=== PATIENT | male | born 1935 | race Caucasian/White ===

== ENCOUNTER → 2017-08-21 13:32 | Outpatient (CLI) | payer MEDICARE, OTHER, SELFPAY ==
[2017-08-21 14:04] LABS: INR 3.5 (0.9-1.3); Prothrombin Time 37.1 SECONDS (10.1-12.7)
== END ==
PROVIDERS: Family Provider Family Medicine; PCP Family Medicine; Visit Provider Family Medicine
DX: I48.91 Unspecified atrial fibrillation (principal)
CPT/HCPCS: 36415; 85610

== ENCOUNTER → 2017-09-23 12:29 | Outpatient (CLI) | payer MEDICARE, OTHER, SELFPAY ==
[2017-09-23 13:20] LABS: Prothrombin Time 32.7 SECONDS (10.1-12.7)
== END ==
PROVIDERS: Family Provider Family Medicine; PCP Family Medicine; Visit Provider Family Medicine
DX: I48.91 Unspecified atrial fibrillation (principal)
CPT/HCPCS: 36415; 85610

== ENCOUNTER → 2017-10-23 12:48 | Outpatient (CLI) | payer MEDICARE, OTHER, SELFPAY ==
[2017-10-23 13:16] LABS: INR 3.5 (0.9-1.3); Prothrombin Time 39.2 SECONDS (10.1-12.7)
== END ==
PROVIDERS: Family Provider Family Medicine; PCP Family Medicine; Visit Provider Family Medicine
DX: I48.91 Unspecified atrial fibrillation (principal)
CPT/HCPCS: 36415; 85610

== ENCOUNTER → 2017-11-26 09:08 | Outpatient (CLI) | payer MEDICARE, OTHER, SELFPAY ==
[2017-11-26 10:05] LABS: INR 3.2 (0.9-1.3); Prothrombin Time 35.3 SECONDS (10.1-12.7)
== END ==
PROVIDERS: PCP Family Medicine; Visit Provider Family Medicine
DX: I48.91 Unspecified atrial fibrillation (principal)
CPT/HCPCS: 36415; 85610

== ENCOUNTER → 2017-12-03 12:04 | Outpatient (CLI) | payer MEDICARE, OTHER, SELFPAY ==
[2017-12-03 12:35] LABS: INR 1.3 (0.9-1.3); Prothrombin Time 14.4 SECONDS (10.1-12.7)
== END ==
PROVIDERS: Family Provider Ophthalmology; PCP Family Medicine; Visit Provider Family Medicine
DX: I48.91 Unspecified atrial fibrillation (principal)
CPT/HCPCS: 36415; 85610

== ENCOUNTER → 2017-12-12 11:57 | Outpatient (CLI) | payer MEDICARE, OTHER, SELFPAY ==
[2017-12-12 12:48] LABS: INR 2.2 (0.9-1.3); Prothrombin Time 24.3 SECONDS (10.1-12.7)
== END ==
PROVIDERS: Family Provider Internal Medicine Cardiovascular Disease; PCP Family Medicine; Visit Provider Family Medicine
DX: I48.91 Unspecified atrial fibrillation (principal)
CPT/HCPCS: 36415; 85610

== ENCOUNTER → 2018-01-04 09:15 | Outpatient (CLI) | payer MEDICARE, OTHER, SELFPAY ==
[2018-01-04 09:57] LABS: Hematocrit 45.4 % (41-53); Hemoglobin 15.4 g/dL (13.5-17.5); Mean Corpuscular HGB Conc 33.8 % (30-36); Mean Corpuscular Volume 97.5 fL (80-100); Platelet Count 184 X10^3/uL (150-400); Red Blood Cell Count 4.66 X10^6/uL (4.5-5.9); Red Cell Distribution Width 13.4 % (11.6-14.8); White Blood Cell Count 5.7 X10^3/uL (4.5-11.0)
[2018-01-04 09:59] LABS: Alanine Aminotransferase 37 IU/L (21-72); Albumin 4.5 g/dL (3.5-5.0); Albumin Globulin Ratio 1.4 (1.0-2.8); Alkaline Phosphatase 68 U/L (38-126); Aspartate Aminotransferase 36 IU/L (17-59); BUN Creatinine Ratio 23.8 (6-22); Bilirubin Total 1.6 mg/dL (0.2-1.3); Blood Urea Nitrogen 19 mg/dL (9-20); Calcium 9.2 mg/dL (8.4-10.2); Carbon Dioxide 29 mmol/L (22-32); Chloride 104 mmol/L (98-107); Cholesterol 193 mg/dL (140-199); Estimated Glomerular Filt Rate > 60.0 mL/min (>60); Globulin 3.2 g/dL (1.7-4.1); Glucose 92 mg/dL (80-110); HDL Cholesterol 66 mg/dL (40-60); HEMOLYSIS < 15 (0-50); LDL Cholesterol Calculated 115 mg/dL (<100); Potassium 4.2 mmol/L (3.4-5.1); Sodium 144 mmol/L (137-145); Total Protein 7.7 g/dL (6.3-8.2); Triglycerides 61 mg/dL (35-150)
[2018-01-04 10:30] LABS: Thyroid Stimulating Hormone 1.58 uIU/mL (0.47-4.68)
== END ==
PROVIDERS: Family Provider Internal Medicine Cardiovascular Disease; PCP Family Medicine; Visit Provider Family Medicine
DX: I48.91 Unspecified atrial fibrillation (principal); E80.4 Gilbert syndrome
CPT/HCPCS: 36415; 80053; 80061; 84443; 85027

== ENCOUNTER → 2018-01-09 09:18 | Outpatient (CLI) | payer MEDICARE, OTHER, SELFPAY ==
[2018-01-09 10:48] LABS: INR 2.9 (0.9-1.3); Prothrombin Time 32.3 SECONDS (10.1-12.7)
== END ==
PROVIDERS: Family Provider Internal Medicine Cardiovascular Disease; PCP Family Medicine; Visit Provider Family Medicine
DX: I48.91 Unspecified atrial fibrillation (principal)
CPT/HCPCS: 36415; 85610

== ENCOUNTER 2018-01-21 09:04 | Day surgery (SDC) | payer MEDICARE, OTHER, SELFPAY ==
[2018-01-21 10:09] VITALS: BP 158/91; PULSE 60; RESP 16; TEMP 36; O2SAT 98; BMI 23.7
[2018-01-21] MEDS: PROPARACAINE 0.5% OPHTH SOL 2 DROPS EYE-OP (10:31)
[2018-01-21] MEDS: CATARACT EYE COMPOUND (10 DROPS/SYRINGE) 3 DROPS EYE-OP (10:32)
[2018-01-21 10:39] VITALS: BMI 23.7
--- NOTE | 2018-01-21 11:21 | PM.PREOP ---
Pre-operative Note Interval Note Changes: No
--- NOTE | 2018-01-21 11:22 | P.OP.PRE_ITS ---
Pre-operative Note Interval Note Changes: No
--- NOTE | 2018-01-21 11:22 | P.OP_ITS ---
Operative Date/Time/Diagnoses Pre-op diagnosis: Nuclear cataract right eye Procedure & Clinicians Procedure: Cataract Surgery Same procedure as scheduled: Yes Surgeon: Conrado Mayorga Anesthesia Type: MAC +/- and Sedation Operative Notes Procedure in detail: Patient brought to the operating suite. Tetracaine drops placed in the right eye. Patient was prepped and draped in sterile manner. Wire lid speculum was placed in the eye. Betadine drops were placed on the eye. This was irrigated. Lidocaine jelly was placed on the eye. A paracentesis port was created with a side-port blade. 0.1 mL 1% preservative free lidocaine was injected into the anterior chamber. The anterior chamber was deepened with viscoelastic. 2.6 mm keratome was used to create a temporal clear corneal incision. Cystotome and Utrata forceps were used to create continuous tear capsulorrhexis. Balanced salt solution was used to hydro dissect the nucleus. The phacoemulsification handpiece was inserted and the nucleus was removed using the stop and chop technique. The irrigation aspiration handpiece was inserted and the remaining cortex was removed. Anterior chamber was deepened with viscoelastic. An Hackett ZCB00 intraocular lens with a power of 22.5 was injected into the capsular bag. Irrigation aspiration handpiece was inserted and the remaining viscoelastic was removed. Incision was hydrated with balanced salt solution and found to be leak free with pressure with Weck- Monica sponges. 0.1 mL Vigamox injected anterior chamber. 0.3 mL Kenalog 10 mg was injected subconjunctivally. Lid speculum was removed. The patient left the operating room in excellent condition. Complications: none Condition: stable Disposition: same day surgery
--- NOTE | 2018-01-21 11:32 | SUR.OPER ---
Supine on eye stretcher, head on extension cradle secured with tape. Arms tucked at sides with blanket. Pillow under knees.
[2018-01-21] MEDS: LIDOCAINE JELLY 2% 5 ML 1 APPLIC TOP (11:34)
[2018-01-21] MEDS: CHONDROIDTIN/SOD HYALURONATE 1.05 ML SYRINGE INTRAOCULA (11:34)
[2018-01-21] MEDS: MOXIFLOXACIN OPHTH DROPS 3 ML BOTTLE 2 DROPS INJ (11:35)
[2018-01-21] MEDS: TETRACAINE 0.5% OPHTH DROPS 15 ML 2 DROPS EYE-RIGHT (11:35)
[2018-01-21] MEDS: PHENYLEPHRINE/LIDOCAINE VIAL (OR) 0.2 ML EYE-OP (11:35)
[2018-01-21] MEDS: TRIAMCINOLONE 50 MG/5 ML VIAL INJ (11:36)
[2018-01-21] MEDS: BALANCED SALT IRRIG SOLN NO.2 500 ML, EPINEPHrine 1 MG IRR (11:36)
[2018-01-21 11:50] VITALS: BP 139/76; PULSE 62; RESP 15; TEMP 36.2; O2SAT 62
[2018-01-21 12:19] VITALS: BP 151/83; PULSE 58; RESP 16; TEMP 36.6; O2SAT 99
== END 2018-01-21 12:19 ==
LOC: OR 09:05
PROVIDERS: Family Provider Internal Medicine Cardiovascular Disease; PCP Family Medicine; Visit Provider Ophthalmology
DX: H25.11 Age-related nuclear cataract, right eye (principal); I48.91 Unspecified atrial fibrillation
CPT/HCPCS: J0171; J2250; J3010; J3301

== ENCOUNTER → 2018-02-08 11:02 | Outpatient (CLI) | payer MEDICARE, OTHER, SELFPAY ==
[2018-02-08 12:06] LABS: INR 3.4 (0.9-1.3); Prothrombin Time 37.3 SECONDS (10.1-12.7)
== END ==
PROVIDERS: Family Provider Internal Medicine Cardiovascular Disease; PCP Family Medicine; Visit Provider Family Medicine
DX: I48.91 Unspecified atrial fibrillation (principal)
CPT/HCPCS: 36415; 85610

== ENCOUNTER → 2018-03-05 11:06 | Outpatient (CLI) | payer MEDICARE, OTHER, SELFPAY ==
[2018-03-05 11:38] LABS: INR 3.6 (0.9-1.3)
== END ==
PROVIDERS: Family Provider Internal Medicine Cardiovascular Disease; PCP Family Medicine; Visit Provider Family Medicine
DX: I48.91 Unspecified atrial fibrillation (principal)
CPT/HCPCS: 36415; 85610

== ENCOUNTER → 2018-03-20 14:13 | Outpatient (CLI) | payer MEDICARE, OTHER, SELFPAY ==
[2018-03-20 14:31] LABS: INR 2.6 (0.9-1.3)
== END ==
PROVIDERS: Family Provider Internal Medicine Cardiovascular Disease; PCP Family Medicine; Visit Provider Family Medicine
DX: I48.91 Unspecified atrial fibrillation (principal)
CPT/HCPCS: 36415; 85610

== ENCOUNTER → 2018-04-17 13:20 | Outpatient (CLI) | payer MEDICARE, OTHER, SELFPAY ==
[2018-04-17 14:54] LABS: INR 2.6 (0.9-1.3); Prothrombin Time 30.1 SECONDS (10.1-12.7)
== END ==
PROVIDERS: Family Provider Internal Medicine Cardiovascular Disease; PCP Family Medicine; Visit Provider Family Medicine
DX: I48.91 Unspecified atrial fibrillation (principal)
CPT/HCPCS: 36415; 85610

== ENCOUNTER → 2018-05-15 11:54 | Outpatient (CLI) | payer MEDICARE, OTHER, SELFPAY ==
[2018-05-15 13:26] LABS: INR 2.8 (0.9-1.3); Prothrombin Time 32.9 SECONDS (10.1-12.7)
== END ==
PROVIDERS: PCP Family Medicine; Visit Provider Family Medicine
DX: I48.91 Unspecified atrial fibrillation (principal)
CPT/HCPCS: 36415; 85610

== ENCOUNTER → 2018-06-12 12:39 | Outpatient (CLI) | payer MEDICARE, OTHER, SELFPAY ==
[2018-06-12 13:15] LABS: INR 2.6 (0.9-1.3); Prothrombin Time 30.6 SECONDS (10.1-12.7)
== END ==
PROVIDERS: PCP Family Medicine; Visit Provider Family Medicine
DX: I48.91 Unspecified atrial fibrillation (principal)
CPT/HCPCS: 36415; 85610

== ENCOUNTER → 2018-07-14 10:25 | Outpatient (CLI) | payer MEDICARE, OTHER, SELFPAY ==
[2018-07-14 11:02] LABS: INR 2.5 (0.9-1.3)
== END ==
PROVIDERS: PCP Family Medicine; Visit Provider Family Medicine
DX: I48.91 Unspecified atrial fibrillation (principal)
CPT/HCPCS: 36415; 85610

== ENCOUNTER → 2018-08-11 11:59 | Outpatient (CLI) | payer MEDICARE, OTHER, SELFPAY ==
[2018-08-11 13:03] LABS: INR 2.8 (0.9-1.3); Prothrombin Time 32.7 SECONDS (10.1-12.7)
== END ==
PROVIDERS: PCP Family Medicine; Visit Provider Family Medicine
DX: I48.91 Unspecified atrial fibrillation (principal)
CPT/HCPCS: 36415; 85610

== ENCOUNTER → 2018-09-09 11:17 | Outpatient (CLI) | payer MEDICARE, OTHER, SELFPAY ==
[2018-09-09 13:07] LABS: INR 2.5 (0.9-1.3)
== END ==
PROVIDERS: PCP Family Medicine; Visit Provider Family Medicine
DX: I48.91 Unspecified atrial fibrillation (principal)
CPT/HCPCS: 36415; 85610

== ENCOUNTER → 2018-10-09 12:08 | Outpatient (CLI) | payer MEDICARE, OTHER, SELFPAY ==
[2018-10-09 12:54] LABS: INR 2.4 (0.9-1.3); Prothrombin Time 27.9 SECONDS (10.1-12.7)
== END ==
PROVIDERS: PCP Family Medicine; Visit Provider Family Medicine
DX: I48.91 Unspecified atrial fibrillation (principal)
CPT/HCPCS: 36415; 85610

== ENCOUNTER → 2018-11-05 17:00 | Outpatient (CLI) | payer MEDICARE, OTHER, SELFPAY ==
--- NOTE | 2018-11-05 17:04 | DI.RAD.S_ITS ---
PROCEDURE: XR ANKLE RT MIN 3V INDICATIONS: RIGHT ANKLE PAIN WITH ULCER TECHNIQUE: 3 views of the ankle were acquired. COMPARISON: None. FINDINGS: Bones: No fractures or dislocations. Ankle mortise is normally aligned. Osteophytic changes are noted in tibiotalar joint, subtalar joint and talonavicular joint. No suspicious bony lesions. Soft tissues: No tibiotalar joint effusion. Achilles tendon appears normal. Soft tissue swelling around ankle joint is seen. IMPRESSION: Ankle joint osteoarthritis. No radiographic evidence of osteomyelitis. No fracture or dislocation. Ankle soft tissue swelling. Dictated by: Fabrice Gregory M.D. on 11/05/2018 at 17:16 Approved by: Fabrice Gregory M.D. on 11/05/2018 at 17:17
== END ==
PROVIDERS: PCP Family Medicine; Visit Provider Family Medicine
DX: M25.571 Pain in right ankle and joints of right foot (principal)
CPT/HCPCS: 73610

== ENCOUNTER 2018-11-09 10:27 | Emergency (ER) | payer MEDICARE, OTHER, SELFPAY ==
--- NOTE | 2018-11-09 10:35 | DI.RAD.S_ITS ---
PROCEDURE: XR CHEST 1V INDICATIONS: chest pain TECHNIQUE: One view of the chest was acquired. COMPARISON: [facility], CHEST 2 VIEW, 03/02/2008, 11:48. [facility], CHEST 1 VIEW, 07/19/2009, 14:49. FINDINGS: Surgical changes and devices: None. Lungs and pleura: Lungs are clear. No pleural effusions or pneumothorax. Mediastinum: The cardiac contours are at the upper limits of normal. The aorta demonstrates calcification and tortuosity. Bones and chest wall: No suspicious bony lesions. There is a remote, healed right distal clavicle fracture. Age-appropriate bony degenerative changes are seen. Overlying soft tissues appear unremarkable. IMPRESSION: No significant portable chest abnormality can be seen. As clinically appropriate, a short-term followup chest series (with PA and lateral views) performed in deep inspiration is suggested for further evaluation. Remote right distal clavicle fracture incidentally noted. Dictated by: Sal Kauffman M.D. on 11/09/2018 at 9:55 Approved by: Sal Kauffman M.D. on 11/09/2018 at 9:57
[2018-11-09 10:46] VITALS: BP 145/84; PULSE 82; RESP 18; TEMP 36.5; O2SAT 100; BMI 23.4
--- NOTE | 2018-11-09 10:54 | ED.GENADULT ---
HPI - General Adult General Chief complaint: Dizziness Stated complaint: Vertigo, Afib Time Seen by Provider: 11/09/18 10:44 Source: patient Mode of arrival: EMS Limitations: no limitations History of Present Illness HPI narrative: Patient is an 83-year-old male. Has a history of atrial fibrillation is currently on Coumadin. Here for evaluation of episode of vertigo that he had earlier today. He does have a prior history of vertigo. He states that this morning he was lying in bed and woke up and felt like the room was spinning. He denies any other associated symptoms. He stated that the symptoms did improve somewhat but then returned later on in the morning. He stated that that episode did improve and now he states he can reproduce the symptoms by looking up into the left. He denies any chest pain or palpitations or shortness of breath. No numbness or tingling in his arms or legs. No trauma. He did not fall and hit his head. The time my evaluation patient was not having any symptoms unless he turned his head to the left and looked up. Related Data Home Medications Medication Instructions Recorded Confirmed finasteride 5 mg PO QDAY #0 05/08/11 atenolol 75 mg PO DAILY 01/21/18 01/21/18 warfarin 6 mg PO DAILY 01/21/18 01/21/18 Previous Rx's Medication Instructions Recorded meclizine 25 mg PO BID-TID PRN #14 tab 11/09/18 Allergies Allergy/AdvReac Type Severity Reaction Status Date / Time No Known Drug Allergies Allergy Verified 01/21/18 09:13 Review of Systems Constitutional Constitutional: Denies chills, Denies fever(s) and Denies headache(s) Eyes Eyes: Denies blurry vision, Denies diplopia and Denies irritation ENT Ears, Nose, Mouth, and Throat: Reports vertigo, Reports dizziness, Denies facial pain, Denies headache(s), Denies hearing loss, Denies nasal congestion, Denies nasal discharge, Reports disequilibrium, Denies sinus pressure and Denies sore throat Cardiovascular Cardiovascular: Denies chest pain, Denies syncope, Denies palpitations and Denies dyspnea Respiratory Respiratory: Denies cough and Denies dyspnea Gastrointestinal Gastrointestinal: Denies abdominal pain, Denies nausea and Denies vomiting Genitourinary Genitourinary: Denies dysuria Musculoskeletal Musculoskeletal: Denies myalgias, Denies arthralgias, Denies numbness and Denies tingling Integumentary/Breasts Skin/Breast: Denies rash Neurologic Neurologic: Reports vertigo, Reports dizziness, Denies syncope, Denies headache(s), Denies focal weakness, Denies memory loss, Denies numbness, Denies convulsions, Denies sensory deficit, Denies tingling, Denies paresthesias, Denies tremor(s) and Reports disequilibrium Psychiatric Psychiatric: Denies memory loss Endocrine Endocrine: Denies palpitations Hematologic/Lymphatic Hematologic/Lymphatic: Denies easy bleeding and Denies easy bruising FOR[facility]LY [facility] Medical History Atrial fibrillation (Inactive) Social History household members: spouse Smoking Status: Former smoker Social History household members: spouse Smoking Status: Former smoker Exam Initial Vital Signs Initial Vital Signs: Vital Signs Temperature 97.7 F 11/09/18 10:46 Pulse Rate 82 11/09/18 10:46 Respiratory Rate 18 11/09/18 10:46 Blood Pressure 145/84 H 11/09/18 10:46 Pulse Oximetry 100 11/09/18 10:46 Const General: cooperative, healthy appearing, comfortable, well developed, well groomed and No acute distress Orientation: alert, awake and oriented x3 HENMT Head: normal to inspection and normocephalic Ears: TM's normal bilaterally Nose: external nose normal Face and sinus: normal facial exam Eyes Pupils: PERRL EOM: EOM intact bilaterally Resp Effort & Inspection: normal respiratory effort Auscultation: clear to auscultation bilaterally Cardio Rate: regular rate Rhythm: regular rhythm Pulses: radial pulses present GI Inspection: non-distended Palpation: soft, No firm and No tender Skin Lesions: no lesions Rashes: no rashes Neuro General: alert, awake and oriented x3 Cranial Nerves: CN's II-XI intact bilaterally Cognition: normal cognition Speech: speech normal Motor: muscle tone normal throughout Sensory Exam: no sensory deficits noted Other: Positive Shelby-Hallpike to the left Extrem General: normal to inspection and capillary refill normal Psych Appearance: grossly normal and well kempt Scores GCS Chiara coma scale eye opening: Spontaneous Chiara coma scale verbal response: Orientated [place] coma scale motor response: Obey commands Chiara coma scale total score: 15 Course Orders Ordered: ED Orders 11/09/18 10:35 XR chest 1V Stat EKG-12 Lead Stat 11/09/18 10:56 CT head/brain wo con Stat 11/09/18 11:09 Complete Blood Count AUTO DIFF Stat Comprehensive Metabolic Panel Stat Lipase Stat Partial Thromboplastin Time Stat Prothrombin Time INR Stat Troponin & CK Cardiac Panel Stat Vital Signs Vital signs: Vital Signs - 8 hr 11/09/18 12:20 11/09/18 12:31 11/09/18 13:20 Pulse Rate 69 90 78 Respiratory Rate 15 16 16 Blood Pressure 129/70 Blood Pressure [Right Arm] 129/62 132/70 Pulse Oximetry 99 95 98 Medical Decision Making Lab Data Lab results reviewed: Yes I reviewed the patient's lab results. Result diagrams: 11/09/18 11:09 11/09/18 11:09 Labs: Lab Results 11/09/18 11/09/18 11/09/18 Range/Units 11:09 11:09 11:09 WBC 5.6 (4.5-11.0) X10^3/uL RBC 4.40 L (4.5-5.9) X10^6/uL Hgb 14.6 (13.5-17.5) g/dL Hct 42.7 (41-53) % MCV 97.1 (80-100) fL MCH 33.1 (26-34) PG MCHC 34.1 (30-36) % RDW 13.1 (11.6-14.8) % Plt Count 179 (150-400) X10^3/uL Neut % (Auto) 66.0 (50-75) % Lymph % (Auto) 21.4 L (25-40) % Maury % (Auto) 10.6 (3-14) % Eos % (Auto) 1.2 L (2-4) % Baso % (Auto) 0.8 (0-2) % Neut # (Auto) 3700 (0450-6717) /uL Lymph # (Auto) 1200 (4921-1593) /uL Maury # (Auto) 600 (0-900) /uL Eos # (Auto) 100 (0-450) /uL Baso # (Auto) 0 (0-100) /uL PT 40.6 H (10.1-12.7) SECONDS INR 3.4 H (0.9-1.3) APTT 46 H (26.4-36.2) SECONDS Sodium 138 (137-145) mmol/L Potassium 4.5 (3.4-5.1) mmol/L Chloride 101 (98-107) mmol/L Carbon Dioxide 27 (22-32) mmol/L BUN 20 (9-20) mg/dL Creatinine 0.90 (0.66-1.25) mg/dL Estimated GFR > 60.0 (>60) mL/min BUN/Creatinine Ratio 22.2 H (6-22) Glucose 150 H (80-110) mg/dL Calcium 9.2 (8.4-10.2) mg/dL Total Bilirubin 1.1 (0.2-1.3) mg/dL AST 35 (17-59) IU/L ALT 30 (21-72) IU/L Alkaline Phosphatase 71 (38-126) U/L Total Creatine Kinase 70 (55-170) U/L CK-MB (CK-2) TNP CK-MB (CK-2) Rel Index TNP Troponin I < 0.012 (0.01-0.034) ng/mL Total Protein 7.2 (6.3-8.2) g/dL Albumin 4.2 (3.5-5.0) g/dL Globulin 3.0 (1.7-4.1) g/dL Albumin/Globulin Ratio 1.4 (1.0-2.8) Lipase 76 (23-300) U/L Imaging Data CT scan - head: Radiologist's impression: [place] [address] CT Scan Report Signed Patient: Eric Salgado EMR#: [id number] : 8Acct:[id number] Age/Sex: 83 / MDate of Service: 11/09/18 Loc: ED Accession Number: [id number] Procedure: CT head/brain wo con Ordering Provider: Thony Meza D.O. PROCEDURE: CT HEAD/BRAIN WO CON INDICATIONS: Vertigo on Coumadin eval for bleed TECHNIQUE: Noncontrast 4.5 mm thick angled axial sections acquired from the foramen magnum to the vertex, with coronal and sagittal reformats. For radiation dose reduction, the following was used: automated exposure control, adjustment of mA and/or kV according to patient size. COMPARISON: None. FINDINGS: Image quality: Excellent. CSF spaces: Basal cisterns are patent. No extra-axial fluid collections. The ventricles are symmetric in size and shape. Brain: No intracranial bleeds or masses. There is cerebral volume loss for age, with resultant ventricular and sulcal prominence. There are periventricular and deep white matter chronic small vessel ischemic changes. There is intracranial internal carotid artery atherosclerosis. Skull and face: Calvarium and visualized facial bones appear intact, without suspicious lesions. Sinuses: Visualized sinuses and mastoids are clear. IMPRESSION: 1. No acute intracranial process. 2. Moderate atrophy and chronic microvascular ischemic changes. Dictated by: Stephanie Espinal M.D. on 11/09/2018 at 12:03 Approved by: Stephanie Espinal M.D. on 11/09/2018 at 12:05 ECG Data Attestation: I personally reviewed and interpreted this ECG as follows: Prior ECG tracings: not available for review Interpretation: Atrial fibrillation Ventricular rate 82 Normal axis Normal QRS Normal QTC No ST T wave changes MDM Narrative Medical decision making narrative: Patient asymptomatic here in the emergency department unless he turns his head to the left looks up. His head CT was unremarkable. He has a normal neurologic exam otherwise. Suspect that his symptoms are of peripheral vertigo given the fact that they are reproducible with looking to the left and also the fact that they occurred while he was sleeping. Low suspicion for CVA, low suspicion for TIA. No signs intracranial hemorrhage. Will send home with meclizine. He will continue his Coumadin. He was given return precautions and follow-up instructions. He expressed understanding and agreement plan. Discharge Plan Departure Patient Disposition: Home Clinical Impression: Vertigo Discharge Date/Time: 11/09/18 13:21 Instructions: DI for Vertigo Activity Restrictions/Additional Instructions: Recommend you do a half a dose of your Coumadin this evening and also tomorrow evening. On Saturday contact your primary provider for further instructions like we discussed. Take the new prescription as directed. Return to the emergency department for any new or worsening symptoms Prescriptions: New meclizine 25 mg tablet 25 mg PO BID-TID PRN (Reason: motion sickness) Qty: 14 RF: 0 No Action finasteride 5 MG tablet 5 mg PO QDAY Qty: 0 RF: 0 warfarin 6 mg Tablet 6 mg PO DAILY RF: 0 atenolol 25 mg Tablet 75 mg PO DAILY RF: 0 Referrals: Jayden Barahona MD [Primary Care Provider] -
[2018-11-09 11:22] LABS: Add Manual Diff / Slide Review NO; Basophils Absolute Auto 0 /uL (0-100); Basophils Percent Auto 0.8 % (0-2); Eosinophils Absolute Auto 100 /uL (0-450); Eosinophils Percent Auto 1.2 % (2-4); Hematocrit 42.7 % (41-53); Hemoglobin 14.6 g/dL (13.5-17.5); Lymphocytes Absolute Auto 1200 /uL (1100-4500); Lymphocytes Percent Auto 21.4 % (25-40); Mean Corpuscular HGB Conc 34.1 % (30-36); Mean Corpuscular Hemoglobin 33.1 PG (26-34); Mean Corpuscular Volume 97.1 fL (80-100); Monocytes Absolute Auto 600 /uL (0-900); Monocytes Percent Auto 10.6 % (3-14); Neutrophils Absolute Auto 3700 /uL (1500-7000); Platelet Count 179 X10^3/uL (150-400); Red Cell Distribution Width 13.1 % (11.6-14.8); White Blood Cell Count 5.6 X10^3/uL (4.5-11.0)
[2018-11-09 11:27] LABS: INR 3.4 (0.9-1.3); Prothrombin Time 40.6 SECONDS (10.1-12.7)
[2018-11-09 11:30] LABS: PTT Partial Thromboplastin Tim 46 SECONDS (26.4-36.2)
[2018-11-09 11:31] LABS: Alanine Aminotransferase 30 IU/L (21-72); Albumin 4.2 g/dL (3.5-5.0); Albumin Globulin Ratio 1.4 (1.0-2.8); Alkaline Phosphatase 71 U/L (38-126); Aspartate Aminotransferase 35 IU/L (17-59); BUN Creatinine Ratio 22.2 (6-22); Bilirubin Total 1.1 mg/dL (0.2-1.3); Blood Urea Nitrogen 20 mg/dL (9-20); Calcium 9.2 mg/dL (8.4-10.2); Carbon Dioxide 27 mmol/L (22-32); Chloride 101 mmol/L (98-107); Creatine Kinase 70 U/L (55-170); Estimated Glomerular Filt Rate > 60.0 mL/min (>60); Glucose 150 mg/dL (80-110); HEMOLYSIS < 15 (0-50); Lipase 76 U/L (23-300); Potassium 4.5 mmol/L (3.4-5.1); Sodium 138 mmol/L (137-145); Total Protein 7.2 g/dL (6.3-8.2)
[2018-11-09 11:43] LABS: Troponin I < 0.012 ng/mL (0.01-0.034)
[2018-11-09 12:20] VITALS: BP 129/62; PULSE 69; RESP 15; O2SAT 99
[2018-11-09 12:31] VITALS: BP 132/70; PULSE 90; RESP 16; O2SAT 95
[2018-11-09 13:20] VITALS: BP 129/70; PULSE 78; RESP 16; O2SAT 98
== END 2018-11-09 13:21 | disposition home or self-care (01) ==
PROVIDERS: Emergency Provider Emergency Medicine; PCP Family Medicine
DX: R42 Dizziness and giddiness (principal)
CPT/HCPCS: 36415; 70450; 71045; 80053; 82550; 83690; 84484; 85025; 85610; 85730; 93005; 99283; 99285

== ENCOUNTER → 2018-11-11 12:14 | Outpatient (CLI) | payer MEDICARE, OTHER, SELFPAY ==
[2018-11-11 12:58] LABS: INR 2.4 (0.9-1.3); Prothrombin Time 28.5 SECONDS (10.1-12.7)
== END ==
PROVIDERS: PCP Family Medicine; Visit Provider Family Medicine
DX: I48.91 Unspecified atrial fibrillation (principal)
CPT/HCPCS: 36415; 85610

== ENCOUNTER → 2018-11-17 10:39 | Outpatient (CLI) | payer MEDICARE, OTHER, SELFPAY ==
[2018-11-17 11:04] LABS: INR 1.8 (0.9-1.3); Prothrombin Time 20.5 SECONDS (10.1-12.7)
== END ==
PROVIDERS: PCP Family Medicine; Visit Provider Family Medicine
DX: I48.91 Unspecified atrial fibrillation (principal)
CPT/HCPCS: 36415; 85610

== ENCOUNTER → 2018-11-20 12:52 | Outpatient (CLI) | payer MEDICARE, OTHER, SELFPAY ==
--- NOTE | 2018-11-20 | DI.US.S_ITS ---
PROCEDURE: US ARTERIAL DUPLEX LE RT INDICATIONS: CELLULITIS OF RIGHT LOWER LIMB TECHNIQUE: Color and pulse Doppler interrogation was performed of the right lower extremity arterial system, with image documentation. COMPARISON: [facility], , ARTERIAL LOW.EXTREM.BILATERAL, 02/05/2017, 11:00. FINDINGS: Common femoral artery: 83 cm/sec, with triphasic flow. Deep femoral artery: 71 cm/sec, with triphasic flow. Proximal superficial femoral artery: 92 cm/sec, with triphasic flow. Mid superficial femoral artery: 69 cm/sec, with triphasic flow. Distal superficial femoral artery: 131 cm/sec, with triphasic flow. Popliteal artery: 116 cm/sec, with triphasic flow. Posterior tibial artery: 115 cm/sec, with triphasic flow. 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 Dictated by: Tom Orellana M.D. on 11/20/2018 at 17:34 Approved by: Tom Orellana M.D. on 11/20/2018 at 17:38
== END ==
PROVIDERS: PCP Family Medicine; Visit Provider Family Medicine
DX: L03.115 Cellulitis of right lower limb (principal); I70.201 Unspecified atherosclerosis of native arteries of extremities, right leg
CPT/HCPCS: 93926

== ENCOUNTER → 2018-11-26 09:31 | Outpatient (CLI) | payer MEDICARE, OTHER, SELFPAY ==
[2018-11-26 11:05] LABS: INR 4.2 (0.9-1.3); Prothrombin Time 49.3 SECONDS (10.1-12.7)
== END ==
PROVIDERS: PCP Family Medicine; Visit Provider Family Medicine
DX: I48.91 Unspecified atrial fibrillation (principal)
CPT/HCPCS: 36415; 85610

== ENCOUNTER → 2018-11-28 09:50 | Outpatient (CLI) | payer MEDICARE, OTHER, SELFPAY ==
[2018-11-28 10:29] LABS: INR 2.1 (0.9-1.3); Prothrombin Time 23.9 SECONDS (10.1-12.7)
== END ==
PROVIDERS: PCP Family Medicine; Visit Provider Family Medicine
DX: I48.91 Unspecified atrial fibrillation (principal)
CPT/HCPCS: 36415; 85610

== ENCOUNTER → 2018-12-01 13:28 | Outpatient (CLI) | payer MEDICARE, OTHER, SELFPAY | PROVIDERS: PCP Family Medicine; Visit Provider Family Medicine | DX: I87.2 Venous insufficiency (chronic) (peripheral) (principal); L97.311 Non-pressure chronic ulcer of right ankle limited to breakdown of skin | CPT/HCPCS: 97597; 99203; 99213 ==

== ENCOUNTER → 2018-12-05 12:04 | Outpatient (CLI) | payer MEDICARE, OTHER, SELFPAY ==
[2018-12-05 12:42] LABS: INR 2.2 (0.9-1.3); Prothrombin Time 25.6 SECONDS (10.1-12.7)
== END ==
PROVIDERS: Family Provider Internal Medicine Cardiovascular Disease; PCP Family Medicine; Visit Provider Family Medicine
DX: I48.91 Unspecified atrial fibrillation (principal)
CPT/HCPCS: 36415; 85610

== ENCOUNTER → 2018-12-08 12:59 | Outpatient (CLI) | payer MEDICARE, OTHER, SELFPAY | PROVIDERS: Family Provider Internal Medicine Cardiovascular Disease; PCP Family Medicine; Visit Provider Podiatrist Primary Podiatric Medicine | DX: I87.2 Venous insufficiency (chronic) (peripheral) (principal); L97.319 Non-pressure chronic ulcer of right ankle with unspecified severity; R60.0 Localized edema | CPT/HCPCS: 97597 ==

== ENCOUNTER → 2018-12-12 11:11 | Outpatient (CLI) | payer MEDICARE, OTHER, SELFPAY ==
[2018-12-12 12:25] LABS: INR 1.8 (0.9-1.3); Prothrombin Time 21.1 SECONDS (10.1-12.7)
== END ==
PROVIDERS: PCP Family Medicine; Visit Provider Family Medicine
DX: I48.91 Unspecified atrial fibrillation (principal)
CPT/HCPCS: 36415; 85610

== ENCOUNTER → 2018-12-15 13:25 | Outpatient (CLI) | payer MEDICARE, OTHER, SELFPAY | PROVIDERS: PCP Family Medicine; Visit Provider Podiatrist Primary Podiatric Medicine | DX: I87.2 Venous insufficiency (chronic) (peripheral) (principal); L97.311 Non-pressure chronic ulcer of right ankle limited to breakdown of skin; R60.0 Localized edema | CPT/HCPCS: 97597 ==

== ENCOUNTER → 2018-12-17 10:55 | Outpatient (CLI) | payer MEDICARE, OTHER, SELFPAY | PROVIDERS: PCP Family Medicine; Visit Provider Family Medicine | DX: I87.2 Venous insufficiency (chronic) (peripheral) (principal); L97.819 Non-pressure chronic ulcer of other part of right lower leg with unspecified severity; R60.0 Localized edema | CPT/HCPCS: 29581 ==

== ENCOUNTER → 2018-12-22 08:46 | Outpatient (CLI) | payer MEDICARE, OTHER, SELFPAY | PROVIDERS: PCP Family Medicine; Visit Provider Podiatrist Primary Podiatric Medicine | DX: I87.2 Venous insufficiency (chronic) (peripheral) (principal); L97.811 Non-pressure chronic ulcer of other part of right lower leg limited to breakdown of skin | CPT/HCPCS: 97597 ==

== ENCOUNTER → 2018-12-26 11:18 | Outpatient (CLI) | payer MEDICARE, OTHER, SELFPAY ==
[2018-12-26 12:27] LABS: INR 2.7 (0.9-1.3)
== END ==
PROVIDERS: PCP Family Medicine; Visit Provider Family Medicine
DX: I48.91 Unspecified atrial fibrillation (principal)
CPT/HCPCS: 36415; 85610

== ENCOUNTER → 2018-12-29 14:44 | Outpatient (CLI) | payer MEDICARE, OTHER, SELFPAY | PROVIDERS: PCP Family Medicine; Visit Provider Podiatrist Primary Podiatric Medicine | DX: I87.2 Venous insufficiency (chronic) (peripheral) (principal); L97.318 Non-pressure chronic ulcer of right ankle with other specified severity | CPT/HCPCS: 15271; Q4196 ==

== ENCOUNTER → 2019-01-05 13:34 | Outpatient (CLI) | payer MEDICARE, OTHER, SELFPAY | PROVIDERS: PCP Family Medicine; Visit Provider Family Medicine | DX: L97.312 Non-pressure chronic ulcer of right ankle with fat layer exposed (principal); I87.2 Venous insufficiency (chronic) (peripheral) | CPT/HCPCS: 97597 ==

== ENCOUNTER → 2019-01-09 09:22 | Outpatient (CLI) | payer MEDICARE, OTHER, SELFPAY ==
[2019-01-09 10:42] LABS: INR 2.2 (0.9-1.3); Prothrombin Time 26.2 SECONDS (10.1-12.7)
== END ==
PROVIDERS: PCP Family Medicine; Visit Provider Family Medicine
DX: I48.91 Unspecified atrial fibrillation (principal)
CPT/HCPCS: 36415; 85610

== ENCOUNTER → 2019-01-12 13:59 | Outpatient (CLI) | payer MEDICARE, OTHER, SELFPAY | PROVIDERS: PCP Family Medicine; Visit Provider Podiatrist Primary Podiatric Medicine | DX: I87.2 Venous insufficiency (chronic) (peripheral) (principal); L97.819 Non-pressure chronic ulcer of other part of right lower leg with unspecified severity | CPT/HCPCS: 97597 ==

== ENCOUNTER → 2019-01-19 14:39 | Outpatient (CLI) | payer MEDICARE, OTHER, SELFPAY | PROVIDERS: PCP Family Medicine; Visit Provider Family Medicine | DX: I87.2 Venous insufficiency (chronic) (peripheral) (principal); L97.311 Non-pressure chronic ulcer of right ankle limited to breakdown of skin | CPT/HCPCS: 97597; 99213 ==

== ENCOUNTER → 2019-01-26 08:54 | Outpatient (CLI) | payer MEDICARE, OTHER, SELFPAY | PROVIDERS: PCP Family Medicine; Visit Provider Family Medicine | DX: I87.2 Venous insufficiency (chronic) (peripheral) (principal); L97.319 Non-pressure chronic ulcer of right ankle with unspecified severity; R60.0 Localized edema | CPT/HCPCS: 97597 ==

== ENCOUNTER → 2019-02-06 07:02 | Outpatient (CLI) | payer MEDICARE, OTHER, SELFPAY ==
--- NOTE | 2019-02-06 | DI.MRI.S_ITS ---
PROCEDURE: MR RUN OFF 3 STAGES ABD START INDICATIONS: HYPERTENTION TECHNIQUE: Precontrast axial and coronal TruFISP acquired through the abdomen and pelvis. Multi-station dynamic coronal MRA using Care Bolus timing from the kidneys to the ankles during the administration of contrast, with 3-dimensional maximum intensity projection (MIP) reformats constructed. COMPARISON: None. FINDINGS: Image quality: Excellent. ABDOMEN: Aorta: Aorta is normal in caliber and is patent. Renal arteries: Renal arteries are poorly visualized, secondary to bolus timing. The aorta is only well opacified just inferior to the origins of the renal arteries. Extravascular soft tissues: Visualized solid organs are normal in size on limited pre-contrast images. Bowel loops are normal in caliber. No free fluid. No retroperitoneal or mesenteric adenopathy by size criteria. No ventral hernias. Bones: Marrow demonstrates normal overall signal. PELVIS AND BILATERAL LOWER EXTREMITIES: Right sided vessels: Common iliac, external iliac, common femoral, profunda, SFA, and popliteal arteries are widely patent. Proximal anterior tibial artery stenosis. Peroneal artery and posterior tibial artery are widely patent. Posterior tibial artery is the dominant vessel supplying the foot. Left sided vessels: idely patent. Proximal anterior tibial artery stenosis. Peroneal artery and posterior tibial artery are widely patent. Posterior tibial artery is the dominant vessel supplying the foot. IMPRESSION: 1. Bilateral proximal anterior tibial artery stenoses. 2. Otherwise unremarkable MR angiography of the aorta and pelvis and bilateral lower extremity runoff vessels. 3 vessel runoff bilaterally. 3. Renal arteries suboptimally evaluated secondary to bolus timing. Comment: If there is concern for renal artery stenosis, consider MRA abdomen versus CTA abdomen. Dictated by: Ralph Byrd M.D. on 02/06/2019 at 9:30 Approved by: Ralph Byrd M.D. on 02/06/2019 at 9:35
--- NOTE | 2019-02-06 | DI.MRI.S_ITS ---
PROCEDURE: MR ANKLE RT WO/W CON INDICATIONS: Chronic venous hypertension (idiopathic) with ulce TECHNIQUE: Noncontrast sagittal T1 spin echo and T2 fast spin echo with fat saturation, axial proton density fast spin echo and T2 fast spin echo with fat saturation, axial T1 spin echo with fat saturation, coronal T1 spin echo and T2 fast spin echo with fat saturation through the ankle/hindfoot. Post-contrast axial, coronal, and sagittal T1 spin echo with fat saturation through the ankle/hindfoot. COMPARISON: [facility], US, US ARTERIAL DUPLEX LE RT, 11/20/2018, 13:35. [facility], MR, MR RUN OFF 3 STAGES ABD START, 02/06/2019, 8:33. [facility], CR, XR ANKLE RT MIN 3V, 11/05/2018, 17:02. FINDINGS: Image quality: Excellent. Bones and joints: No suspicious osseous enhancement, but there is metal artifact within the distal fibula and also the medial malleolus, presumably a sequela of prior orthopedic fracture fixation at each of those sites. On the axial imaging the soft tissue defect reported as representing a dehiscence of a prior postoperative scar, long-standing, can be seen. This is well visualized on series 3 image 12, series 4 image 8, and series 5 image 11. The contrast enhanced imaging shows a focal marrow space rounded rim-enhancing structure but superimposed upon by metal artifact. This measures up to 1 cm diameter. No acute appearing bone marrow contusions or fractures there is posttraumatic degenerative osteophytic change at the tibiotalar joint there is mild and a small osteochondral injury that appears likely chronic is seen at the medial border of the tibio talar joint, at the talus. This measures only 7 x 8 mm in diameter and does not appear associated with a loose body.. No hindfoot coalitions. No osteochondral injuries of the talar dome. No pathologic joint effusions. Medial structures: The posterior tibialis, flexor digitorum longus, and flexor hallucis longus tendons are intact. The posterior tibial neurovascular bundle appears normal within the tarsal tunnel, without extrinsic mass effect. The deep layer (anterior and posterior tibiotalar ligaments) and superficial layer (tibionavicular, tibiospring, and tibiocalcaneal ligaments) of the deltoid ligament appear normal. The spring ligament components (superomedial calcaneonavicular, medioplantar oblique calcaneonavicular, and inferoplantar longitudinal ligaments) are intact. Lateral structures: The anterior talofibular, calcaneofibular, and posterior talofibular ligaments appear intact. More superiorly, the anterior and posterior tibiofibular ligaments appear intact, as is the intermalleolar ligament. The tibiofibular syndesmosis is normal in width at 2 mm or less. The peroneus longus and brevis tendons demonstrate normal location and morphology. Adjacent bony peroneal tubercle and retrotrochlear prominence are normal in size. The sinus tarsi demonstrates normal fatty signal, without edema, fibrosis, or cyst formation. Visualized sinus tarsi components (cervical ligament, interosseous talocalcaneal ligament, roots of the inferior extensor retinaculum) appear normal. The calcaneonavicular and calcaneocuboid components of the bifurcate ligament appear intact. The dorsal calcaneocuboid ligament appears intact. Anterior structures: The tibialis anterior, extensor hallucis longus, and extensor digitorum longus tendons appear intact. The dorsal talonavicular ligament appears intact. Posterior and plantar structures: Achilles tendon is intact. Medial and lateral bands of the plantar fascia are of normal thickness. No abductor digiti quinti muscle atrophy to suggest Duff neuropathy. IMPRESSION: Post traumatic change as discussed, including metal artifact indicating prior removed fixation devices in this patient with prior severe ankle fracture. The postsurgical change at the medial malleolus appears chronic. At the lateral malleolus there is a dehiscence of the postoperative scar immediately over the area of current clinical concern. No definite osteomyelitis is found, but metal artifact does degrade quality of visualization exactly in the area of greatest concern. For this reason followup by 3 phase bone scan likely is warranted with targeted attention to that area of the lateral malleolus. Dictated by: Donald Jiang M.D. on 02/06/2019 at 17:16 Approved by: Donald Jiang M.D. on 02/06/2019 at 17:25
== END ==
PROVIDERS: PCP Family Medicine; Visit Provider Family Medicine
DX: I87.311 Chronic venous hypertension (idiopathic) with ulcer of right lower extremity (principal); L97.312 Non-pressure chronic ulcer of right ankle with fat layer exposed; I70.203 Unspecified atherosclerosis of native arteries of extremities, bilateral legs; I48.91 Unspecified atrial fibrillation; Z87.81 Personal history of (healed) traumatic fracture
CPT/HCPCS: 36415; 73723; 85610; C8902; C8912; C8918; A9579

== ENCOUNTER → 2019-02-06 07:04 | Outpatient (CLI) | payer MEDICARE, OTHER, SELFPAY ==
[2019-02-06 08:52] LABS: INR 2.6 (0.9-1.3); Prothrombin Time 30.9 SECONDS (10.1-12.7)
== END ==
PROVIDERS: PCP Family Medicine; Visit Provider Family Medicine
DX: I48.91 Unspecified atrial fibrillation (principal)
CPT/HCPCS: 36415; 85610

== ENCOUNTER → 2019-02-09 09:40 | Outpatient (CLI) | payer MEDICARE, OTHER, SELFPAY | PROVIDERS: PCP Family Medicine; Visit Provider Family Medicine | DX: I87.2 Venous insufficiency (chronic) (peripheral) (principal); I70.291 Other atherosclerosis of native arteries of extremities, right leg; L97.311 Non-pressure chronic ulcer of right ankle limited to breakdown of skin; R60.0 Localized edema | CPT/HCPCS: 99213; 99214 ==

== ENCOUNTER → 2019-02-19 11:51 | Outpatient (CLI) | payer MEDICARE, OTHER, SELFPAY ==
[2019-02-19 13:57] LABS: Prostate Specific Antigen Scrn 1.12 ng/mL (0.1-4.0)
== END ==
PROVIDERS: PCP Family Medicine; Visit Provider Family Medicine
DX: Z12.5 Encounter for screening for malignant neoplasm of prostate (principal)
CPT/HCPCS: 36415; G0103

== ENCOUNTER → 2019-03-05 12:03 | Outpatient (CLI) | payer MEDICARE, OTHER, SELFPAY ==
[2019-03-05 13:04] LABS: Prothrombin Time 35.2 SECONDS (10.1-12.7)
== END ==
PROVIDERS: Family Provider Internal Medicine Cardiovascular Disease; PCP Family Medicine; Visit Provider Family Medicine
DX: I48.91 Unspecified atrial fibrillation (principal)
CPT/HCPCS: 36415; 85610

== ENCOUNTER → 2019-03-27 13:33 | Outpatient (CLI) | payer MEDICARE, OTHER, SELFPAY | PROVIDERS: PCP Family Medicine; Visit Provider Family Medicine | DX: M85.851 Other specified disorders of bone density and structure, right thigh (principal); M40.209 Unspecified kyphosis, site unspecified | CPT/HCPCS: 77080 ==

== ENCOUNTER → 2019-04-02 12:19 | Outpatient (CLI) | payer MEDICARE, OTHER, SELFPAY ==
[2019-04-02 13:25] LABS: Prothrombin Time 23.6 SECONDS (10.1-12.7)
== END ==
PROVIDERS: PCP Family Medicine; Visit Provider Family Medicine
DX: I48.91 Unspecified atrial fibrillation (principal)
CPT/HCPCS: 36415; 85610

== ENCOUNTER → 2019-05-01 12:09 | Outpatient (CLI) | payer MEDICARE, OTHER, SELFPAY ==
[2019-05-01 13:03] LABS: INR 3.1 (0.9-1.3); Prothrombin Time 35.6 SECONDS (10.1-12.7)
== END ==
PROVIDERS: PCP Family Medicine; Referring Provider Family Medicine; Visit Provider Family Medicine
DX: I48.91 Unspecified atrial fibrillation (principal)
CPT/HCPCS: 36415; 85610

== ENCOUNTER → 2019-05-14 10:45 | Outpatient (CLI) | payer MEDICARE, OTHER, SELFPAY ==
[2019-05-14 11:58] LABS: INR 2.6 (0.9-1.3); Prothrombin Time 29.9 SECONDS (10.1-12.7)
== END ==
PROVIDERS: PCP Family Medicine; Referring Provider Family Medicine; Visit Provider Family Medicine
DX: I48.91 Unspecified atrial fibrillation (principal)
CPT/HCPCS: 36415; 85610

== ENCOUNTER → 2019-05-18 12:20 | Outpatient (CLI) | payer MEDICARE, OTHER, SELFPAY ==
--- NOTE | 2019-05-18 12:26 | DI.RAD.S_ITS ---
PROCEDURE: XR HIP W PEL IF DONE RT 2V INDICATIONS: RIGHT HIP PAIN TECHNIQUE: 2 views of the hip were acquired. COMPARISON: [facility], , HIP 2V LEFT, 11/04/2008, 14:01. FINDINGS: Bones: No fractures or dislocations. No suspicious bony lesions. The visualized pelvic ring appears intact. Mild to moderate right hip joint degeneration, with subchondral sclerosis and spurring. Soft tissues: No suspicious soft tissue calcifications or masses. Chondrocalcinosis noted. IMPRESSION: [id number] right hip joint degeneration Dictated by: Tom Orellana M.D. on 05/18/2019 at 17:16 Approved by: Tom Orellana M.D. on 05/18/2019 at 17:17
== END ==
PROVIDERS: PCP Family Medicine; Referring Provider Family Medicine; Visit Provider Family Medicine
DX: M25.551 Pain in right hip (principal); M16.11 Unilateral primary osteoarthritis, right hip
CPT/HCPCS: 73502

== ENCOUNTER → 2019-06-11 12:26 | Outpatient (CLI) | payer MEDICARE, OTHER, SELFPAY ==
[2019-06-11 15:06] LABS: INR 2.3 (0.9-1.3); Prothrombin Time 25.8 SECONDS (10.1-12.7)
== END ==
PROVIDERS: PCP Family Medicine; Referring Provider Family Medicine; Visit Provider Family Medicine
DX: I48.91 Unspecified atrial fibrillation (principal)
CPT/HCPCS: 36415; 85610

== ENCOUNTER → 2019-07-10 12:13 | Outpatient (CLI) | payer MEDICARE, OTHER, SELFPAY ==
[2019-07-10 13:26] LABS: INR 2.9 (0.9-1.3); Prothrombin Time 32.4 SECONDS (10.1-12.7)
== END ==
PROVIDERS: PCP Family Medicine; Referring Provider Family Medicine; Visit Provider Family Medicine
DX: I48.91 Unspecified atrial fibrillation (principal)
CPT/HCPCS: 36415; 85610

== ENCOUNTER → 2019-07-24 11:17 | Outpatient (CLI) | payer MEDICARE, OTHER, SELFPAY ==
[2019-07-24 12:00] LABS: INR 2.5 (0.9-1.3); Prothrombin Time 28.1 SECONDS (10.1-12.7)
== END ==
PROVIDERS: PCP Family Medicine; Referring Provider Family Medicine; Visit Provider Family Medicine
DX: I48.91 Unspecified atrial fibrillation (principal)
CPT/HCPCS: 36415; 85610

== ENCOUNTER → 2019-08-07 08:13 | Outpatient (CLI) | payer MEDICARE, OTHER, SELFPAY ==
[2019-08-07 08:50] LABS: INR 2.9 (0.9-1.3); Prothrombin Time 32.5 SECONDS (10.1-12.7)
== END ==
PROVIDERS: PCP Family Medicine; Referring Provider Family Medicine; Visit Provider Family Medicine
DX: I48.91 Unspecified atrial fibrillation (principal)
CPT/HCPCS: 36415; 85610

== ENCOUNTER → 2019-08-21 11:39 | Outpatient (CLI) | payer MEDICARE, OTHER, SELFPAY ==
[2019-08-21 12:37] LABS: INR 2.3 (0.9-1.3); Prothrombin Time 26.6 SECONDS (10.1-12.7)
== END ==
PROVIDERS: PCP Family Medicine; Referring Provider Family Medicine; Visit Provider Family Medicine
DX: I48.91 Unspecified atrial fibrillation (principal)
CPT/HCPCS: 36415; 85610

== ENCOUNTER 2019-08-25 12:00 | Outpatient (RCR) | payer MEDICARE, OTHER, SELFPAY ==
--- NOTE | 2019-08-12 11:15 | PT.OIE ---
Current Diagnoses Other peripheral vertigo, unspecified ear (08/12/19) Dizziness and giddiness (08/12/19) Past Medical History (Last Reviewed 11/09/18 @ 18:59 by Thony Meza DO) Atrial fibrillation (Inactive) Visit Care Team Role Provider Type Jayden Barahona MD Attending Provider Physician Primary Care Provider Referring Provider Specialty: [facility] Address: [address] [place] [address], [place], [place], [facility] Email: [email or web address] Initial Evaluation PT-OP-A Visit Information Start: 08/14/19 10:51 Freq: Status: Active Protocol: Document 08/12/19 10:30 DCW (Rec: 08/14/19 11:06 DCW [id number]) Out-Patient Physical Therapy Visit Information Visit Information Visit Type Initial Evaluation Visit Start Time 10:30 Visit Stop Time 11:15 Total Visit Minutes 45 Visit Number 1 Number of CLINICAL FELLOW Visits 0 Evaluation Information Evaluation Date 08/12/19 PT-OP-B Current Condition Start: 08/14/19 10:51 Freq: Status: Active Protocol: Document 08/12/19 10:30 DCW (Rec: 08/14/19 11:06 DCW [id number]) Current Condition History of Current Condition Onset Date June, Current Complaints Position-dependent vertigo History of Current Condition Pt is an 83 year old male complaining of a two month history of motion-induced vertigo. Pt reports episodes last 2-3 minutes. Symptoms are provoked by getting up quickly, rolling to his right in bed, bending over, and looking up at the ceiling. Pt denies recent hearing changes, diplopia, dysarthria, discoordination, or decreased mentation/consciousness. Pt reports symptoms are waxing/ waning in nature. Pt denies falls, and notes that he has had tinnitus for many years. Additionally, pt has history of A-fib. Treatment Goals Patient/Caregiver Goals Pt's goal is to eliminate the problem so it does not become worse. PT-OP-C Subjective Start: 08/14/19 10:51 Freq: Status: Active Protocol: Document 08/12/19 10:30 DCW (Rec: 08/14/19 11:06 DCW [id number]) OP-PT Subjective Patient Comments Patient Comments Pt has done a lot of online research regarding vertigo, and believes hit otoliths are loose. Patient Questionnaires Dizziness Handicap Inventory DHI Score 20% DHI Functional Impairment 20 to 39% Impaired (Score 20- 39) PT-OP-O Vestibular Start: 08/14/19 10:51 Freq: Status: Active Protocol: Document 08/12/19 10:30 DCW (Rec: 08/14/19 11:06 DCW [id number]) Vestibular Assessment Auditory Tests Leon Test Negative Rinne Test Negative Air Conduction Results Equal Visual Testing Smooth Pursuits Horizontal WNL Smooth Pursuits Vertical WNL Saccades Horizontal WNL Heave Test Positive Bilateral Thrust Head Positive Bilateral Positional Testing Javier-Hallpike Negative Left,Negative Right Rolling Test Negative Left,Negative Right PT-OP-Q Treatments Start: 08/14/19 10:51 Freq: Status: Active Protocol: Document 08/12/19 10:30 DCW (Rec: 08/14/19 11:06 DCW [id number]) Canalithic Repositioning BPPV Treatment Jose Affected Canal(s) Right Posterior? Reps x1 PT-OP-T Assessment and Plan Start: 08/14/19 10:51 Freq: Status: Active Protocol: Document 08/12/19 10:30 DCW (Rec: 08/14/19 11:06 DCW [id number]) Physical Therapy Assessment Rehab Potential Rehabilitation Potential Good Evaluation Complexity Number of Personal Factors/Comorbidities 1-2 Number of Body Systems Impaired 1-2 Clinical Presentation at Evaluation Stable Impairments Impairments Balance,Vestibular Goals One Impairment Pt experiences episodes of vertigo with bed mobility Correction Goal (LTG) Pt to perform bed mobility with no instance of vertigo 100% of the time for two weeks LTG Duration 09/13/19 Assessment Summary Assessment Pt's vestibular examination today was almost entirely negative. Pt's only positive test was his thrust and heave tests were both mildly positive bilaterally, which is fairly typical in older individuals. Pt's subjective history, however, was strongly suggestive of right-sided BPPV. As the presentation of BPPV is fatigable, and can wax/wane in severity, it is not uncommon for a patient to present with negative testing while still having active underlying BPPV. A right-sided modified Jose maneuver was performed, as this is statistically the most likely canal with his present symptoms. Pt was educated on BPPV and expectations for treatment. Pt to return in ~1 week for a follow-up appointment, and intermittently afterward as indicated for treatment of BPPV. Physical Therapy Plan Frequency and Duration Frequency of Treatment 1x/Week Duration of Treatment 6 weeks Plan of Care Start Date 08/12/19 Plan of Care End Date 09/23/19 Therapeutic Interventions Therapeutic Interventions Balance Training,Canalithic Repositioning,Manual Therapy, Neuromuscular Re-education, Therapeutic Exercises, Vestibular Rehabilitation Next Visit Focus/Plan Next Note Type Treatment Note Next Visit Plan Positional testing, CRM as indicated
--- NOTE | 2019-08-12 11:15 | PT.OPPOC ---
Physical, Occupational & Speech Therapy At [facility] Current Diagnoses Other peripheral vertigo, unspecified ear (08/12/19) Dizziness and giddiness (08/12/19) Visit Care Team Role Provider Type Jayden Barahona MD Attending Provider Physician Primary Care Provider Referring Provider Specialty: [facility] Address: [address] [place] [address], [facility] Email: [email or web address] Plan Of Care PT-OP-T Assessment and Plan Start: 08/14/19 10:51 Freq: Status: Active Protocol: Document 08/12/19 10:30 DCW (Rec: 08/14/19 11:06 DCW [id number]) Physical Therapy Assessment Rehab Potential Rehabilitation Potential Good Evaluation Complexity Number of Personal Factors/Comorbidities 1-2 Number of Body Systems Impaired 1-2 Clinical Presentation at Evaluation Stable Impairments Impairments Balance,Vestibular Goals One Impairment Pt experiences episodes of vertigo with bed mobility Assisted Goal (LTG) Pt to perform bed mobility with no instance of vertigo 100% of the time for two weeks LTG Duration 09/13/19 Assessment Summary Assessment Pt's vestibular examination today was almost entirely negative. Pt's only positive test was his thrust and heave tests were both mildly positive bilaterally, which is fairly typical in older individuals. Pt's subjective history, however, was strongly suggestive of right-sided BPPV. As the presentation of BPPV is fatigable, and can wax/wane in severity, it is not uncommon for a patient to present with negative testing while still having active underlying BPPV. A right-sided modified Jose maneuver was performed, as this is statistically the most likely canal with his present symptoms. Pt was educated on BPPV and expectations for treatment. Pt to return in ~1 week for a follow-up appointment, and intermittently afterward as indicated for treatment of BPPV. Physical Therapy Plan Frequency and Duration Frequency of Treatment 1x/Week Duration of Treatment 6 weeks Plan of Care Start Date 08/12/19 Plan of Care End Date 09/23/19 Therapeutic Interventions Therapeutic Interventions Balance Training,Canalithic Repositioning,Manual Therapy, Neuromuscular Re-education, Therapeutic Exercises, Vestibular Rehabilitation Next Visit Focus/Plan Next Note Type Treatment Note Next Visit Plan Positional testing, CRM as indicated Plan of Care Dates Plan of Care Start Date 08/12/19 Plan of Care End Date 09/23/19 Electronically Signed by: Pablo Kc, TATIANA 08/14/19 1051 Please Sign and Return: I have reviewed this Plan of Care and certify that the skilled therapy services above are required to meet the patient?s needs. Physician Signature Date Printed Name and Credentials Clinical Instructor Signature Printed Name and Credentials
--- NOTE | 2019-08-25 12:34 | PT.OTN ---
Current Diagnoses Other peripheral vertigo, unspecified ear (08/25/19) Dizziness and giddiness (08/25/19) Physical Therapy Treatment Note PT-OP-A Visit Information Start: 08/14/19 10:51 Freq: Status: Active Protocol: Document 08/25/19 12:00 DCW (Rec: 08/25/19 12:34 DCW [id number]) Out-Patient Physical Therapy Visit Information Visit Information Visit Type Treatment Note Visit Start Time 12:00 Visit Stop Time 12:14 Total Visit Minutes 14 Visit Number 2 Number of PATIENT CARE SECRETARY Visits 0 Evaluation Information Evaluation Date 08/12/19 PT-OP-B Current Condition Start: 08/14/19 10:51 Freq: Status: Active Protocol: Document 08/12/19 10:30 DCW (Rec: 08/14/19 11:06 DCW [id number]) Current Condition History of Current Condition Onset Date June, Current Complaints Position-dependent vertigo History of Current Condition Pt is an 83 year old male complaining of a two month history of motion-induced vertigo. Pt reports episodes last 2-3 minutes. Symptoms are provoked by getting up quickly, rolling to his right in bed, bending over, and looking up at the ceiling. Pt denies recent hearing changes, diplopia, dysarthria, discoordination, or decreased mentation/consciousness. Pt reports symptoms are waxing/ waning in nature. Pt denies falls, and notes that he has had tinnitus for many years. Additionally, pt has history of A-fib. Treatment Goals Patient/Caregiver Goals Pt's goal is to eliminate the problem so it does not become worse. PT-OP-C Subjective Start: 08/14/19 10:51 Freq: Status: Active Protocol: Document 08/25/19 12:00 DCW (Rec: 08/25/19 12:34 DCW [id number]) OP-PT Subjective Patient Comments Patient Comments Pt reports he hasn't had any episodes since his evaluation. PT-OP-O Vestibular Start: 08/14/19 10:51 Freq: Status: Active Protocol: Document 08/25/19 12:00 DCW (Rec: 08/25/19 12:34 DCW [id number]) Vestibular Assessment Positional Testing Javier-Hallpike Negative Left,Negative Right Rolling Test Negative Left,Negative Right PT-OP-Q Treatments Start: 08/14/19 10:51 Freq: Status: Active Protocol: Document 08/25/19 12:00 DCW (Rec: 08/25/19 12:34 DCW [id number]) Manual Therapy Treatment Other Other Manual Treatments Positional testing PT-OP-T Assessment and Plan Start: 08/14/19 10:51 Freq: Status: Active Protocol: Document 08/25/19 12:00 DCW (Rec: 08/25/19 12:34 DCW [id number]) Physical Therapy Assessment Impairments Impairments Balance,Vestibular Goals One Impairment Pt experiences episodes of vertigo with bed mobility Director Speech Language Goal (LTG) Pt to perform bed mobility with no instance of vertigo 100% of the time for two weeks LTG Duration 09/13/19 Assessment Summary Assessment Pt presenting asymptomatically , negative positional testing, and no complaints of further episodes. Since pt's testing was negative at his eval, it is difficult to say with any certainty that he was suffering from BPPV, and that treatment was successful, however with no symptoms or dysfunction at this time, there is nothing for vestibular therapy to treat. Pt was instructed to schedule a follow-up appointment within the next 90 days if he has any return or change in symptoms. If pt does not contact the clinic by that time, he will be discharged. Physical Therapy Plan Frequency and Duration Frequency of Treatment 1x/Week Duration of Treatment 6 weeks Plan of Care Start Date 08/12/19 Plan of Care End Date 09/23/19 Therapeutic Interventions Therapeutic Interventions Balance Training,Canalithic Repositioning,Manual Therapy, Neuromuscular Re-education, Therapeutic Exercises, Vestibular Rehabilitation Next Visit Focus/Plan Next Note Type Treatment Note Next Visit Plan Positional testing, CRM as indicated
--- NOTE | 2019-09-23 09:30 | PT.OPDS ---
Current Diagnoses Other peripheral vertigo, unspecified ear (08/25/19) Visit Care Team Role Provider Type Jayden Barahona MD Attending Provider Physician Primary Care Provider Referring Provider Specialty: [facility] Address: [address] [place] [address], [facility] [place] [place] [place], [facility] Email: [email or web address] Visit Number Visit Number 2 Discharge Summary PT-OP-B Current Condition Start: 08/14/19 10:51 Freq: Status: Active Protocol: Document 08/12/19 10:30 DCW (Rec: 08/14/19 11:06 DCW [id number]) Current Condition History of Current Condition Onset Date June, Current Complaints Position-dependent vertigo History of Current Condition Pt is an 83 year old male complaining of a two month history of motion-induced vertigo. Pt reports episodes last 2-3 minutes. Symptoms are provoked by getting up quickly, rolling to his right in bed, bending over, and looking up at the ceiling. Pt denies recent hearing changes, diplopia, dysarthria, discoordination, or decreased mentation/consciousness. Pt reports symptoms are waxing/ waning in nature. Pt denies falls, and notes that he has had tinnitus for many years. Additionally, pt has history of A-fib. Treatment Goals Patient/Caregiver Goals Pt's goal is to eliminate the problem so it does not become worse. PT-OP-C Subjective Start: 08/14/19 10:51 Freq: Status: Active Protocol: Document 08/25/19 12:00 DCW (Rec: 08/25/19 12:34 DCW [id number]) OP-PT Subjective Patient Comments Patient Comments Pt reports he hasn't had any episodes since his evaluation. PT-OP-O Vestibular Start: 08/14/19 10:51 Freq: Status: Active Protocol: Document 08/25/19 12:00 DCW (Rec: 08/25/19 12:34 DCW [id number]) Vestibular Assessment Positional Testing Javier-Hallpike Negative Left,Negative Right Rolling Test Negative Left,Negative Right PT-OP-T Assessment and Plan Start: 08/14/19 10:51 Freq: Status: Active Protocol: Document 09/23/19 09:29 DCW (Rec: 09/23/19 09:30 FRANCISCO JAVIER [id number]) Physical Therapy Assessment Assessment Summary Assessment Pt came into the clinic on , reports he has not had any symptoms of vertigo since his initial evaluation, and requested discharge. Physical Therapy Plan Discharge Physical Therapy Discharge Reasons Patient Request Next Visit Focus/Plan Next Note Type Discharge Summary
== END 2019-09-24 13:11 ==
LOC: PHYS 12:00
PROVIDERS: PCP Family Medicine; Referring Provider Family Medicine; Visit Provider Family Medicine
DX: H81.399 Other peripheral vertigo, unspecified ear (principal)
CPT/HCPCS: 95992; 97140; 97161

== ENCOUNTER → 2019-09-10 11:38 | Outpatient (CLI) | payer MEDICARE, OTHER, SELFPAY ==
[2019-09-10 12:03] LABS: INR 2.9 (0.9-1.3); Prothrombin Time 32.8 SECONDS (10.1-12.7)
== END ==
PROVIDERS: PCP Family Medicine; Referring Provider Family Medicine; Visit Provider Family Medicine
DX: I48.91 Unspecified atrial fibrillation (principal)
CPT/HCPCS: 36415; 85610

== ENCOUNTER → 2019-09-25 12:18 | Outpatient (CLI) | payer MEDICARE, OTHER, SELFPAY ==
[2019-09-25 13:39] LABS: INR 3.1 (0.9-1.3); Prothrombin Time 35.1 SECONDS (10.1-12.7)
== END ==
PROVIDERS: PCP Family Medicine; Referring Provider Family Medicine; Visit Provider Family Medicine
DX: I48.91 Unspecified atrial fibrillation (principal)
CPT/HCPCS: 36415; 85610

== ENCOUNTER → 2019-10-02 10:29 | Outpatient (CLI) | payer MEDICARE, OTHER, SELFPAY ==
[2019-10-02 11:37] LABS: INR 2.8 (0.9-1.3); Prothrombin Time 31.9 SECONDS (10.1-12.7)
== END ==
PROVIDERS: PCP Family Medicine; Referring Provider Family Medicine; Visit Provider Family Medicine
DX: I48.91 Unspecified atrial fibrillation (principal)
CPT/HCPCS: 36415; 85610

== ENCOUNTER 2019-10-04 03:52 | Emergency (ER) | payer MEDICARE, OTHER, SELFPAY ==
[2019-10-04 04:14] VITALS: BP 171/81; PULSE 60; RESP 16; TEMP 36.1; O2SAT 97; BMI 23.4
--- NOTE | 2019-10-04 04:14 | DI.RAD.S_ITS ---
PROCEDURE: XR SOFT TISSUE NECK INDICATIONS: L side of neck pain TECHNIQUE: 2 views of the neck were acquired. COMPARISON: None. FINDINGS: Airway: The airway appears patent. Soft tissues: Prevertebral soft tissues are normal in thickness. The epiglottis and aryepiglottic folds appear normal. No soft tissue gas. Bones: No suspicious bony lesions. Visualized cervical spine is normally aligned. 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 IMPRESSION: No acute process. Dictated by: Danielito Rodrigeuz M.D. on 10/04/2019 at 8:53 Approved by: Danielito Rodriguez M.D. on 10/04/2019 at 8:54
--- NOTE | 2019-10-04 04:19 | ED_ITS ---
HPI - General Adult General Chief complaint: Upper Respiratory Symptoms Stated complaint: pain in throat when breathing Time Seen by Provider: 10/04/19 03:54 Source: patient Mode of arrival: Ambulatory Limitations: no limitations History of Present Illness HPI narrative: Patient is an 84-year-old male here for evaluation of occasional sharp pains to the left side of his neck. He is not having any shortness of ej ath. No sore throat. No fevers. He states that his symptoms have been going on for at least the past 3-4 days. They are occasional pains. They are sharp. He states that it feels like it is radiating into his neck. He has not have any problems breathing. Initially stated that he did seem to occur when he swallows however he has been eating and drinking without any issues. He also stated that at 1 point it does radiate to his left ear. Took some Tylenol prior to arrival but given the frequency of the symptoms he decided to come the emergency department. He is also concerned about ?non-Hodgkin's lymphoma ?he states he had a friend who with this several years ago. He states that he was feeling left side of his neck and felt a little lump in given the pain that he was having he thought he should be evaluated for this. Related Data Home Medications Medication Instructions Recorded Confirmed finasteride 5 mg PO QDAY #0 05/08/11 atenolol 75 mg PO DAILY 01/21/18 01/21/18 warfarin 6 mg PO DAILY 01/21/18 01/21/18 Previous Rx's Medication Instructions Recorded meclizine 25 mg PO BID-TID PRN #14 tab 11/09/18 tramadol [Ultram] 50 mg PO TID PRN #10 tab 10/04/19 Allergies Allergy/AdvReac Type Severity Reaction Status Date / Time No Known Drug Allergies Allergy Verified 10/04/19 04:11 Review of Systems Constitutional Constitutional: Denies fever(s) and Denies headache(s) ENT Ears, Nose, Mouth, and Throat: Reports otalgia, Denies headache(s), Denies mouth lesions, Reports neck mass, Reports neck pain, Denies sinus pain, Denies sinus pressure, Denies sore throat and Denies throat swelling Cardiovascular Cardiovascular: Denies chest pain, Denies rapid heart rate and Denies dyspnea Respiratory Respiratory: Denies dyspnea Gastrointestinal Gastrointestinal: Denies abdominal pain, Denies diarrhea, Denies nausea and Denies vomiting Musculoskeletal Musculoskeletal: Reports neck pain Integumentary/Breasts Skin/Breast: Denies rash Neurologic Neurologic: Denies behavioral changes and Denies headache(s) Psychiatric Psychiatric: Denies behavioral changes Hematologic/Lymphatic Hematologic/Lymphatic: Denies easy bleeding and Denies easy bruising Allergic/Immunologic Allergic/Immunologic: Denies throat swelling Patient History Medical History Atrial fibrillation (Inactive) Social History household members: spouse Smoking Status: Former smoker Smoking Status: Former smoker alcohol intake frequency: 0-2 drinks per day Substance Use Type: does not use Exam Initial Vital Signs Initial Vital Signs: Vital Signs Temperature 97.0 F L 10/04/19 04:14 Pulse Rate 60 10/04/19 04:14 Respiratory Rate 16 10/04/19 04:14 Blood Pressure 171/81 H 10/04/19 04:14 Pulse Oximetry 97 10/04/19 04:14 Const General: cooperative, healthy appearing, comfortable, well developed and well groomed Limitations: mental status not altered HENMT Head: normal to inspection and normocephalic Ears: TM's normal bilaterally Nose: external nose normal Mouth: oral mucosae normal Teeth and gingiva: dentition normal Throat: posterior oropharynx normal Neck Other: Patient with a less than 1 cm freely movable soft nodule left side of his neck which appears to be a lymph node in the submandibular region. This is in the region where he seems to be having some discomfort. Resp Effort & Inspection: normal respiratory effort Auscultation: clear to auscultation bilaterally Cardio Rate: regular rate Rhythm: regular rhythm Skin Lesions: no lesions Rashes: no rashes Neuro General: patient alert and patient awake Cognition: normal cognition Speech: speech normal Extrem General: normal to inspection and capillary refill normal Psych Appearance: grossly normal and well kempt Scores GCS [place] coma scale eye opening: Spontaneous [place] coma scale verbal response: Orientated [place] coma scale motor response: Obey commands [place] coma scale total score: 15 Course Orders Ordered: ED Orders 10/04/19 04:05 Throat Culture Stat 10/04/19 04:14 XR soft tissue neck Stat Discontinued Medications Tramadol HCl (Ultram 50mg Prepack) 1 bottle MISC SEEINSTR ONE Stop: 10/04/19 05:35 Last Admin: 10/04/19 05:46 Dose: 1 bottle Documented by: CEDRICK Vital Signs Vital signs: Vital Signs - 8 hr 10/04/19 04:14 10/04/19 05:15 Temperature 97.0 F L Pulse Rate 60 74 Respiratory Rate 16 16 Blood Pressure 171/81 H 143/72 H Pulse Oximetry 97 98 Medical Decision Making Lab Data Labs: Point of Care Testing Rapid Strep A Negative Point of care testing: Point of Care Testing Rapid Strep A Negative Imaging Data X-ray soft tissue neck: Attestation: I personally reviewed and interpreted this imaging study as follows: My Impression: No abnormal swelling noted MDM Narrative Medical decision making narrative: Patient's rapid strep was negative. I am not surprised by this given the fact that his physical exam is less consistent with pharyngitis. He does have a small left-sided submandibular nodule around the area where he is having discomfort. This is most likely a lymph node however does not appear to be pathologic in its exam. There is no abnormal swelling noted on the soft tissue of the neck x-ray. There is no rash over the area that would be consistent with zoster in given the length of time that he has had symptoms I would suspect that this would have developed by now. He is not in any respiratory distress. No problems swallowing. I feel that we can hold on a CT scan for now. Did inform the patient nothing in his clinical presentation today would make me suspicious for lymphoma. This did not seem to resolve his anxiety regarding that situation. I do not feel the need for antibiotics. I did talk with him and his about the lack of a definitive etiology. He did seem to be very uncomfortable when these sharp stabbing pains occurred. Will send home with a short prescription for Ultram to see if this does not improve his symptoms. He was given strict return precautions. He his expressed understanding and agreement. Discharge Plan Departure Patient Disposition: Home Clinical Impression: Anterior neck pain Discharge Date/Time: 10/04/19 05:45 Activity Restrictions/Additional Instructions: Take the medication you were given a prescription for today as directed. Continue the rest of your medications as directed. Contact your primary provider for follow-up. Return to the emergency department for any new or worsening symptoms Prescriptions: New tramadol [Ultram] 50 mg tablet 50 mg PO TID PRN (Reason: pain) Qty: 10 RF: 0 No Action finasteride 5 MG tablet 5 mg PO QDAY Qty: 0 RF: 0 meclizine 25 mg tablet 25 mg PO BID-TID PRN (Reason: motion sickness) Qty: 14 RF: 0 warfarin 6 mg Tablet 6 mg PO DAILY RF: 0 atenolol 25 mg Tablet 75 mg PO DAILY RF: 0 Referrals: Jayden Barahona MD [Primary Care Provider] -
[2019-10-04 05:15] VITALS: BP 143/72; PULSE 74; RESP 16; O2SAT 98
[2019-10-04] MEDS: TRAMADOL 50 MG PREPACK 1 BOTTLE MISC (05:46)
== END 2019-10-04 05:45 | disposition home or self-care (01) ==
PROVIDERS: Emergency Provider Emergency Medicine; PCP Family Medicine
DX: M54.2 Cervicalgia (principal)
CPT/HCPCS: 70360; 87070; 87147; 87880; 99282; 99283

== ENCOUNTER 2019-10-08 03:44 | Emergency (ER) | payer MEDICARE, OTHER, SELFPAY ==
--- NOTE | 2019-10-08 03:48 | ED_ITS ---
HPI - General Adult General Chief complaint: Headache Stated complaint: head/neck pain Time Seen by Provider: 10/08/19 03:48 History of Present Illness HPI narrative: 84-year-old gentleman with a history of atrial fibrillation for which he is anticoagulated on warfarin presents for a 2nd time with lancinating pains through his head neck. He was seen on October 03 complaining mostly of p ain from the top of his head down into the left anterior neck. Soft tissue films of the neck did not reveal any acute findings. Further workup was not felt to be required. He was discharged home with tramadol which he has taken and it did seem to relieve some of his pain. Over the last 24 hours he is now noticing similar lancinating pain over the occiput bilaterally radiating down into the posterior neck. There are no rashes to suggest zoster, no erythema no obvious deformities or abscess, no skin changes whatsoever pain cannot be reproduced with palpation. While patient is describing his complaints he clearly is having episodes of lancinating pain that will last for seconds that make him jump and grab his head and then seemed to resolve completely. Describes no fever, cough, chills, abdominal pain, constipation or diarrhea. No chest pain or palpitations, near-syncope vision changes or throat pain. Related Data Home Medications Medication Instructions Recorded Confirmed finasteride 5 mg PO QDAY #0 05/08/11 atenolol 75 mg PO DAILY 01/21/18 01/21/18 warfarin 6 mg PO DAILY 01/21/18 01/21/18 Previous Rx's Medication Instructions Recorded meclizine 25 mg PO BID-TID PRN #14 tab 11/09/18 tramadol [Ultram] 50 mg PO TID PRN #10 tab 10/04/19 carbamazepine 200 mg PO BID #30 cap 10/08/19 Allergies Allergy/AdvReac Type Severity Reaction Status Date / Time No Known Drug Allergies Allergy Verified 10/04/19 04:11 Review of Systems Review of Systems Narrative: Pertinent positive and negative findings as per HPI Remainder of review of systems is otherwise unremarkable for Constitutional: Fevers, chills, weakness : Dysuria, hematuria, flank pain MS: Muscle weakness, numbness, joint swelling or warmth Skin: Rashes, nonhealing lesions Patient History Medical History Atrial fibrillation (Inactive) Social History household members: spouse Smoking Status: Former smoker Smoking Status: Former smoker alcohol intake frequency: 0-2 drinks per day Substance Use Type: does not use Exam Narrative Exam Narrative: General: Healthy appearing, in no acute distress. Able to give a rambling history. Well-nourished well-developed HEENT: Moist mucous membranes, normal sclera with reactive pupils, no rashes, cellulitis, trauma, abscess Neck: No JVD, supple, no anterior or posterior cervical adenopathy Respiratory: Lungs are clear to auscultation, no wheezing no rales no rhonchi. Full and symmetrical air movement Cardiac: Iregular rate and rhythm no murmurs no bruits Abdomen: Soft nontender good bowel tones, no flank pain Skin: Warm and dry, no rashes Neurologic: Grossly neurologically intact with no obvious asymmetries or abnormalities Extremities: No trauma, well perfused Psych: Cooperative, appropriate insight and affect Initial Vital Signs Initial Vital Signs: Vital Signs Temperature 97.8 F 10/08/19 03:58 Pulse Rate 84 10/08/19 03:58 Respiratory Rate 15 10/08/19 03:58 Blood Pressure 174/101 H 10/08/19 03:58 Pulse Oximetry 98 10/08/19 03:58 Course Orders Ordered: ED Orders 10/08/19 04:00 Complete Blood Count AUTO DIFF Stat Comprehensive Metabolic Panel Stat Discontinued Medications Carbamazepine (Tegretol) 200 mg PO NOW ONE Stop: 10/08/19 04:12 Last Admin: 10/08/19 04:27 Dose: 200 mg Documented by: [email or web address] Vital Signs Vital signs: Vital Signs - 8 hr 10/08/19 03:58 Temperature 97.8 F Pulse Rate 84 Respiratory Rate 15 Blood Pressure 174/101 H Pulse Oximetry 98 Medical Decision Making Lab Data Result diagrams: 10/08/19 04:00 10/08/19 04:00 Labs: Lab Results 10/08/19 10/08/19 Range/Units 04:00 04:00 WBC 6.3 (4.5-11.0) X10^3/uL RBC 4.39 L (4.5-5.9) X10^6/uL Hgb 14.4 (13.5-17.5) g/dL Hct 42.8 (41-53) % MCV 97.3 (80-100) fL MCH 32.8 (26-34) PG MCHC 33.8 (30-36) % RDW 13.1 (11.6-14.8) % Plt Count 178 (150-400) X10^3/uL Neut % (Auto) 52.5 (50-75) % Lymph % (Auto) 31.8 (25-40) % [place] % (Auto) 12.5 (3-14) % Eos % (Auto) 1.8 L (2-4) % Baso % (Auto) 1.4 (0-2) % Neut # (Auto) 3300 (6253-7484) /uL Lymph # (Auto) 2000 (4920-3064) /uL [place] # (Auto) 800 (0-900) /uL Eos # (Auto) 100 (0-450) /uL Baso # (Auto) 100 (0-100) /uL Sodium 137 (137-145) mmol/L Potassium 4.2 (3.4-5.1) mmol/L Chloride 104 (98-107) mmol/L Carbon Dioxide 28 (22-32) mmol/L BUN 20 (9-20) mg/dL Creatinine 0.84 (0.66-1.25) mg/dL Estimated GFR > 60.0 (>60) mL/min BUN/Creatinine Ratio 23.8 H (6-22) Glucose 105 (80-110) mg/dL Calcium 9.4 (8.4-10.2) mg/dL Total Bilirubin 0.9 (0.2-1.3) mg/dL AST 36 (17-59) IU/L ALT 24 (<50) IU/L Alkaline Phosphatase 78 (38-126) U/L Total Protein 7.4 (6.3-8.2) g/dL Albumin 4.3 (3.5-5.0) g/dL Globulin 3.1 (1.7-4.1) g/dL Albumin/Globulin Ratio 1.4 (1.0-2.8) MDM Narrative Medical decision making narrative: Patient perhaps did notice a slight improvement after taking single dose of Tegretol. It felt like the flashes of pain over the entire occiput have gotten better and now our back to this single source that had been the problem initially. The patient has significant hyper awareness of all of his body functions and skin changes. He is still quite concerned that he has lymphoma (he watched a friend be diagnosed with this and then quickly). He initially thought that the tramadol helped and then the following day he felt that it made it worse. He did not notice any changes with taking the Tylenol. I suspect that none of the medications were influencing his pain at all but simply allowing him an opportunity to not focus on it for a brief bit of time. I have encouraged him to follow-up with Dr. Barahona and also encouraged him to consider taking no medications as the ones he is taking seem to be minimally effective to actively causing problems. Discharge Plan Departure Patient Disposition: Home Clinical Impression: Head and face pain Activity Restrictions/Additional Instructions: Thank you for coming in today I still do not have a full explanation for the shooting pains that you are having in your head. Blood work done today was very reassuring. I am not seeing any evidence to suggest stroke or stroke-like symptoms, infection, shingles or zoster, abscess, lymphoma or any other cancers or any other life- threatening disease. You still have tramadol available for pain control. You can use this on an as- needed basis. Based on your description, it sounds that it has not been effective and may actually be causing symptoms for you. If you find that taking it when your pain is severe is beneficial, then please continue taking it. If you find that is having little effect or actually causing problems, please stop taking it In the emergency room I gave you a dose of carbamazepine. This is a seizure medicine that can be used to help with head and neck associated nerve type pain, similar to what your describing. The dose is going to be 1 pill a day. If this seems like it is working but not quite enough it can be increased to 1 pill 2 times a day. I would recommend seeing how you feel over the course of the next 12 hours. If you feel that you are doing better today and then worse again tomorrow, it may be that the carbamazepine was helpful for you and you may benefit from continuing. I have given you a prescription for this to feel if you do want to try continuing. I encourage you to follow-up again with Dr. Barahona if you do continue to have this pain into next week. If the pain continues, then consultation with a ne urologist may be helpful. Dr. Barahona will need to help direct due to the next appropriate consultants. I wish you the best Prescriptions: New carbamazepine 200 mg capsule, ER multiphase 12 hr 200 mg PO BID Qty: 30 RF: 0 No Action finasteride 5 MG tablet 5 mg PO QDAY Qty: 0 RF: 0 meclizine 25 mg tablet 25 mg PO BID-TID PRN (Reason: motion sickness) Qty: 14 RF: 0 warfarin 6 mg Tablet 6 mg PO DAILY RF: 0 atenolol 25 mg Tablet 75 mg PO DAILY RF: 0 tramadol [Ultram] 50 mg tablet 50 mg PO TID PRN (Reason: pain) Qty: 10 RF: 0 Referrals: Jayden Barahona MD [Primary Care Provider] -
[2019-10-08 03:58] VITALS: BP 174/101; PULSE 84; RESP 15; TEMP 36.6; O2SAT 98; BMI 24.1
[2019-10-08 04:10] LABS: Add Manual Diff / Slide Review NO; Basophils Absolute Auto 100 /uL (0-100); Basophils Percent Auto 1.4 % (0-2); Eosinophils Absolute Auto 100 /uL (0-450); Eosinophils Percent Auto 1.8 % (2-4); Hematocrit 42.8 % (41-53); Hemoglobin 14.4 g/dL (13.5-17.5); Lymphocytes Absolute Auto 2000 /uL (1100-4500); Lymphocytes Percent Auto 31.8 % (25-40); Mean Corpuscular HGB Conc 33.8 % (30-36); Mean Corpuscular Hemoglobin 32.8 PG (26-34); Mean Corpuscular Volume 97.3 fL (80-100); Monocytes Absolute Auto 800 /uL (0-900); Monocytes Percent Auto 12.5 % (3-14); Neutrophils Absolute Auto 3300 /uL (1500-7000); Neutrophils Percent Auto 52.5 % (50-75); Platelet Count 178 X10^3/uL (150-400); Red Blood Cell Count 4.39 X10^6/uL (4.5-5.9); Red Cell Distribution Width 13.1 % (11.6-14.8); White Blood Cell Count 6.3 X10^3/uL (4.5-11.0)
[2019-10-08 04:21] LABS: Alanine Aminotransferase 24 IU/L (<50); Albumin 4.3 g/dL (3.5-5.0); Albumin Globulin Ratio 1.4 (1.0-2.8); Alkaline Phosphatase 78 U/L (38-126); Aspartate Aminotransferase 36 IU/L (17-59); BUN Creatinine Ratio 23.8 (6-22); Bilirubin Total 0.9 mg/dL (0.2-1.3); Blood Urea Nitrogen 20 mg/dL (9-20); Calcium 9.4 mg/dL (8.4-10.2); Carbon Dioxide 28 mmol/L (22-32); Chloride 104 mmol/L (98-107); Estimated Glomerular Filt Rate > 60.0 mL/min (>60); Globulin 3.1 g/dL (1.7-4.1); Glucose 105 mg/dL (80-110); HEMOLYSIS < 15 (0-50); Potassium 4.2 mmol/L (3.4-5.1); Sodium 137 mmol/L (137-145); Total Protein 7.4 g/dL (6.3-8.2)
[2019-10-08] MEDS: carBAMazepine 200 MG TABLET PO (04:27)
[2019-10-08 06:00] VITALS: BP 167/84; PULSE 73; O2SAT 97
== END 2019-10-08 06:00 | disposition home or self-care (01) ==
PROVIDERS: Emergency Provider Emergency Medicine; PCP Family Medicine
DX: R51 Headache (principal); M54.2 Cervicalgia; I48.91 Unspecified atrial fibrillation; Z79.01 Long term (current) use of anticoagulants
CPT/HCPCS: 36415; 80053; 85025; 99283; 99284

== ENCOUNTER → 2019-10-14 11:52 | Outpatient (CLI) | payer MEDICARE, OTHER, SELFPAY ==
--- NOTE | 2019-10-14 | DI.MRI.S_ITS ---
PROCEDURE: MR HEAD/BRAIN WO/W CON INDICATIONS: HEADACHE TECHNIQUE: Noncontrast axial T1 spin echo, axial T2 fast spin echo, sagittal and axial FLAIR, coronal T2 fast spin echo, axial gradient echo, axial diffusion and ADC through the brain. After the administration of contrast, axial and coronal T1 spin echo with fat saturation through the brain. COMPARISON: [facility], CT, CT HEAD/BRAIN WO CON, 11/09/2018, 11:38. FINDINGS: Image quality: Excellent. CSF spaces: Basal cisterns are patent. No extra-axial fluid collections. Ventricles are normal in size and shape. Brain: No midline shift. No intracranial bleeds or masses. No abnormal intracranial enhancement. There is cerebral volume loss for age. There is periventricular white matter chronic small vessel ischemic change. The brainstem appears normal. Diffusion-weighted images demonstrate no acute ischemic insults. No chronic ischemic insults. Normal intravascular flow voids are present. Skull and face: Calvarial marrow is normal in signal. Orbits appear normal. Note is made of bilateral lens replacements. Sinuses: Sinuses and mastoids appear clear. IMPRESSION: Unremarkable intracranial study, without an imaging explanation found for the patient's presenting history of headache. Note is made of age-appropriate brain parenchymal volume loss and chronic small vessel ischemic changes. No findings of acute or subacute infarction can be seen. No masses or abnormal enhancement can be seen. Dictated by: Sal Kauffman M.D. on 10/14/2019 at 12:22 Approved by: Sal Kauffman M.D. on 10/14/2019 at 12:24
== END ==
PROVIDERS: PCP Family Medicine; Referring Provider Family Medicine; Visit Provider Family Medicine
DX: R51 Headache (principal)
CPT/HCPCS: 70553

== ENCOUNTER → 2019-10-16 13:07 | Outpatient (CLI) | payer MEDICARE, OTHER, SELFPAY ==
[2019-10-16 14:23] LABS: INR 2.3 (0.9-1.3)
== END ==
PROVIDERS: PCP Family Medicine; Referring Provider Family Medicine; Visit Provider Family Medicine
DX: I48.91 Unspecified atrial fibrillation (principal)
CPT/HCPCS: 36415; 85610

== ENCOUNTER 2019-10-19 23:50 | Emergency (ER) | payer MEDICARE, OTHER, SELFPAY ==
--- NOTE | 2019-10-19 23:51 | ED_ITS ---
HPI - Abdominal Pain General Chief Complaint: Abdominal Pain Stated Complaint: Abd Pain, constipation Time Seen by Provider: 10/19/19 23:51 Source: patient and EMS Limitations: no limitations History of Present Illness HPI narrative: 84M former smoker with history of HTN presents by EMS for evaluation of low abdominal pain and decreased BM. He has had decreased bowel movements over the past few days but denies any nausea or vomiting. He has been taking MiraLax and saw his primary care provider earlier today. He feels very full in his rectum and has increased pain when sits. He is passing gas without difficulty. He has had no fever chills. He denies any dysuria, frequency or urgency. Related Data Home Medications Medication Instructions Recorded Confirmed finasteride 5 mg PO QDAY #0 05/08/11 atenolol 75 mg PO DAILY 01/21/18 01/21/18 warfarin 6 mg PO DAILY 01/21/18 01/21/18 Previous Rx's Medication Instructions Recorded meclizine 25 mg PO BID-TID PRN #14 tab 11/09/18 tramadol [Ultram] 50 mg PO TID PRN #10 tab 10/04/19 carbamazepine 200 mg PO BID #30 cap 10/08/19 Allergies Allergy/AdvReac Type Severity Reaction Status Date / Time No Known Drug Allergies Allergy Verified 10/04/19 04:11 Review of Systems Constitutional Constitutional: Denies chills, Denies fatigue, Denies fever(s), Denies frequent falls, Denies lethargy and Denies weakness Eyes Eyes: Denies change in vision, Denies eye discharge, Denies irritation and Denies loss of vision ENT Ears, Nose, Mouth, and Throat: Denies change in voice, Denies dizziness, Denies neck pain, Denies sore throat and Denies throat swelling Cardiovascular Cardiovascular: Denies chest pain, Denies irregular heart rhythm, Denies lightheadedness, Denies palpitations, Denies dyspnea, Denies dyspnea on exertion and Denies orthopnea Respiratory Respiratory: Denies cough, Denies dyspnea, Denies dyspnea on exertion and Denies wheezing Gastrointestinal Gastrointestinal: Reports abdominal pain, Denies change in bowel habits, Reports constipation, Denies diarrhea, Denies nausea and Denies vomiting Musculoskeletal Musculoskeletal: Denies neck pain and Denies numbness Integumentary/Breasts Skin/Breast: Denies pruritus, Denies erythema, Denies rash and Denies wounds Neurologic Neurologic: Denies behavioral changes, Denies confusion, Denies dizziness, Denies frequent falls, Denies loss of vision, Denies numbness and Denies weakness Psychiatric Psychiatric: Denies anxiety, Denies behavioral changes, Denies confusion, Denies depression, Denies homicidal ideation and Denies suicidal ideation Endocrine Endocrine: Denies fatigue, Denies flushing and Denies palpitations Hematologic/Lymphatic Hematologic/Lymphatic: Denies easy bruising Allergic/Immunologic Allergic/Immunologic: Denies urticaria, Denies throat swelling and Denies wheezing Patient History Medical History Atrial fibrillation (Inactive) Social History household members: spouse Smoking Status: Former smoker Smoking Status: Former smoker alcohol intake frequency: 0-2 drinks per day Substance Use Type: does not use Exam Narrative Exam Narrative: GENERAL: [84] year old patient appears stated age. Well- nourished, well-developed patient, in mild distress. Obviously uncomfortable HEAD: Atraumatic. Normocephalic. EYES: Pupils equal round and reactive. Extraocular motions intact. No scleral icterus. No injection or drainage. ENT: Nose without bleeding, purulent drainage. Throat without erythema, tonsillar hypertrophy or exudate. Airway patent. NECK: Trachea midline. Non tender CARDIOVASCULAR: Regular rate and rhythm without murmurs, gallops, or rubs. RESPIRATORY: Clear to auscultation. Breath sounds equal bilaterally. No wheezes, rales, or rhonchi. GASTROINTESTINAL: Abdomen soft, mild distension to abdomen with generalized tenderness and decreased bowel sounds EXTREMITIES: No edema or joint tenderness. BACK: Nontender without deformity or crepitance. No flank tenderness. NEURO: AOx3. SKIN: No rash or erythema of visible areas Initial Vital Signs Initial Vital Signs: Vital Signs Temperature 98.1 F 10/20/19 00:09 Pulse Rate 90 10/20/19 00:09 Respiratory Rate 20 10/20/19 00:09 Blood Pressure 198/86 H 10/20/19 00:09 Pulse Oximetry 97 10/20/19 00:09 Course Course Course Narrative: just prior to getting Xray patient has a very large bowel movement which gives him total relief. Orders Ordered: ED Orders 10/19/19 23:54 XR acute abdomen series Stat Vital Signs Vital signs: Vital Signs - 8 hr 10/20/19 00:09 10/20/19 00:25 10/20/19 01:58 Temperature 98.1 F Pulse Rate 90 79 73 Respiratory Rate 20 18 16 Blood Pressure 198/86 H 196/86 H 132/72 Pulse Oximetry 97 98 94 MDM - Abdominal Pain Imaging Data Abdominal x-ray: Attestation: I personally reviewed and interpreted this imaging study as follows: My Impression: non-specific bowel gas pattern, no SBO MDM Narrative Medical decision making narrative: Patient presents with decreased bowel movement and generalized abdominal pain. He is otherwise well and free of complaint. He has a very large bowel movement which was also in complete resolution of symptoms. X-ray unremarkable. Return precautions given, questions answered to apparent satisfaction Discharge Plan Departure Patient Disposition: Home Clinical Impression: Constipation Qualifiers: Constipation type: unspecified constipation type Qualified Code(s): K59.00 - Constipation, unspecified Discharge Date/Time: 10/20/19 02:10 Instructions: DI for Constipation Activity Restrictions/Additional Instructions: *You have been diagnosed with [ abdominal pain due to constipation ] *What to do: *Take over the counter medications as directed: 1. Metamucil - is a bulk forming laxative and adds fiber 2. Colace - softens your stool 3. Dulcolax suppository - stimulates your bowels *Follow up with your primary care provider in 2-3 days, call for appointment *Return to ER if you should have any new, worsening or concerning symptoms *Drink plenty of water and eat foods high in fiber *Stay as active as you can as this helps move your bowels as well Prescriptions: No Action finasteride 5 MG tablet 5 mg PO QDAY Qty: 0 RF: 0 meclizine 25 mg tablet 25 mg PO BID-TID PRN (Reason: motion sickness) Qty: 14 RF: 0 warfarin 6 mg Tablet 6 mg PO DAILY RF: 0 atenolol 25 mg Tablet 75 mg PO DAILY RF: 0 tramadol [Ultram] 50 mg tablet 50 mg PO TID PRN (Reason: pain) Qty: 10 RF: 0 carbamazepine 200 mg capsule, ER multiphase 12 hr 200 mg PO BID Qty: 30 RF: 0 Referrals: Jayden Barahona MD [Primary Care Provider] -
--- NOTE | 2019-10-19 23:54 | DI.RAD.S_ITS ---
PROCEDURE: XR ACUTE ABDOMEN SERIES INDICATIONS: constipation TECHNIQUE: One view chest and two views of the abdomen were acquired. COMPARISON: [facility], CR, XR CHEST 1V, 11/09/2018, 10:45. FINDINGS: Surgical changes and devices: None. Chest: Lungs are clear. Heart mildly enlarged. No pleural effusions. No pneumoperitoneum. Abdomen: Bowel gas pattern is nonspecific. No suspicious calcifications. Visualized solid organ contours appear normal. Bones: Chronic right clavicle fracture which is healed deformity is stable. No suspicious bony lesions. IMPRESSION: 1. Nonspecific bowel gas pattern without definite evidence of obstruction. 2. No significant colonic fecal loading. Dictated by: Lynsey Roberson MD, PhD on 10/20/2019 at 17:15 Approved by: Lynsey Roberson MD, PhD on 10/20/2019 at 17:16
[2019-10-20 00:09] VITALS: BP 198/86; PULSE 90; RESP 20; TEMP 36.7; O2SAT 97; BMI 22.4
[2019-10-20 00:25] VITALS: BP 196/86; PULSE 79; RESP 18; O2SAT 98
--- NOTE | 2019-10-20 00:57 | PC.NURSE ---
Pt was unable to complete abd XR because he felt he needed to have a BM and was returned to the room to use the commode. Pt now on commode-- will attempt XR again.
--- NOTE | 2019-10-20 01:17 | PC.NURSE ---
Pt had large BM on commode. Xray called for imaging.
[2019-10-20 01:58] VITALS: BP 132/72; PULSE 73; RESP 16; O2SAT 94
== END 2019-10-20 02:10 | disposition home or self-care (01) ==
PROVIDERS: Emergency Provider Emergency Medicine; PCP Family Medicine
DX: K59.00 Constipation, unspecified (principal)
CPT/HCPCS: 74022; 99283

== ENCOUNTER → 2019-11-13 11:15 | Outpatient (CLI) | payer MEDICARE, OTHER, SELFPAY ==
[2019-11-13 12:19] LABS: INR 1.8 (0.9-1.3); Prothrombin Time 20.1 SECONDS (10.1-12.7)
== END ==
PROVIDERS: PCP Family Medicine; Referring Provider Family Medicine; Visit Provider Family Medicine
DX: I48.91 Unspecified atrial fibrillation (principal)
CPT/HCPCS: 36415; 85610

== ENCOUNTER → 2019-11-20 11:07 | Outpatient (CLI) | payer MEDICARE, OTHER, SELFPAY ==
[2019-11-20 12:49] LABS: INR 1.9 (0.9-1.3); Prothrombin Time 21.5 SECONDS (10.1-12.7)
== END ==
PROVIDERS: PCP Family Medicine; Referring Provider Family Medicine; Visit Provider Family Medicine
DX: I48.91 Unspecified atrial fibrillation (principal); Z79.01 Long term (current) use of anticoagulants
CPT/HCPCS: 36415; 85610

== ENCOUNTER → 2019-12-17 12:14 | Outpatient (CLI) | payer MEDICARE, OTHER, SELFPAY ==
[2019-12-17 12:41] LABS: INR 2.7 (0.9-1.3); Prothrombin Time 31.4 SECONDS (10.1-12.7)
== END ==
PROVIDERS: PCP Family Medicine; Referring Provider Family Medicine; Visit Provider Family Medicine
DX: I48.91 Unspecified atrial fibrillation (principal); Z79.01 Long term (current) use of anticoagulants
CPT/HCPCS: 36415; 85610

== ENCOUNTER 2020-01-13 22:05 | Emergency (ER) | payer MEDICARE, OTHER, SELFPAY ==
[2020-01-13 22:19] VITALS: BP 148/94; PULSE 81; RESP 18; TEMP 37.1; O2SAT 98; BMI 23.6
[2020-01-14 01:59] VITALS: BP 145/74; PULSE 77; RESP 18; O2SAT 97
--- NOTE | 2020-01-14 02:34 | ED.EAR ---
HPI - Ear Problem General Chief complaint: Ear Stated complaint: left ear, head pain Time Seen by Provider: 01/14/20 02:34 Source: patient Mode of arrival: Ambulatory Limitations: no limitations History of Present Illness HPI Narrative: The patient complains of left external ear pain, onset earlier today. He uses a urinated the left ear. He has no drainage from the ear. He has no retroauricular pain. He denies sinus pressure, cough or sore throat. Denies recent illness. He has no other complaints. Related Data Home Medications Medication Instructions Recorded Confirmed finasteride 5 mg PO QDAY #0 05/08/11 atenolol 75 mg PO DAILY 01/21/18 01/21/18 warfarin 6 mg PO DAILY 01/21/18 01/21/18 Previous Rx's Medication Instructions Recorded meclizine 25 mg PO BID-TID PRN #14 tab 11/09/18 tramadol [Ultram] 50 mg PO TID PRN #10 tab 10/04/19 carbamazepine 200 mg PO BID #30 cap 10/08/19 sulfamethoxazole-trimethoprim 1 tab PO BID #14 tab 01/14/20 Allergies Allergy/AdvReac Type Severity Reaction Status Date / Time No Known Drug Allergies Allergy Verified 10/04/19 04:11 Review of Systems Review of Systems ROS Unobtainable: All systems reviewed & are unremarkable except as noted in HPI and below Constitutional Constitutional: Denies chills, Denies fever(s), Denies headache(s) and Denies weakness ENT Ears, Nose, Mouth, and Throat: Denies vertigo, Denies dizziness, Denies headache(s), Denies nose pain and Denies sore throat Comments: Left ear pain, see HPI. No ear discharge. Neurologic Neurologic: Denies vertigo, Denies dizziness, Denies headache(s) and Denies weakness Patient History Medical History (Updated 01/14/20 @ 02:55 by Jayden Hoffman MD) Atrial fibrillation (Inactive) Surgical History (Updated 01/14/20 @ 02:51 by Jayden Hoffman MD) H/O stem cell transplant (Inactive) H/O stem cell transplant (Acute) Social History household members: spouse Smoking Status: Former smoker Smoking Status: Former smoker alcohol intake frequency: 0-2 drinks per day Alcohol type: hard liquor Substance Use Type: does not use Exam Initial Vital Signs Initial Vital Signs: Vital Signs Temperature 98.8 F 01/13/20 22:19 Pulse Rate 81 01/13/20 22:19 Respiratory Rate 18 01/13/20 22:19 Blood Pressure 148/94 H 01/13/20 22:19 Pulse Oximetry 98 01/13/20 22:19 Const General: cooperative and well developed Nutritional Appearance: well nourished HENMT Ears: TM's normal bilaterally and external ear abnormal (Abrasion to the left external ear, with slight erythema.) Neck Neck: No lymphadenopathy Course Course Course Narrative: The patient has a minor FX into the left external ear. Have started on Septra DS. He is advised to keep his hearing aid out of that ear until totally healed. Vital Signs Vital signs: Vital Signs - 8 hr 01/13/20 22:19 01/14/20 01:59 Temperature 98.8 F Pulse Rate 81 77 Respiratory Rate 18 18 Blood Pressure 148/94 H 145/74 H Pulse Oximetry 98 97 Discharge Plan Departure Patient Disposition: Home Clinical Impression: Cellulitis of left external ear Instructions: DI for Cellulitis -- Adult Activity Restrictions/Additional Instructions: Septra DS 2 times daily for 7 days. Tylenol 2 tabs every 4 hours as needed for pain. See your doctor return here if pain increases or if you develop fever. Keep the hearing aid out until the pain has resolved. Your prescription has been forwarded to [facility] Prescriptions: New sulfamethoxazole-trimethoprim 800-160 mg tablet 1 tab PO BID Qty: 14 RF: 0 No Action finasteride 5 MG tablet 5 mg PO QDAY Qty: 0 RF: 0 meclizine 25 mg tablet 25 mg PO BID-TID PRN (Reason: motion sickness) Qty: 14 RF: 0 warfarin 6 mg Tablet 6 mg PO DAILY RF: 0 atenolol 25 mg Tablet 75 mg PO DAILY RF: 0 tramadol [Ultram] 50 mg tablet 50 mg PO TID PRN (Reason: pain) Qty: 10 RF: 0 carbamazepine 200 mg capsule, ER multiphase 12 hr 200 mg PO BID Qty: 30 RF: 0 Referrals: Jayden Barahona MD [Primary Care Provider] -
[2020-01-14] MEDS: TRIMETH/SULFA 160/800 (DS) TABLET 1 TAB PO (03:27)
== END 2020-01-14 03:31 | disposition home or self-care (01) ==
PROVIDERS: Emergency Provider Emergency Medicine; PCP Family Medicine
DX: H60.12 Cellulitis of left external ear (principal)
CPT/HCPCS: 99283

== ENCOUNTER → 2020-01-14 12:54 | Outpatient (CLI) | payer MEDICARE, OTHER, SELFPAY ==
[2020-01-14 13:26] LABS: Prothrombin Time 34.9 SECONDS (10.1-12.7)
== END ==
PROVIDERS: PCP Family Medicine; Referring Provider Family Medicine; Visit Provider Family Medicine
DX: I48.91 Unspecified atrial fibrillation (principal); Z79.01 Long term (current) use of anticoagulants
CPT/HCPCS: 36415; 85610

== ENCOUNTER → 2020-01-18 11:21 | Outpatient (CLI) | payer MEDICARE, OTHER, SELFPAY ==
[2020-01-18 14:30] LABS: INR 3.7 (0.9-1.3); Prothrombin Time 42.4 SECONDS (10.1-12.7)
== END ==
PROVIDERS: PCP Family Medicine; Referring Provider Family Medicine; Visit Provider Family Medicine
DX: I48.91 Unspecified atrial fibrillation (principal); Z79.01 Long term (current) use of anticoagulants
CPT/HCPCS: 36415; 85610

== ENCOUNTER → 2020-01-27 09:28 | Outpatient (CLI) | payer MEDICARE, OTHER, SELFPAY ==
[2020-01-27 10:43] LABS: INR 2.6 (0.9-1.3); Prothrombin Time 29.3 SECONDS (10.1-12.7)
== END ==
PROVIDERS: PCP Family Medicine; Referring Provider Family Medicine; Visit Provider Family Medicine
DX: Z79.01 Long term (current) use of anticoagulants (principal); I48.91 Unspecified atrial fibrillation
CPT/HCPCS: 36415; 85610

== ENCOUNTER → 2020-02-10 09:51 | Outpatient (CLI) | payer MEDICARE, OTHER, SELFPAY ==
[2020-02-10 11:14] LABS: INR 3.9 (0.9-1.3); Prothrombin Time 44.4 SECONDS (10.1-12.7)
== END ==
PROVIDERS: PCP Family Medicine; Referring Provider Family Medicine; Visit Provider Family Medicine
DX: I48.91 Unspecified atrial fibrillation (principal); Z79.01 Long term (current) use of anticoagulants
CPT/HCPCS: 36415; 85610

== ENCOUNTER → 2020-02-19 10:08 | Outpatient (CLI) | payer MEDICARE, OTHER, SELFPAY ==
[2020-02-19 10:45] LABS: INR 2.2 (0.9-1.3)
== END ==
PROVIDERS: PCP Family Medicine; Referring Provider Family Medicine; Visit Provider Family Medicine
DX: I48.91 Unspecified atrial fibrillation (principal); Z79.01 Long term (current) use of anticoagulants
CPT/HCPCS: 36415; 85610

== ENCOUNTER → 2020-03-03 09:19 | Outpatient (CLI) | payer MEDICARE, OTHER, SELFPAY ==
[2020-03-03 09:50] LABS: INR 1.7 (0.9-1.3); Prothrombin Time 19.5 SECONDS (10.1-12.7)
== END ==
PROVIDERS: PCP Family Medicine; Referring Provider Family Medicine; Visit Provider Family Medicine
DX: I48.91 Unspecified atrial fibrillation (principal); Z79.01 Long term (current) use of anticoagulants
CPT/HCPCS: 36415; 85610

== ENCOUNTER → 2020-03-10 09:49 | Outpatient (CLI) | payer MEDICARE, OTHER, SELFPAY ==
[2020-03-10 11:09] LABS: INR 3.2 (0.9-1.3); Prothrombin Time 36.8 SECONDS (10.1-12.7)
[2020-03-10 14:13] LABS: Prostate Specific Antigen Scrn 1.24 ng/mL (0.1-4.0)
== END ==
PROVIDERS: PCP Family Medicine; Referring Provider Family Medicine; Visit Provider Family Medicine
DX: Z12.5 Encounter for screening for malignant neoplasm of prostate (principal); I48.91 Unspecified atrial fibrillation; Z79.01 Long term (current) use of anticoagulants
CPT/HCPCS: 36415; 85610; G0103

== ENCOUNTER → 2020-03-17 11:38 | Outpatient (CLI) | payer MEDICARE, SELFPAY ==
[2020-03-17 12:19] LABS: INR 2.9 (0.9-1.3); Prothrombin Time 33.5 SECONDS (10.1-12.7)
== END ==
PROVIDERS: PCP Family Medicine; Referring Provider Family Medicine; Visit Provider Family Medicine
DX: I48.91 Unspecified atrial fibrillation (principal); Z79.01 Long term (current) use of anticoagulants
CPT/HCPCS: 36415; 85610

== ENCOUNTER → 2020-04-01 11:04 | Outpatient (CLI) | payer MEDICARE, SELFPAY ==
[2020-04-01 11:44] LABS: INR 3.6 (0.9-1.3); Prothrombin Time 40.7 SECONDS (10.1-12.7)
== END ==
PROVIDERS: PCP Family Medicine; Referring Provider Family Medicine; Visit Provider Family Medicine
DX: I48.91 Unspecified atrial fibrillation (principal); Z79.01 Long term (current) use of anticoagulants
CPT/HCPCS: 36415; 85610

== ENCOUNTER → 2020-04-08 11:01 | Outpatient (CLI) | payer MEDICARE, SELFPAY ==
[2020-04-08 13:35] LABS: INR 2.4 (0.9-1.3); Prothrombin Time 27.7 SECONDS (10.1-12.7)
== END ==
PROVIDERS: PCP Family Medicine; Referring Provider Family Medicine; Visit Provider Family Medicine
DX: I48.91 Unspecified atrial fibrillation (principal); Z79.01 Long term (current) use of anticoagulants
CPT/HCPCS: 36415; 85610

== ENCOUNTER → 2020-05-06 09:43 | Outpatient (CLI) | payer MEDICARE, SELFPAY ==
[2020-05-06 10:20] LABS: INR 2.4 (0.9-1.3); Prothrombin Time 27.2 SECONDS (10.1-12.7)
== END ==
PROVIDERS: PCP Family Medicine; Referring Provider Family Medicine; Visit Provider Family Medicine
DX: I48.91 Unspecified atrial fibrillation (principal); Z79.01 Long term (current) use of anticoagulants
CPT/HCPCS: 36415; 85610

== ENCOUNTER → 2020-05-20 11:50 | Outpatient (CLI) | payer MEDICARE, SELFPAY ==
[2020-05-20 12:15] LABS: INR 2.7 (0.9-1.3)
== END ==
PROVIDERS: PCP Family Medicine; Referring Provider Family Medicine; Visit Provider Family Medicine
DX: I48.91 Unspecified atrial fibrillation (principal); Z79.01 Long term (current) use of anticoagulants
CPT/HCPCS: 36415; 85610

== ENCOUNTER → 2020-06-03 11:25 | Outpatient (CLI) | payer MEDICARE, SELFPAY ==
[2020-06-03 12:00] LABS: INR 2.3 (0.9-1.3); Prothrombin Time 25.5 SECONDS (10.1-12.7)
== END ==
PROVIDERS: PCP Family Medicine; Referring Provider Family Medicine; Visit Provider Family Medicine
DX: Z79.01 Long term (current) use of anticoagulants (principal)
CPT/HCPCS: 36415; 85610

== ENCOUNTER → 2020-06-16 10:01 | Outpatient (CLI) | payer MEDICARE, SELFPAY ==
[2020-06-16 10:27] LABS: INR 3.4 (0.9-1.3); Prothrombin Time 38.6 SECONDS (10.1-12.7)
== END ==
PROVIDERS: PCP Family Medicine; Referring Provider Family Medicine; Visit Provider Family Medicine
DX: I48.91 Unspecified atrial fibrillation (principal); Z79.01 Long term (current) use of anticoagulants
CPT/HCPCS: 36415; 85610

== ENCOUNTER → 2020-06-23 10:08 | Outpatient (CLI) | payer MEDICARE, SELFPAY ==
[2020-06-23 11:18] LABS: INR 3.3 (0.9-1.3); Prothrombin Time 37.5 SECONDS (10.1-12.7)
== END ==
PROVIDERS: PCP Family Medicine; Referring Provider Family Medicine; Visit Provider Family Medicine
DX: I48.91 Unspecified atrial fibrillation (principal); Z79.01 Long term (current) use of anticoagulants
CPT/HCPCS: 36415; 85610

== ENCOUNTER → 2020-07-07 10:40 | Outpatient (CLI) | payer MEDICARE, SELFPAY ==
[2020-07-07 13:22] LABS: INR 2.3 (0.9-1.3); Prothrombin Time 26.2 SECONDS (10.1-12.7)
== END ==
PROVIDERS: PCP Family Medicine; Referring Provider Family Medicine; Visit Provider Family Medicine
DX: I48.91 Unspecified atrial fibrillation (principal); Z79.01 Long term (current) use of anticoagulants
CPT/HCPCS: 36415; 85610

== ENCOUNTER → 2020-08-05 14:34 | Outpatient (CLI) | payer MEDICARE, SELFPAY ==
[2020-08-05 15:08] LABS: Prothrombin Time 35.2 SECONDS (10.1-12.7)
== END ==
PROVIDERS: PCP Family Medicine; Referring Provider Family Medicine; Visit Provider Family Medicine
DX: I48.91 Unspecified atrial fibrillation (principal); Z79.01 Long term (current) use of anticoagulants
CPT/HCPCS: 36415; 85610

== ENCOUNTER → 2020-09-02 11:22 | Outpatient (CLI) | payer MEDICARE, SELFPAY ==
[2020-09-02 12:14] LABS: INR 2.7 (0.9-1.3); Prothrombin Time 31.7 SECONDS (10.1-12.7)
== END ==
PROVIDERS: PCP Family Medicine; Referring Provider Family Medicine; Visit Provider Family Medicine
DX: I48.91 Unspecified atrial fibrillation (principal); Z79.01 Long term (current) use of anticoagulants
CPT/HCPCS: 36415; 85610

== ENCOUNTER → 2020-10-03 11:58 | Outpatient (CLI) | payer MEDICARE, SELFPAY ==
[2020-10-03 12:45] LABS: INR 3.8 (0.9-1.3); Prothrombin Time 44.3 SECONDS (10.1-12.7)
== END ==
PROVIDERS: Family Provider Family Medicine; PCP Family Medicine; Referring Provider Family Medicine; Visit Provider Family Medicine
DX: I48.91 Unspecified atrial fibrillation (principal); Z79.01 Long term (current) use of anticoagulants
CPT/HCPCS: 36415; 85610

== ENCOUNTER 2020-10-06 10:30 | Outpatient (RCR) | payer MEDICARE, SELFPAY ==
--- NOTE | 2020-09-05 15:06 | PT.OIE ---
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 Visit Care Team Role Provider Type Jayden Barahona MD Family Provider Physician Primary Care Provider Specialty: [facility] Address: [address] [place] [address], [id number] Email: [email or web address] Inspector Ferdinand Abdul MD Attending Provider Physician Referring Provider Specialty: [facility] Address: [address] [place] [address], [id number] Email: [email or web address] Physical Therapy Initial Evaluation PT-OP-A Visit Information Start: 09/05/20 10:35 Freq: Status: Active Protocol: Document 09/05/20 12:54 MB (Rec: 09/05/20 13:09 MB [id number]) Out-Patient Physical Therapy Visit Information Visit Information Visit Type Initial Evaluation Visit Note [employer] Medicare Visit Start Time 12:54 Visit Stop Time 13:39 Total Visit Minutes 45 Visit Number 1 Number of CATTLE FEEDER Visits 0 Evaluation Information Evaluation Date 09/05/20 PT-OP-B Current Condition Start: 09/05/20 10:35 Freq: Status: Active Protocol: Document 09/05/20 12:54 MB (Rec: 09/05/20 13:09 MB [id number]) Current Condition History of Current Condition Onset Date 08/30 Current Complaints Dizziness with getting in and out of bed and with some head movements History of Current Condition PMH includes BPPV and pt got PT for this and it helped. PMH includes a-fib. Meclizine and laying down make the dizziness better. Bending over or sitting up in bed make the dizziness worse. It lasts 5-10 minutes when he gets it. Looking up and looking down increases the dizziness. Looking down and to the left is problematic. Pt has been taking Meclizine twice a day. He has had 1 fall in the last year and 1 in the last month when he almost fell off the toilet when the dizziness started. Pt denies numbness and tingling, vision changes, ear pressure, history of concussion, anemia, weakness, new hearing change, trouble swallowing, recent overhead lifting, B12 deficiency, eye pressure changes, whiplash, chiropractor treatment, TMD, headaches. 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 Treatment Goals Patient/Caregiver Goals To eradicate vertigo. PT-OP-C Subjective Start: 09/05/20 10:35 Freq: Status: Active Protocol: Document 09/05/20 12:54 MB (Rec: 09/05/20 13:09 MB [id number]) OP-PT Subjective Patient Comments Patient Comments See history of current condition. Patient Questionnaires Dizziness Handicap Inventory DHI Score 40 DHI Functional Impairment 40 to 59% Impaired (Score 40- 59) PT-OP-D Balance Start: 09/05/20 10:35 Freq: Status: Active Protocol: Document 09/05/20 12:54 MB (Rec: 09/05/20 14:58 MB [id number]) OP-PT Balance Assessment Sitting Balance Static Sitting Balance Ability Normal Dynamic Sitting Balance Ability Good Sitting Balance Comments UE support for coordination testing of LEs Standing Balance Static Standing Balance Ability Good Dynamic Standing Balance Ability Good Balance Tests Romberg Romberg 30 sec EO & EC, increased sway EC, reports unsteady Valenzuela Fall Scale Copyright Permission PT-OP-H Neuro Start: 09/05/20 10:35 Freq: Status: Active Protocol: Document 09/05/20 12:54 MB (Rec: 09/05/20 14:58 MB [id number]) Coordination Evaluation Comments Coordination Comments B: pt touching PT's finger and then his nose with index finger is very slow and has tremor, he has greater trouble with the left. At first, PT and pt feel this is a visual field issue but then he reports pretty good visual filed responses with quick screen. B rapid pronation and supination is very slow, even for an 84 y/o male. B toe tapping across opposite foot and back is difficult and slow and pt has trouble with this B. Vital Signs Comments Vital Signs Comments BP in LUE is very high. Orthostatic assessment: supine 167/104, 87; standing 158/94, 89; standing 1' 158/96, 92. Pt denies dizziness with getting up. PT-OP-J Posture/Palpation/Skin Start: 09/05/20 10:35 Freq: Status: Active Protocol: Document 09/05/20 12:54 MB (Rec: 09/05/20 14:58 MB [id number]) Posture Evaluation Comments Posture Comments Standing posture with shoes donned: forward head, rounded shoulders, left tragus 2.5 in front of AC joint, increased kyphosis, decreased lordosis, iliac crests level, left shoulder higher than the right PT-OP-K Range of Motion Start: 09/05/20 10:35 Freq: Status: Active Protocol: Document 09/05/20 12:54 MB (Rec: 09/05/20 14:58 MB [id number]) Cervical Spine Range of Motion Cervical Spine Active Testing Position Standing Rotation Left 20 Rotation Right 25 PT-OP-M Strength Start: 09/05/20 10:35 Freq: Status: Active Protocol: Document 09/05/20 12:54 MB (Rec: 09/05/20 14:58 MB [id number]) Shoulder Strength Shoulder Manual Muscle Testing Bilateral Abduction (C5) 5 Normal Elbow/Forearm Strength Elbow and Forearm Manual Muscle Testing Right Flexion (C6) 5 Normal PT-OP-O Vestibular Start: 09/05/20 10:35 Freq: Status: Active Protocol: Document 09/05/20 12:54 MB (Rec: 09/05/20 14:58 MB [id number]) Vestibular Assessment Visual Testing Smooth Pursuits Horizontal Pt has trouble following tracking commands Smooth Pursuits Vertical As above Saccades Horizontal As above Saccades Vertical As above Gaze Evoked Nystagmus With Fixation Normal Convergence Test Impaired Spontaneous Nystagmus Negative Positional Testing Javier-Hallpike Negative Left,Negative Right Rolling Test Negative Left,Negative Right Comments Vestibular Comments Left eye converges and right does not converge well at all. B pupils constrict equally to pen light. With smile, left side of mouth does not move as well as the right, and neither move very much. PT-OP-T Assessment and Plan Start: 09/05/20 10:35 Freq: Status: Active Protocol: Document 09/05/20 12:54 MB (Rec: 09/05/20 14:58 MB [id number]) Physical Therapy Assessment Rehab Potential Rehabilitation Potential Fair Evaluation Complexity Number of Personal Factors/Comorbidities 1-2 Number of Body Systems Impaired 3 Clinical Presentation at Evaluation Evolving Impairments Impairments Activity Tolerance,Balance, Coordination,Functional Activities,Functional Mobility ,Gait,Posture,ROM,Vestibular, Visual Motor Other Impairments Personal factors include pt is a poor historian: reports no falls and then states he had a fall last Saturday, poor describer of symptoms. Body systems affected include cardiovascular, vestibular, visual motor, musculoskeletal and neuromuscular. His clinical presentation is evolving: history of similar dizziness the end 2019 and progressive spinal/postural changes with advancing age. Other Concerns Fall Risk Yes Goals 4 Impairment DHI 40% on eval Neuro Intensivist Physician Goal (LTG) DHI score will decrease to 20% to reflect improved pt symptomology by 11/05/20. LTG Duration 8 weeks 3 Neuro Intensivist Physician Goal (LTG) Pt will perform progressive HEP with I including postural, VOR, and balance exercises to decrease fall risk and improve symptomology by . LTG Duration 8 weeks 2 Neuro Intensivist Physician Goal (LTG) Pt will perform WNLs on a standardized balance test to decrease fall risk by 11/05/20. LTG Duration 8 weeks 1 Correction Goal (LTG) Pt will deny falls to decrease risk of injury by 11/05/20. LTG Duration 8 weeks Assessment Summary Assessment Pt is an 84 y/o male presenting with second episode of dizziness since the end 2019. He is a poor historian and his reports and descriptions change occ throughout evaluation and this makes assessment somewhat challenging. He appears to have dizziness when sitting up to the right side of bed in the morning and he demonstrates this movement that strains his anterior neck greatly as he sits straight up and does not roll to his side first. He reports dizziness when looking down to the left occ but cannot reproduce this today. He decribes dizziness as almost like the images move, unsteady and onset of vertigo. BPPV testing is negative today. His BP is very high and does drop both systolic and diastolic with moving from supine to stand. He has severe postural changes , forward head, rounded shoulders and flexed thoracic spine. He presents with balance difficulty as well. Oculomotor and coordination testing are poor as he moves slowly and also has some trouble with the tasks vs trouble following commands. He will benefit from PT to progress balance, further assess VOR and initiate manual work and postural interventions. Physical Therapy Plan Frequency and Duration Frequency of Treatment 1-2x/Week Duration of Treatment 8 weeks Plan of Care Start Date 09/05/20 Plan of Care End Date 11/07/20 Therapeutic Interventions Therapeutic Interventions Balance Training,Canalithic Repositioning,Coordination Training,Gait Training,Home Exercise Program,Joint Mobilizations,Manual Therapy, Neuromuscular Re-education, Patient/Caregiver Education, Self-Care/Home Management,Soft Tissue Mobilization,Taping, Therapeutic Activities, Therapeutic Exercises, Vestibular Rehabilitation Modalities Cold Pack/Ice Massage,Hot Packs Next Visit Focus/Plan Next Note Type Treatment Note Next Visit Plan FGA and DVA testing
--- NOTE | 2020-09-05 15:06 | PT.OPPOC ---
Physical, Occupational & Speech Therapy At [facility] Current Diagnoses Dizziness and giddiness (09/05/20) Visit Care Team Role Provider Type Jayden Barahona MD Family Provider Physician Primary Care Provider Specialty: [facility] Address: [address] [place] [address], [address] Email: [email or web address] Ferdinand Abdul MD Attending Provider Physician Referring Provider Specialty: [facility] Address: [address] [place] [address], [id number] Email: [email or web address] Plan Of Care PT-OP-T Assessment and Plan Start: 09/05/20 10:35 Freq: Status: Active Protocol: Document 09/05/20 12:54 MB (Rec: 09/05/20 14:58 MB [id number]) Physical Therapy Assessment Rehab Potential Rehabilitation Potential Fair Evaluation Complexity Number of Personal Factors/Comorbidities 1-2 Number of Body Systems Impaired 3 Clinical Presentation at Evaluation Evolving Impairments Impairments Activity Tolerance,Balance, Coordination,Functional Activities,Functional Mobility ,Gait,Posture,ROM,Vestibular, Visual Motor Other Impairments Personal factors include pt is a poor historian: reports no falls and then states he had a fall last Saturday, poor describer of symptoms. Body systems affected include cardiovascular, vestibular, visual motor, musculoskeletal and neuromuscular. His clinical presentation is evolving: history of similar dizziness the end 2019 and progressive spinal/postural changes with advancing age. Other Concerns Fall Risk Yes Goals 4 Impairment DHI 40% on eval Server Systems Administrator Goal (LTG) DHI score will decrease to 20% to reflect improved pt symptomology by 11/05/20. LTG Duration 8 weeks 3 Server Systems Administrator Goal (LTG) Pt will perform progressive HEP with I including postural, VOR, and balance exercises to decrease fall risk and improve symptomology by . LTG Duration 8 weeks 2 Nursing Home Goal (LTG) Pt will perform WNLs on a standardized balance test to decrease fall risk by 11/05/20. LTG Duration 8 weeks 1 Nursing Home Goal (LTG) Pt will deny falls to decrease risk of injury by 11/05/20. LTG Duration 8 weeks Assessment Summary Assessment Pt is an 84 y/o male presenting with second episode of dizziness since the end 2019. He is a poor historian and his reports and descriptions change occ throughout evaluation and this makes assessment somewhat challenging. He appears to have dizziness when sitting up to the right side of bed in the morning and he demonstrates this movement that strains his anterior neck greatly as he sits straight up and does not roll to his side first. He reports dizziness when looking down to the left occ but cannot reproduce this today. He decribes dizziness as almost like the images move, unsteady and onset of vertigo. BPPV testing is negative today. His BP is very high and does drop both systolic and diastolic with moving from supine to stand. He has severe postural changes , forward head, rounded shoulders and flexed thoracic spine. He presents with balance difficulty as well. Oculomotor and coordination testing are poor as he moves slowly and also has some trouble with the tasks vs trouble following commands. He will benefit from PT to progress balance, further assess VOR and initiate manual work and postural interventions. Physical Therapy Plan Frequency and Duration Frequency of Treatment 1-2x/Week Duration of Treatment 8 weeks Plan of Care Start Date 09/05/20 Plan of Care End Date 11/07/20 Therapeutic Interventions Therapeutic Interventions Balance Training,Canalithic Repositioning,Coordination Training,Gait Training,Home Exercise Program,Joint Mobilizations,Manual Therapy, Neuromuscular Re-education, Patient/Caregiver Education, Self-Care/Home Management,Soft Tissue Mobilization,Taping, Therapeutic Activities, Therapeutic Exercises, Vestibular Rehabilitation Modalities Cold Pack/Ice Massage,Hot Packs Next Visit Focus/Plan Next Note Type Treatment Note Next Visit Plan FGA and DVA testing Plan of Care Dates Plan of Care Start Date 09/05/20 Plan of Care End Date 11/07/20 Electronically Signed by: Coretta Courtney, PT 09/05/20 [id number] Please Sign and Return: I have reviewed this Plan of Care and certify that the skilled therapy services above are required to meet the patient?s needs. Physician Signature Date Printed Name and Credentials Clinical Instructor Signature Printed Name and Credentials
--- NOTE | 2020-09-08 14:33 | PT.OTN ---
Current Diagnoses Dizziness and giddiness (09/08/20) Physical Therapy Treatment Note PT-OP-A Visit Information Start: 09/05/20 10:35 Freq: Status: Active Protocol: Document 09/08/20 13:39 MB (Rec: 09/08/20 14:32 MB [id number]) Out-Patient Physical Therapy Visit Information Visit Information Visit Type Treatment Note Visit Note [employer] Medicare Visit Start Time 13:39 Visit Stop Time 14:24 Total Visit Minutes 45 Visit Number 2 PT-OP-B Current Condition Start: 09/05/20 10:35 Freq: Status: Active Protocol: Document 09/05/20 12:54 MB (Rec: 09/05/20 13:09 MB [id number]) Current Condition History of Current Condition Onset Date 08/30 Current Complaints Dizziness with getting in and out of bed and with some head movements History of Current Condition PMH includes BPPV and pt got PT for this and it helped. PMH includes a-fib. Meclizine and laying down make the dizziness better. Bending over or sitting up in bed make the dizziness worse. It lasts 5-10 minutes when he gets it. Looking up and looking down increases the dizziness. Looking down and to the left is problematic. Pt has been taking Meclizine twice a day. He has had 1 fall in the last year and 1 in the last month when he almost fell off the toilet when the dizziness started. Pt denies numbness and tingling, vision changes, ear pressure, history of concussion, anemia, weakness, new hearing change, trouble swallowing, recent overhead lifting, B12 deficiency, eye pressure changes, whiplash, chiropractor treatment, TMD, headaches. 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 Treatment Goals Patient/Caregiver Goals To eradicate vertigo. PT-OP-C Subjective Start: 09/05/20 10:35 Freq: Status: Active Protocol: Document 09/08/20 13:39 MB (Rec: 09/08/20 14:33 MB [id number]) OP-PT Subjective Patient Comments Patient Comments Pt states that he notices he walks down the steps without cushioning his steps. PT-OP-D Balance Start: 09/05/20 10:35 Freq: Status: Active Protocol: Document 09/05/20 12:54 MB (Rec: 09/05/20 14:58 MB [id number]) OP-PT Balance Assessment Sitting Balance Static Sitting Balance Ability Normal Dynamic Sitting Balance Ability Good Sitting Balance Comments UE support for coordination testing of LEs Standing Balance Static Standing Balance Ability Good Dynamic Standing Balance Ability Good Balance Tests Romberg Romberg 30 sec EO & EC, increased sway EC, reports unsteady Valenzuela Fall Scale Copyright Permission PT-OP-H Neuro Start: 09/05/20 10:35 Freq: Status: Active Protocol: Document 09/05/20 12:54 MB (Rec: 09/05/20 14:58 MB [id number]) Coordination Evaluation Comments Coordination Comments B: pt touching PT's finger and then his nose with index finger is very slow and has tremor, he has greater trouble with the left. At first, PT and pt feel this is a visual field issue but then he reports pretty good visual filed responses with quick screen. B rapid pronation and supination is very slow, even for an 84 y/o male. B toe tapping across opposite foot and back is difficult and slow and pt has trouble with this B. Vital Signs Comments Vital Signs Comments BP in LUE is very high. Orthostatic assessment: supine 167/104, 87; standing 158/94, 89; standing 1' 158/96, 92. Pt denies dizziness with getting up. PT-OP-J Posture/Palpation/Skin Start: 09/05/20 10:35 Freq: Status: Active Protocol: Document 09/05/20 12:54 MB (Rec: 09/05/20 14:58 MB [id number]) Posture Evaluation Comments Posture Comments Standing posture with shoes donned: forward head, rounded shoulders, left tragus 2.5 in front of AC joint, increased kyphosis, decreased lordosis, iliac crests level, left shoulder higher than the right PT-OP-K Range of Motion Start: 09/05/20 10:35 Freq: Status: Active Protocol: Document 09/05/20 12:54 MB (Rec: 09/05/20 14:58 MB [id number]) Cervical Spine Range of Motion Cervical Spine Active Testing Position Standing Rotation Left 20 Rotation Right 25 PT-OP-M Strength Start: 09/05/20 10:35 Freq: Status: Active Protocol: Document 09/05/20 12:54 MB (Rec: 09/05/20 14:58 MB [id number]) Shoulder Strength Shoulder Manual Muscle Testing Bilateral Abduction (C5) 5 Normal Elbow/Forearm Strength Elbow and Forearm Manual Muscle Testing Right Flexion (C6) 5 Normal PT-OP-O Vestibular Start: 09/05/20 10:35 Freq: Status: Active Protocol: Document 09/05/20 12:54 MB (Rec: 09/05/20 14:58 MB [id number]) Vestibular Assessment Visual Testing Smooth Pursuits Horizontal Pt has trouble following tracking commands Smooth Pursuits Vertical As above Saccades Horizontal As above Saccades Vertical As above Gaze Evoked Nystagmus With Fixation Normal Convergence Test Impaired Spontaneous Nystagmus Negative Positional Testing Javier-Hallpike Negative Left,Negative Right Rolling Test Negative Left,Negative Right Comments Vestibular Comments Left eye converges and right does not converge well at all. B pupils constrict equally to pen light. With smile, left side of mouth does not move as well as the right, and neither move very much. PT-OP-Q Treatments Start: 09/05/20 10:35 Freq: Status: Active Protocol: Document 09/08/20 13:39 MB (Rec: 09/08/20 14:32 MB [id number]) Therapeutic Exercises Sitting Exercises Sit to stands without UE support Comments 10 reps with one plop pulling on knee caps; 10 reps with hands in armpits Neuro Re-Education Treatment Balance Activities FGA Comments FGA score is 17/30. Pt has most trouble with gait speed ( he gait trains slowly), tandem gait, gait with eyes closed, gait training backwards and performing steps. He descends standard steps with very rigid legs and does not bend his knees much or control descent. This is a big complaint of his Vestibular Rehabilitation DVA testing Comments Pt can only read first four lines of eye chart without glasses and inhibits PT from moving his head passively for VOR testing with horizontal and vertical movement Other Activities Stair exercise for balance Comments Large staircase outside of clinic: pt hold rail in right or left hand, no trouble with ascending reciprocally, cues to bend knees and slow descent for walking down the stairs, 3 trials PT-OP-T Assessment and Plan Start: 09/05/20 10:35 Freq: Status: Active Protocol: Document 09/08/20 13:39 MB (Rec: 09/08/20 14:32 MB [id number]) Physical Therapy Assessment Rehab Potential Rehabilitation Potential Fair Evaluation Complexity Number of Personal Factors/Comorbidities 1-2 Number of Body Systems Impaired 3 Clinical Presentation at Evaluation Evolving Impairments Impairments Activity Tolerance,Balance, Coordination,Functional Activities,Functional Mobility ,Gait,Posture,ROM,Vestibular, Visual Motor Other Impairments Personal factors include pt is a poor historian: reports no falls and then states he had a fall last Saturday, poor describer of symptoms. Body systems affected include cardiovascular, vestibular, visual motor, musculoskeletal and neuromuscular. His clinical presentation is evolving: history of similar dizziness the end 2019 and progressive spinal/postural changes with advancing age. Other Concerns Fall Risk Yes Goals 4 Impairment DHI 40% on eval Insurance Instructor Goal (LTG) DHI score will decrease to 20% to reflect improved pt symptomology by 11/05/20. LTG Duration 8 weeks 3 Longterm Goal (LTG) Pt will perform progressive HEP with I including postural, VOR, and balance exercises to decrease fall risk and improve symptomology by . LTG Duration 8 weeks 2 Insurance Instructor Goal (LTG) Pt will perform WNLs on a standardized balance test to decrease fall risk by 11/05/20. LTG Duration 8 weeks 1 Longterm Goal (LTG) Pt will deny falls to decrease risk of injury by 11/05/20. LTG Duration 8 weeks Assessment Summary Assessment DVA testing does not go well d /t vision. Pt presents with balance impairment with FGA testing. Pt performs sit to stands and added for HEP today for LE strengthening and to help with balance. Also performed stair training to help with balance and strengthening. Cues to bend leg on higher step and slow descent. Physical Therapy Plan Frequency and Duration Frequency of Treatment 1-2x/Week Duration of Treatment 8 weeks Plan of Care Start Date 09/05/20 Plan of Care End Date 11/07/20 Therapeutic Interventions Therapeutic Interventions Balance Training,Canalithic Repositioning,Coordination Training,Gait Training,Home Exercise Program,Joint Mobilizations,Manual Therapy, Neuromuscular Re-education, Patient/Caregiver Education, Self-Care/Home Management,Soft Tissue Mobilization,Taping, Therapeutic Activities, Therapeutic Exercises, Vestibular Rehabilitation Modalities Cold Pack/Ice Massage,Hot Packs Next Visit Focus/Plan Next Note Type Treatment Note Next Visit Plan Wall slides, step ups and downs, LE strengthening
--- NOTE | 2020-09-13 13:38 | PT.OTN ---
Current Diagnoses Dizziness and giddiness (09/13/20) Physical Therapy Treatment Note PT-OP-A Visit Information Start: 09/05/20 10:35 Freq: Status: Active Protocol: Document 09/13/20 13:00 MB (Rec: 09/13/20 13:35 MB [id number]) Out-Patient Physical Therapy Visit Information Visit Information Visit Type Treatment Note Visit Note [employer] Medicare Visit Start Time 13:00 Visit Stop Time 13:38 Total Visit Minutes 38 Visit Number 3 PT-OP-B Current Condition Start: 09/05/20 10:35 Freq: Status: Active Protocol: Document 09/05/20 12:54 MB (Rec: 09/05/20 13:09 MB [id number]) Current Condition History of Current Condition Onset Date 08/30 Current Complaints Dizziness with getting in and out of bed and with some head movements History of Current Condition PMH includes BPPV and pt got PT for this and it helped. PMH includes a-fib. Meclizine and laying down make the dizziness better. Bending over or sitting up in bed make the dizziness worse. It lasts 5-10 minutes when he gets it. Looking up and looking down increases the dizziness. Looking down and to the left is problematic. Pt has been taking Meclizine twice a day. He has had 1 fall in the last year and 1 in the last month when he almost fell off the toilet when the dizziness started. Pt denies numbness and tingling, vision changes, ear pressure, history of concussion, anemia, weakness, new hearing change, trouble swallowing, recent overhead lifting, B12 deficiency, eye pressure changes, whiplash, chiropractor treatment, TMD, headaches. 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 Treatment Goals Patient/Caregiver Goals To eradicate vertigo. PT-OP-C Subjective Start: 09/05/20 10:35 Freq: Status: Active Protocol: Document 09/13/20 13:00 MB (Rec: 09/13/20 13:35 MB [id number]) OP-PT Subjective Patient Comments Patient Comments states that sit to stands are difficult. PT-OP-D Balance Start: 09/05/20 10:35 Freq: Status: Active Protocol: Document 09/05/20 12:54 MB (Rec: 09/05/20 14:58 MB [id number]) OP-PT Balance Assessment Sitting Balance Static Sitting Balance Ability Normal Dynamic Sitting Balance Ability Good Sitting Balance Comments UE support for coordination testing of LEs Standing Balance Static Standing Balance Ability Good Dynamic Standing Balance Ability Good Balance Tests Romberg Romberg 30 sec EO & EC, increased sway EC, reports unsteady Valenzuela Fall Scale Copyright Permission PT-OP-H Neuro Start: 09/05/20 10:35 Freq: Status: Active Protocol: Document 09/05/20 12:54 MB (Rec: 09/05/20 14:58 MB [id number]) Coordination Evaluation Comments Coordination Comments B: pt touching PT's finger and then his nose with index finger is very slow and has tremor, he has greater trouble with the left. At first, PT and pt feel this is a visual field issue but then he reports pretty good visual filed responses with quick screen. B rapid pronation and supination is very slow, even for an 84 y/o male. B toe tapping across opposite foot and back is difficult and slow and pt has trouble with this B. Vital Signs Comments Vital Signs Comments BP in LUE is very high. Orthostatic assessment: supine 167/104, 87; standing 158/94, 89; standing 1' 158/96, 92. Pt denies dizziness with getting up. PT-OP-J Posture/Palpation/Skin Start: 09/05/20 10:35 Freq: Status: Active Protocol: Document 09/05/20 12:54 MB (Rec: 09/05/20 14:58 MB [id number]) Posture Evaluation Comments Posture Comments Standing posture with shoes donned: forward head, rounded shoulders, left tragus 2.5 in front of AC joint, increased kyphosis, decreased lordosis, iliac crests level, left shoulder higher than the right PT-OP-K Range of Motion Start: 09/05/20 10:35 Freq: Status: Active Protocol: Document 09/05/20 12:54 MB (Rec: 09/05/20 14:58 MB [id number]) Cervical Spine Range of Motion Cervical Spine Active Testing Position Standing Rotation Left 20 Rotation Right 25 PT-OP-M Strength Start: 09/05/20 10:35 Freq: Status: Active Protocol: Document 09/05/20 12:54 MB (Rec: 09/05/20 14:58 MB [id number]) Shoulder Strength Shoulder Manual Muscle Testing Bilateral Abduction (C5) 5 Normal Elbow/Forearm Strength Elbow and Forearm Manual Muscle Testing Right Flexion (C6) 5 Normal PT-OP-O Vestibular Start: 09/05/20 10:35 Freq: Status: Active Protocol: Document 09/05/20 12:54 MB (Rec: 09/05/20 14:58 MB [id number]) Vestibular Assessment Visual Testing Smooth Pursuits Horizontal Pt has trouble following tracking commands Smooth Pursuits Vertical As above Saccades Horizontal As above Saccades Vertical As above Gaze Evoked Nystagmus With Fixation Normal Convergence Test Impaired Spontaneous Nystagmus Negative Positional Testing [place]-Hallpike Negative Left,Negative Right Rolling Test Negative Left,Negative Right Comments Vestibular Comments Left eye converges and right does not converge well at all. B pupils constrict equally to pen light. With smile, left side of mouth does not move as well as the right, and neither move very much. PT-OP-Q Treatments Start: 09/05/20 10:35 Freq: Status: Active Protocol: Document 09/13/20 13:00 MB (Rec: 09/13/20 13:35 MB [id number]) Therapeutic Exercises Sitting Exercises Clam sitting Side bilateral Equipment Used Level 1 band Comments Feet together, squeeze glutes, 10 reps slowly LAQ with AP Side bilateral Equipment Used Level 1 band Comments LAQ and 5 APs, alternating legs Ankle eversion and DF Side bilateral Equipment Used Level 1 band Comments DF, then eversion, B feet, cues to keep knees straight Sit to stands without UE support Comments 6 reps in 30 sec today Neuro Re-Education Treatment Balance Activities Corner exercises Comments Pt standing in corner with chair in front: Romberg EO and EC without LOB Semi tandem and tandem--EO PT-OP-T Assessment and Plan Start: 09/05/20 10:35 Freq: Status: Active Protocol: Document 09/13/20 13:00 MB (Rec: 09/13/20 13:35 MB [id number]) Physical Therapy Assessment Rehab Potential Rehabilitation Potential Fair Evaluation Complexity Number of Personal Factors/Comorbidities 1-2 Number of Body Systems Impaired 3 Clinical Presentation at Evaluation Evolving Impairments Impairments Activity Tolerance,Balance, Coordination,Functional Activities,Functional Mobility ,Gait,Posture,ROM,Vestibular, Visual Motor Other Impairments Personal factors include pt is a poor historian: reports no falls and then states he had a fall last Saturday, poor describer of symptoms. Body systems affected include cardiovascular, vestibular, visual motor, musculoskeletal and neuromuscular. His clinical presentation is evolving: history of similar dizziness the end 2019 and progressive spinal/postural changes with advancing age. Other Concerns Fall Risk Yes Goals 4 Impairment DHI 40% on eval Assistant Construction Superintendent Goal (LTG) DHI score will decrease to 20% to reflect improved pt symptomology by 11/05/20. LTG Duration 8 weeks 3 Assistant Construction Superintendent Goal (LTG) Pt will perform progressive HEP with I including postural, VOR, and balance exercises to decrease fall risk and improve symptomology by . LTG Duration 8 weeks 2 Assistant Construction Superintendent Goal (LTG) Pt will perform WNLs on a standardized balance test to decrease fall risk by 11/05/20. LTG Duration 8 weeks 1 Alf Goal (LTG) Pt will deny falls to decrease risk of injury by 11/05/20. LTG Duration 8 weeks Assessment Summary Assessment Progressed sitting LE strengthening today, postural education, balance training. Pt performs well and progressed HEP. Physical Therapy Plan Frequency and Duration Frequency of Treatment 1-2x/Week Duration of Treatment 8 weeks Plan of Care Start Date 09/05/20 Plan of Care End Date 11/07/20 Therapeutic Interventions Therapeutic Interventions Balance Training,Canalithic Repositioning,Coordination Training,Gait Training,Home Exercise Program,Joint Mobilizations,Manual Therapy, Neuromuscular Re-education, Patient/Caregiver Education, Self-Care/Home Management,Soft Tissue Mobilization,Taping, Therapeutic Activities, Therapeutic Exercises, Vestibular Rehabilitation Modalities Cold Pack/Ice Massage,Hot Packs Next Visit Focus/Plan Next Note Type Treatment Note Next Visit Plan Balance exercises, wall slides , step ups and downs, LE strengthening standing
--- NOTE | 2020-09-15 13:51 | PT.OTN ---
Current Diagnoses Dizziness and giddiness (09/15/20) Physical Therapy Treatment Note PT-OP-A Visit Information Start: 09/05/20 10:35 Freq: Status: Active Protocol: Document 09/15/20 12:55 MB (Rec: 09/15/20 13:23 MB [id number]) Out-Patient Physical Therapy Visit Information Visit Information Visit Type Treatment Note Visit Note [employer] Medicare Visit Start Time 12:55 Visit Stop Time 13:40 Total Visit Minutes 45 Visit Number 4 PT-OP-B Current Condition Start: 09/05/20 10:35 Freq: Status: Active Protocol: Document 09/05/20 12:54 MB (Rec: 09/05/20 13:09 MB [id number]) Current Condition History of Current Condition Onset Date 08/30 Current Complaints Dizziness with getting in and out of bed and with some head movements History of Current Condition PMH includes BPPV and pt got PT for this and it helped. PMH includes a-fib. Meclizine and laying down make the dizziness better. Bending over or sitting up in bed make the dizziness worse. It lasts 5-10 minutes when he gets it. Looking up and looking down increases the dizziness. Looking down and to the left is problematic. Pt has been taking Meclizine twice a day. He has had 1 fall in the last year and 1 in the last month when he almost fell off the toilet when the dizziness started. Pt denies numbness and tingling, vision changes, ear pressure, history of concussion, anemia, weakness, new hearing change, trouble swallowing, recent overhead lifting, B12 deficiency, eye pressure changes, whiplash, chiropractor treatment, TMD, headaches. 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 Treatment Goals Patient/Caregiver Goals To eradicate vertigo. PT-OP-C Subjective Start: 09/05/20 10:35 Freq: Status: Active Protocol: Document 09/15/20 12:55 MB (Rec: 09/15/20 13:23 MB [id number]) OP-PT Subjective Patient Comments Patient Comments Pt and ask about band exercise where the band is around his ankles d/t old wound. Ed pt and to move the band up higher. PT-OP-D Balance Start: 09/05/20 10:35 Freq: Status: Active Protocol: Document 09/05/20 12:54 MB (Rec: 09/05/20 14:58 MB [id number]) OP-PT Balance Assessment Sitting Balance Static Sitting Balance Ability Normal Dynamic Sitting Balance Ability Good Sitting Balance Comments UE support for coordination testing of LEs Standing Balance Static Standing Balance Ability Good Dynamic Standing Balance Ability Good Balance Tests Romberg Romberg 30 sec EO & EC, increased sway EC, reports unsteady Valenzuela Fall Scale Copyright Permission PT-OP-H Neuro Start: 09/05/20 10:35 Freq: Status: Active Protocol: Document 09/05/20 12:54 MB (Rec: 09/05/20 14:58 MB [id number]) Coordination Evaluation Comments Coordination Comments B: pt touching PT's finger and then his nose with index finger is very slow and has tremor, he has greater trouble with the left. At first, PT and pt feel this is a visual field issue but then he reports pretty good visual filed responses with quick screen. B rapid pronation and supination is very slow, even for an 84 y/o male. B toe tapping across opposite foot and back is difficult and slow and pt has trouble with this B. Vital Signs Comments Vital Signs Comments BP in LUE is very high. Orthostatic assessment: supine 167/104, 87; standing 158/94, 89; standing 1' 158/96, 92. Pt denies dizziness with getting up. PT-OP-J Posture/Palpation/Skin Start: 09/05/20 10:35 Freq: Status: Active Protocol: Document 09/05/20 12:54 MB (Rec: 09/05/20 14:58 MB [id number]) Posture Evaluation Comments Posture Comments Standing posture with shoes donned: forward head, rounded shoulders, left tragus 2.5 in front of AC joint, increased kyphosis, decreased lordosis, iliac crests level, left shoulder higher than the right PT-OP-K Range of Motion Start: 09/05/20 10:35 Freq: Status: Active Protocol: Document 09/05/20 12:54 MB (Rec: 09/05/20 14:58 MB [id number]) Cervical Spine Range of Motion Cervical Spine Active Testing Position Standing Rotation Left 20 Rotation Right 25 PT-OP-M Strength Start: 09/05/20 10:35 Freq: Status: Active Protocol: Document 09/05/20 12:54 MB (Rec: 09/05/20 14:58 MB [id number]) Shoulder Strength Shoulder Manual Muscle Testing Bilateral Abduction (C5) 5 Normal Elbow/Forearm Strength Elbow and Forearm Manual Muscle Testing Right Flexion (C6) 5 Normal PT-OP-O Vestibular Start: 09/05/20 10:35 Freq: Status: Active Protocol: Document 09/05/20 12:54 MB (Rec: 09/05/20 14:58 MB [id number]) Vestibular Assessment Visual Testing Smooth Pursuits Horizontal Pt has trouble following tracking commands Smooth Pursuits Vertical As above Saccades Horizontal As above Saccades Vertical As above Gaze Evoked Nystagmus With Fixation Normal Convergence Test Impaired Spontaneous Nystagmus Negative Positional Testing [place]-Hallpike Negative Left,Negative Right Rolling Test Negative Left,Negative Right Comments Vestibular Comments Left eye converges and right does not converge well at all. B pupils constrict equally to pen light. With smile, left side of mouth does not move as well as the right, and neither move very much. PT-OP-Q Treatments Start: 09/05/20 10:35 Freq: Status: Active Protocol: Document 09/15/20 12:55 MB (Rec: 09/15/20 13:23 MB [id number]) Therapeutic Exercises Supine Exercises Horizontal abduction Side bilateral Equipment Used Purple pool noodle, level 1 band Comments 10 reps slowly ER with band Side bilateral Equipment Used Purple pool noodle, level 1 band Comments 10 reps slowly Pool noodle exercises Side bilateral Equipment Used Purple pool noodle, cane Comments 10 reps flexion, abdominal drawing in, pect stretch Standing Exercises Scapular retraction standing against wall Side bilateral Comments 10 reps slowly, back against wall Gait Training Gait Activity Gait training outside Comments FGA tasks of forward gait with maria c change, head turns, then backwards walking and side stepping on pavement, side walk and grass--head turns and forward walking on grass and other tasks on side walk. Pt tends to walk with increased Maggi angle B and so backwards walking occ causes him to bump his heels. Close superv to CGA with gait tasks, CGA for backwards walking which is slow and has shortened steps, forward posture. Cues to stand better upright and scan ahead for side stepping, forward walking and backwards walking PT-OP-T Assessment and Plan Start: 09/05/20 10:35 Freq: Status: Active Protocol: Document 09/15/20 12:55 MB (Rec: 09/15/20 13:23 MB [id number]) Physical Therapy Assessment Rehab Potential Rehabilitation Potential Fair Evaluation Complexity Number of Personal Factors/Comorbidities 1-2 Number of Body Systems Impaired 3 Clinical Presentation at Evaluation Evolving Impairments Impairments Activity Tolerance,Balance, Coordination,Functional Activities,Functional Mobility ,Gait,Posture,ROM,Vestibular, Visual Motor Other Impairments Personal factors include pt is a poor historian: reports no falls and then states he had a fall last Saturday, poor describer of symptoms. Body systems affected include cardiovascular, vestibular, visual motor, musculoskeletal and neuromuscular. His clinical presentation is evolving: history of similar dizziness the end 2019 and progressive spinal/postural changes with advancing age. Other Concerns Fall Risk Yes Goals 4 Impairment DHI 40% on eval Half-Way Goal (LTG) DHI score will decrease to 20% to reflect improved pt symptomology by 11/05/20. LTG Duration 8 weeks 3 Biology Professor Goal (LTG) Pt will perform progressive HEP with I including postural, VOR, and balance exercises to decrease fall risk and improve symptomology by . LTG Duration 8 weeks 2 Half-Way Goal (LTG) Pt will perform WNLs on a standardized balance test to decrease fall risk by 11/05/20. LTG Duration 8 weeks 1 Biology Professor Goal (LTG) Pt will deny falls to decrease risk of injury by 11/05/20. LTG Duration 8 weeks Assessment Summary Assessment Progressed postural exercises and balance today with outside gait challenges. Con't progression with these. Physical Therapy Plan Frequency and Duration Frequency of Treatment 1-2x/Week Duration of Treatment 8 weeks Plan of Care Start Date 09/05/20 Plan of Care End Date 11/07/20 Therapeutic Interventions Therapeutic Interventions Balance Training,Canalithic Repositioning,Coordination Training,Gait Training,Home Exercise Program,Joint Mobilizations,Manual Therapy, Neuromuscular Re-education, Patient/Caregiver Education, Self-Care/Home Management,Soft Tissue Mobilization,Taping, Therapeutic Activities, Therapeutic Exercises, Vestibular Rehabilitation Modalities Cold Pack/Ice Massage,Hot Packs Next Visit Focus/Plan Next Note Type Treatment Note Next Visit Plan Progress strengthening over pool noodle for posture, balance exercises, wall slides , step ups and downs, LE strengthening standing
--- NOTE | 2020-09-20 13:46 | PT.OTN ---
Current Diagnoses Dizziness and giddiness (09/20/20) Physical Therapy Treatment Note PT-OP-A Visit Information Start: 09/05/20 10:35 Freq: Status: Active Protocol: Document 09/20/20 13:03 MB (Rec: 09/20/20 13:46 MB [id number]) Out-Patient Physical Therapy Visit Information Visit Information Visit Type Treatment Note Visit Note [employer] Medicare Visit Start Time 13:03 Visit Stop Time 13:45 Total Visit Minutes 42 Visit Number 5 PT-OP-B Current Condition Start: 09/05/20 10:35 Freq: Status: Active Protocol: Document 09/05/20 12:54 MB (Rec: 09/05/20 13:09 MB [id number]) Current Condition History of Current Condition Onset Date 08/30 Current Complaints Dizziness with getting in and out of bed and with some head movements History of Current Condition PMH includes BPPV and pt got PT for this and it helped. PMH includes a-fib. Meclizine and laying down make the dizziness better. Bending over or sitting up in bed make the dizziness worse. It lasts 5-10 minutes when he gets it. Looking up and looking down increases the dizziness. Looking down and to the left is problematic. Pt has been taking Meclizine twice a day. He has had 1 fall in the last year and 1 in the last month when he almost fell off the toilet when the dizziness started. Pt denies numbness and tingling, vision changes, ear pressure, history of concussion, anemia, weakness, new hearing change, trouble swallowing, recent overhead lifting, B12 deficiency, eye pressure changes, whiplash, chiropractor treatment, TMD, headaches. 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 Treatment Goals Patient/Caregiver Goals To eradicate vertigo. PT-OP-C Subjective Start: 09/05/20 10:35 Freq: Status: Active Protocol: Document 09/20/20 13:03 MB (Rec: 09/20/20 13:46 MB [id number]) OP-PT Subjective Patient Comments Patient Comments Pt states that he is doing okay. He got a pool noodle. PT-OP-D Balance Start: 09/05/20 10:35 Freq: Status: Active Protocol: Document 09/05/20 12:54 MB (Rec: 09/05/20 14:58 MB [id number]) OP-PT Balance Assessment Sitting Balance Static Sitting Balance Ability Normal Dynamic Sitting Balance Ability Good Sitting Balance Comments UE support for coordination testing of LEs Standing Balance Static Standing Balance Ability Good Dynamic Standing Balance Ability Good Balance Tests Romberg Romberg 30 sec EO & EC, increased sway EC, reports unsteady Valenzuela Fall Scale Copyright Permission PT-OP-H Neuro Start: 09/05/20 10:35 Freq: Status: Active Protocol: Document 09/05/20 12:54 MB (Rec: 09/05/20 14:58 MB [id number]) Coordination Evaluation Comments Coordination Comments B: pt touching PT's finger and then his nose with index finger is very slow and has tremor, he has greater trouble with the left. At first, PT and pt feel this is a visual field issue but then he reports pretty good visual filed responses with quick screen. B rapid pronation and supination is very slow, even for an 84 y/o male. B toe tapping across opposite foot and back is difficult and slow and pt has trouble with this B. Vital Signs Comments Vital Signs Comments BP in LUE is very high. Orthostatic assessment: supine 167/104, 87; standing 158/94, 89; standing 1' 158/96, 92. Pt denies dizziness with getting up. PT-OP-J Posture/Palpation/Skin Start: 09/05/20 10:35 Freq: Status: Active Protocol: Document 09/05/20 12:54 MB (Rec: 09/05/20 14:58 MB [id number]) Posture Evaluation Comments Posture Comments Standing posture with shoes donned: forward head, rounded shoulders, left tragus 2.5 in front of AC joint, increased kyphosis, decreased lordosis, iliac crests level, left shoulder higher than the right PT-OP-K Range of Motion Start: 09/05/20 10:35 Freq: Status: Active Protocol: Document 09/05/20 12:54 MB (Rec: 09/05/20 14:58 MB [id number]) Cervical Spine Range of Motion Cervical Spine Active Testing Position Standing Rotation Left 20 Rotation Right 25 PT-OP-M Strength Start: 09/05/20 10:35 Freq: Status: Active Protocol: Document 09/05/20 12:54 MB (Rec: 09/05/20 14:58 MB [id number]) Shoulder Strength Shoulder Manual Muscle Testing Bilateral Abduction (C5) 5 Normal Elbow/Forearm Strength Elbow and Forearm Manual Muscle Testing Right Flexion (C6) 5 Normal PT-OP-O Vestibular Start: 09/05/20 10:35 Freq: Status: Active Protocol: Document 09/05/20 12:54 MB (Rec: 09/05/20 14:58 MB [id number]) Vestibular Assessment Visual Testing Smooth Pursuits Horizontal Pt has trouble following tracking commands Smooth Pursuits Vertical As above Saccades Horizontal As above Saccades Vertical As above Gaze Evoked Nystagmus With Fixation Normal Convergence Test Impaired Spontaneous Nystagmus Negative Positional Testing [place]-Hallpike Negative Left,Negative Right Rolling Test Negative Left,Negative Right Comments Vestibular Comments Left eye converges and right does not converge well at all. B pupils constrict equally to pen light. With smile, left side of mouth does not move as well as the right, and neither move very much. PT-OP-Q Treatments Start: 09/05/20 10:35 Freq: Status: Active Protocol: Document 09/20/20 13:03 MB (Rec: 09/20/20 13:46 MB [id number]) Therapeutic Exercises Standing Exercises Backwards and side stepping Standing Exercise Name Level 1 band around ankles Comments Pt does not perform well, did not give for HEP Other Exercises Reviewed HEP handouts and his gym program Comments Performed this today Neuro Re-Education Treatment Balance Activities FGA activities Comments Backwards walking x6 with cues for big steps and counting steps to not run into objects behind him--he requires cues for big stepping and to pay attention to stepping, increased risk for falling at home if he does this one. Tried 6 more times in hallway, 16 steps and cues for keeping feet apart and counting steps . Pt does not have LOB Tandem walking--pt has trouble following cues to slow down and touch feet: walking next to ballet bar in gym, CGA Forward and side stepping over mini hurdles in // bars: on carpet and then added blue cushion and 1 small step between them: pt must hold on to step on altered surfaces for stepping all directions and most difficult with side stepping to the right. CGA and pt often reaches for // bars- -6 reps forward and both directions sideways PT-OP-T Assessment and Plan Start: 09/05/20 10:35 Freq: Status: Active Protocol: Document 09/20/20 13:03 MB (Rec: 09/20/20 13:46 MB [id number]) Physical Therapy Assessment Rehab Potential Rehabilitation Potential Fair Evaluation Complexity Number of Personal Factors/Comorbidities 1-2 Number of Body Systems Impaired 3 Clinical Presentation at Evaluation Evolving Impairments Impairments Activity Tolerance,Balance, Coordination,Functional Activities,Functional Mobility ,Gait,Posture,ROM,Vestibular, Visual Motor Other Impairments Personal factors include pt is a poor historian: reports no falls and then states he had a fall last Saturday, poor describer of symptoms. Body systems affected include cardiovascular, vestibular, visual motor, musculoskeletal and neuromuscular. His clinical presentation is evolving: history of similar dizziness the end 2019 and progressive spinal/postural changes with advancing age. Other Concerns Fall Risk Yes Goals 4 Impairment DHI 40% on eval [employer] Goal (LTG) DHI score will decrease to 20% to reflect improved pt symptomology by 11/05/20. LTG Duration 8 weeks 3 [facility] Goal (LTG) Pt will perform progressive HEP with I including postural, VOR, and balance exercises to decrease fall risk and improve symptomology by . LTG Duration 8 weeks 2 [facility] Goal (LTG) Pt will perform WNLs on a standardized balance test to decrease fall risk by 11/05/20. LTG Duration 8 weeks 1 [facility] Goal (LTG) Pt will deny falls to decrease risk of injury by 11/05/20. LTG Duration 8 weeks Assessment Summary Assessment Progressed balance exercises today and they were very difficult for pt. Con't progression. Physical Therapy Plan Frequency and Duration Frequency of Treatment 1-2x/Week Duration of Treatment 8 weeks Plan of Care Start Date 09/05/20 Plan of Care End Date 11/07/20 Therapeutic Interventions Therapeutic Interventions Balance Training,Canalithic Repositioning,Coordination Training,Gait Training,Home Exercise Program,Joint Mobilizations,Manual Therapy, Neuromuscular Re-education, Patient/Caregiver Education, Self-Care/Home Management,Soft Tissue Mobilization,Taping, Therapeutic Activities, Therapeutic Exercises, Vestibular Rehabilitation Modalities Cold Pack/Ice Massage,Hot Packs Next Visit Focus/Plan Next Note Type Treatment Note Next Visit Plan Ongoing balance exercises, Progress strengthening over pool noodle for posture, balance exercises, wall slides , step ups and downs
--- NOTE | 2020-09-26 13:39 | PT.OTN ---
Current Diagnoses Dizziness and giddiness (09/26/20) Physical Therapy Treatment Note PT-OP-A Visit Information Start: 09/05/20 10:35 Freq: Status: Active Protocol: Document 09/26/20 13:01 MB (Rec: 09/26/20 13:37 MB [id number]) Out-Patient Physical Therapy Visit Information Visit Information Visit Type Treatment Note Visit Note [employer] Medicare Visit Start Time 13:01 Visit Stop Time 13:39 Total Visit Minutes 38 Visit Number 6 PT-OP-B Current Condition Start: 09/05/20 10:35 Freq: Status: Active Protocol: Document 09/05/20 12:54 MB (Rec: 09/05/20 13:09 MB [id number]) Current Condition History of Current Condition Onset Date 08/30 Current Complaints Dizziness with getting in and out of bed and with some head movements History of Current Condition PMH includes BPPV and pt got PT for this and it helped. PMH includes a-fib. Meclizine and laying down make the dizziness better. Bending over or sitting up in bed make the dizziness worse. It lasts 5-10 minutes when he gets it. Looking up and looking down increases the dizziness. Looking down and to the left is problematic. Pt has been taking Meclizine twice a day. He has had 1 fall in the last year and 1 in the last month when he almost fell off the toilet when the dizziness started. Pt denies numbness and tingling, vision changes, ear pressure, history of concussion, anemia, weakness, new hearing change, trouble swallowing, recent overhead lifting, B12 deficiency, eye pressure changes, whiplash, chiropractor treatment, TMD, headaches. 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 Treatment Goals Patient/Caregiver Goals To eradicate vertigo. PT-OP-C Subjective Start: 09/05/20 10:35 Freq: Status: Active Protocol: Document 09/26/20 13:01 MB (Rec: 09/26/20 13:37 MB [id number]) OP-PT Subjective Patient Comments Patient Comments Pt states that he feels a little unstable. He thinks the exercises are helpful. PT-OP-D Balance Start: 09/05/20 10:35 Freq: Status: Active Protocol: Document 09/05/20 12:54 MB (Rec: 09/05/20 14:58 MB [id number]) OP-PT Balance Assessment Sitting Balance Static Sitting Balance Ability Normal Dynamic Sitting Balance Ability Good Sitting Balance Comments UE support for coordination testing of LEs Standing Balance Static Standing Balance Ability Good Dynamic Standing Balance Ability Good Balance Tests Romberg Romberg 30 sec EO & EC, increased sway EC, reports unsteady Valenzuela Fall Scale Copyright Permission PT-OP-H Neuro Start: 09/05/20 10:35 Freq: Status: Active Protocol: Document 09/05/20 12:54 MB (Rec: 09/05/20 14:58 MB [id number]) Coordination Evaluation Comments Coordination Comments B: pt touching PT's finger and then his nose with index finger is very slow and has tremor, he has greater trouble with the left. At first, PT and pt feel this is a visual field issue but then he reports pretty good visual filed responses with quick screen. B rapid pronation and supination is very slow, even for an 84 y/o male. B toe tapping across opposite foot and back is difficult and slow and pt has trouble with this B. Vital Signs Comments Vital Signs Comments BP in LUE is very high. Orthostatic assessment: supine 167/104, 87; standing 158/94, 89; standing 1' 158/96, 92. Pt denies dizziness with getting up. PT-OP-J Posture/Palpation/Skin Start: 09/05/20 10:35 Freq: Status: Active Protocol: Document 09/05/20 12:54 MB (Rec: 09/05/20 14:58 MB [id number]) Posture Evaluation Comments Posture Comments Standing posture with shoes donned: forward head, rounded shoulders, left tragus 2.5 in front of AC joint, increased kyphosis, decreased lordosis, iliac crests level, left shoulder higher than the right PT-OP-K Range of Motion Start: 09/05/20 10:35 Freq: Status: Active Protocol: Document 09/05/20 12:54 MB (Rec: 09/05/20 14:58 MB [id number]) Cervical Spine Range of Motion Cervical Spine Active Testing Position Standing Rotation Left 20 Rotation Right 25 PT-OP-M Strength Start: 09/05/20 10:35 Freq: Status: Active Protocol: Document 09/05/20 12:54 MB (Rec: 09/05/20 14:58 MB [id number]) Shoulder Strength Shoulder Manual Muscle Testing Bilateral Abduction (C5) 5 Normal Elbow/Forearm Strength Elbow and Forearm Manual Muscle Testing Right Flexion (C6) 5 Normal PT-OP-O Vestibular Start: 09/05/20 10:35 Freq: Status: Active Protocol: Document 09/05/20 12:54 MB (Rec: 09/05/20 14:58 MB [id number]) Vestibular Assessment Visual Testing Smooth Pursuits Horizontal Pt has trouble following tracking commands Smooth Pursuits Vertical As above Saccades Horizontal As above Saccades Vertical As above Gaze Evoked Nystagmus With Fixation Normal Convergence Test Impaired Spontaneous Nystagmus Negative Positional Testing [place]-Hallpike Negative Left,Negative Right Rolling Test Negative Left,Negative Right Comments Vestibular Comments Left eye converges and right does not converge well at all. B pupils constrict equally to pen light. With smile, left side of mouth does not move as well as the right, and neither move very much. 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 Many reps on shorter steps and standard steps with use of 1-2 rails Neuro Re-Education Treatment Balance Activities FGA activities Comments In hallway next to wall: backwards walking, walking with eyes closed, head turns and pt tends to stop, be inconfident, take small steps with backwards walking and eye closed walking rather than keeping stride, many cues to con't exercises and superv assist Corner exercises Comments Performed tandem, Romberg, Romberg EC--cues to con't the exercise and not to stop and to work with the right foot behind. Pt tends to get hyperfocused that he cannot do without swaying rather than doing the exercise PT-OP-T Assessment and Plan Start: 09/05/20 10:35 Freq: Status: Active Protocol: Document 09/26/20 13:01 MB (Rec: 09/26/20 13:37 MB [id number]) Physical Therapy Assessment Rehab Potential Rehabilitation Potential Fair Evaluation Complexity Number of Personal Factors/Comorbidities 1-2 Number of Body Systems Impaired 3 Clinical Presentation at Evaluation Evolving Impairments Impairments Activity Tolerance,Balance, Coordination,Functional Activities,Functional Mobility ,Gait,Posture,ROM,Vestibular, Visual Motor Other Impairments Personal factors include pt is a poor historian: reports no falls and then states he had a fall last Saturday, poor describer of symptoms. Body systems affected include cardiovascular, vestibular, visual motor, musculoskeletal and neuromuscular. His clinical presentation is evolving: history of similar dizziness the end 2019 and progressive spinal/postural changes with advancing age. Other Concerns Fall Risk Yes Goals 4 Impairment DHI 40% on eval Correction Goal (LTG) DHI score will decrease to 20% to reflect improved pt symptomology by 11/05/20. LTG Duration 8 weeks 3 Correction Goal (LTG) Pt will perform progressive HEP with I including postural, VOR, and balance exercises to decrease fall risk and improve symptomology by . 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 LTG Duration 8 weeks 1 Correction Goal (LTG) Pt will deny falls to decrease risk of injury by 11/05/20. LTG Duration 8 weeks Assessment Summary Assessment PT and pt talk about plan as he only has one visit left. Pt states he doesn't know what to do about the balance and PT re-ed him that he needs to do his balance exercises. Pt tends to talk about not being able to do what he used to do rather than doing exercises and he is unable to state if his gym exercises are challenging and so decreased insight to focusing on what PT is teaching him is a barrier to progression. Physical Therapy Plan Frequency and Duration Frequency of Treatment 1-2x/Week Duration of Treatment 8 weeks Plan of Care Start Date 09/05/20 Plan of Care End Date 11/07/20 Therapeutic Interventions Therapeutic Interventions Balance Training,Canalithic Repositioning,Coordination Training,Gait Training,Home Exercise Program,Joint Mobilizations,Manual Therapy, Neuromuscular Re-education, Patient/Caregiver Education, Self-Care/Home Management,Soft Tissue Mobilization,Taping, Therapeutic Activities, Therapeutic Exercises, Vestibular Rehabilitation Modalities Cold Pack/Ice Massage,Hot Packs Next Visit Focus/Plan Next Note Type Discharge Summary
--- NOTE | 2020-10-06 14:06 | PT.OTN ---
Current Diagnoses Dizziness and giddiness (10/06/20) Physical Therapy Treatment Note PT-OP-A Visit Information Start: 09/05/20 10:35 Freq: Status: Active Protocol: Document 10/06/20 10:33 MB (Rec: 10/06/20 11:13 MB [id number]) Out-Patient Physical Therapy Visit Information Visit Information Visit Type Treatment Note Visit Note [employer] before KX Visit Start Time 10:33 Visit Stop Time 11:11 Total Visit Minutes 38 Visit Number 7 PT-OP-B Current Condition Start: 09/05/20 10:35 Freq: Status: Active Protocol: Document 09/05/20 12:54 MB (Rec: 09/05/20 13:09 MB [id number]) Current Condition History of Current Condition Onset Date 08/30 Current Complaints Dizziness with getting in and out of bed and with some head movements History of Current Condition PMH includes BPPV and pt got PT for this and it helped. PMH includes a-fib. Meclizine and laying down make the dizziness better. Bending over or sitting up in bed make the dizziness worse. It lasts 5-10 minutes when he gets it. Looking up and looking down increases the dizziness. Looking down and to the left is problematic. Pt has been taking Meclizine twice a day. He has had 1 fall in the last year and 1 in the last month when he almost fell off the toilet when the dizziness started. Pt denies numbness and tingling, vision changes, ear pressure, history of concussion, anemia, weakness, new hearing change, trouble swallowing, recent overhead lifting, B12 deficiency, eye pressure changes, whiplash, chiropractor treatment, TMD, headaches. 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 Treatment Goals Patient/Caregiver Goals To eradicate vertigo. PT-OP-C Subjective Start: 09/05/20 10:35 Freq: Status: Active Protocol: Document 10/06/20 10:33 MB (Rec: 10/06/20 11:13 MB [id number]) OP-PT Subjective Patient Comments Patient Comments Pt asks about size of pool noodle he needs. Pt states that he walked to the park and did not take a walking stick. He held onto the signs if he needed them. Pt asks about getting a weight bench to do pool noodle. PT-OP-D Balance Start: 09/05/20 10:35 Freq: Status: Active Protocol: Document 09/05/20 12:54 MB (Rec: 09/05/20 14:58 MB [id number]) OP-PT Balance Assessment Sitting Balance Static Sitting Balance Ability Normal Dynamic Sitting Balance Ability Good Sitting Balance Comments UE support for coordination testing of LEs Standing Balance Static Standing Balance Ability Good Dynamic Standing Balance Ability Good Balance Tests Romberg Romberg 30 sec EO & EC, increased sway EC, reports unsteady Valenzuela Fall Scale Copyright Permission PT-OP-H Neuro Start: 09/05/20 10:35 Freq: Status: Active Protocol: Document 09/05/20 12:54 MB (Rec: 09/05/20 14:58 MB [id number]) Coordination Evaluation Comments Coordination Comments B: pt touching PT's finger and then his nose with index finger is very slow and has tremor, he has greater trouble with the left. At first, PT and pt feel this is a visual field issue but then he reports pretty good visual filed responses with quick screen. B rapid pronation and supination is very slow, even for an 84 y/o male. B toe tapping across opposite foot and back is difficult and slow and pt has trouble with this B. Vital Signs Comments Vital Signs Comments BP in LUE is very high. Orthostatic assessment: supine 167/104, 87; standing 158/94, 89; standing 1' 158/96, 92. Pt denies dizziness with getting up. PT-OP-J Posture/Palpation/Skin Start: 09/05/20 10:35 Freq: Status: Active Protocol: Document 09/05/20 12:54 MB (Rec: 09/05/20 14:58 MB [id number]) Posture Evaluation Comments Posture Comments Standing posture with shoes donned: forward head, rounded shoulders, left tragus 2.5 in front of AC joint, increased kyphosis, decreased lordosis, iliac crests level, left shoulder higher than the right PT-OP-K Range of Motion Start: 09/05/20 10:35 Freq: Status: Active Protocol: Document 09/05/20 12:54 MB (Rec: 09/05/20 14:58 MB [id number]) Cervical Spine Range of Motion Cervical Spine Active Testing Position Standing Rotation Left 20 Rotation Right 25 PT-OP-M Strength Start: 09/05/20 10:35 Freq: Status: Active Protocol: Document 09/05/20 12:54 MB (Rec: 09/05/20 14:58 MB [id number]) Shoulder Strength Shoulder Manual Muscle Testing Bilateral Abduction (C5) 5 Normal Elbow/Forearm Strength Elbow and Forearm Manual Muscle Testing Right Flexion (C6) 5 Normal PT-OP-O Vestibular Start: 09/05/20 10:35 Freq: Status: Active Protocol: Document 09/05/20 12:54 MB (Rec: 09/05/20 14:58 MB [id number]) Vestibular Assessment Visual Testing Smooth Pursuits Horizontal Pt has trouble following tracking commands Smooth Pursuits Vertical As above Saccades Horizontal As above Saccades Vertical As above Gaze Evoked Nystagmus With Fixation Normal Convergence Test Impaired Spontaneous Nystagmus Negative Positional Testing Javier-Hallpike Negative Left,Negative Right Rolling Test Negative Left,Negative Right Comments Vestibular Comments Left eye converges and right does not converge well at all. B pupils constrict equally to pen light. With smile, left side of mouth does not move as well as the right, and neither move very much. PT-OP-Q Treatments Start: 09/05/20 10:35 Freq: Status: Active Protocol: Document 10/06/20 10:33 MB (Rec: 10/06/20 11:13 MB [id number]) Therapeutic Exercises Supine Exercises Pool noodle exercises Supine Exercise Name Reviewed today with pt getting on and off the floor, near mat Comments PT ed pt to perform next to couch at home Neuro Re-Education Treatment Balance Activities FGA Comments Score 16/30 today and pt con't to be at increased risk for falling with most trouble with walking with eyes closed, tandem gait, backwards walking and steps Self-Care/Home Management Treatment Education Other Education PT re-caps benefits of walking sticks 2 vs 1, balance exercises, pool noodle exercises on the floor and not on a bench, pt practices gait with two hiking sticks and does like gait with 1 more PT-OP-T Assessment and Plan Start: 09/05/20 10:35 Freq: Status: Active Protocol: Document 10/06/20 10:33 MB (Rec: 10/06/20 11:13 MB [id number]) Physical Therapy Assessment Goals 4 Impairment DHI 40% on eval Detention Goal (LTG) DHI score will decrease to 20% to reflect improved pt symptomology by 11/05/20. 10/06/20: DHI score reflects 16 % impairment LTG Duration Met 3 Detention Goal (LTG) Pt will perform progressive HEP with I including postural, VOR, and balance exercises to decrease fall risk and improve symptomology by . 10/06/20: Pt is performing progressive exercises and PT answers questions about pool noodle today LTG Duration Met 2 Pipe Changer Goal (LTG) Pt will perform WNLs on a standardized balance test to decrease fall risk by 11/05/20. 10/06/20: FGA score is 16/30, reflecting increased risk for falling LTG Duration Not met 1 Pipe Changer Goal (LTG) Pt will deny falls to decrease risk of injury by 11/05/20. 10/06/20: Pt denies falls since starting PT LTG Duration Met Assessment Summary Assessment Pt con't to make poor safety choices--going to [employer] without walking stick and then having to grab onto signs. He also asks about getting a small bench on which to put the pool noodle and PT explains that this is not safe either d/t not having room to put feet up on bench and then the height of the bench from the floor if falling off the pool noodle. Pt has a hard time receiving PT education about safety and safety choices. This has been an ongoing challenge with PT and has limited progression with balance and HEP. Pt con't to be at high risk for falling per balance testing today. At end of treatment today, he does seem receptive to walking with walking sticks at [employer]. Unsure what he will do about the pool noodle and bench though he does demonstrate ability to use pool noodle on the floor today . Pt has maximized PT potential. Will d/c PT.
== END 2020-10-06 14:39 | disposition home or self-care (01) ==
LOC: PHYS 10:30
PROVIDERS: Family Provider Family Medicine; PCP Family Medicine; Referring Provider Family Medicine; Visit Provider Family Medicine
DX: R42 Dizziness and giddiness (principal)
CPT/HCPCS: 97110; 97112; 97116; 97162; 97535

== ENCOUNTER → 2020-10-17 12:25 | Outpatient (CLI) | payer MEDICARE, SELFPAY ==
[2020-10-17 14:09] LABS: INR 3.1 (0.9-1.3); Prothrombin Time 35.8 SECONDS (10.1-12.7)
== END ==
PROVIDERS: Family Provider Family Medicine; PCP Family Medicine; Referring Provider Family Medicine; Visit Provider Family Medicine
DX: I48.91 Unspecified atrial fibrillation (principal); Z79.01 Long term (current) use of anticoagulants
CPT/HCPCS: 36415; 85610

== ENCOUNTER → 2020-11-15 11:34 | Outpatient (CLI) | payer MEDICARE, SELFPAY ==
[2020-11-15 12:03] LABS: INR 2.8 (0.9-1.3); Prothrombin Time 32.6 SECONDS (10.1-12.7)
== END ==
PROVIDERS: Family Provider Family Medicine; PCP Family Medicine; Referring Provider Family Medicine; Visit Provider Family Medicine
DX: I48.91 Unspecified atrial fibrillation (principal); Z79.01 Long term (current) use of anticoagulants
CPT/HCPCS: 36415; 85610

== ENCOUNTER → 2020-12-16 15:16 | Outpatient (CLI) | payer MEDICARE, SELFPAY ==
[2020-12-16 16:00] LABS: INR 3.2 (0.9-1.3); Prothrombin Time 36.7 SECONDS (10.1-12.7)
== END ==
PROVIDERS: Family Provider Family Medicine; PCP Family Medicine; Referring Provider Family Medicine; Visit Provider Family Medicine
DX: Z79.01 Long term (current) use of anticoagulants (principal)
CPT/HCPCS: 36415; 85610

== ENCOUNTER → 2021-01-13 10:52 | Outpatient (CLI) | payer MEDICARE, SELFPAY ==
[2021-01-13 12:34] LABS: INR 1.9 (0.9-1.3); Prothrombin Time 21.6 SECONDS (10.1-12.7)
== END ==
PROVIDERS: Family Provider Family Medicine; PCP Family Medicine; Referring Provider Family Medicine; Visit Provider Family Medicine
DX: I48.91 Unspecified atrial fibrillation (principal)
CPT/HCPCS: 36415; 85610

== ENCOUNTER → 2021-02-09 09:53 | Outpatient (CLI) | payer MEDICARE, SELFPAY ==
[2021-02-09 12:42] LABS: INR 3.1 (0.9-1.3); Prothrombin Time 35.7 SECONDS (10.1-12.7)
== END ==
PROVIDERS: Family Provider Family Medicine; PCP Family Medicine; Referring Provider Family Medicine; Visit Provider Family Medicine
DX: I48.91 Unspecified atrial fibrillation (principal)
CPT/HCPCS: 36415; 85610

== ENCOUNTER → 2021-02-23 11:18 | Outpatient (CLI) | payer MEDICARE, SELFPAY ==
[2021-02-23 11:48] LABS: Prothrombin Time 35.6 SECONDS (10.1-12.7)
== END ==
PROVIDERS: Family Provider Family Medicine; PCP Family Medicine; Referring Provider Family Medicine; Visit Provider Family Medicine
DX: I48.91 Unspecified atrial fibrillation (principal)
CPT/HCPCS: 36415; 85610

== ENCOUNTER → 2021-03-06 15:02 | Outpatient (CLI) | payer MEDICARE, SELFPAY ==
[2021-03-06 15:34] LABS: INR 2.7 (0.9-1.3); Prothrombin Time 31.2 SECONDS (10.1-12.7)
== END ==
PROVIDERS: Family Provider Family Medicine; PCP Family Medicine; Referring Provider Family Medicine; Visit Provider Family Medicine
DX: I48.91 Unspecified atrial fibrillation (principal)
CPT/HCPCS: 36415; 85610

== ENCOUNTER → 2021-04-06 12:02 | Outpatient (CLI) | payer MEDICARE, SELFPAY ==
[2021-04-06 13:16] LABS: Prothrombin Time 34.3 SECONDS (10.1-12.7)
== END ==
PROVIDERS: Family Provider Family Medicine; PCP Family Medicine; Referring Provider Family Medicine; Visit Provider Family Medicine
DX: I48.91 Unspecified atrial fibrillation (principal)
CPT/HCPCS: 36415; 85610

== ENCOUNTER → 2021-04-20 12:09 | Outpatient (CLI) | payer MEDICARE, SELFPAY | PROVIDERS: Family Provider Family Medicine; PCP Family Medicine; Referring Provider Family Medicine; Visit Provider Family Medicine | DX: I87.2 Venous insufficiency (chronic) (peripheral) (principal); L97.312 Non-pressure chronic ulcer of right ankle with fat layer exposed; S82.91XS Unspecified fracture of right lower leg, sequela; R60.0 Localized edema; I70.291 Other atherosclerosis of native arteries of extremities, right leg; Z79.01 Long term (current) use of anticoagulants | CPT/HCPCS: 11042; 93922; 99213; 99214 ==

== ENCOUNTER → 2021-04-25 12:04 | Outpatient (CLI) | payer MEDICARE, SELFPAY | PROVIDERS: Family Provider Family Medicine; PCP Family Medicine; Referring Provider Family Medicine; Visit Provider Family Medicine | DX: I87.2 Venous insufficiency (chronic) (peripheral) (principal); L97.812 Non-pressure chronic ulcer of other part of right lower leg with fat layer exposed; R60.0 Localized edema | CPT/HCPCS: 29580; 99212 ==

== ENCOUNTER → 2021-04-27 13:49 | Outpatient (CLI) | payer MEDICARE, SELFPAY | PROVIDERS: Family Provider Family Medicine; PCP Family Medicine; Referring Provider Family Medicine; Visit Provider Family Medicine | DX: I87.2 Venous insufficiency (chronic) (peripheral) (principal); L97.312 Non-pressure chronic ulcer of right ankle with fat layer exposed; S82.91XS Unspecified fracture of right lower leg, sequela; R60.0 Localized edema; I70.291 Other atherosclerosis of native arteries of extremities, right leg; Z79.01 Long term (current) use of anticoagulants | CPT/HCPCS: 11042 ==

== ENCOUNTER → 2021-05-04 12:31 | Outpatient (CLI) | payer MEDICARE, SELFPAY ==
[2021-05-04 13:53] LABS: INR 3.7 (0.9-1.3); Prothrombin Time 42.8 SECONDS (10.1-12.7)
== END ==
PROVIDERS: Family Provider Family Medicine; PCP Family Medicine; Referring Provider Family Medicine; Visit Provider Family Medicine
DX: I48.91 Unspecified atrial fibrillation (principal)
CPT/HCPCS: 36415; 85610

== ENCOUNTER → 2021-05-04 15:05 | Outpatient (CLI) | payer MEDICARE, SELFPAY | PROVIDERS: Family Provider Family Medicine; PCP Family Medicine; Referring Provider Family Medicine; Visit Provider Family Medicine | DX: I87.2 Venous insufficiency (chronic) (peripheral) (principal); L97.812 Non-pressure chronic ulcer of other part of right lower leg with fat layer exposed | CPT/HCPCS: 29580 ==

== ENCOUNTER → 2021-05-09 13:25 | Outpatient (CLI) | payer MEDICARE, SELFPAY | PROVIDERS: Family Provider Family Medicine; PCP Family Medicine; Referring Provider Family Medicine; Visit Provider Family Medicine | DX: I87.2 Venous insufficiency (chronic) (peripheral) (principal); L97.312 Non-pressure chronic ulcer of right ankle with fat layer exposed; S82.91XS Unspecified fracture of right lower leg, sequela; R60.0 Localized edema; I70.291 Other atherosclerosis of native arteries of extremities, right leg; Z79.01 Long term (current) use of anticoagulants | CPT/HCPCS: 11042; 99212 ==

== ENCOUNTER → 2021-05-18 13:01 | Outpatient (CLI) | payer MEDICARE, SELFPAY | PROVIDERS: Family Provider Family Medicine; PCP Family Medicine; Referring Provider Family Medicine; Visit Provider Family Medicine | DX: I87.2 Venous insufficiency (chronic) (peripheral) (principal); L97.312 Non-pressure chronic ulcer of right ankle with fat layer exposed; S82.91XS Unspecified fracture of right lower leg, sequela; R60.0 Localized edema; Z79.01 Long term (current) use of anticoagulants | CPT/HCPCS: 11042 ==

== ENCOUNTER → 2021-05-25 12:46 | Outpatient (CLI) | payer MEDICARE, SELFPAY | PROVIDERS: Family Provider Family Medicine; PCP Family Medicine; Referring Provider Family Medicine; Visit Provider Family Medicine | DX: I87.2 Venous insufficiency (chronic) (peripheral) (principal); L97.312 Non-pressure chronic ulcer of right ankle with fat layer exposed; S82.91XS Unspecified fracture of right lower leg, sequela; R60.0 Localized edema; Z79.01 Long term (current) use of anticoagulants | CPT/HCPCS: 15271; 93923; Q4137 ==

== ENCOUNTER → 2021-05-31 15:33 | Outpatient (CLI) | payer MEDICARE, SELFPAY ==
[2021-05-31 16:40] LABS: INR 3.2 (0.9-1.3); Prothrombin Time 36.3 SECONDS (10.1-12.7)
== END ==
PROVIDERS: Family Provider Family Medicine; PCP Family Medicine; Referring Provider Family Medicine; Visit Provider Family Medicine
DX: I48.91 Unspecified atrial fibrillation (principal)
CPT/HCPCS: 36415; 85610

== ENCOUNTER → 2021-06-01 12:56 | Outpatient (CLI) | payer MEDICARE, SELFPAY | PROVIDERS: Family Provider Family Medicine; PCP Family Medicine; Referring Provider Family Medicine; Visit Provider Family Medicine | DX: I87.2 Venous insufficiency (chronic) (peripheral) (principal); L97.312 Non-pressure chronic ulcer of right ankle with fat layer exposed; S82.91XS Unspecified fracture of right lower leg, sequela; R60.0 Localized edema; Z79.01 Long term (current) use of anticoagulants | CPT/HCPCS: 15271; Q4137 ==

== ENCOUNTER → 2021-06-08 11:27 | Outpatient (CLI) | payer MEDICARE, SELFPAY | PROVIDERS: Family Provider Family Medicine; PCP Family Medicine; Referring Provider Family Medicine; Visit Provider Family Medicine | DX: I87.2 Venous insufficiency (chronic) (peripheral) (principal); L97.312 Non-pressure chronic ulcer of right ankle with fat layer exposed; S82.91XS Unspecified fracture of right lower leg, sequela; R60.0 Localized edema; Z79.01 Long term (current) use of anticoagulants | CPT/HCPCS: 15271; 99212; Q4137 ==

== ENCOUNTER → 2021-06-13 11:56 | Outpatient (CLI) | payer MEDICARE, SELFPAY ==
[2021-06-13 13:26] LABS: INR 2.6 (0.9-1.3); Prothrombin Time 30.6 SECONDS (10.1-12.7)
== END ==
PROVIDERS: Family Provider Family Medicine; PCP Family Medicine; Referring Provider Family Medicine; Visit Provider Family Medicine
DX: I48.91 Unspecified atrial fibrillation (principal)
CPT/HCPCS: 36415; 85610

== ENCOUNTER → 2021-06-15 14:17 | Outpatient (CLI) | payer MEDICARE, SELFPAY | PROVIDERS: Family Provider Family Medicine; PCP Family Medicine; Referring Provider Family Medicine; Visit Provider Family Medicine | DX: I87.2 Venous insufficiency (chronic) (peripheral) (principal); L97.312 Non-pressure chronic ulcer of right ankle with fat layer exposed; S82.91XS Unspecified fracture of right lower leg, sequela; R60.0 Localized edema; Z79.01 Long term (current) use of anticoagulants | CPT/HCPCS: 15271; Q4137 ==

== ENCOUNTER → 2021-06-22 12:01 | Outpatient (CLI) | payer MEDICARE, SELFPAY ==
--- NOTE | 2021-06-22 | DI.RAD.S_ITS ---
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 COMPARISON: [facility], CR, XR ANKLE RT MIN 3V, 11/05/2018, 17:02. FINDINGS: Bones: No fractures or dislocations. Ankle mortise is normally aligned. No suspicious bony lesions. Joint space narrowing and subchondral sclerosis noted in the tibiotalar, subtalar and talonavicular joints. Plantar and posterior calcaneal spurs noted Soft tissues: No tibiotalar joint effusion. Achilles tendon appears normal. IMPRESSION: Stable ankle and hindfoot osteoarthritis Calcaneal spurring Approved by: Rahul Smith M.D. on 06/22/2021 at 15:20
== END ==
PROVIDERS: Family Provider Family Medicine; PCP Family Medicine; Referring Provider Family Medicine; Visit Provider Family Medicine
DX: L97.312 Non-pressure chronic ulcer of right ankle with fat layer exposed (principal); M19.071 Primary osteoarthritis, right ankle and foot; M77.31 Calcaneal spur, right foot
CPT/HCPCS: 73610

== ENCOUNTER → 2021-06-22 13:01 | Outpatient (CLI) | payer MEDICARE, SELFPAY | PROVIDERS: Family Provider Family Medicine; PCP Family Medicine; Referring Provider Family Medicine; Visit Provider Family Medicine | DX: L97.312 Non-pressure chronic ulcer of right ankle with fat layer exposed (principal); M19.071 Primary osteoarthritis, right ankle and foot; M77.31 Calcaneal spur, right foot; I87.2 Venous insufficiency (chronic) (peripheral); L97.812 Non-pressure chronic ulcer of other part of right lower leg with fat layer exposed; R60.0 Localized edema | CPT/HCPCS: 29581; 73610 ==

== ENCOUNTER → 2021-06-29 13:29 | Outpatient (CLI) | payer MEDICARE, SELFPAY | PROVIDERS: Family Provider Family Medicine; PCP Family Medicine; Referring Provider Family Medicine; Visit Provider Family Medicine | DX: I87.2 Venous insufficiency (chronic) (peripheral) (principal); L97.312 Non-pressure chronic ulcer of right ankle with fat layer exposed; S82.91XS Unspecified fracture of right lower leg, sequela; R60.0 Localized edema; Z79.01 Long term (current) use of anticoagulants | CPT/HCPCS: 15271; Q4137 ==

== ENCOUNTER → 2021-07-06 13:45 | Outpatient (CLI) | payer MEDICARE, SELFPAY | PROVIDERS: Family Provider Family Medicine; PCP Family Medicine; Referring Provider Family Medicine; Visit Provider Family Medicine | DX: I87.2 Venous insufficiency (chronic) (peripheral) (principal); L97.312 Non-pressure chronic ulcer of right ankle with fat layer exposed; S82.91XS Unspecified fracture of right lower leg, sequela; R60.0 Localized edema; Z79.01 Long term (current) use of anticoagulants | CPT/HCPCS: 15271; 99213; Q4137 ==

== ENCOUNTER → 2021-07-12 14:47 | Outpatient (CLI) | payer MEDICARE, SELFPAY | PROVIDERS: Family Provider Family Medicine; PCP Family Medicine; Referring Provider Family Medicine; Visit Provider Family Medicine | DX: I87.2 Venous insufficiency (chronic) (peripheral) (principal); L97.312 Non-pressure chronic ulcer of right ankle with fat layer exposed; S82.91XS Unspecified fracture of right lower leg, sequela; R60.0 Localized edema; Z79.01 Long term (current) use of anticoagulants | CPT/HCPCS: 15271; Q4137 ==

== ENCOUNTER → 2021-07-13 11:42 | Outpatient (CLI) | payer MEDICARE, SELFPAY | PROVIDERS: Family Provider Family Medicine; PCP Family Medicine; Referring Provider Family Medicine; Visit Provider Family Medicine | DX: Z13.820 Encounter for screening for osteoporosis (principal); M85.89 Other specified disorders of bone density and structure, multiple sites; I48.91 Unspecified atrial fibrillation; Z87.311 Personal history of (healed) other pathological fracture | CPT/HCPCS: 36415; 77080; 85610 ==

== ENCOUNTER → 2021-07-13 11:43 | Outpatient (CLI) | payer MEDICARE, SELFPAY ==
[2021-07-13 13:06] LABS: INR 3.1 (0.9-1.3); Prothrombin Time 36.5 SECONDS (10.1-12.7)
== END ==
PROVIDERS: Family Provider Family Medicine; PCP Family Medicine; Referring Provider Family Medicine; Visit Provider Family Medicine
DX: I48.91 Unspecified atrial fibrillation (principal)
CPT/HCPCS: 36415; 85610

== ENCOUNTER → 2021-07-20 14:48 | Outpatient (CLI) | payer MEDICARE, SELFPAY | PROVIDERS: Family Provider Family Medicine; PCP Family Medicine; Referring Provider Family Medicine; Visit Provider Family Medicine | DX: I87.2 Venous insufficiency (chronic) (peripheral) (principal); L97.312 Non-pressure chronic ulcer of right ankle with fat layer exposed; R60.0 Localized edema; S82.91XS Unspecified fracture of right lower leg, sequela; Z79.01 Long term (current) use of anticoagulants | CPT/HCPCS: 15271; Q4137 ==

== ENCOUNTER → 2021-07-27 14:31 | Outpatient (CLI) | payer MEDICARE, SELFPAY | PROVIDERS: Family Provider Family Medicine; PCP Family Medicine; Referring Provider Family Medicine; Visit Provider Family Medicine | DX: I87.2 Venous insufficiency (chronic) (peripheral) (principal); L97.312 Non-pressure chronic ulcer of right ankle with fat layer exposed; R60.0 Localized edema; S82.91XS Unspecified fracture of right lower leg, sequela; Z79.01 Long term (current) use of anticoagulants | CPT/HCPCS: 15271; Q4137 ==

== ENCOUNTER → 2021-08-03 11:59 | Outpatient (CLI) | payer MEDICARE, SELFPAY | PROVIDERS: Family Provider Family Medicine; PCP Family Medicine; Referring Provider Family Medicine; Visit Provider Family Medicine | DX: I87.2 Venous insufficiency (chronic) (peripheral) (principal); L97.812 Non-pressure chronic ulcer of other part of right lower leg with fat layer exposed | CPT/HCPCS: 29581 ==

== ENCOUNTER → 2021-08-10 10:36 | Outpatient (CLI) | payer MEDICARE, SELFPAY ==
--- NOTE | 2021-08-10 | DI.RAD.S_ITS ---
PROCEDURE: XR KNEE LT 3V INDICATIONS: LEFT KNEE PAIN TECHNIQUE: 3 views of the knee were acquired. COMPARISON: None. FINDINGS: Mild tricompartmental joint space narrowing, worst in the patellofemoral compartment where there are also small marginal osteophytes. Somewhat amorphous linear calcification in the medial lateral patellofemoral compartments likely represents meniscal mineralization. IMPRESSION: Somewhat amorphous linear calcification in the medial lateral patellofemoral joint spaces are likely meniscal. Mild tricompartmental joint space narrowing with osteophyte formation in the patellofemoral compartment as well as mild lateral patellar subluxation and tilt. Approved by: Robles Minor M.D. on 08/10/2021 at 16:23
[2021-08-10 12:29] LABS: INR 3.7 (0.9-1.3); Prothrombin Time 43.8 SECONDS (10.1-12.7)
== END ==
PROVIDERS: Family Provider Family Medicine; PCP Family Medicine; Referring Provider Family Medicine; Visit Provider Family Medicine
DX: I48.91 Unspecified atrial fibrillation (principal); M25.562 Pain in left knee
CPT/HCPCS: 36415; 73562; 85610

== ENCOUNTER → 2021-08-10 12:14 | Outpatient (CLI) | payer MEDICARE, SELFPAY | PROVIDERS: Family Provider Family Medicine; PCP Family Medicine; Referring Provider Family Medicine; Visit Provider Family Medicine | DX: I87.2 Venous insufficiency (chronic) (peripheral) (principal); L97.822 Non-pressure chronic ulcer of other part of left lower leg with fat layer exposed; R60.0 Localized edema; Z79.01 Long term (current) use of anticoagulants | CPT/HCPCS: 11042; 29581; 99213; 99214 ==

== ENCOUNTER → 2021-08-15 11:26 | Outpatient (CLI) | payer MEDICARE, SELFPAY | PROVIDERS: Family Provider Family Medicine; PCP Family Medicine; Referring Provider Family Medicine; Visit Provider Family Medicine | DX: I87.2 Venous insufficiency (chronic) (peripheral) (principal); L97.822 Non-pressure chronic ulcer of other part of left lower leg with fat layer exposed; R60.0 Localized edema; Z79.01 Long term (current) use of anticoagulants | CPT/HCPCS: 11042; 29581 ==

== ENCOUNTER → 2021-08-22 14:39 | Outpatient (CLI) | payer MEDICARE, SELFPAY | PROVIDERS: Family Provider Family Medicine; PCP Family Medicine; Referring Provider Family Medicine; Visit Provider Family Medicine | DX: I87.2 Venous insufficiency (chronic) (peripheral) (principal); L97.822 Non-pressure chronic ulcer of other part of left lower leg with fat layer exposed; R60.0 Localized edema; Z79.01 Long term (current) use of anticoagulants | CPT/HCPCS: 29581; 99212 ==

== ENCOUNTER → 2021-08-24 10:45 | Outpatient (CLI) | payer MEDICARE, SELFPAY ==
[2021-08-24 11:24] LABS: INR 3.5 (0.9-1.3); Prothrombin Time 40.2 SECONDS (10.1-12.7)
== END ==
PROVIDERS: Family Provider Family Medicine; PCP Family Medicine; Referring Provider Family Medicine; Visit Provider Family Medicine
DX: I48.91 Unspecified atrial fibrillation (principal)
CPT/HCPCS: 36415; 85610

== ENCOUNTER → 2021-08-29 12:05 | Outpatient (CLI) | payer MEDICARE, SELFPAY | PROVIDERS: Family Provider Family Medicine; PCP Family Medicine; Referring Provider Family Medicine; Visit Provider Family Medicine | DX: I87.2 Venous insufficiency (chronic) (peripheral) (principal); L97.822 Non-pressure chronic ulcer of other part of left lower leg with fat layer exposed; R60.0 Localized edema | CPT/HCPCS: 29581 ==

== ENCOUNTER → 2021-09-05 13:19 | Outpatient (CLI) | payer MEDICARE, SELFPAY | PROVIDERS: Family Provider Family Medicine; PCP Family Medicine; Referring Provider Family Medicine; Visit Provider Family Medicine | DX: Z09 Encounter for follow-up examination after completed treatment for conditions other than malignant neoplasm (principal); I87.2 Venous insufficiency (chronic) (peripheral); R60.0 Localized edema; Z87.2 Personal history of diseases of the skin and subcutaneous tissue | CPT/HCPCS: 99212 ==

== ENCOUNTER → 2021-09-12 15:10 | Outpatient (CLI) | payer MEDICARE, SELFPAY | PROVIDERS: Family Provider Family Medicine; PCP Family Medicine; Referring Provider Family Medicine; Visit Provider Family Medicine | DX: I87.2 Venous insufficiency (chronic) (peripheral) (principal); L97.312 Non-pressure chronic ulcer of right ankle with fat layer exposed; S82.91XS Unspecified fracture of right lower leg, sequela; R60.0 Localized edema; Z79.01 Long term (current) use of anticoagulants | CPT/HCPCS: 29581; 99214 ==

== ENCOUNTER → 2021-09-14 14:14 | Outpatient (CLI) | payer MEDICARE, SELFPAY | PROVIDERS: Family Provider Family Medicine; PCP Family Medicine; Referring Provider Family Medicine; Visit Provider Family Medicine | DX: I87.2 Venous insufficiency (chronic) (peripheral) (principal); L97.812 Non-pressure chronic ulcer of other part of right lower leg with fat layer exposed; R23.4 Changes in skin texture; R60.0 Localized edema | CPT/HCPCS: 29581 ==

== ENCOUNTER → 2021-09-21 13:10 | Outpatient (CLI) | payer MEDICARE, SELFPAY | PROVIDERS: Family Provider Family Medicine; PCP Family Medicine; Referring Provider Family Medicine; Visit Provider Family Medicine | DX: I87.2 Venous insufficiency (chronic) (peripheral) (principal); L97.312 Non-pressure chronic ulcer of right ankle with fat layer exposed; S82.91XS Unspecified fracture of right lower leg, sequela; L08.9 Local infection of the skin and subcutaneous tissue, unspecified; R60.0 Localized edema; Z79.01 Long term (current) use of anticoagulants | CPT/HCPCS: 11042; 87070; 87075; 87077; 87147; 87185; 87186; 87205; 99213; 99214 ==

== ENCOUNTER → 2021-09-21 14:02 | Outpatient (CLI) | payer MEDICARE, SELFPAY ==
[2021-09-21 14:52] LABS: INR 3.3 (0.9-1.3); Prothrombin Time 38.6 SECONDS (10.1-12.7)
== END ==
PROVIDERS: Family Provider Family Medicine; PCP Family Medicine; Referring Provider Family Medicine; Visit Provider Family Medicine
DX: I48.91 Unspecified atrial fibrillation (principal)
CPT/HCPCS: 36415; 85610

== ENCOUNTER → 2021-09-28 11:26 | Outpatient (CLI) | payer MEDICARE, SELFPAY | PROVIDERS: Family Provider Family Medicine; PCP Family Medicine; Referring Provider Family Medicine; Visit Provider Family Medicine | DX: I87.2 Venous insufficiency (chronic) (peripheral) (principal); L97.312 Non-pressure chronic ulcer of right ankle with fat layer exposed; L08.9 Local infection of the skin and subcutaneous tissue, unspecified; B95.61 Methicillin susceptible Staphylococcus aureus infection as the cause of diseases classified elsewhere; R60.0 Localized edema | CPT/HCPCS: 11042; 99214 ==

== ENCOUNTER 2021-09-30 11:23 | Emergency (ER) | payer MEDICARE, SELFPAY ==
[2021-09-30] VITALS (10 sets, daily range): BP systolic 119–173; BP diastolic 59–92; PULSE 66–92; RESP 15–34; TEMP 36.8; O2SAT 97–99; BMI 22.1
--- NOTE | 2021-09-30 14:41 | PC.NURSE ---
irrigated and debrided wound with water and sponge. edges of blister cut off per provider. sterile guaze pads placed around skinner and wrapped in kerlix. sercured with tape.
--- NOTE | 2021-09-30 14:52 | ED_ITS ---
HPI - Wound/Laceration General Chief Complaint: Wound/Laceration Stated Complaint: pt of wound care has blisters that are watering Time Seen by Provider: 09/30/21 12:06 Source: patient Mode of arrival: Ambulatory History of Present Illness HPI narrative: This is an 85-year-old gentleman comes to the ER today because of wounds on his legs. He has been going to wound care once a week and was there as recently as 2 days ago. He says that he has some new blisters forming that might be draining they are liquid into the open wound on the lateral aspect of his right lower leg. He is concerned that this might be a problem. He is not sick otherwise. No fever chills, nausea vomiting, diarrhea, chest pain or abdominal pain. His past history includes a stem cell transplant and chronic lower extremity edema. Related Data Home Medications Medication Instructions Recorded Confirmed finasteride 5 mg tablet 5 mg PO QDAY ##0 05/08/11 atenolol 25 mg tablet 75 mg PO DAILY 01/21/18 01/21/18 warfarin 6 mg tablet 6 mg PO DAILY 01/21/18 01/21/18 Previous Rx's Medication Instructions Recorded meclizine 25 mg tablet 25 mg PO BID-TID PRN motion 11/09/18 sickness #14 tabs tramadol 50 mg tablet (Ultram) 50 mg PO TID PRN pain #10 tabs 10/04/19 carbamazepine 200 mg 200 mg PO BID #30 caps 10/08/19 capsule,extended release [id number] sulfamethoxazole 800 1 tab PO BID #14 tabs 01/14/20 mg-trimethoprim 160 mg tablet Allergies Allergy/AdvReac Type Severity Reaction Status Date / Time No Known Drug Allergies Allergy Verified 10/04/19 04:11 Review of Systems Review of Systems Narrative: Complete review of systems is negative other than as noted above Patient History Medical History (Updated 09/30/21 @ 14:57 by Willis Clifton MD) Atrial fibrillation Surgical History (Updated 01/14/20 @ 02:51 by Jayden Hoffman MD) 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 Social History household members: spouse Smoking Status: Former smoker Smoking Status: Former smoker alcohol intake frequency: 0-2 drinks per day Alcohol type: hard liquor Substance Use Type: does not use Exam Narrative Exam Narrative: GENERAL: Alert, cooperative and in no distress. HEAD: Atraumatic. Normocephalic. EYES: Sclera are clear without icterus. Extraocular movements are full. ENT: No rhinorrhea. Oropharynx is moist. Mouth exam is benign. NECK: Supple. Full range of motion. CARDIOVASCULAR: Normal rate and rhythm without murmur gallop or rub. RESPIRATORY: Clear to auscultation. Breath sounds equal bilaterally. No wheezes, rales, or rhonchi. GASTROINTESTINAL: Abdomen soft, non-tender, nondistended. EXTREMITIES: Profound edema bilaterally below the knees. Chronic venous stasis changes. Some large bulla on the right lower extremity. There is an open wound just superior to the right lateral malleolus that is clean and dry with good proud flesh at the base. It does not look infected. BACK: Normal inspection, no CVA tenderness. NEURO: Nonfocal examination, normal speech, normal gait. SKIN: No rash or erythema of visible areas PSYCH: Normally oriented. Normal range of affect. Appropriate behavior Initial Vital Signs Initial Vital Signs: Vital Signs Temperature 98.2 F 09/30/21 11:25 Pulse Rate 83 09/30/21 11:25 Respiratory Rate 18 09/30/21 11:25 Blood Pressure 169/92 H 09/30/21 11:25 Pulse Oximetry 99 09/30/21 11:25 Oxygen Delivery Method 09/30/21 11:25 Course Course Course Narrative: Bulla or lanced and the skin is removed, sterile dressings applied. Compressive dressings were reapplied. Vital Signs Vital signs: Vital Signs - 8 hr 09/30/21 11:25 09/30/21 11:30 09/30/21 11:30 Temperature 98.2 F Pulse Rate 83 85 Respiratory Rate 18 Blood Pressure 169/92 H 169/92 H Pulse Oximetry 99 99 Oxygen Delivery Method Room Air 09/30/21 12:00 09/30/21 12:00 09/30/21 12:30 Temperature Pulse Rate 66 81 Respiratory Rate 34 H 18 Blood Pressure 119/59 L Pulse Oximetry 97 98 Oxygen Delivery Method 09/30/21 12:31 09/30/21 12:31 09/30/21 13:00 Temperature Pulse Rate 82 92 H Respiratory Rate 20 22 Blood Pressure 142/75 H Pulse Oximetry 98 Oxygen Delivery Method 09/30/21 13:30 09/30/21 14:00 09/30/21 14:30 Temperature Pulse Rate 68 73 70 Respiratory Rate 20 18 19 Blood Pressure Pulse Oximetry 98 98 99 Oxygen Delivery Method 09/30/21 14:36 09/30/21 14:36 Temperature Pulse Rate 67 Respiratory Rate 15 Blood Pressure 173/79 H Pulse Oximetry 98 Oxygen Delivery Method MDM - Wound/Laceration MDM Narrative Medical decision making narrative: Wound care accomplished. I do not suspect infection or DVT. Outpatient follow- up seems appropriate. Discharge Plan Departure Patient Disposition: Home Clinical Impression: Visit for wound care Activity Restrictions/Additional Instructions: Continue the wound care as instructed by the wound care center. Wash daily, apply ointments as recommended, applied nonstick dressings as recommended, apply compressive dressings as recommended. Follow up next week as previously arranged. Follow-up right away for signs or symptoms of infection such as increasing redness, pain or fever. Prescriptions: No Action finasteride 5 MG tablet 5 mg PO QDAY Qty: 0 meclizine 25 mg tablet 25 mg PO BID-TID PRN (Reason: motion sickness) Qty: 14 0RF warfarin 6 mg Tablet 6 mg PO DAILY atenolol 25 mg Tablet 75 mg PO DAILY Label Comments: he takes 37.5 mg in the am and 37.5 mg in the pm tramadol [Ultram] 50 mg tablet 50 mg PO TID PRN (Reason: pain) Qty: 10 0RF carbamazepine 200 mg capsule, ER multiphase 12 hr 200 mg PO BID Qty: 30 0RF sulfamethoxazole-trimethoprim 800-160 mg tablet 1 tab PO BID Qty: 14 0RF Referrals: Jayden Barahona MD [Primary Care Provider] -
== END 2021-09-30 15:23 | disposition home or self-care (01) ==
PROVIDERS: Emergency Provider Family Medicine Addiction Medicine; Family Provider Family Medicine; PCP Family Medicine
DX: Z48.00 Encounter for change or removal of nonsurgical wound dressing (principal)
CPT/HCPCS: 99281

== ENCOUNTER → 2021-10-05 11:36 | Outpatient (CLI) | payer MEDICARE, SELFPAY | PROVIDERS: Family Provider Family Medicine; PCP Family Medicine; Referring Provider Family Medicine; Visit Provider Family Medicine | DX: I87.2 Venous insufficiency (chronic) (peripheral) (principal); L97.812 Non-pressure chronic ulcer of other part of right lower leg with fat layer exposed | CPT/HCPCS: 99212 ==

== ENCOUNTER → 2021-10-12 12:27 | Outpatient (CLI) | payer MEDICARE, SELFPAY | PROVIDERS: Family Provider Family Medicine; PCP Family Medicine; Referring Provider Family Medicine; Visit Provider Family Medicine | DX: I87.2 Venous insufficiency (chronic) (peripheral) (principal); L97.312 Non-pressure chronic ulcer of right ankle with fat layer exposed; L97.812 Non-pressure chronic ulcer of other part of right lower leg with fat layer exposed; L08.89 Other specified local infections of the skin and subcutaneous tissue | CPT/HCPCS: 11042; 87070; 87075; 87077; 87186; 87205; 97597; 99214 ==

== ENCOUNTER → 2021-10-16 11:44 | Outpatient (CLI) | payer MEDICARE, SELFPAY ==
[2021-10-16 13:42] LABS: Prothrombin Time 65.4 SECONDS (10.1-12.7)
[2021-10-16 13:45] LABS: INR 5.6 (0.9-1.3)
== END ==
PROVIDERS: Family Provider Family Medicine; PCP Family Medicine; Referring Provider Family Medicine; Visit Provider Family Medicine
DX: I48.91 Unspecified atrial fibrillation (principal)
CPT/HCPCS: 36415; 85610

== ENCOUNTER → 2021-10-16 11:51 | Outpatient (CLI) | payer MEDICARE, SELFPAY | PROVIDERS: Family Provider Family Medicine; PCP Family Medicine; Referring Provider Family Medicine; Visit Provider Family Medicine | DX: I87.2 Venous insufficiency (chronic) (peripheral) (principal); L97.812 Non-pressure chronic ulcer of other part of right lower leg with fat layer exposed | CPT/HCPCS: 99212 ==

== ENCOUNTER → 2021-10-17 14:18 | Outpatient (CLI) | payer MEDICARE, SELFPAY | PROVIDERS: Family Provider Family Medicine; PCP Family Medicine; Referring Provider Family Medicine; Visit Provider Family Medicine | DX: I87.2 Venous insufficiency (chronic) (peripheral) (principal); L97.312 Non-pressure chronic ulcer of right ankle with fat layer exposed; L97.812 Non-pressure chronic ulcer of other part of right lower leg with fat layer exposed; I73.9 Peripheral vascular disease, unspecified; L08.89 Other specified local infections of the skin and subcutaneous tissue; B95.7 Other staphylococcus as the cause of diseases classified elsewhere; Z79.01 Long term (current) use of anticoagulants | CPT/HCPCS: 97597; 99212; 99214 ==

== ENCOUNTER → 2021-10-26 12:59 | Outpatient (CLI) | payer MEDICARE, SELFPAY | PROVIDERS: Family Provider Family Medicine; PCP Family Medicine; Referring Provider Family Medicine; Visit Provider Family Medicine | DX: I87.2 Venous insufficiency (chronic) (peripheral) (principal); L97.312 Non-pressure chronic ulcer of right ankle with fat layer exposed; L97.812 Non-pressure chronic ulcer of other part of right lower leg with fat layer exposed; L08.89 Other specified local infections of the skin and subcutaneous tissue; R60.0 Localized edema; Z79.01 Long term (current) use of anticoagulants | CPT/HCPCS: 11042; 87070; 87075; 87077; 87147; 87186; 87205; 99214 ==

== ENCOUNTER → 2021-10-27 13:02 | Outpatient (CLI) | payer MEDICARE, SELFPAY ==
[2021-10-27 14:54] LABS: Prothrombin Time 53.6 SECONDS (10.1-12.7)
[2021-10-27 15:00] LABS: INR 4.6 (0.9-1.3)
== END ==
PROVIDERS: Family Provider Family Medicine; PCP Family Medicine; Referring Provider Family Medicine; Visit Provider Family Medicine
DX: I48.91 Unspecified atrial fibrillation (principal)
CPT/HCPCS: 36415; 85610

== ENCOUNTER → 2021-10-31 12:51 | Outpatient (CLI) | payer MEDICARE, SELFPAY ==
[2021-10-31 13:27] LABS: INR 1.4 (0.9-1.3); Prothrombin Time 15.9 SECONDS (10.1-12.7)
== END ==
PROVIDERS: Family Provider Family Medicine; PCP Family Medicine; Referring Provider Family Medicine; Visit Provider Family Medicine
DX: I48.91 Unspecified atrial fibrillation (principal)
CPT/HCPCS: 36415; 85610

== ENCOUNTER → 2021-11-02 13:13 | Outpatient (CLI) | payer MEDICARE, SELFPAY | PROVIDERS: Family Provider Family Medicine; PCP Family Medicine; Referring Provider Family Medicine; Visit Provider Family Medicine | DX: I87.2 Venous insufficiency (chronic) (peripheral) (principal); L97.312 Non-pressure chronic ulcer of right ankle with fat layer exposed; L97.812 Non-pressure chronic ulcer of other part of right lower leg with fat layer exposed; L08.89 Other specified local infections of the skin and subcutaneous tissue; Z79.01 Long term (current) use of anticoagulants; B95.7 Other staphylococcus as the cause of diseases classified elsewhere | CPT/HCPCS: 11042; 97597; 99214 ==

== ENCOUNTER → 2021-11-09 14:35 | Outpatient (CLI) | payer MEDICARE, SELFPAY | PROVIDERS: Family Provider Family Medicine; PCP Family Medicine; Referring Provider Family Medicine; Visit Provider Family Medicine | DX: I87.2 Venous insufficiency (chronic) (peripheral) (principal); L97.312 Non-pressure chronic ulcer of right ankle with fat layer exposed; L97.812 Non-pressure chronic ulcer of other part of right lower leg with fat layer exposed | CPT/HCPCS: 99213 ==

== ENCOUNTER → 2021-11-14 10:25 | Outpatient (CLI) | payer MEDICARE, SELFPAY ==
[2021-11-14 11:08] LABS: INR 3.6 (0.9-1.3); Prothrombin Time 41.5 SECONDS (10.1-12.7)
== END ==
PROVIDERS: Family Provider Family Medicine; PCP Family Medicine; Referring Provider Family Medicine; Visit Provider Family Medicine
DX: I48.91 Unspecified atrial fibrillation (principal)
CPT/HCPCS: 36415; 85610

== ENCOUNTER → 2021-11-16 13:35 | Outpatient (CLI) | payer MEDICARE, SELFPAY | PROVIDERS: Family Provider Family Medicine; PCP Family Medicine; Referring Provider Family Medicine; Visit Provider Family Medicine | DX: I87.2 Venous insufficiency (chronic) (peripheral) (principal); L97.312 Non-pressure chronic ulcer of right ankle with fat layer exposed; L97.812 Non-pressure chronic ulcer of other part of right lower leg with fat layer exposed; I73.9 Peripheral vascular disease, unspecified; Z79.01 Long term (current) use of anticoagulants | CPT/HCPCS: 11042; 99212 ==

== ENCOUNTER → 2021-11-17 10:48 | Outpatient (CLI) | payer MEDICARE, SELFPAY ==
[2021-11-17 11:51] LABS: INR 3.1 (0.9-1.3); Prothrombin Time 35.8 SECONDS (10.1-12.7)
== END ==
PROVIDERS: Family Provider Family Medicine; PCP Family Medicine; Referring Provider Family Medicine; Visit Provider Family Medicine
DX: I48.91 Unspecified atrial fibrillation (principal)
CPT/HCPCS: 36415; 85610

== ENCOUNTER → 2021-11-23 10:42 | Outpatient (CLI) | payer MEDICARE, SELFPAY | PROVIDERS: Family Provider Family Medicine; PCP Family Medicine; Referring Provider Family Medicine; Visit Provider Family Medicine | DX: I87.2 Venous insufficiency (chronic) (peripheral) (principal); L97.312 Non-pressure chronic ulcer of right ankle with fat layer exposed; L97.812 Non-pressure chronic ulcer of other part of right lower leg with fat layer exposed; R60.0 Localized edema | CPT/HCPCS: 11042 ==

== ENCOUNTER → 2021-11-30 10:58 | Outpatient (CLI) | payer MEDICARE, SELFPAY | PROVIDERS: Family Provider Family Medicine; PCP Family Medicine; Referring Provider Family Medicine; Visit Provider Family Medicine | DX: I87.2 Venous insufficiency (chronic) (peripheral) (principal); L97.312 Non-pressure chronic ulcer of right ankle with fat layer exposed; L97.812 Non-pressure chronic ulcer of other part of right lower leg with fat layer exposed; L08.9 Local infection of the skin and subcutaneous tissue, unspecified; Z79.01 Long term (current) use of anticoagulants; R60.0 Localized edema | CPT/HCPCS: 11042; 15271; 87070; 87075; 87205; 99213; Q4137 ==

== ENCOUNTER → 2021-11-30 12:20 | Outpatient (CLI) | payer MEDICARE, SELFPAY ==
[2021-11-30 13:31] LABS: INR 2.2 (0.9-1.3); Prothrombin Time 25.3 SECONDS (10.1-12.7)
== END ==
PROVIDERS: Family Provider Family Medicine; PCP Family Medicine; Referring Provider Family Medicine; Visit Provider Family Medicine
DX: I48.91 Unspecified atrial fibrillation (principal)
CPT/HCPCS: 36415; 85610

== ENCOUNTER → 2021-12-07 13:29 | Outpatient (CLI) | payer MEDICARE, SELFPAY | PROVIDERS: Family Provider Family Medicine; PCP Family Medicine; Referring Provider Family Medicine; Visit Provider Family Medicine | DX: I87.2 Venous insufficiency (chronic) (peripheral) (principal); L97.312 Non-pressure chronic ulcer of right ankle with fat layer exposed; L97.812 Non-pressure chronic ulcer of other part of right lower leg with fat layer exposed; R60.9 Edema, unspecified | CPT/HCPCS: 11042; 15271; Q4137 ==

== ENCOUNTER 2021-12-07 14:36 | Emergency (ER) | payer MEDICARE, SELFPAY ==
[2021-12-07] VITALS (14 sets, daily range): BP systolic 127–172; BP diastolic 60–87; PULSE 55–89; RESP 13–28; TEMP 36.7; O2SAT 96–99; BMI 22.1
[2021-12-07 15:11] LABS: Add Manual Diff / Slide Review NO; Basophils Absolute Auto 0 /uL (0-100); Basophils Percent Auto 0.6 % (0-2); Eosinophils Absolute Auto 0 /uL (0-450); Eosinophils Percent Auto 0.3 % (2-4); Hematocrit 40.6 % (41-53); Lymphocytes Absolute Auto 1300 /uL (1100-4500); Lymphocytes Percent Auto 16.4 % (25-40); Mean Corpuscular HGB Conc 34.4 % (30-36); Mean Corpuscular Hemoglobin 33.2 PG (26-34); Mean Corpuscular Volume 96.4 fL (80-100); Monocytes Absolute Auto 700 /uL (0-900); Monocytes Percent Auto 8.8 % (3-14); Neutrophils Absolute Auto 5800 /uL (1500-7000); Neutrophils Percent Auto 73.9 % (50-75); Platelet Count 197 X10^3/uL (150-400); Red Blood Cell Count 4.22 X10^6/uL (4.5-5.9); Red Cell Distribution Width 14.3 % (11.6-14.8); White Blood Cell Count 7.8 X10^3/uL (4.5-11.0)
[2021-12-07 15:17] LABS: INR 2.1 (0.9-1.3); Prothrombin Time 23.9 SECONDS (10.1-12.7)
[2021-12-07 15:20] LABS: PTT Partial Thromboplastin Tim 37 SECONDS (26-36)
[2021-12-07 15:21] LABS: Alanine Aminotransferase 21 IU/L (<50); Albumin 4.4 g/dL (3.5-5.0); Albumin Globulin Ratio 1.2 (1.0-2.8); Alkaline Phosphatase 82 U/L (38-126); Aspartate Aminotransferase 31 IU/L (17-59); BUN Creatinine Ratio 33.8 (6-22); Bilirubin Total 1.9 mg/dL (0.2-1.3); Blood Urea Nitrogen 22 mg/dL (9-20); Calcium 9.2 mg/dL (8.4-10.2); Carbon Dioxide 29 mmol/L (22-32); Chloride 102 mmol/L (98-107); Estimated Glomerular Filt Rate > 60 mL/min (>60); Globulin 3.6 g/dL (1.7-4.1); Glucose 94 mg/dL (80-110); HEMOLYSIS 31 (0-50); Lipase 69 U/L (23-300); Potassium 4.6 mmol/L (3.4-5.1); Sodium 137 mmol/L (137-145)
--- NOTE | 2021-12-07 19:28 | ED.ABDPAIN ---
HPI - Abdominal Pain <Aung Ford PA-C - Last Filed: 12/07/21 19:47> General Chief Complaint: Abdominal Pain Stated Complaint: Abd pain Time Seen by Provider: 12/07/21 15:35 Source: patient Mode of arrival: Wheelchair History of Present Illness HPI narrative: Patient is 86-year-old man who presents to the emergency room today with complaint of resolved abdominal pain. States he woke this morning and felt pain behind his belly button and that he went to have a bowel movement and felt uncomfortable. States that after that, he called Dr. Barahona his primary care doctor and could not reach him. States that his bowel movement still had the pain. States that he has never had this type of pain before and decided to report to the emergency room. States when he reported to the emergency room the pain resolved. States that during the period of abdominal pain he did not have any chest pain shortness of breath fever chills or nausea vomiting. Patient admits to having history of atrial fibrillation and that also is now on warfarin. Related Data Home Medications Medication Instructions Recorded Confirmed finasteride 5 mg tablet 5 mg PO QDAY ##0 05/08/11 atenolol 25 mg tablet 75 mg PO DAILY 01/21/18 01/21/18 warfarin 6 mg tablet 6 mg PO DAILY 01/21/18 01/21/18 Previous Rx's Medication Instructions Recorded meclizine 25 mg tablet 25 mg PO BID-TID PRN motion 11/09/18 sickness #14 tabs tramadol 50 mg tablet (Ultram) 50 mg PO TID PRN pain #10 tabs 10/04/19 carbamazepine 200 mg 200 mg PO BID #30 caps 10/08/19 capsule,extended release [id number] sulfamethoxazole 800 1 tab PO BID #14 tabs 01/14/20 mg-trimethoprim 160 mg tablet Allergies Allergy/AdvReac Type Severity Reaction Status Date / Time No Known Drug Allergies Allergy Verified 12/07/21 14:50 Review of Systems <Aung Ford PA-C - Last Filed: 12/07/21 19:47> Review of Systems Narrative: R.O.S.: General: No fever, chills or fatigue. Cardiovascular: No chest pain or palpitations Respiratory: No S.O.B. HEENT: No congestion, ear pain, rhinorrhea, sore throat or tinnitus Gastrointestinal: Resolved abdominal pain : No urinary concerns Skin: No rash or associated abnormalities Musculoskeletal: No pain in muscles or joints, no limitation of range of motion, no paresthesia or numbness. ?? Neurological: Awake, alert and in not apparent distress. No Headaches, changes in vision or other related neurological concerns. 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 General: normal appearance, well developed, well nourished, alert, and awake. Not in acute distress. ? Head: Normocephalic, no lesions. Chest: Lungs CTAB, no rales, rhonchi or wheezes. ?? Heart: RRR, no murmurs, rubs or gallops. Eyes: PERRLA, EOM's full, conjunctivae clear. ? Neuro: Physiological, no localizing findings, CN3-12 intact. ?? Extremities: Warm, well perfused, FROM, no deformities, no edema. ?? Skin: Normal, no rashes, no lesions noted. ?? PSYCHIATRIC: The mood is good, no blunted affect. Speech is clear. Thought process is linear, thought content is appropriate. The voice is without significant inflection. Gastrointestinal: Soft; mild tenderness to palpation in the lower mid abdominal area; ND; Pos BS with Neg. rebound tenderness. No scars or major deformities noted on Visual Inspection. Initial Vital Signs Initial Vital Signs: Vital Signs Temperature 98.1 F 12/07/21 14:45 Pulse Rate 89 12/07/21 14:45 Respiratory Rate 18 12/07/21 14:45 Blood Pressure 169/82 H 12/07/21 14:45 Pulse Oximetry 96 12/07/21 14:45 Oxygen Delivery Method 12/07/21 14:45 <Leandro Hines DO - Last Filed: 12/07/21 23:43> Initial Vital Signs Initial Vital Signs: Vital Signs Temperature 98.1 F 12/07/21 14:45 Pulse Rate 89 12/07/21 14:45 Respiratory Rate 18 12/07/21 14:45 Blood Pressure 169/82 H 12/07/21 14:45 Pulse Oximetry 96 12/07/21 14:45 Oxygen Delivery Method 12/07/21 14:45 <Thony Meza, DO - Last Filed: 12/08/21 22:34> Initial Vital Signs Initial Vital Signs: Vital Signs Temperature 98.1 F 12/07/21 14:45 Pulse Rate 89 12/07/21 14:45 Respiratory Rate 18 12/07/21 14:45 Blood Pressure 169/82 H 12/07/21 14:45 Pulse Oximetry 96 12/07/21 14:45 Oxygen Delivery Method 12/07/21 14:45 Course <Aung Ford PA-C - Last Filed: 12/07/21 19:47> Orders Ordered: ED Orders 12/07/21 14:50 EKG-12 Lead Stat 12/07/21 14:55 Complete Blood Count AUTO DIFF Stat Comprehensive Metabolic Panel Stat Lipase Stat Partial Thromboplastin Time Stat Prothrombin Time INR Stat Vital Signs Vital signs: Vital Signs - 8 hr 12/07/21 16:00 12/07/21 16:00 12/07/21 16:30 Pulse Rate 61 Respiratory Rate Blood Pressure 130/62 152/63 H Pulse Oximetry 98 Oxygen Delivery Method Room Air 12/07/21 16:30 12/07/21 17:00 12/07/21 17:01 Pulse Rate 60 55 L Respiratory Rate Blood Pressure 142/67 H Pulse Oximetry 99 99 Oxygen Delivery Method Room Air 12/07/21 17:01 12/07/21 17:30 12/07/21 17:30 Pulse Rate 59 L 63 Respiratory Rate 13 Blood Pressure 144/65 H Pulse Oximetry 99 99 Oxygen Delivery Method Room Air 12/07/21 18:00 12/07/21 18:00 12/07/21 18:30 Pulse Rate 62 63 Respiratory Rate 22 28 H Blood Pressure 164/72 H Pulse Oximetry 99 99 Oxygen Delivery Method Room Air 12/07/21 18:31 12/07/21 18:31 12/07/21 19:00 Pulse Rate 63 Respiratory Rate 27 H Blood Pressure 137/65 172/87 H Pulse Oximetry 99 Oxygen Delivery Method 12/07/21 19:00 12/07/21 19:30 12/07/21 19:30 Pulse Rate 73 69 Respiratory Rate 20 Blood Pressure 158/79 H Pulse Oximetry 98 98 Oxygen Delivery Method Room Air Room Air <Leandro Hines DO - Last Filed: 12/07/21 23:43> Orders Ordered: ED Orders 12/07/21 14:50 EKG-12 Lead Stat 12/07/21 14:55 Complete Blood Count AUTO DIFF Stat Comprehensive Metabolic Panel Stat Lipase Stat Partial Thromboplastin Time Stat Prothrombin Time INR Stat Vital Signs Vital signs: Vital Signs - 8 hr 12/07/21 16:00 12/07/21 16:00 12/07/21 16:30 Pulse Rate 61 Respiratory Rate Blood Pressure 130/62 152/63 H Pulse Oximetry 98 Oxygen Delivery Method Room Air 12/07/21 16:30 12/07/21 17:00 12/07/21 17:01 Pulse Rate 60 55 L Respiratory Rate Blood Pressure 142/67 H Pulse Oximetry 99 99 Oxygen Delivery Method Room Air 12/07/21 17:01 12/07/21 17:30 12/07/21 17:30 Pulse Rate 59 L 63 Respiratory Rate 13 Blood Pressure 144/65 H Pulse Oximetry 99 99 Oxygen Delivery Method Room Air 12/07/21 18:00 12/07/21 18:00 12/07/21 18:30 Pulse Rate 62 63 Respiratory Rate 22 28 H Blood Pressure 164/72 H Pulse Oximetry 99 99 Oxygen Delivery Method Room Air 12/07/21 18:31 12/07/21 18:31 12/07/21 19:00 Pulse Rate 63 Respiratory Rate 27 H Blood Pressure 137/65 172/87 H Pulse Oximetry 99 Oxygen Delivery Method 12/07/21 19:00 12/07/21 19:30 12/07/21 19:30 Pulse Rate 73 69 Respiratory Rate 20 Blood Pressure 158/79 H Pulse Oximetry 98 98 Oxygen Delivery Method Room Air Room Air <DO Tonya Plummer Last Filed: 12/08/21 22:34> Orders Ordered: ED Orders 12/07/21 14:50 EKG-12 Lead Stat 12/07/21 14:55 Complete Blood Count AUTO DIFF Stat Comprehensive Metabolic Panel Stat Lipase Stat Partial Thromboplastin Time Stat Prothrombin Time INR Stat Vital Signs Vital signs: Vital Signs - 8 hr 12/07/21 16:00 12/07/21 16:00 12/07/21 16:30 Pulse Rate 61 Respiratory Rate Blood Pressure 130/62 152/63 H Pulse Oximetry 98 Oxygen Delivery Method Room Air 12/07/21 16:30 12/07/21 17:00 12/07/21 17:01 Pulse Rate 60 55 L Respiratory Rate Blood Pressure 142/67 H Pulse Oximetry 99 99 Oxygen Delivery Method Room Air 12/07/21 17:01 12/07/21 17:30 12/07/21 17:30 Pulse Rate 59 L 63 Respiratory Rate 13 Blood Pressure 144/65 H Pulse Oximetry 99 99 Oxygen Delivery Method Room Air 12/07/21 18:00 12/07/21 18:00 12/07/21 18:30 Pulse Rate 62 63 Respiratory Rate 22 28 H Blood Pressure 164/72 H Pulse Oximetry 99 99 Oxygen Delivery Method Room Air 12/07/21 18:31 12/07/21 18:31 12/07/21 19:00 Pulse Rate 63 Respiratory Rate 27 H Blood Pressure 137/65 172/87 H Pulse Oximetry 99 Oxygen Delivery Method 12/07/21 19:00 12/07/21 19:30 12/07/21 19:30 Pulse Rate 73 69 Respiratory Rate 20 Blood Pressure 158/79 H Pulse Oximetry 98 98 Oxygen Delivery Method Room Air Room Air MDM - Abdominal Pain <Aung oFrd PA-C - Last Filed: 12/07/21 19:47> Lab Data Result diagrams: 12/07/21 14:55 12/07/21 14:55 Labs: Lab Results 12/07/21 12/07/21 12/07/21 Range/Units 14:55 14:55 14:55 WBC 7.8 (4.5-11.0) X10^3/uL RBC 4.22 L (4.5-5.9) X10^6/uL Hgb 14.0 (13.5-17.5) g/dL Hct 40.6 L (41-53) % MCV 96.4 (80-100) fL MCH 33.2 (26-34) PG MCHC 34.4 (30-36) % RDW 14.3 (11.6-14.8) % Plt Count 197 (150-400) X10^3/uL Neut % (Auto) 73.9 (50-75) % Lymph % (Auto) 16.4 L (25-40) % [place] % (Auto) 8.8 (3-14) % Eos % (Auto) 0.3 L (2-4) % Baso % (Auto) 0.6 (0-2) % Neut # (Auto) 5800 (3764-6822) /uL Lymph # (Auto) 1300 (0081-1562) /uL [place] # (Auto) 700 (0-900) /uL Eos # (Auto) 0 (0-450) /uL Baso # (Auto) 0 (0-100) /uL PT 23.9 H (10.1-12.7) SECONDS INR 2.1 H (0.9-1.3) APTT 37 H (26-36) SECONDS Sodium 137 (137-145) mmol/L Potassium 4.6 (3.4-5.1) mmol/L Chloride 102 (98-107) mmol/L Carbon Dioxide 29 (22-32) mmol/L BUN 22 H (9-20) mg/dL Creatinine 0.65 L (0.66-1.25) mg/dL Estimated GFR > 60 (>60) mL/min BUN/Creatinine Ratio 33.8 H (6-22) Glucose 94 (80-110) mg/dL Calcium 9.2 (8.4-10.2) mg/dL Total Bilirubin 1.9 H (0.2-1.3) mg/dL AST 31 (17-59) IU/L ALT 21 (<50) IU/L Alkaline Phosphatase 82 (38-126) U/L Total Protein 8.0 (6.3-8.2) g/dL Albumin 4.4 (3.5-5.0) g/dL Globulin 3.6 (1.7-4.1) g/dL Albumin/Globulin Ratio 1.2 (1.0-2.8) Lipase 69 (23-300) U/L Point of care testing: Urine Dip Bedside Urine Glucose Negative Bedside Urine Bilirubin - Negative Bedside Urine Ketone +/- 5 Urine Specific [place] 1.015 Bedside Urine Occult Blood - Negative Bedside Urine Protein - Negative Bedside Urine Urobilinogen - Negative Bedside Urine Nitrite - Negative Bedside Urine Leukocytes - Negative Esterase ECG Data Interpretation: Identifies atrial fibrillation with slow ventricular response. This is in line with patient's current history of atrial fibrillation patient takes warfarin. MDM Narrative Medical decision making narrative: Patient is an 86-year-old male presents to the emergency room today with complaint resolved abdominal pain. States that he had the abdominal pain earlier this morning with pain resolved he arrived to the ER. Patient also admits to a history of atrial fibrillation and is treated with warfarin. Labs also were not positive for any urgent or emergent concerning conditions. Discussed her abdominal pain related concerns the patient and patient agrees to be referred to GI. Patient also advised to return to the emergency room should any emergent concerns arise. Patient agrees with plan <Leandro Hines, - Last Filed: 12/07/21 23:43> Lab Data Labs: Lab Results 12/07/21 12/07/21 12/07/21 Range/Units 14:55 14:55 14:55 WBC 7.8 (4.5-11.0) X10^3/uL RBC 4.22 L (4.5-5.9) X10^6/uL Hgb 14.0 (13.5-17.5) g/dL Hct 40.6 L (41-53) % MCV 96.4 (80-100) fL MCH 33.2 (26-34) PG MCHC 34.4 (30-36) % RDW 14.3 (11.6-14.8) % Plt Count 197 (150-400) X10^3/uL Neut % (Auto) 73.9 (50-75) % Lymph % (Auto) 16.4 L (25-40) % [place] % (Auto) 8.8 (3-14) % Eos % (Auto) 0.3 L (2-4) % Baso % (Auto) 0.6 (0-2) % Neut # (Auto) 5800 (5020-2897) /uL Lymph # (Auto) 1300 (5764-6231) /uL [place] # (Auto) 700 (0-900) /uL Eos # (Auto) 0 (0-450) /uL Baso # (Auto) 0 (0-100) /uL PT 23.9 H (10.1-12.7) SECONDS INR 2.1 H (0.9-1.3) APTT 37 H (26-36) SECONDS Sodium 137 (137-145) mmol/L Potassium 4.6 (3.4-5.1) mmol/L Chloride 102 (98-107) mmol/L Carbon Dioxide 29 (22-32) mmol/L BUN 22 H (9-20) mg/dL Creatinine 0.65 L (0.66-1.25) mg/dL Estimated GFR > 60 (>60) mL/min BUN/Creatinine Ratio 33.8 H (6-22) Glucose 94 (80-110) mg/dL Calcium 9.2 (8.4-10.2) mg/dL Total Bilirubin 1.9 H (0.2-1.3) mg/dL AST 31 (17-59) IU/L ALT 21 (<50) IU/L Alkaline Phosphatase 82 (38-126) U/L Total Protein 8.0 (6.3-8.2) g/dL Albumin 4.4 (3.5-5.0) g/dL Globulin 3.6 (1.7-4.1) g/dL Albumin/Globulin Ratio 1.2 (1.0-2.8) Lipase 69 (23-300) U/L Point of care testing: Urine Dip Bedside Urine Glucose Negative Bedside Urine Bilirubin - Negative Bedside Urine Ketone +/- 5 Urine Specific [place] 1.015 Bedside Urine Occult Blood - Negative Bedside Urine Protein - Negative Bedside Urine Urobilinogen - Negative Bedside Urine Nitrite - Negative Bedside Urine Leukocytes - Negative Esterase <Thony Meza, DO - Last Filed: 12/08/21 22:34> Lab Data Labs: Lab Results 12/07/21 12/07/21 12/07/21 Range/Units 14:55 14:55 14:55 WBC 7.8 (4.5-11.0) X10^3/uL RBC 4.22 L (4.5-5.9) X10^6/uL Hgb 14.0 (13.5-17.5) g/dL Hct 40.6 L (41-53) % MCV 96.4 (80-100) fL MCH 33.2 (26-34) PG MCHC 34.4 (30-36) % RDW 14.3 (11.6-14.8) % Plt Count 197 (150-400) X10^3/uL Neut % (Auto) 73.9 (50-75) % Lymph % (Auto) 16.4 L (25-40) % [place] % (Auto) 8.8 (3-14) % Eos % (Auto) 0.3 L (2-4) % Baso % (Auto) 0.6 (0-2) % Neut # (Auto) 5800 (9316-2879) /uL Lymph # (Auto) 1300 (2757-0233) /uL [place] # (Auto) 700 (0-900) /uL Eos # (Auto) 0 (0-450) /uL Baso # (Auto) 0 (0-100) /uL PT 23.9 H (10.1-12.7) SECONDS INR 2.1 H (0.9-1.3) APTT 37 H (26-36) SECONDS Sodium 137 (137-145) mmol/L Potassium 4.6 (3.4-5.1) mmol/L Chloride 102 (98-107) mmol/L Carbon Dioxide 29 (22-32) mmol/L BUN 22 H (9-20) mg/dL Creatinine 0.65 L (0.66-1.25) mg/dL Estimated GFR > 60 (>60) mL/min BUN/Creatinine Ratio 33.8 H (6-22) Glucose 94 (80-110) mg/dL Calcium 9.2 (8.4-10.2) mg/dL Total Bilirubin 1.9 H (0.2-1.3) mg/dL AST 31 (17-59) IU/L ALT 21 (<50) IU/L Alkaline Phosphatase 82 (38-126) U/L Total Protein 8.0 (6.3-8.2) g/dL Albumin 4.4 (3.5-5.0) g/dL Globulin 3.6 (1.7-4.1) g/dL Albumin/Globulin Ratio 1.2 (1.0-2.8) Lipase 69 (23-300) U/L Point of care testing: Urine Dip Bedside Urine Glucose Negative Bedside Urine Bilirubin - Negative Bedside Urine Ketone +/- 5 Urine Specific [place] 1.015 Bedside Urine Occult Blood - Negative Bedside Urine Protein - Negative Bedside Urine Urobilinogen - Negative Bedside Urine Nitrite - Negative Bedside Urine Leukocytes - Negative Esterase Discharge Plan Departure Patient Disposition: Home Clinical Impression: Abdominal pain Instructions: Acute Abdominal Pain Activity Restrictions/Additional Instructions: *You have been diagnosed with abdominal pain has resolved. As we discussed to not do any further workup at this time because the abdominal pain has resolved. I have higher for referred you to [facility] so you could see a gastrointestinal specialist. Did provide a on-call is Dr. Abdul and their phone number is [phone] [ ] *What to do: *Please continue to take your regular medications as directed. [ ] New medication prescriptions sent to your pharmacy: [ ] [ ] New medication written as a paper prescription [x] No new medications given *Please follow up with your primary care provider in 2-3 days, call for an appointment. Let them know you were seen in the Emergency Department and that we ask that you be seen in follow up. We will electronically transmit a record of today's note if your PCP is in our system *If you do not have a primary care provider please contact the [facility] Resource line at [phone]. They will ask some questions about your medical history and help get you set up with a doctor in the community. *Return to Emergency Department if you should have any new, worsening or concerning symptoms, such as [fever greater than 101 F, shaking chills, worsening pain, persistent vomiting or other bothersome symptoms] Prescriptions: No Action finasteride 5 MG tablet 5 mg PO QDAY Qty: 0 meclizine 25 mg tablet 25 mg PO BID-TID PRN (Reason: motion sickness) Qty: 14 0RF warfarin 6 mg Tablet 6 mg PO DAILY atenolol 25 mg Tablet 75 mg PO DAILY Label Comments: he takes 37.5 mg in the am and 37.5 mg in the pm tramadol [Ultram] 50 mg tablet 50 mg PO TID PRN (Reason: pain) Qty: 10 0RF carbamazepine 200 mg capsule, ER multiphase 12 hr 200 mg PO BID Qty: 30 0RF sulfamethoxazole-trimethoprim 800-160 mg tablet 1 tab PO BID Qty: 14 0RF Referrals: Jayden Barahona MD [Primary Care Provider] - Ferdinand Abdul MD [Physician] - Visit Report Forms: Patient Portal/API <Leandro Hines DO - Last Filed: 12/07/21 23:43> [facility] ED Attending Little Attestation: I was immediately available in the department for consultation. This documentation has been reviewed and I agree with assessment and plan. Supervised by Leandro Hines DO <Thony Meza DO - Last Filed: 12/08/21 22:34> [facility] ED Attending Little Attestation: I was immediately available in the department for consultation. This documentation has been reviewed and I agree with assessment and plan. Supervised by DO Dr Susana Cortés Co-Sign Statement: I was available for consultation during this patient's emergency department visit. This chart is signed by myself for administrative purposes only. I did not have direct contact with this patient during this visit. They were seen independently by the APC.
== END 2021-12-07 19:52 | disposition home or self-care (01) ==
PROVIDERS: Emergency Medicine; Emergency Provider Physician Assistant; Family Provider Family Medicine; PCP Family Medicine
DX: R10.9 Unspecified abdominal pain (principal); I87.2 Venous insufficiency (chronic) (peripheral); L97.312 Non-pressure chronic ulcer of right ankle with fat layer exposed; L97.812 Non-pressure chronic ulcer of other part of right lower leg with fat layer exposed; R60.9 Edema, unspecified
CPT/HCPCS: 11042; 15271; 36415; 80053; 81003; 83690; 85025; 85610; 85730; 93005; 99283; 99284; Q4137

== ENCOUNTER → 2021-12-14 11:02 | Outpatient (CLI) | payer MEDICARE, SELFPAY | PROVIDERS: Family Provider Family Medicine; PCP Family Medicine; Referring Provider Family Medicine; Visit Provider Family Medicine | DX: I87.2 Venous insufficiency (chronic) (peripheral) (principal); L97.812 Non-pressure chronic ulcer of other part of right lower leg with fat layer exposed; I73.9 Peripheral vascular disease, unspecified; Z79.01 Long term (current) use of anticoagulants | CPT/HCPCS: 11042; 15271; 29581; 99212; Q4137 ==

== ENCOUNTER → 2021-12-19 12:15 | Outpatient (CLI) | payer MEDICARE, SELFPAY ==
--- NOTE | 2021-12-19 | DI.RAD.S_ITS ---
PROCEDURE: XR THORACIC SPINE 3V INDICATIONS: PAIN TECHNIQUE: 3 views of the thoracic spine were acquired. COMPARISON: None. FINDINGS: Bones: No fractures or dislocations. No suspicious bony lesions. 12 pairs of ribs are noted, and appear intact where visualized. Moderate degenerative disc disease at C5-C6, C6-C7, T6-T7, T7-T8, T8-T9, T9-T10, and T10-T11. Soft tissues: No paravertebral stripe thickening. Severe atherosclerotic calcifications IMPRESSION: Moderate degenerative disc disease. Dictated by: Mirian Dejesus M.D. on 12/19/2021 at 13:42 Approved by: Mirian Dejesus M.D. on 12/19/2021 at 13:43
--- NOTE | 2021-12-19 12:20 | DI.RAD.S_ITS ---
PROCEDURE: XR LUMBAR SPINE 2-3V INDICATIONS: back pain TECHNIQUE: 3 views of the lumbar spine were acquired. COMPARISON: CR, L-SPINE 2-3 VIEWS, 04/25/2016, 11:04. FINDINGS: Bones: 5 [id number] vertebrae are present. There is trace retrolisthesis of L3 on L4. No vertebral body compression fractures. No suspicious bony lesions. Moderate degenerative disease throughout the lumbar spine. There is moderate facet arthropathy at L5-S1. There are large lateral osteophytes at L2-L3 and L3-L4. Soft tissues: Overlying bowel gas pattern is normal. Mass calcifications consistent with atherosclerosis. IMPRESSION: Moderate degenerative disc and facet disease in lumbar spine. Dictated by: Mirian Dejesus M.D. on 12/19/2021 at 13:32 Approved by: Mirian Dejesus M.D. on 12/19/2021 at 13:42
== END ==
PROVIDERS: Family Provider Family Medicine; PCP Family Medicine; Referring Provider Family Medicine; Visit Provider Family Medicine
DX: M51.36 Other intervertebral disc degeneration, lumbar region (principal); M47.817 Spondylosis without myelopathy or radiculopathy, lumbosacral region; M50.322 Other cervical disc degeneration at C5-C6 level; M51.34 Other intervertebral disc degeneration, thoracic region; M54.50 Low back pain, unspecified
CPT/HCPCS: 72072; 72100

== ENCOUNTER → 2021-12-21 11:48 | Outpatient (CLI) | payer MEDICARE, SELFPAY | PROVIDERS: Family Provider Family Medicine; PCP Family Medicine; Referring Provider Family Medicine; Visit Provider Family Medicine | DX: I87.2 Venous insufficiency (chronic) (peripheral) (principal); L97.312 Non-pressure chronic ulcer of right ankle with fat layer exposed; L97.812 Non-pressure chronic ulcer of other part of right lower leg with fat layer exposed; Z79.01 Long term (current) use of anticoagulants | CPT/HCPCS: 11042; 15271; Q4137 ==

== ENCOUNTER → 2021-12-28 10:19 | Outpatient (CLI) | payer MEDICARE, SELFPAY | PROVIDERS: Family Provider Family Medicine; PCP Family Medicine; Referring Provider Family Medicine; Visit Provider Family Medicine | DX: I87.2 Venous insufficiency (chronic) (peripheral) (principal); L97.312 Non-pressure chronic ulcer of right ankle with fat layer exposed; L97.812 Non-pressure chronic ulcer of other part of right lower leg with fat layer exposed; Z79.01 Long term (current) use of anticoagulants | CPT/HCPCS: 11042; 15271; Q4137 ==

== ENCOUNTER → 2021-12-29 09:14 | Outpatient (CLI) | payer MEDICARE, SELFPAY ==
--- NOTE | 2021-12-29 09:19 | DI.CT.S_ITS ---
PROCEDURE: CT CHEST ABD PEL W CON INDICATIONS: Abnormal weight loss TECHNIQUE: After the administration of oral and intravenous contrast, axial sections acquired from the supraclavicular neck to the pubic symphysis. Coronal and sagittal reformats were performed. For radiation dose reduction, the following was used: automated exposure control, adjustment of mA and/or kV according to patient size. COMPARISON: None. FINDINGS: Image quality: Excellent. CHEST: Lower Neck: No enlarged lymph nodes. Thyroid: Within normal limits. Axillae: No enlarged lymph nodes. Chest Wall: Unremarkable. Lungs and Airways: No consolidation or suspicious nodules. Pleura: No pneumothorax or pleural effusions. Heart: Heart size is normal. No pericardial effusion. Thoracic Vessels: The aorta and pulmonary arteries demonstrate normal size. Mediastinum and Amanda: No enlarged lymph nodes. Esophagus: No wall thickening. No hiatal hernia. ABDOMEN: Liver: Unremarkable. Gallbladder: Unremarkable. Biliary ducts: Unremarkable. Pancreas: Unremarkable. Spleen: Unremarkable. Adrenal Glands: Unremarkable. Kidneys and Ureters: Unremarkable. Stomach and Bowel: Stomach, small bowel loops, and colon are unremarkable. Peritoneum: No abnormal intraperitoneal fluid. No free air. Ventral Wall: No hernia. Abdominal Nodes: No retroperitoneal or mesenteric adenopathy by size criteria. Vessels: Aorta and inferior vena cava are normal in size. PELVIS: Pelvic Organs: Unremarkable. Bladder: Unremarkable. Pelvic Nodes: No enlarged lymph nodes. Miscellaneous: No inguinal hernias are seen. Bones: Unremarkable. IMPRESSION: 1. There is a prominence of the central renal collecting system on the left, without ureteropelvic junction mass or calculus. The appearance is considered most likely a manifestation of multiple peripelvic cysts rather than a true obstructive process. 2. Through the chest abdomen and pelvis no focus of suspected underlying neoplasm or chronic infection is found. Etiology of reported unexplained weight loss is not identified. Dictated by: Donald Jiang M.D. on 12/29/2021 at 13:28 Approved by: Donald Jiang M.D. on 12/29/2021 at 13:35
[2021-12-29 11:29] LABS: INR 1.6 (0.9-1.3); Prothrombin Time 18.3 SECONDS (10.1-12.7)
[2021-12-29 11:49] LABS: Blood Urea Nitrogen 17 mg/dL (9-20); Calcium 9.6 mg/dL (8.4-10.2); Carbon Dioxide 32 mmol/L (22-32); Chloride 100 mmol/L (98-107); Estimated Glomerular Filt Rate > 60 mL/min (>60); Glucose 89 mg/dL (80-110); HEMOLYSIS < 15 (0-50); Potassium 4.6 mmol/L (3.4-5.1); Sodium 141 mmol/L (137-145)
== END ==
PROVIDERS: Family Provider Family Medicine; PCP Family Medicine; Referring Provider Family Medicine; Visit Provider Family Medicine
DX: I48.91 Unspecified atrial fibrillation (principal); R63.4 Abnormal weight loss
CPT/HCPCS: 36415; 71260; 74177; 80048; 85610

== ENCOUNTER → 2022-01-04 10:47 | Outpatient (CLI) | payer MEDICARE, SELFPAY | PROVIDERS: Family Provider Family Medicine; PCP Family Medicine; Referring Provider Family Medicine; Visit Provider Family Medicine | DX: I87.2 Venous insufficiency (chronic) (peripheral) (principal); L97.312 Non-pressure chronic ulcer of right ankle with fat layer exposed; L97.812 Non-pressure chronic ulcer of other part of right lower leg with fat layer exposed | CPT/HCPCS: 15271; Q4137 ==

== ENCOUNTER → 2022-01-11 12:34 | Outpatient (CLI) | payer MEDICARE, SELFPAY ==
[2022-01-11 13:09] LABS: INR 2.2 (0.9-1.3); Prothrombin Time 25.9 SECONDS (10.1-12.7)
== END ==
PROVIDERS: Family Provider Family Medicine; PCP Family Medicine; Referring Provider Family Medicine; Visit Provider Family Medicine
DX: I48.91 Unspecified atrial fibrillation (principal)
CPT/HCPCS: 36415; 85610

== ENCOUNTER → 2022-01-11 14:10 | Outpatient (CLI) | payer MEDICARE, SELFPAY | PROVIDERS: Family Provider Family Medicine; PCP Family Medicine; Referring Provider Family Medicine; Visit Provider Family Medicine | DX: I87.2 Venous insufficiency (chronic) (peripheral) (principal); L97.312 Non-pressure chronic ulcer of right ankle with fat layer exposed; L97.812 Non-pressure chronic ulcer of other part of right lower leg with fat layer exposed; R60.0 Localized edema; Z79.01 Long term (current) use of anticoagulants; I73.9 Peripheral vascular disease, unspecified; I48.91 Unspecified atrial fibrillation | CPT/HCPCS: 15271; 36415; 85610; Q4137 ==

== ENCOUNTER → 2022-01-18 11:25 | Outpatient (CLI) | payer MEDICARE, SELFPAY | PROVIDERS: Family Provider Family Medicine; PCP Family Medicine; Referring Provider Family Medicine; Visit Provider Family Medicine | DX: I87.2 Venous insufficiency (chronic) (peripheral) (principal); L97.312 Non-pressure chronic ulcer of right ankle with fat layer exposed; L97.812 Non-pressure chronic ulcer of other part of right lower leg with fat layer exposed; Z79.01 Long term (current) use of anticoagulants | CPT/HCPCS: 15271; Q4137 ==

== ENCOUNTER → 2022-01-25 11:07 | Outpatient (CLI) | payer MEDICARE, SELFPAY | PROVIDERS: Family Provider Family Medicine; PCP Family Medicine; Referring Provider Family Medicine; Visit Provider Surgery | DX: I87.2 Venous insufficiency (chronic) (peripheral) (principal); L97.312 Non-pressure chronic ulcer of right ankle with fat layer exposed; L97.812 Non-pressure chronic ulcer of other part of right lower leg with fat layer exposed; Z79.01 Long term (current) use of anticoagulants | CPT/HCPCS: 29581; 99213 ==

== ENCOUNTER 2022-01-28 18:04 | Emergency (ER) | payer MEDICARE, SELFPAY ==
--- NOTE | 2022-01-28 18:06 | DI.CT.S_ITS ---
PROCEDURE: CT CERVICAL SPINE WO CON INDICATIONS: fall TECHNIQUE: Noncontrast 3 mm thick sections acquired from the skull base to the T4 level. Sagittal and coronal reformats were then constructed. For radiation dose reduction, the following was used: automated exposure control, adjustment of mA and/or kV according to patient size. COMPARISON: None. FINDINGS: Image quality: Excellent. Bones: The craniocervical junction is intact. Mild degenerative space loss and spurring at the atlantodental interval. No cervical vertebral body fractures or pathologic subluxation. The visible thoracic vertebral bodies and upper ribs are intact. Moderate disc height loss from C2 through C7 with mild uncovertebral joint hypertrophy and endplate osteophytes. Mild multilevel facet arthropathy results in multilevel bony neural foraminal narrowing. Soft tissues: Prevertebral soft tissues are normal in thickness. No paravertebral hematomas. No apical pneumothoraces. Moderate bilateral carotid bulb calcification. IMPRESSION: 1. No CT evidence of acute cervical spine trauma. 2. Moderate multilevel degeneration as described. Dictated by: Brinda Cline M.D. on 01/28/2022 at 18:40 Approved by: Brinda Cline M.D. on 01/28/2022 at 18:45
--- NOTE | 2022-01-28 18:06 | DI.RAD.S_ITS ---
PROCEDURE: XR CHEST 1V INDICATIONS: fall TECHNIQUE: One view of the chest was acquired. COMPARISON: [facility], CR, XR CHEST 1V, 11/09/2018, 10:45. FINDINGS: Surgical changes and devices: None. Lungs and pleura: Lungs are clear. No pleural effusions or pneumothorax. Mediastinum: Cardiomegaly. No central venous congestion. Normal aortic contour. Bones and chest wall: No visible displaced fractures. There is a chronic, healed deformity of the distal right clavicle fracture. IMPRESSION: 1. No radiographic evidence of acute chest trauma. 2. Cardiomegaly without radiographic findings of CHF. Dictated by: Brinda Cline M.D. on 01/28/2022 at 18:38 Approved by: Brinda Cline M.D. on 01/28/2022 at 18:39
--- NOTE | 2022-01-28 18:06 | DI.CT.S_ITS ---
PROCEDURE: CT HEAD/BRAIN WO CON INDICATIONS: fall on coumaidn TECHNIQUE: Noncontrast 4.5 mm thick angled axial sections acquired from the foramen magnum to the vertex, with coronal and sagittal reformats. For radiation dose reduction, the following was used: automated exposure control, adjustment of mA and/or kV according to patient size. COMPARISON: [facility], CT, CT HEAD/BRAIN WO CON, 11/09/2018, 11:38. FINDINGS: Image quality: Excellent. CSF spaces: Basal cisterns are patent. No extra-axial fluid collections. The ventricles are symmetric in size and shape. Brain: No intracranial bleeds or masses. There is cerebral volume loss for age, with resultant ventricular and sulcal prominence. There are mild periventricular and deep white matter chronic small vessel ischemic changes. There is intracranial internal carotid artery atherosclerosis. Skull and face: Calvarium and visualized facial bones appear intact, without suspicious lesions. Sinuses: Visualized sinuses and mastoids are clear. IMPRESSION: 1. Age-appropriate cerebral cortical volume loss and chronic microvascular ischemic changes. 2. No CT evidence of acute intracranial trauma. 3. No significant soft tissue injury or underlying fracture. Dictated by: Brinda Cline M.D. on 01/28/2022 at 18:45 Approved by: Brinda Cline M.D. on 01/28/2022 at 18:47
[2022-01-28 18:09] VITALS: BMI 24.4
[2022-01-28 18:24] VITALS: BP 162/97; PULSE 97; RESP 18; O2SAT 97
[2022-01-28 18:27] VITALS: TEMP 36.6
--- NOTE | 2022-01-28 18:44 | ED_ITS ---
HPI - Fall General Chief Complaint: Fall Stated Complaint: GLF Time Seen by Provider: 01/28/22 18:06 Source: patient and EMS Mode of arrival: EMS History of Present Illness HPI Narrative: The patient is an 86-year-old male history of hypertension, atrial fibrillation on warfarin presenting after a ground level fall. He said he was outside on the ground hanging a bird feeder when the ground was uneven he stumbled backwards falling and hitting his head. No loss of consciousness no nausea or vomiting. No numbness tingling or weakness. However he had a difficult time getting up. And EMS was called. He denies any chest pain or palpitations. He was in his normal state of health earlier today. He states that he is having left visual changes there is a small black dot in the middle of his vision. He says after he had cataract surgery done he has noticed some left changes. He thinks this might be a little bit different than is his normal. He denies any other pain. He has chronic lower extremity wounds for which he is followed at [facility] for. He also had precancerous skin lesion removed from the top of his head is by Dermatology recently. Related Data Home Medications Medication Instructions Recorded Confirmed finasteride 5 mg tablet 5 mg PO QDAY ##0 05/08/11 atenolol 25 mg tablet 75 mg PO DAILY 01/21/18 01/21/18 warfarin 6 mg tablet 6 mg PO DAILY 01/21/18 01/21/18 Previous Rx's Medication Instructions Recorded meclizine 25 mg tablet 25 mg PO BID-TID PRN motion 11/09/18 sickness #14 tabs tramadol 50 mg tablet (Ultram) 50 mg PO TID PRN pain #10 tabs 10/04/19 carbamazepine 200 mg 200 mg PO BID #30 caps 10/08/19 capsule,extended release [id number] sulfamethoxazole 800 1 tab PO BID #14 tabs 01/14/20 mg-trimethoprim 160 mg tablet Allergies Allergy/AdvReac Type Severity Reaction Status Date / Time No Known Drug Allergies Allergy Verified 12/07/21 14:50 Review of Systems Review of Systems Narrative: GENERAL: Denies chills, fatigue, malaise, fever, sweats, travel HEENT: Denies sinus pain, ear pain, sore throat, difficulty swallowing, neck pain RESPIRATORY: Denies dyspnea, cough, wheezing, hemoptysis, sputum. CARDIOVASCULAR: Denies chest pain, palpitations, orthopnea, edema GASTROINTESTINAL: Denies nausea, vomiting, abdominal pain, diarrhea, consti pation, melena. : Denies dysuria, frequency, incontinence, hematuria, urinary retention, flank pain. MUSCULOSKELETAL: Denies weakness, joint pain, or bony pain SKIN: No rash, no erythema, no pruritus NEUROLOGIC: See HPI PSYCHIATRIC: No concerning psychosocial issues. 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 Social History household members: spouse Smoking Status: Former smoker Smoking Status: Former smoker alcohol intake frequency: 0-2 drinks per day Alcohol type: hard liquor Substance Use Type: does not use Exam Initial Vital Signs Initial Vital Signs: Vital Signs Pulse Rate 97 H 01/28/22 18:24 Respiratory Rate 18 01/28/22 18:24 Blood Pressure 162/97 H 01/28/22 18:24 Pulse Oximetry 97 01/28/22 18:24 Oxygen Delivery Method 01/28/22 18:24 GENERAL: Alert pleasant 86-year-old male HEENT: Head 3 cm laceration noted posterior head, EOMI, pupils reactive, face symmetric, moist mucous membranes NECK: C-collar in place CARDIOVASCULAR: Regular rate and rhythm without murmurs, rubs or gallops. RESPIRATORY: Breath sounds equal bilaterally, no wheezes rales or rhonchi. ABDOMEN: Soft, nontender. Normoactive bowel sounds all 4 quadrants. No guarding or rebound. EXTREMITIES: Normal range of motion, no clubbing or edema. Neurovascularly intact. Pelvis stable no bony deformities peripheral pulses intact NEUROLOGICAL: Alert and oriented x4.Normal gait and speech. 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 Procedures Laceration Repair Laceration 1: Size (cm): 3 Description: linear Depth: simple, single layer Local Anesthetic: lidocaine 2% Amount of anesthesia used (mL): 4 Pre-repair: wound explored, irrigated extensively and deep structures intact Skin layer closed with: sejal Course Orders Ordered: Discontinued Medications Acetaminophen (Acetaminophen 325 Mg Tablet) 975 mg PO NOW ONE Stop: 01/28/22 21:07 Last Admin: 01/28/22 21:11 Dose: 975 mg Documented By: IVONNE Lidocaine/Epinephrine (Lidocaine 1% W/Epi) 1 ml SUBCUT NOW ONE Stop: 01/28/22 19:47 Last Admin: 01/28/22 21:09 Dose: Not Given Documented By: IVONNE Vital Signs Vital signs: Vital Signs - 8 hr 01/28/22 21:26 Pulse Rate 68 Respiratory Rate 16 Blood Pressure 142/80 H Pulse Oximetry 98 Oxygen Delivery Method Room Air MDM - Fall Lab Data Result diagrams: 01/28/22 18:31 01/28/22 18:31 Labs: Lab Results 01/28/22 01/28/22 01/28/22 Range/Units 18:31 18:31 18:31 WBC 6.7 (4.5-11.0) X10^3/uL RBC 4.18 L (4.5-5.9) X10^6/uL Hgb 13.8 (13.5-17.5) g/dL Hct 40.2 L (41-53) % MCV 96.1 (80-100) fL MCH 32.9 (26-34) PG MCHC 34.3 (30-36) % RDW 13.9 (11.6-14.8) % Plt Count 182 (150-400) X10^3/uL Neut % (Auto) 62.4 (50-75) % Lymph % (Auto) 24.6 L (25-40) % Parke % (Auto) 10.9 (3-14) % Eos % (Auto) 1.1 L (2-4) % Baso % (Auto) 1.0 (0-2) % Neut # (Auto) 4200 (2465-4300) /uL Lymph # (Auto) 1700 (7203-3722) /uL Parke # (Auto) 700 (0-900) /uL Eos # (Auto) 100 (0-450) /uL Baso # (Auto) 100 (0-100) /uL PT 32.5 H (10.1-12.7) SECONDS INR 2.8 H (0.9-1.3) APTT 34 (26-36) SECONDS Sodium 137 (137-145) mmol/L Potassium 4.0 (3.4-5.1) mmol/L Chloride 102 (98-107) mmol/L Carbon Dioxide 28 (22-32) mmol/L BUN 27 H (9-20) mg/dL Creatinine 0.67 (0.66-1.25) mg/dL Estimated GFR > 60 (>60) mL/min BUN/Creatinine Ratio 40.3 H (6-22) Glucose 107 (80-110) mg/dL Calcium 9.1 (8.4-10.2) mg/dL Total Bilirubin 1.2 (0.2-1.3) mg/dL AST 35 (17-59) IU/L ALT 27 (<50) IU/L Alkaline Phosphatase 80 (38-126) U/L Total Creatine Kinase 88 (55-170) U/L CK-MB (CK-2) TNP CK-MB (CK-2) Rel Index TNP Troponin I < 0.012 (0.01-0.034) ng/mL Total Protein 7.5 (6.3-8.2) g/dL Albumin 4.1 (3.5-5.0) g/dL Globulin 3.4 (1.7-4.1) g/dL Albumin/Globulin Ratio 1.2 (1.0-2.8) Lipase 372 H (23-300) U/L Imaging Data CT scan - head: Radiologist's Impression: [address] [place] [id number] Scan Report Signed Patient: Eric Salgado MR#: [id number] : 1935 Acct:[id number] Age/Sex: 86 / M Date of Service: 01/28/22 Loc: ED Accession Number: [id number] ?? Procedure: CT head/brain wo con Ordering Provider: Sofiya Amin D.O. PROCEDURE:? CT HEAD/BRAIN WO CON ? INDICATIONS:? fall on coumaidn ? TECHNIQUE:? Noncontrast 4.5 mm thick angled axial sections acquired from the foramen magnum to the vertex, with coronal and sagittal reformats.? For radiation dose reduction, the following was used:? automated exposure control, adjustment of mA and/or kV according to patient size.? ? COMPARISON:? [facility], CT, CT HEAD/BRAIN WO CON, 11/09/2018, 11:38. ? FINDINGS:? Image quality:? Excellent.? ? CSF spaces:? Basal cisterns are patent.? No extra-axial fluid collections.? The ventricles are symmetric in size and shape.? ? Brain:? No intracranial bleeds or masses.? There is cerebral volume loss for age, with resultant ventricular and sulcal prominence.? There are mild periventricular and deep white matter chronic small vessel ischemic changes.? There is intracranial internal carotid artery atherosclerosis.? ? Skull and face:? Calvarium and visualized facial bones appear intact, without suspicious lesions.? ? Sinuses:? Visualized sinuses and mastoids are clear.? ? IMPRESSION:? ? 1. Age-appropriate cerebral cortical volume loss and chronic microvascular ischemic changes.? ? 2. No CT evidence of acute intracranial trauma. ? 3. No significant soft tissue injury or underlying fracture. ? ? ? Dictated by: Brinda Cline M.D. on 01/28/2022 at 18:45 ? ? CT - cervical spine: Radiologist's Impression: [facility] [id number] CT Scan Report Signed Patient: Eric Salgado MR#: [id number] : 1935 Acct:[id number] Age/Sex: 86 / M Date of Service: 01/28/22 Loc: Accession Number: [id number] ?? Procedure: CT cervical spine wo con Ordering Provider: Sofiya Amin D.O. PROCEDURE:? CT CERVICAL SPINE WO CON ? INDICATIONS:? fall ? TECHNIQUE:? Noncontrast 3 mm thick sections acquired from the skull base to the T4 level.? Sagittal and coronal reformats were then constructed.? For radiation dose reduction, the following was used:? automated exposure control, adjustment of mA and/or kV according to patient size.? ? COMPARISON:? None. ? FINDINGS:? Image quality:? Excellent.? ? Bones:? The craniocervical junction is intact.? Mild degenerative space loss and spurring at the atlantodental interval.? No cervical vertebral body fractures or p athologic subluxation.? The visible thoracic vertebral bodies and upper ribs are intact.? ? Moderate disc height loss from C2 through C7 with mild uncovertebral joint hypertrophy and endplate osteophytes.? Mild multilevel facet arthropathy results in multilevel bony neural foraminal narrowing. ? Soft tissues:? Prevertebral soft tissues are normal in thickness.? No paravertebral hematomas.? No apical pneumothoraces.? Moderate bilateral carotid bulb calcification. ? ? IMPRESSION:? ? 1. No CT evidence of acute cervical spine trauma. ? 2. Moderate multilevel degeneration as described.? Dictated by: Brinda Cline M.D. on 01/28/2022 at 18:40 ? ? Approved by: Brinda lCine M.D. on 01/28/2022 at 18:45 ? Chest x-ray: Radiologist's Impression: Patient: Eric Salgado MR#: [id number] : 1935 Acct:[id number] Age/Sex: 86 / M Date of Service: 01/28/22 Loc: ED Accession Number: [id number] ?? Procedure: XR chest 1V Ordering Provider: Sofiya Amin D.O. PROCEDURE:? XR CHEST 1V ? INDICATIONS:? fall ? TECHNIQUE:? One view of the chest was acquired.? ? COMPARISON:? [facility], , XR CHEST 1V, 11/09/2018, 10:45. ? FINDINGS:? ? Surgical changes and devices:? None.? ? Lungs and pleura:? Lungs are clear.? No pleural effusions or pneumothorax.? ? Mediastinum:? Cardiomegaly.? No central venous congestion.? Normal aortic contour. ? Bones and chest wall:? No visible displaced fractures.? There is a chronic, healed deformity of the distal right clavicle fracture. ? IMPRESSION:? ? 1. No radiographic evidence of acute chest trauma. ? 2. Cardiomegaly without radiographic findings of CHF.? ? ? Dictated by: Brinda Cline M.D. on 01/28/2022 at 18:38 ? ? ECG Data Interpretation: Atrial fibrillation rate [address] changes MDM Narrative Medical decision making narrative: Patient had a mechanical fall head CT blood work overall reassuring. He does have a laceration posterior head which is easily stapled. He previously had a dermatologic procedure on the top of his head which is oozing a bit but it does stop with proper dressing and pressure. His no evidence of any further injury no need for any further workup. Discharge Plan Departure Patient Disposition: Home Clinical Impression: Laceration, Closed head injury Instructions: DI for Laceration Repair -- Sejal, How to Prevent Falls Activity Restrictions/Additional Instructions: *You have been diagnosed with fall, closed head injury, laceration *What to do: May shower and bathe. Have sejal removed in about 5 days your primary care provider *Continue to take medications as directed Tylenol 650 mg every 4-6 hours if needed for pain *Follow up with your primary care provider in 2-3 days or call [phone] *Return to ER if you should have increasing pain vomiting weakness confusion or any new, worsening or concerning symptoms Prescriptions: No Action finasteride 5 MG tablet 5 mg PO QDAY Qty: 0 meclizine 25 mg tablet 25 mg PO BID-TID PRN (Reason: motion sickness) Qty: 14 0RF warfarin 6 mg Tablet 6 mg PO DAILY atenolol 25 mg Tablet 75 mg PO DAILY Label Comments: he takes 37.5 mg in the am and 37.5 mg in the pm tramadol [Ultram] 50 mg tablet 50 mg PO TID PRN (Reason: pain) Qty: 10 0RF carbamazepine 200 mg capsule, ER multiphase 12 hr 200 mg PO BID Qty: 30 0RF sulfamethoxazole-trimethoprim 800-160 mg tablet 1 tab PO BID Qty: 14 0RF Referrals: Jayden Barahona MD [Primary Care Provider] - Visit Report Forms: Patient Portal/API
[2022-01-28 18:49] LABS: Add Manual Diff / Slide Review NO; Basophils Absolute Auto 100 /uL (0-100); Eosinophils Absolute Auto 100 /uL (0-450); Eosinophils Percent Auto 1.1 % (2-4); Hematocrit 40.2 % (41-53); Hemoglobin 13.8 g/dL (13.5-17.5); Lymphocytes Absolute Auto 1700 /uL (1100-4500); Lymphocytes Percent Auto 24.6 % (25-40); Mean Corpuscular HGB Conc 34.3 % (30-36); Mean Corpuscular Hemoglobin 32.9 PG (26-34); Mean Corpuscular Volume 96.1 fL (80-100); Monocytes Absolute Auto 700 /uL (0-900); Monocytes Percent Auto 10.9 % (3-14); Neutrophils Absolute Auto 4200 /uL (1500-7000); Neutrophils Percent Auto 62.4 % (50-75); Platelet Count 182 X10^3/uL (150-400); Red Blood Cell Count 4.18 X10^6/uL (4.5-5.9); Red Cell Distribution Width 13.9 % (11.6-14.8); White Blood Cell Count 6.7 X10^3/uL (4.5-11.0)
[2022-01-28 18:58] LABS: INR 2.8 (0.9-1.3); Prothrombin Time 32.5 SECONDS (10.1-12.7)
[2022-01-28 19:00] LABS: Alanine Aminotransferase 27 IU/L (<50); Albumin 4.1 g/dL (3.5-5.0); Albumin Globulin Ratio 1.2 (1.0-2.8); Alkaline Phosphatase 80 U/L (38-126); Aspartate Aminotransferase 35 IU/L (17-59); BUN Creatinine Ratio 40.3 (6-22); Bilirubin Total 1.2 mg/dL (0.2-1.3); Blood Urea Nitrogen 27 mg/dL (9-20); Calcium 9.1 mg/dL (8.4-10.2); Carbon Dioxide 28 mmol/L (22-32); Chloride 102 mmol/L (98-107); Creatine Kinase 88 U/L (55-170); Estimated Glomerular Filt Rate > 60 mL/min (>60); Globulin 3.4 g/dL (1.7-4.1); Glucose 107 mg/dL (80-110); HEMOLYSIS < 15 (0-50); Lipase 372 U/L (23-300); Sodium 137 mmol/L (137-145); Total Protein 7.5 g/dL (6.3-8.2)
[2022-01-28 19:01] LABS: PTT Partial Thromboplastin Tim 34 SECONDS (26-36)
[2022-01-28 19:11] LABS: Troponin I < 0.012 ng/mL (0.01-0.034)
[2022-01-28] MEDS: LIDOCAINE 2% INJ SDV 5 ML (20:00)
--- NOTE | 2022-01-28 20:37 | PC.NURSE ---
pt independently sat on side of bed to use the urinal
[2022-01-28] MEDS: ACETAMINOPHEN 325 MG TABLET 975 MG PO (21:11)
[2022-01-28 21:26] VITALS: BP 142/80; PULSE 68; RESP 16; O2SAT 98
== END 2022-01-28 21:30 | disposition home or self-care (01) ==
PROVIDERS: Emergency Provider Emergency Medicine; Family Provider Family Medicine; PCP Family Medicine
DX: S01.01XA Laceration without foreign body of scalp, initial encounter (principal); S09.90XA Unspecified injury of head, initial encounter; Z79.01 Long term (current) use of anticoagulants; W18.30XA Fall on same level, unspecified, initial encounter
CPT/HCPCS: 12002; 36415; 70450; 71045; 72125; 80053; 82550; 83690; 84484; 85025; 85610; 85730; 93005; 99284

== ENCOUNTER → 2022-01-31 14:50 | Outpatient (CLI) | payer MEDICARE, SELFPAY | PROVIDERS: Family Provider Family Medicine; PCP Family Medicine; Referring Provider Family Medicine; Visit Provider Surgery | DX: I87.2 Venous insufficiency (chronic) (peripheral) (principal); L97.312 Non-pressure chronic ulcer of right ankle with fat layer exposed; L97.812 Non-pressure chronic ulcer of other part of right lower leg with fat layer exposed; Z79.01 Long term (current) use of anticoagulants | CPT/HCPCS: 99212; 99213 ==

== ENCOUNTER → 2022-02-07 14:23 | Outpatient (CLI) | payer MEDICARE, SELFPAY | PROVIDERS: Family Provider Family Medicine; PCP Family Medicine; Referring Provider Family Medicine; Visit Provider Surgery | DX: I87.2 Venous insufficiency (chronic) (peripheral) (principal); L97.312 Non-pressure chronic ulcer of right ankle with fat layer exposed; L97.812 Non-pressure chronic ulcer of other part of right lower leg with fat layer exposed; Z79.01 Long term (current) use of anticoagulants | CPT/HCPCS: 29581; 99213 ==

== ENCOUNTER → 2022-02-09 11:29 | Outpatient (CLI) | payer MEDICARE, SELFPAY ==
[2022-02-09 12:10] LABS: INR 2.9 (0.9-1.3); Prothrombin Time 33.2 SECONDS (10.1-12.7)
== END ==
PROVIDERS: Family Provider Family Medicine; PCP Family Medicine; Referring Provider Family Medicine; Visit Provider Family Medicine
DX: I48.91 Unspecified atrial fibrillation (principal)
CPT/HCPCS: 36415; 85610

== ENCOUNTER → 2022-02-13 13:59 | Outpatient (CLI) | payer MEDICARE, SELFPAY | PROVIDERS: Family Provider Family Medicine; PCP Family Medicine; Referring Provider Family Medicine; Visit Provider Surgery | DX: I87.2 Venous insufficiency (chronic) (peripheral) (principal); L97.312 Non-pressure chronic ulcer of right ankle with fat layer exposed; Z79.01 Long term (current) use of anticoagulants | CPT/HCPCS: 99212; 99213 ==

== ENCOUNTER → 2022-02-19 13:14 | Outpatient (CLI) | payer MEDICARE, SELFPAY ==
--- NOTE | 2022-02-19 | DI.RAD.S_ITS ---
PROCEDURE: XR ELBOW RT MIN 3V INDICATIONS: RIGHT ELBOW PAIN TECHNIQUE: 3 views of the elbow were acquired. COMPARISON: None. FINDINGS: Bones: Posterior ulnar in these a fight at the triceps insertion with adjacent soft tissue prominence. Joint spaces maintained. No fracture or dislocation. No suspicious bony lesions. Soft tissues: No elbow joint effusion. No suspicious soft tissue calcifications. IMPRESSION: Triceps insertion enthesophyte with adjacent soft tissue prominence. Correlate for bursitis. Dictated by: Robles Minor M.D. on 02/19/2022 at 15:46 Approved by: Robles Minor M.D. on 02/19/2022 at 15:47
== END ==
PROVIDERS: Family Provider Family Medicine; PCP Family Medicine; Referring Provider Family Medicine; Visit Provider Family Medicine
DX: M25.521 Pain in right elbow (principal)
CPT/HCPCS: 73080

== ENCOUNTER → 2022-02-21 14:29 | Outpatient (CLI) | payer MEDICARE, SELFPAY | PROVIDERS: Family Provider Family Medicine; PCP Family Medicine; Referring Provider Family Medicine; Visit Provider Surgery | DX: I87.2 Venous insufficiency (chronic) (peripheral) (principal); L97.312 Non-pressure chronic ulcer of right ankle with fat layer exposed; L97.812 Non-pressure chronic ulcer of other part of right lower leg with fat layer exposed; I73.9 Peripheral vascular disease, unspecified; Z79.01 Long term (current) use of anticoagulants | CPT/HCPCS: 11042; 97597 ==

== ENCOUNTER → 2022-03-01 13:56 | Outpatient (CLI) | payer MEDICARE, SELFPAY | PROVIDERS: Family Provider Family Medicine; PCP Family Medicine; Referring Provider Family Medicine; Visit Provider Surgery | DX: I87.2 Venous insufficiency (chronic) (peripheral) (principal); L97.312 Non-pressure chronic ulcer of right ankle with fat layer exposed; L97.812 Non-pressure chronic ulcer of other part of right lower leg with fat layer exposed; R60.0 Localized edema; L53.9 Erythematous condition, unspecified; Z79.01 Long term (current) use of anticoagulants | CPT/HCPCS: 87070; 87077; 87147; 87185; 87186; 87205; 97597; 99213 ==

== ENCOUNTER → 2022-03-07 15:23 | Outpatient (CLI) | payer MEDICARE, SELFPAY | PROVIDERS: Family Provider Family Medicine; PCP Family Medicine; Referring Provider Family Medicine; Visit Provider Surgery | DX: I87.2 Venous insufficiency (chronic) (peripheral) (principal); L97.312 Non-pressure chronic ulcer of right ankle with fat layer exposed; L97.812 Non-pressure chronic ulcer of other part of right lower leg with fat layer exposed; R60.0 Localized edema; Z79.01 Long term (current) use of anticoagulants | CPT/HCPCS: 97597; 99213 ==

== ENCOUNTER → 2022-03-08 11:45 | Outpatient (CLI) | payer MEDICARE, SELFPAY ==
[2022-03-08 13:54] LABS: Prothrombin Time 57.4 SECONDS (10.1-12.7)
[2022-03-08 14:09] LABS: INR 4.9 (0.9-1.3)
== END ==
PROVIDERS: Family Provider Family Medicine; PCP Family Medicine; Referring Provider Family Medicine; Visit Provider Family Medicine
DX: I48.91 Unspecified atrial fibrillation (principal)
CPT/HCPCS: 36415; 85610

== ENCOUNTER → 2022-03-09 13:23 | Outpatient (CLI) | payer MEDICARE, SELFPAY | PROVIDERS: Family Provider Family Medicine; PCP Family Medicine; Referring Provider Family Medicine; Visit Provider Surgery | DX: I87.2 Venous insufficiency (chronic) (peripheral) (principal); L97.311 Non-pressure chronic ulcer of right ankle limited to breakdown of skin | CPT/HCPCS: 29581 ==

== ENCOUNTER → 2022-03-13 11:30 | Outpatient (CLI) | payer MEDICARE, SELFPAY | PROVIDERS: Family Provider Family Medicine; PCP Family Medicine; Referring Provider Family Medicine; Visit Provider Surgery | DX: I87.2 Venous insufficiency (chronic) (peripheral) (principal); L97.312 Non-pressure chronic ulcer of right ankle with fat layer exposed; L97.812 Non-pressure chronic ulcer of other part of right lower leg with fat layer exposed; Z79.01 Long term (current) use of anticoagulants | CPT/HCPCS: 97597 ==

== ENCOUNTER → 2022-03-15 12:34 | Outpatient (CLI) | payer MEDICARE, SELFPAY ==
[2022-03-15 13:11] LABS: INR 2.2 (0.9-1.3); Prothrombin Time 24.9 SECONDS (10.1-12.7)
== END ==
PROVIDERS: Family Provider Family Medicine; PCP Family Medicine; Referring Provider Family Medicine; Visit Provider Family Medicine
DX: I48.91 Unspecified atrial fibrillation (principal)
CPT/HCPCS: 36415; 85610

== ENCOUNTER → 2022-03-16 11:29 | Outpatient (CLI) | payer MEDICARE, SELFPAY | PROVIDERS: Family Provider Family Medicine; PCP Family Medicine; Referring Provider Family Medicine; Visit Provider Nurse Practitioner Family | DX: I87.2 Venous insufficiency (chronic) (peripheral) (principal); L97.312 Non-pressure chronic ulcer of right ankle with fat layer exposed; L97.812 Non-pressure chronic ulcer of other part of right lower leg with fat layer exposed; R60.0 Localized edema | CPT/HCPCS: 29581 ==

== ENCOUNTER → 2022-03-21 11:20 | Outpatient (CLI) | payer MEDICARE, SELFPAY | PROVIDERS: Family Provider Family Medicine; PCP Family Medicine; Referring Provider Family Medicine; Visit Provider Surgery | DX: I87.2 Venous insufficiency (chronic) (peripheral) (principal); L97.312 Non-pressure chronic ulcer of right ankle with fat layer exposed; L97.812 Non-pressure chronic ulcer of other part of right lower leg with fat layer exposed; I73.9 Peripheral vascular disease, unspecified; R60.0 Localized edema | CPT/HCPCS: 15275; 97597; Q4137 ==

== ENCOUNTER → 2022-03-28 10:55 | Outpatient (CLI) | payer MEDICARE, SELFPAY | PROVIDERS: Family Provider Family Medicine; PCP Family Medicine; Referring Provider Family Medicine; Visit Provider Surgery | DX: I87.2 Venous insufficiency (chronic) (peripheral) (principal); L97.312 Non-pressure chronic ulcer of right ankle with fat layer exposed; L97.812 Non-pressure chronic ulcer of other part of right lower leg with fat layer exposed; Z79.01 Long term (current) use of anticoagulants | CPT/HCPCS: 15271; 97597; Q4137 ==

== ENCOUNTER → 2022-04-03 11:01 | Outpatient (CLI) | payer MEDICARE, SELFPAY | PROVIDERS: Family Provider Family Medicine; PCP Family Medicine; Referring Provider Family Medicine; Visit Provider Surgery | DX: I87.2 Venous insufficiency (chronic) (peripheral) (principal); L97.312 Non-pressure chronic ulcer of right ankle with fat layer exposed; L97.812 Non-pressure chronic ulcer of other part of right lower leg with fat layer exposed; Z79.01 Long term (current) use of anticoagulants | CPT/HCPCS: 15271; 97597; Q4137 ==

== ENCOUNTER → 2022-04-10 14:58 | Outpatient (CLI) | payer MEDICARE, SELFPAY | PROVIDERS: Family Provider Family Medicine; PCP Family Medicine; Referring Provider Family Medicine; Visit Provider Surgery | DX: S91.001A Unspecified open wound, right ankle, initial encounter (principal); I83.019 Varicose veins of right lower extremity with ulcer of unspecified site; M19.071 Primary osteoarthritis, right ankle and foot; M77.31 Calcaneal spur, right foot; I87.2 Venous insufficiency (chronic) (peripheral); L97.312 Non-pressure chronic ulcer of right ankle with fat layer exposed; L97.812 Non-pressure chronic ulcer of other part of right lower leg with fat layer exposed; Z79.01 Long term (current) use of anticoagulants | CPT/HCPCS: 73610; 87070; 87075; 87077; 87147; 87186; 87205; 97597; 99213 ==

== ENCOUNTER → 2022-04-10 15:22 | Outpatient (CLI) | payer MEDICARE, SELFPAY ==
--- NOTE | 2022-04-10 15:24 | DI.RAD.S_ITS ---
PROCEDURE: XR ANKLE RT MIN 3V INDICATIONS: non-healing wound TECHNIQUE: 3 views of the ankle were acquired. COMPARISON: [facility], CR, XR ANKLE RT MIN 3V, 11/05/2018, 17:02. [facility], CR, XR ANKLE RT MIN 3V, 06/22/2021, 12:16. FINDINGS: Bones: No fractures or dislocations. Ankle mortise is normally aligned. No suspicious bony lesions. No erosive changes. Mild tibiotalar joint space narrowing with periarticular osteophyte formation. Retrocalcaneal plantar bone spurs. Soft tissues: No tibiotalar joint effusion. Achilles tendon appears normal. Vascular calcifications indicate atherosclerosis. IMPRESSION: 1. Although no bony erosions are identified, plain film radiography is relatively insensitive in the acute phases of osteomyelitis and may not demonstrate radiographic changes for 15 days. If acute osteomyelitis is of clinical concern, nuclear medicine regional bone scan or MRI is recommended. 2. Mild tibiotalar joint degeneration. 3. Calcaneal enthesopathy. Dictated by: Sherwin KIRK Interpreted: Jose Mojica MD on 04/10/2022 at 15:40 Transcribed by: MARIA VICTORIA on 04/10/2022 at 15:42 Approved by: Jose Mojica M.D. on 04/10/2022 at 20:09
== END ==
PROVIDERS: Family Provider Family Medicine; PCP Family Medicine; Referring Provider Surgery; Visit Provider Surgery
DX: I83.019 Varicose veins of right lower extremity with ulcer of unspecified site (principal); S91.001A Unspecified open wound, right ankle, initial encounter; M19.071 Primary osteoarthritis, right ankle and foot; M77.31 Calcaneal spur, right foot
CPT/HCPCS: 73610

== ENCOUNTER → 2022-04-12 08:53 | Outpatient (CLI) | payer MEDICARE, SELFPAY ==
[2022-04-12 10:27] LABS: INR 3.4 (0.9-1.3); Prothrombin Time 39.9 SECONDS (10.1-12.7)
== END ==
PROVIDERS: Family Provider Family Medicine; PCP Family Medicine; Referring Provider Family Medicine; Visit Provider Family Medicine
DX: I48.91 Unspecified atrial fibrillation (principal)
CPT/HCPCS: 36415; 85610

== ENCOUNTER → 2022-04-16 14:47 | Outpatient (CLI) | payer MEDICARE, SELFPAY ==
--- NOTE | 2022-04-16 | DI.NM.S_ITS ---
PROCEDURE: NM BONE 3 PHASE RADIOPHARMACEUTICAL: 21.9 mCi Tc-99m MDP IV. 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 COMPARISON: [facility], CR, XR ANKLE RT MIN 3V, 04/10/2022, 15:22. FINDINGS: A triple phase bone scan was obtained, including flow, blood pool and delayed images centered to the ankles and feet. On the flow and blood pool images, there is increased vascular activity to the right distal lower extremity. Delayed images demonstrate increased activity in the lateral aspect of the distal fibula/lateral malleolus. The scintigraphic findings are consistent with osteomyelitis. Mild degenerative joint disease is present in ankles and feet bilaterally. 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 Dictated by: Mirian Dejesus M.D. on 04/17/2022 at 13:39 Approved by: Mirian Dejesus M.D. on 04/17/2022 at 13:43
== END ==
PROVIDERS: Family Provider Family Medicine; PCP Family Medicine; Referring Provider Surgery; Visit Provider Surgery
DX: L97.312 Non-pressure chronic ulcer of right ankle with fat layer exposed (principal); M19.072 Primary osteoarthritis, left ankle and foot; M19.071 Primary osteoarthritis, right ankle and foot
CPT/HCPCS: 78315; A9503

== ENCOUNTER → 2022-04-17 13:39 | Outpatient (CLI) | payer MEDICARE, SELFPAY | PROVIDERS: Family Provider Family Medicine; PCP Family Medicine; Referring Provider Family Medicine; Visit Provider Surgery | DX: I87.2 Venous insufficiency (chronic) (peripheral) (principal); L97.312 Non-pressure chronic ulcer of right ankle with fat layer exposed; L97.812 Non-pressure chronic ulcer of other part of right lower leg with fat layer exposed; M86.171 Other acute osteomyelitis, right ankle and foot; R60.0 Localized edema; Z79.01 Long term (current) use of anticoagulants | CPT/HCPCS: 11042; 97597; 99214 ==

== ENCOUNTER → 2022-04-19 12:10 | Outpatient (CLI) | payer MEDICARE, SELFPAY ==
[2022-04-19 13:56] LABS: INR 2.4 (0.9-1.3); Prothrombin Time 27.5 SECONDS (10.1-12.7)
== END ==
PROVIDERS: Family Provider Family Medicine; PCP Family Medicine; Referring Provider Family Medicine; Visit Provider Family Medicine
DX: I48.91 Unspecified atrial fibrillation (principal)
CPT/HCPCS: 36415; 85610

== ENCOUNTER → 2022-04-24 14:33 | Outpatient (CLI) | payer MEDICARE, SELFPAY | PROVIDERS: Family Provider Family Medicine; PCP Family Medicine; Referring Provider Family Medicine; Visit Provider Surgery | DX: L97.312 Non-pressure chronic ulcer of right ankle with fat layer exposed (principal); L97.812 Non-pressure chronic ulcer of other part of right lower leg with fat layer exposed; I87.2 Venous insufficiency (chronic) (peripheral); R60.0 Localized edema; M86.171 Other acute osteomyelitis, right ankle and foot; Z79.899 Other long term (current) drug therapy | CPT/HCPCS: 11042; 99213 ==

== ENCOUNTER → 2022-04-26 13:35 | Outpatient (CLI) | payer MEDICARE, SELFPAY | PROVIDERS: Family Provider Family Medicine; PCP Family Medicine; Referring Provider Family Medicine; Visit Provider Surgery | DX: I87.2 Venous insufficiency (chronic) (peripheral) (principal); L97.312 Non-pressure chronic ulcer of right ankle with fat layer exposed; L97.812 Non-pressure chronic ulcer of other part of right lower leg with fat layer exposed; R60.0 Localized edema | CPT/HCPCS: 29581 ==

== ENCOUNTER → 2022-05-01 11:15 | Outpatient (CLI) | payer MEDICARE, SELFPAY | PROVIDERS: Family Provider Family Medicine; PCP Family Medicine; Referring Provider Family Medicine; Visit Provider Surgery | DX: I87.2 Venous insufficiency (chronic) (peripheral) (principal); L97.312 Non-pressure chronic ulcer of right ankle with fat layer exposed; L97.812 Non-pressure chronic ulcer of other part of right lower leg with fat layer exposed; M86.171 Other acute osteomyelitis, right ankle and foot; R60.0 Localized edema; M79.604 Pain in right leg; M79.605 Pain in left leg | CPT/HCPCS: 11042; 99212; 99213 ==

== ENCOUNTER → 2022-05-06 14:53 | Outpatient (ROUT) | payer MEDICARE, SELFPAY ==
[2022-05-06 14:59] LABS: Add Manual Diff / Slide Review NO; Basophils Absolute Auto 100 /uL (0-100); Basophils Percent Auto 1.2 % (0-2); Eosinophils Absolute Auto 100 /uL (0-450); Eosinophils Percent Auto 0.8 % (2-4); Hemoglobin 13.3 g/dL (13.5-17.5); Lymphocytes Absolute Auto 1600 /uL (1100-4500); Lymphocytes Percent Auto 22.7 % (25-40); Mean Corpuscular HGB Conc 33.3 % (30-36); Mean Corpuscular Hemoglobin 32.2 PG (26-34); Mean Corpuscular Volume 96.6 fL (80-100); Monocytes Absolute Auto 800 /uL (0-900); Monocytes Percent Auto 11.5 % (3-14); Neutrophils Absolute Auto 4400 /uL (1500-7000); Neutrophils Percent Auto 63.8 % (50-75); Platelet Count 192 X10^3/uL (150-400); Red Blood Cell Count 4.14 X10^6/uL (4.5-5.9); Red Cell Distribution Width 13.2 % (11.6-14.8); White Blood Cell Count 6.8 X10^3/uL (4.5-11.0)
[2022-05-06 15:32] LABS: Alanine Aminotransferase 36 IU/L (<50); Albumin Globulin Ratio 1.2 (1.0-2.8); Alkaline Phosphatase 99 U/L (38-126); Aspartate Aminotransferase 46 IU/L (17-59); BUN Creatinine Ratio 42.9 (6-22); Bilirubin Total 1.4 mg/dL (0.2-1.3); Blood Urea Nitrogen 24 mg/dL (9-20); C-Reactive Protein Quant < 0.5 mg/dL (<1.0); Calcium 8.7 mg/dL (8.4-10.2); Carbon Dioxide 28 mmol/L (22-32); Chloride 101 mmol/L (98-107); Estimated Glomerular Filt Rate > 60 mL/min (>60); Globulin 3.4 g/dL (1.7-4.1); Glucose 124 mg/dL (80-110); HEMOLYSIS 28 (0-50); Potassium 4.1 mmol/L (3.4-5.1); Sodium 135 mmol/L (137-145); Total Protein 7.4 g/dL (6.3-8.2)
[2022-05-06 16:20] LABS: Creatine Kinase 64 U/L (55-170)
== END ==
PROVIDERS: Family Provider Family Medicine; PCP Family Medicine; Visit Provider Internal Medicine Infectious Disease
DX: M86.8X7 Other osteomyelitis, ankle and foot (principal)
CPT/HCPCS: 80053; 82550; 85025; 86140

== ENCOUNTER → 2022-05-08 13:07 | Outpatient (CLI) | payer MEDICARE, SELFPAY | PROVIDERS: Family Provider Family Medicine; PCP Family Medicine; Referring Provider Family Medicine; Visit Provider Surgery | DX: I87.2 Venous insufficiency (chronic) (peripheral) (principal); L97.312 Non-pressure chronic ulcer of right ankle with fat layer exposed; L97.812 Non-pressure chronic ulcer of other part of right lower leg with fat layer exposed; Z79.01 Long term (current) use of anticoagulants; M86.171 Other acute osteomyelitis, right ankle and foot | CPT/HCPCS: 11042 ==

== ENCOUNTER → 2022-05-15 13:09 | Outpatient (CLI) | payer MEDICARE, SELFPAY | PROVIDERS: Family Provider Family Medicine; PCP Family Medicine; Referring Provider Family Medicine; Visit Provider Surgery | DX: L97.312 Non-pressure chronic ulcer of right ankle with fat layer exposed (principal); L97.812 Non-pressure chronic ulcer of other part of right lower leg with fat layer exposed; I87.2 Venous insufficiency (chronic) (peripheral); R60.0 Localized edema; M86.171 Other acute osteomyelitis, right ankle and foot; Z79.899 Other long term (current) drug therapy | CPT/HCPCS: 97597 ==

== ENCOUNTER → 2022-05-17 11:55 | Outpatient (CLI) | payer MEDICARE, SELFPAY ==
[2022-05-17 12:46] LABS: INR 2.6 (0.9-1.3); Prothrombin Time 30.7 SECONDS (10.1-12.7)
== END ==
PROVIDERS: Family Provider Family Medicine; PCP Family Medicine; Referring Provider Family Medicine; Visit Provider Family Medicine
DX: I48.91 Unspecified atrial fibrillation (principal)
CPT/HCPCS: 36415; 85610

== ENCOUNTER → 2022-05-22 12:56 | Outpatient (CLI) | payer MEDICARE, SELFPAY | PROVIDERS: Family Provider Family Medicine; PCP Family Medicine; Referring Provider Family Medicine; Visit Provider Surgery | DX: I87.2 Venous insufficiency (chronic) (peripheral) (principal); L97.312 Non-pressure chronic ulcer of right ankle with fat layer exposed; L97.812 Non-pressure chronic ulcer of other part of right lower leg with fat layer exposed; Z79.01 Long term (current) use of anticoagulants; M86.171 Other acute osteomyelitis, right ankle and foot | CPT/HCPCS: 15271; 97597; Q4101 ==

== ENCOUNTER → 2022-05-29 13:04 | Outpatient (CLI) | payer MEDICARE, SELFPAY | PROVIDERS: Family Provider Family Medicine; PCP Family Medicine; Referring Provider Family Medicine; Visit Provider Surgery | DX: I87.2 Venous insufficiency (chronic) (peripheral) (principal); L97.312 Non-pressure chronic ulcer of right ankle with fat layer exposed; Z79.01 Long term (current) use of anticoagulants; M86.171 Other acute osteomyelitis, right ankle and foot; B95.7 Other staphylococcus as the cause of diseases classified elsewhere; R60.0 Localized edema | CPT/HCPCS: 15271; Q4101 ==

== ENCOUNTER → 2022-06-05 12:57 | Outpatient (CLI) | payer MEDICARE, SELFPAY | PROVIDERS: Family Provider Family Medicine; PCP Family Medicine; Referring Provider Family Medicine; Visit Provider Surgery | DX: I87.2 Venous insufficiency (chronic) (peripheral) (principal); L97.312 Non-pressure chronic ulcer of right ankle with fat layer exposed; M86.171 Other acute osteomyelitis, right ankle and foot; Z79.01 Long term (current) use of anticoagulants | CPT/HCPCS: 15271; Q4196 ==

== ENCOUNTER → 2022-06-08 12:04 | Outpatient (CLI) | payer MEDICARE, SELFPAY ==
--- NOTE | 2022-06-08 | DI.US.S_ITS ---
PROCEDURE: US ABDOMEN LIMITED INDICATIONS: Abnormal levels of other serum enzymes TECHNIQUE: Real-time scanning was performed of the abdominal and retroperitoneal organs, with image documentation. COMPARISON: None. FINDINGS: Liver: Mildly increased echogenicity, commonly up attic steatosis. Gallbladder: Unremarkable. Biliary ducts: Intrahepatic bile ducts are non-dilated. Extrahepatic bile duct caliber measures 4 mm. Normal is 6-7 mm or less in diameter, or 10 mm or less post-cholecystectomy. Pancreas: Visualized portions of the pancreas are sonographically normal. IMPRESSION: No acute abnormality. Suspect mild hepatic steatosis. Dictated by: Kirill Werner M.D. on 06/08/2022 at 13:21 Approved by: Kirill Werner M.D. on 06/08/2022 at 13:22
== END ==
PROVIDERS: Family Provider Family Medicine; PCP Family Medicine; Referring Provider Internal Medicine Infectious Disease; Visit Provider Internal Medicine Infectious Disease
DX: R74.8 Abnormal levels of other serum enzymes (principal)
CPT/HCPCS: 76705

== ENCOUNTER → 2022-06-08 12:15 | Outpatient (CLI) | payer MEDICARE, SELFPAY ==
[2022-06-08 12:59] LABS: INR 6.1 (0.9-1.3)
[2022-06-08 13:22] LABS: Alanine Aminotransferase 68 IU/L (<50); Alkaline Phosphatase 175 U/L (38-126); Aspartate Aminotransferase 51 IU/L (17-59)
== END ==
PROVIDERS: Internal Medicine Infectious Disease; Family Provider Family Medicine; PCP Family Medicine; Referring Provider Family Medicine; Visit Provider Family Medicine
DX: I48.91 Unspecified atrial fibrillation (principal); M86.8X7 Other osteomyelitis, ankle and foot
CPT/HCPCS: 36415; 84075; 84450; 84460; 85610

== ENCOUNTER → 2022-06-11 15:00 | Outpatient (ROUT) | payer MEDICARE, SELFPAY ==
[2022-06-11 15:24] LABS: INR 2.2 (0.9-1.3); Prothrombin Time 25.9 SECONDS (10.1-12.7)
== END ==
PROVIDERS: Family Provider Family Medicine; PCP Family Medicine; Visit Provider Family Medicine
DX: I48.91 Unspecified atrial fibrillation (principal)
CPT/HCPCS: 85610

== ENCOUNTER → 2022-06-12 12:50 | Outpatient (CLI) | payer MEDICARE, SELFPAY | PROVIDERS: Family Provider Family Medicine; PCP Family Medicine; Referring Provider Family Medicine; Visit Provider Surgery | DX: I87.2 Venous insufficiency (chronic) (peripheral) (principal); L97.312 Non-pressure chronic ulcer of right ankle with fat layer exposed; R60.0 Localized edema; M25.571 Pain in right ankle and joints of right foot | CPT/HCPCS: 29581; 99213 ==

== ENCOUNTER → 2022-06-13 12:25 | Outpatient (CLI) | payer MEDICARE, SELFPAY ==
--- NOTE | 2022-06-13 | DI.RAD.S_ITS ---
PROCEDURE: XR LUMBAR SPINE 2-3V INDICATIONS: low back pain TECHNIQUE: 3 views of the lumbar spine were acquired. COMPARISON: [facility], , XR LUMBAR SPINE 2-3V, 12/19/2021, 12:29. FINDINGS: Bones: 5 [id number] vertebrae are present. There is multilevel retrolisthesis. There is multilevel moderate degenerative disc space narrowing most severe at L1-2, L2-3 and L5-S1. Persistent moderate to severe foraminal narrowing at L4-5 and L5-S1.. No vertebral body compression fractures. No suspicious bony lesions. Soft tissues: Overlying bowel gas pattern is normal. No suspicious soft tissue calcifications. IMPRESSION: Degenerative changes overall stable compared to prior exam. Dictated by: Stephanie Espinal M.D. on 06/13/2022 at 16:42 Approved by: Stephanie Espinal M.D. on 06/13/2022 at 16:42
--- NOTE | 2022-06-13 | DI.RAD.S_ITS ---
PROCEDURE: XR SKULL<4V INDICATIONS: Localized swelling, mass and lump, head TECHNIQUE: 3 view(s) of the skull acquired. COMPARISON: None. FINDINGS: Bones: No fractures. No suspicious bony lesions. Visualized sinuses appear clear. Soft tissues: No soft tissue calcifications. No suspicious soft tissue densities. IMPRESSION: No visualized abnormality. Dictated by: Stephanie Espinal M.D. on 06/13/2022 at 16:42 Approved by: Stephanie Espinal M.D. on 06/13/2022 at 16:43
== END ==
PROVIDERS: Family Provider Family Medicine; PCP Family Medicine; Referring Provider Family Medicine; Visit Provider Family Medicine
DX: R22.0 Localized swelling, mass and lump, head (principal); M47.816 Spondylosis without myelopathy or radiculopathy, lumbar region; M47.817 Spondylosis without myelopathy or radiculopathy, lumbosacral region; M54.50 Low back pain, unspecified
CPT/HCPCS: 70250; 72100

== ENCOUNTER → 2022-06-13 12:29 | Outpatient (CLI) | payer MEDICARE, SELFPAY ==
[2022-06-13 13:51] LABS: Add Manual Diff / Slide Review NO; Basophils Absolute Auto 0 /uL (0-100); Basophils Percent Auto 0.5 % (0-2); Eosinophils Absolute Auto 200 /uL (0-450); Hematocrit 40.4 % (41-53); Hemoglobin 13.4 g/dL (13.5-17.5); Lymphocytes Absolute Auto 1800 /uL (1100-4500); Lymphocytes Percent Auto 19.2 % (25-40); Mean Corpuscular HGB Conc 33.1 % (30-36); Mean Corpuscular Hemoglobin 31.8 PG (26-34); Mean Corpuscular Volume 95.9 fL (80-100); Monocytes Absolute Auto 1000 /uL (0-900); Monocytes Percent Auto 10.6 % (3-14); Neutrophils Absolute Auto 6400 /uL (1500-7000); Neutrophils Percent Auto 67.7 % (50-75); Platelet Count 354 X10^3/uL (150-400); Red Blood Cell Count 4.21 X10^6/uL (4.5-5.9); Red Cell Distribution Width 13.3 % (11.6-14.8); White Blood Cell Count 9.5 X10^3/uL (4.5-11.0)
[2022-06-13 14:13] LABS: Alanine Aminotransferase 43 IU/L (<50); Albumin 3.8 g/dL (3.5-5.0); Alkaline Phosphatase 136 U/L (38-126); Aspartate Aminotransferase 36 IU/L (17-59); BUN Creatinine Ratio 35.2 (6-22); Bilirubin Total 0.7 mg/dL (0.2-1.3); Blood Urea Nitrogen 25 mg/dL (9-20); Carbon Dioxide 32 mmol/L (22-32); Chloride 101 mmol/L (98-107); Estimated Glomerular Filt Rate > 60 mL/min (>60); Globulin 3.7 g/dL (1.7-4.1); Glucose 88 mg/dL (80-110); HEMOLYSIS < 15 (0-50); Potassium 4.5 mmol/L (3.4-5.1); Sodium 138 mmol/L (137-145); Total Protein 7.5 g/dL (6.3-8.2)
== END ==
PROVIDERS: Family Provider Family Medicine; PCP Family Medicine; Referring Provider Internal Medicine Infectious Disease; Visit Provider Internal Medicine Infectious Disease
DX: M86.9 Osteomyelitis, unspecified (principal); R22.0 Localized swelling, mass and lump, head; M47.816 Spondylosis without myelopathy or radiculopathy, lumbar region; M47.817 Spondylosis without myelopathy or radiculopathy, lumbosacral region; M54.50 Low back pain, unspecified
CPT/HCPCS: 36415; 70250; 72100; 80053; 85025; 86140

== ENCOUNTER → 2022-06-19 13:00 | Outpatient (CLI) | payer MEDICARE, SELFPAY | PROVIDERS: Family Provider Family Medicine; PCP Family Medicine; Referring Provider Family Medicine; Visit Provider Surgery | DX: I87.2 Venous insufficiency (chronic) (peripheral) (principal); L97.312 Non-pressure chronic ulcer of right ankle with fat layer exposed; M86.171 Other acute osteomyelitis, right ankle and foot; Z79.01 Long term (current) use of anticoagulants; R60.0 Localized edema; M25.571 Pain in right ankle and joints of right foot | CPT/HCPCS: 11042; 97607 ==

== ENCOUNTER → 2022-06-21 13:36 | Outpatient (CLI) | payer MEDICARE, SELFPAY | PROVIDERS: Family Provider Family Medicine; PCP Family Medicine; Referring Provider Family Medicine; Visit Provider Surgery | DX: I87.2 Venous insufficiency (chronic) (peripheral) (principal); L97.312 Non-pressure chronic ulcer of right ankle with fat layer exposed; R60.0 Localized edema | CPT/HCPCS: 97607 ==

== ENCOUNTER → 2022-06-22 11:35 | Outpatient (CLI) | payer MEDICARE, SELFPAY ==
[2022-06-22 12:15] LABS: INR 3.9 (0.9-1.3); Prothrombin Time 44.9 SECONDS (10.1-12.7)
== END ==
PROVIDERS: Family Provider Family Medicine; PCP Family Medicine; Referring Provider Family Medicine; Visit Provider Family Medicine
DX: I48.91 Unspecified atrial fibrillation (principal)
CPT/HCPCS: 36415; 85610

== ENCOUNTER → 2022-06-26 12:47 | Outpatient (CLI) | payer MEDICARE, SELFPAY | PROVIDERS: Family Provider Family Medicine; PCP Family Medicine; Referring Provider Family Medicine; Visit Provider Surgery | DX: I87.2 Venous insufficiency (chronic) (peripheral) (principal); L97.312 Non-pressure chronic ulcer of right ankle with fat layer exposed; M86.171 Other acute osteomyelitis, right ankle and foot; Z79.01 Long term (current) use of anticoagulants | CPT/HCPCS: 11042; 97607; 99212; 99213 ==

== ENCOUNTER → 2022-06-29 13:50 | Outpatient (CLI) | payer MEDICARE, SELFPAY | PROVIDERS: Family Provider Family Medicine; PCP Family Medicine; Referring Provider Family Medicine; Visit Provider Nurse Practitioner Family | DX: I87.2 Venous insufficiency (chronic) (peripheral) (principal); L97.312 Non-pressure chronic ulcer of right ankle with fat layer exposed; R60.0 Localized edema | CPT/HCPCS: 97607 ==

== ENCOUNTER → 2022-07-02 11:32 | Outpatient (CLI) | payer MEDICARE, SELFPAY ==
[2022-07-02 12:41] LABS: INR 3.8 (0.9-1.3); Prothrombin Time 44.7 SECONDS (10.1-12.7)
== END ==
PROVIDERS: Family Provider Family Medicine; PCP Family Medicine; Referring Provider Family Medicine; Visit Provider Family Medicine
DX: I48.91 Unspecified atrial fibrillation (principal)
CPT/HCPCS: 36415; 85610

== ENCOUNTER → 2022-07-03 13:36 | Outpatient (CLI) | payer MEDICARE, SELFPAY | PROVIDERS: Family Provider Family Medicine; PCP Family Medicine; Referring Provider Family Medicine; Visit Provider Surgery | DX: I87.2 Venous insufficiency (chronic) (peripheral) (principal); L97.312 Non-pressure chronic ulcer of right ankle with fat layer exposed; M86.171 Other acute osteomyelitis, right ankle and foot; R60.0 Localized edema; Z79.01 Long term (current) use of anticoagulants | CPT/HCPCS: 11042 ==

== ENCOUNTER → 2022-07-06 14:04 | Outpatient (CLI) | payer MEDICARE, SELFPAY | PROVIDERS: Family Provider Family Medicine; PCP Family Medicine; Referring Provider Family Medicine; Visit Provider Nurse Practitioner Family | DX: I87.2 Venous insufficiency (chronic) (peripheral) (principal); L97.312 Non-pressure chronic ulcer of right ankle with fat layer exposed; R60.0 Localized edema; M25.571 Pain in right ankle and joints of right foot | CPT/HCPCS: 29581 ==

== ENCOUNTER → 2022-07-10 11:11 | Outpatient (CLI) | payer MEDICARE, SELFPAY ==
--- NOTE | 2022-07-10 | DI.RAD.S_ITS ---
PROCEDURE: XR RIBS RT MIN 3V W CXR 1V INDICATIONS: RIGHT RIB PAIN TECHNIQUE: 4 views of the right ribs were acquired, along with a single view chest. COMPARISON: None. FINDINGS: Surgical changes and devices: None. Bones and chest wall: Slightly displaced fracture through right posterior lateral 9th rib is seen. No suspicious bony lesions. Overlying soft tissues appear unremarkable. Lungs and pleura: No pleural effusions or pneumothorax. Lungs appear clear. Mediastinum: Mediastinal contours appear normal. Heart size is normal. IMPRESSION: Minimally displaced right posterior lateral 9th rib fracture. No acute cardiopulmonary pathology. Dictated by: Fabrice Gregory M.D. on 07/10/2022 at 13:01 Approved by: Fabrice Gregory M.D. on 07/10/2022 at 13:05
== END ==
PROVIDERS: Family Provider Family Medicine; PCP Family Medicine; Referring Provider Family Medicine; Visit Provider Family Medicine
DX: S22.31XA Fracture of one rib, right side, initial encounter for closed fracture (principal); R07.81 Pleurodynia
CPT/HCPCS: 71101

== ENCOUNTER → 2022-07-10 13:08 | Outpatient (CLI) | payer MEDICARE, SELFPAY | PROVIDERS: Family Provider Family Medicine; PCP Family Medicine; Referring Provider Family Medicine; Visit Provider Surgery | DX: S22.31XA Fracture of one rib, right side, initial encounter for closed fracture (principal); R07.81 Pleurodynia; I87.2 Venous insufficiency (chronic) (peripheral); L97.312 Non-pressure chronic ulcer of right ankle with fat layer exposed; R60.0 Localized edema; M86.171 Other acute osteomyelitis, right ankle and foot; Z79.01 Long term (current) use of anticoagulants | CPT/HCPCS: 11042; 71101; 87070; 87075; 87077; 87147; 87186; 87205; 99213 ==

== ENCOUNTER → 2022-07-13 09:12 | Outpatient (CLI) | payer MEDICARE, SELFPAY | PROVIDERS: Family Provider Family Medicine; PCP Family Medicine; Referring Provider Family Medicine; Visit Provider Nurse Practitioner Family | DX: I87.2 Venous insufficiency (chronic) (peripheral) (principal); L97.312 Non-pressure chronic ulcer of right ankle with fat layer exposed; R60.0 Localized edema | CPT/HCPCS: 29581 ==

== ENCOUNTER → 2022-07-13 09:46 | Outpatient (CLI) | payer MEDICARE, SELFPAY ==
[2022-07-13 10:27] LABS: INR 2.2 (0.9-1.3); Prothrombin Time 25.2 SECONDS (10.1-12.7)
== END ==
PROVIDERS: Family Provider Family Medicine; PCP Family Medicine; Referring Provider Family Medicine; Visit Provider Family Medicine
DX: I48.91 Unspecified atrial fibrillation (principal)
CPT/HCPCS: 36415; 85610

== ENCOUNTER → 2022-07-17 14:28 | Outpatient (CLI) | payer MEDICARE, SELFPAY | PROVIDERS: Family Provider Family Medicine; PCP Family Medicine; Referring Provider Family Medicine; Visit Provider Surgery | DX: I87.2 Venous insufficiency (chronic) (peripheral) (principal); L97.312 Non-pressure chronic ulcer of right ankle with fat layer exposed; R60.0 Localized edema | CPT/HCPCS: 11042 ==

== ENCOUNTER → 2022-07-20 13:59 | Outpatient (CLI) | payer MEDICARE, SELFPAY | PROVIDERS: Family Provider Family Medicine; PCP Family Medicine; Referring Provider Family Medicine; Visit Provider Nurse Practitioner Family | DX: I87.2 Venous insufficiency (chronic) (peripheral) (principal); L97.312 Non-pressure chronic ulcer of right ankle with fat layer exposed; R60.0 Localized edema | CPT/HCPCS: 29581 ==

== ENCOUNTER → 2022-07-24 13:07 | Outpatient (CLI) | payer MEDICARE, SELFPAY | PROVIDERS: Family Provider Family Medicine; PCP Family Medicine; Referring Provider Family Medicine; Visit Provider Surgery | DX: I87.2 Venous insufficiency (chronic) (peripheral) (principal); L97.312 Non-pressure chronic ulcer of right ankle with fat layer exposed; R60.0 Localized edema; Z79.01 Long term (current) use of anticoagulants | CPT/HCPCS: 11042; 99213 ==

== ENCOUNTER → 2022-07-24 14:24 | Outpatient (CLI) | payer MEDICARE, SELFPAY ==
[2022-07-24 15:45] LABS: Prothrombin Time 23.4 SECONDS (10.1-12.7)
== END ==
PROVIDERS: Family Provider Family Medicine; PCP Family Medicine; Referring Provider Family Medicine; Visit Provider Family Medicine
DX: I48.91 Unspecified atrial fibrillation (principal)
CPT/HCPCS: 36415; 85610

== ENCOUNTER → 2022-07-31 13:41 | Outpatient (CLI) | payer MEDICARE, SELFPAY | PROVIDERS: Family Provider Family Medicine; PCP Family Medicine; Referring Provider Family Medicine; Visit Provider Surgery | DX: I87.2 Venous insufficiency (chronic) (peripheral) (principal); L97.312 Non-pressure chronic ulcer of right ankle with fat layer exposed; Z79.01 Long term (current) use of anticoagulants; M86.171 Other acute osteomyelitis, right ankle and foot; R60.0 Localized edema | CPT/HCPCS: 11042 ==

== ENCOUNTER → 2022-08-07 13:10 | Outpatient (CLI) | payer MEDICARE, SELFPAY ==
[2022-08-07 14:16] LABS: Prothrombin Time 23.3 SECONDS (10.1-12.7)
== END ==
PROVIDERS: Family Provider Family Medicine; PCP Family Medicine; Referring Provider Family Medicine; Visit Provider Family Medicine
DX: I48.91 Unspecified atrial fibrillation (principal)
CPT/HCPCS: 36415; 85610

== ENCOUNTER → 2022-08-07 15:15 | Outpatient (CLI) | payer MEDICARE, SELFPAY | PROVIDERS: Family Provider Family Medicine; PCP Family Medicine; Referring Provider Family Medicine; Visit Provider Surgery | DX: I87.2 Venous insufficiency (chronic) (peripheral) (principal); L97.312 Non-pressure chronic ulcer of right ankle with fat layer exposed; R60.0 Localized edema; M86.171 Other acute osteomyelitis, right ankle and foot; Z79.01 Long term (current) use of anticoagulants; M25.571 Pain in right ankle and joints of right foot | CPT/HCPCS: 11042 ==

== ENCOUNTER → 2022-08-10 14:03 | Outpatient (CLI) | payer MEDICARE, SELFPAY | PROVIDERS: Family Provider Family Medicine; PCP Family Medicine; Referring Provider Family Medicine; Visit Provider Physician Assistant | DX: I87.2 Venous insufficiency (chronic) (peripheral) (principal); L97.312 Non-pressure chronic ulcer of right ankle with fat layer exposed; R60.0 Localized edema | CPT/HCPCS: 29581 ==

== ENCOUNTER → 2022-08-14 13:18 | Outpatient (CLI) | payer MEDICARE, SELFPAY | PROVIDERS: Family Provider Family Medicine; PCP Family Medicine; Referring Provider Family Medicine; Visit Provider Surgery | DX: I87.2 Venous insufficiency (chronic) (peripheral) (principal); L97.312 Non-pressure chronic ulcer of right ankle with fat layer exposed; Z79.01 Long term (current) use of anticoagulants | CPT/HCPCS: 11042 ==

== ENCOUNTER → 2022-08-17 09:53 | Outpatient (CLI) | payer MEDICARE, SELFPAY | PROVIDERS: Family Provider Family Medicine; PCP Family Medicine; Referring Provider Family Medicine; Visit Provider Physician Assistant | DX: I87.2 Venous insufficiency (chronic) (peripheral) (principal); L97.312 Non-pressure chronic ulcer of right ankle with fat layer exposed; R60.0 Localized edema; M25.571 Pain in right ankle and joints of right foot | CPT/HCPCS: 29581 ==

== ENCOUNTER → 2022-08-20 18:35 | Outpatient (CLI) | payer MEDICARE, SELFPAY ==
--- NOTE | 2022-08-20 | DI.MRI.S_ITS ---
PROCEDURE: MR HEAD/BRAIN WO/W CON INDICATIONS: Other amnesia TECHNIQUE: Noncontrast axial T1 spin echo, axial T2 fast spin echo, sagittal and axial FLAIR, coronal T2 fast spin echo, axial gradient echo, axial diffusion and ADC through the brain. After the administration of contrast, axial and coronal and sagittal T1 spin echo with fat saturation through the brain. COMPARISON: [facility], MR, MR HEAD/BRAIN WO/W CON, 10/14/2019, 12:34. [facility], CT, CT HEAD/BRAIN WO CON, 01/28/2022, 18:10. FINDINGS: Image quality: The patient was unable to lay back for not to use the standard head coil is, with resultant compromise in image quality. CSF spaces: Basal cisterns are patent. No extra-axial fluid collections. Ventricles are normal in size and shape. Brain: Within the right parietal region, there is abnormal signal seen, including increased T1 weighted signal along the gyri. There is generalized increased T2 weighted signal. Mild volume loss is seen. There is T2 shine through seen within this region on the diffusion-weighted images. No midline shift. No intracranial bleeds or masses. No abnormal intracranial enhancement. (The apparent enhancement along the areas that demonstrated the increased precontrast T1 weighted signal within the right parietal lobe is regarded to be artifactual.) There is cerebral volume loss for age. There is periventricular white matter chronic small vessel ischemic change. The brainstem appears normal. No chronic ischemic insults. Normal intravascular flow voids are present. Skull and face: Calvarial marrow is normal in signal. Orbits appear normal. Sinuses: Sinuses and mastoids appear clear. IMPRESSION: Limited study demonstrating an apparent subacute infarction involving the right parietal region. No masses are seen. No significant abnormal enhancement is seen. Dictated by: Sal Kauffman M.D. on 08/23/2022 at 9:32 Approved by: Sal Kauffman M.D. on 08/23/2022 at 9:36
== END ==
PROVIDERS: Family Provider Family Medicine; PCP Family Medicine; Referring Provider Family Medicine; Visit Provider Family Medicine
DX: R41.3 Other amnesia (principal)
CPT/HCPCS: 70553

== ENCOUNTER → 2022-08-21 15:15 | Outpatient (CLI) | payer MEDICARE, SELFPAY | PROVIDERS: Family Provider Family Medicine; PCP Family Medicine; Referring Provider Family Medicine; Visit Provider Surgery | DX: I87.2 Venous insufficiency (chronic) (peripheral) (principal); L97.312 Non-pressure chronic ulcer of right ankle with fat layer exposed; R60.0 Localized edema; Z79.01 Long term (current) use of anticoagulants | CPT/HCPCS: 11042; 99213 ==

== ENCOUNTER → 2022-08-23 10:56 | Outpatient (CLI) | payer MEDICARE, SELFPAY ==
[2022-08-23 11:52] LABS: Prothrombin Time 22.6 SECONDS (10.1-12.7)
== END ==
PROVIDERS: Family Provider Family Medicine; PCP Family Medicine; Referring Provider Family Medicine; Visit Provider Family Medicine
DX: I48.91 Unspecified atrial fibrillation (principal)
CPT/HCPCS: 36415; 85610

== ENCOUNTER → 2022-08-24 10:59 | Outpatient (CLI) | payer MEDICARE, SELFPAY | PROVIDERS: Family Provider Family Medicine; PCP Family Medicine; Referring Provider Family Medicine; Visit Provider Physician Assistant | DX: I87.2 Venous insufficiency (chronic) (peripheral) (principal); L97.312 Non-pressure chronic ulcer of right ankle with fat layer exposed; R60.0 Localized edema; M25.571 Pain in right ankle and joints of right foot | CPT/HCPCS: 29581 ==

== ENCOUNTER → 2022-08-28 13:25 | Outpatient (CLI) | payer MEDICARE, SELFPAY | PROVIDERS: Family Provider Family Medicine; PCP Family Medicine; Referring Provider Family Medicine; Visit Provider Surgery | DX: I87.2 Venous insufficiency (chronic) (peripheral) (principal); L97.312 Non-pressure chronic ulcer of right ankle with fat layer exposed; I73.9 Peripheral vascular disease, unspecified; R60.0 Localized edema; Z79.01 Long term (current) use of anticoagulants | CPT/HCPCS: 11042 ==

== ENCOUNTER 2022-08-28 14:06 | Emergency (ER) | payer MEDICARE, SELFPAY ==
[2022-08-28 14:10] VITALS: BP 152/81; PULSE 79; RESP 18; TEMP 36.4; O2SAT 99; BMI 22.0
--- NOTE | 2022-08-28 15:36 | PC.NURSE ---
Pt is intermittent that starts in his R underarm and radiates to his R mid upper arm.
[2022-08-28 16:11] VITALS: BP 137/76; PULSE 76; RESP 18; O2SAT 100
--- NOTE | 2022-08-28 16:52 | ED.EXTPRO ---
HPI - Extremity Problem <jK Ibrahim PA-C - Last Filed: 08/28/22 17:03> General Chief complaint: Extremity Problem,Nontraumatic Stated complaint: Pain under right arm Time Seen by Provider: 08/28/22 15:27 Mode of arrival: Ambulatory History of Present Illness HPI Narrative: 86-year-old male with past medical history atrial fibrillation, on warfarin presents to the ED with several years of right-sided underarm and upper arm pain. Patient states that it has been intermittent, and there seemed to be no aggravating or alleviating factors. Patient states that the pain kind of shoots down which almost sounds like a nerve pain. Patient was at his PCP Dr. Barahona's office earlier today, when he experienced these symptoms again, but it got worse after he left the PCP office. He called Dr. Barahona's office, and the nurse directed him to the ED for further evaluation. Patient states that he has had these symptoms on and off for several years and it appears that he has been evaluated at another ED at some point for it as well with no acute findings. Patient denies fever, chills, chest pain, shortness of breath, nausea, vomiting, lightheadedness, dizziness, syncope. Patient also uses a cane with his right hand. Related Data Home Medications Medication Instructions Recorded Confirmed finasteride 5 mg tablet 5 mg PO QDAY ##0 05/08/11 atenolol 25 mg tablet 75 mg PO DAILY 01/21/18 01/21/18 warfarin 6 mg tablet 6 mg PO DAILY 01/21/18 01/21/18 ascorbic acid (vitamin C) 1,000 mg 1 04/30/22 tablet calcium carbonate 500 mg capsule 1 mg PO 04/30/22 cholecalciferol (vitamin D3) 10 10 mcg PO DAILY 04/30/22 04/30/22 mcg (400 unit) chewable tablet glucosamine sulf dipot 1 cap PO 04/30/22 chlr,msm,chond 550 mg-C 30 mg-aamir 1 mg capsule (Glucosamine Chondroitin) lecithin 1,200 mg capsule 1,200 mg 04/30/22 lutein 6 mg tablet 6 mg 04/30/22 saw palmetto 450 mg capsule 450 mg 04/30/22 Previous Rx's Medication Instructions Recorded meclizine 25 mg tablet 25 mg PO BID-TID PRN motion 11/09/18 sickness #14 tabs Allergies Allergy/AdvReac Type Severity Reaction Status Date / Time No Known Drug Allergies Allergy Verified 12/07/21 14:50 Review of Systems <Kj Ibrahim PA-C - Last Filed: 08/28/22 17:03> Review of Systems ROS Unobtainable: All systems reviewed & are unremarkable except as noted in HPI and below Constitutional Constitutional: Denies chills, Denies fatigue, Denies fever(s), Denies frequent falls, Denies lethargy and Denies weakness Eyes Eyes: Denies change in vision, Denies eye discharge, Denies irritation and Denies loss of vision ENT Ears, Nose, Mouth, and Throat: Denies change in voice, Denies dizziness, Denies neck pain, Denies sore throat and Denies throat swelling Cardiovascular Cardiovascular: Denies chest pain, Denies irregular heart rhythm, Denies lightheadedness, Denies palpitations, Denies dyspnea, Denies dyspnea on exertion and Denies orthopnea Respiratory Respiratory: Denies cough, Denies dyspnea, Denies dyspnea on exertion and Denies wheezing Gastrointestinal Gastrointestinal: Denies abdominal pain, Denies change in bowel habits, Denies diarrhea, Denies nausea and Denies vomiting Genitourinary Genitourinary: Denies hematuria, Denies flank pain, Denies urinary incontinence and Denies urinary urgency Musculoskeletal Musculoskeletal: Denies back pain, Denies muscle weakness, Denies neck pain, Denies numbness and Denies tingling Comments: R under arm, R upper arm pain Integumentary/Breasts Skin/Breast: Denies pruritus, Denies erythema, Denies rash and Denies wounds Neurologic Neurologic: Denies behavioral changes, Denies confusion, Denies dizziness, Denies frequent falls, Denies loss of vision, Denies numbness, Denies tingling and Denies weakness Psychiatric Psychiatric: Denies anxiety, Denies behavioral changes, Denies confusion, Denies depression, Denies homicidal ideation and Denies suicidal ideation Endocrine Endocrine: Denies fatigue, Denies flushing and Denies palpitations Hematologic/Lymphatic Hematologic/Lymphatic: Denies easy bruising Allergic/Immunologic Allergic/Immunologic: Denies urticaria, Denies throat swelling and Denies wheezing Patient History <Kj Ibrahim PA-C - Last Filed: 08/28/22 17:03> Medical History Atrial fibrillation Surgical History 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 Social History household members: spouse Smoking Status: Former smoker Smoking Status: Former smoker alcohol intake frequency: 0-2 drinks per day Alcohol type: hard liquor Substance Use Type: does not use Exam <Kj Ibrahim PA-C - Last Filed: 08/28/22 17:03> Narrative Exam Narrative: Const General:?cooperative, healthy appearing and comfortable HENOH Head:?normal to inspection Ears:?hearing grossly normal bilaterally Nose:?external nose normal Face and sinus:?normal facial exam and sinuses nontender Mouth:?oral mucosae normal Throat:?posterior oropharynx normal Eyes General:?appearance normal, both eyes and all related structures Neck Neck:?normal visual inspection and no lymphadenopathy noted Resp Effort & Inspection:?normal respiratory effort Auscultation:?clear to auscultation bilaterally Cardio Rate:?regular rate Rhythm:?regular rhythm Musculoskeletal No tenderness to palpation. No deformities. No bruising. Skin is intact. No rashes. Neuro General:?patient alert, patient awake and patient oriented x3 Initial Vital Signs Initial Vital Signs: Vital Signs Temperature 97.5 F L 08/28/22 14:10 Pulse Rate 79 08/28/22 14:10 Respiratory Rate 18 08/28/22 14:10 Blood Pressure 152/81 H 08/28/22 14:10 Pulse Oximetry 99 08/28/22 14:10 Oxygen Delivery Method Room Air 08/28/22 14:10 <Tre Villatoro MD - Last Filed: 09/12/22 20:05> Initial Vital Signs Initial Vital Signs: Vital Signs Temperature 97.5 F L 08/28/22 14:10 Pulse Rate 79 08/28/22 14:10 Respiratory Rate 18 08/28/22 14:10 Blood Pressure 152/81 H 08/28/22 14:10 Pulse Oximetry 99 08/28/22 14:10 Oxygen Delivery Method Room Air 08/28/22 14:10 Course <Kj Ibrahim PA-C - Last Filed: 08/28/22 17:03> Orders Ordered: ED Orders 08/28/22 15:44 EKG-12 Lead Stat Vital Signs Vital signs: Vital Signs - 8 hr 08/28/22 14:10 08/28/22 16:11 Temperature 97.5 F L Pulse Rate 79 76 Respiratory Rate 18 18 Blood Pressure 152/81 H 137/76 Pulse Oximetry 99 100 Oxygen Delivery Method Room Air Room Air <Tre Villatoro MD - Last Filed: 09/12/22 20:05> Orders Ordered: ED Orders 08/28/22 15:44 EKG-12 Lead Stat Vital Signs Vital signs: Vital Signs - 8 hr 08/28/22 14:10 08/28/22 16:11 Temperature 97.5 F L Pulse Rate 79 76 Respiratory Rate 18 18 Blood Pressure 152/81 H 137/76 Pulse Oximetry 99 100 Oxygen Delivery Method Room Air Room Air MDM - Extremity (Nontraumatic) <Kj Ibrahim PA-C - Last Filed: 08/28/22 17:03> MDM Narrative Medical decision making narrative: 86-year-old male with past medical history atrial fibrillation, on warfarin presents to the ED with several years of right-sided underarm and upper arm pain. Based on history and physical exam, patient's symptoms appear most likely to be of musculoskeletal etiology. Unlikely shingles, since no rash and patient has had these symptoms for several years. Patient has had similar symptoms in the neck several years ago, and his cane that he uses with his right hand could also be a factor. Obtained an EKG which showed atrial fibrillation with a normal ventricular rate of 67 beats per minute, no acute ST-T changes. Discussed findings with patient. Recommend follow-up with Dr. Barahona and possibly referral to physical therapy. Supportive care discussed with Tylenol, lidocaine patches, heat packs. ED return precautions were discussed with patient. Patient verbalized understanding. Medical records reviewed: Yes Discharge Plan Departure Patient Disposition: Home Clinical Impression: Arm pain Instructions: DI for Arm Pain Activity Restrictions/Additional Instructions: You were evaluated in the ED today for some arm and underarm pain today. Based on the history and physical exam, your symptoms are most likely due to a musculoskeletal sprain/strain. You may take Tylenol, apply lidocaine patches (Salonpas), apply heat packs. Please follow-up with your PCP Dr. Barahona for a PT referral. Return to the ED if you have worsening symptoms, shortness of breath. Prescriptions: No Action finasteride 5 MG tablet 5 mg PO QDAY Qty: 0 meclizine 25 mg tablet 25 mg PO BID-TID PRN (Reason: motion sickness) Qty: 14 0RF ascorbic acid (vitamin C) 1,000 mg Tablet 1 calcium carbonate 500 mg Capsule 1 mg PO cholecalciferol (vitamin D3) 10 mcg (400 unit) Tablet,Chewable 10 mcg PO DAILY Glucosamine Chondroitin 550-30-1 mg Capsule 1 cap PO lecithin 1,200 mg Capsule 1,200 mg lutein 6 mg Tablet 6 mg saw palmetto 450 mg Capsule 450 mg warfarin 6 mg Tablet 6 mg PO DAILY atenolol 25 mg Tablet 75 mg PO DAILY Patient Comments: he takes 37.5 mg in the am and 37.5 mg in the pm Referrals: Jayden Barahona MD [Primary Care Provider] - Stand Alone Forms: Patient Portal/API <Tre Villatoro MD - Last Filed: 09/12/22 20:05> [facility] I was immediately available in the department for consultation. This documentation has been reviewed and I agree with assessment and plan. Supervised by Tre Villatoro MD
== END 2022-08-28 16:13 | disposition home or self-care (01) ==
PROVIDERS: Emergency Provider Student in an Organized Health Care Education/Training Program; Family Provider Family Medicine; PCP Family Medicine
DX: M79.621 Pain in right upper arm (principal); I48.91 Unspecified atrial fibrillation; I87.2 Venous insufficiency (chronic) (peripheral); L97.312 Non-pressure chronic ulcer of right ankle with fat layer exposed; I73.9 Peripheral vascular disease, unspecified; R60.0 Localized edema; Z79.01 Long term (current) use of anticoagulants
CPT/HCPCS: 11042; 93005; 99281; 99282

== ENCOUNTER → 2022-08-31 11:20 | Outpatient (CLI) | payer MEDICARE, SELFPAY | PROVIDERS: Family Provider Family Medicine; PCP Family Medicine; Referring Provider Family Medicine; Visit Provider Surgery | DX: I87.2 Venous insufficiency (chronic) (peripheral) (principal); L97.312 Non-pressure chronic ulcer of right ankle with fat layer exposed; R60.0 Localized edema; M25.571 Pain in right ankle and joints of right foot | CPT/HCPCS: 29581 ==

== ENCOUNTER → 2022-09-04 13:44 | Outpatient (CLI) | payer MEDICARE, SELFPAY | PROVIDERS: Family Provider Family Medicine; PCP Family Medicine; Referring Provider Family Medicine; Visit Provider Surgery | DX: I87.2 Venous insufficiency (chronic) (peripheral) (principal); L97.312 Non-pressure chronic ulcer of right ankle with fat layer exposed; R60.0 Localized edema; Z79.01 Long term (current) use of anticoagulants | CPT/HCPCS: 11042; 99213 ==

== ENCOUNTER → 2022-09-07 11:16 | Outpatient (CLI) | payer MEDICARE, SELFPAY | PROVIDERS: Family Provider Family Medicine; PCP Family Medicine; Referring Provider Family Medicine; Visit Provider Physician Assistant | DX: I87.2 Venous insufficiency (chronic) (peripheral) (principal); L97.312 Non-pressure chronic ulcer of right ankle with fat layer exposed; M25.571 Pain in right ankle and joints of right foot; R60.0 Localized edema | CPT/HCPCS: 29581 ==

== ENCOUNTER → 2022-09-07 12:02 | Outpatient (CLI) | payer MEDICARE, SELFPAY ==
[2022-09-07 12:44] LABS: INR 2.1 (0.9-1.3); Prothrombin Time 23.8 SECONDS (10.1-12.7)
== END ==
PROVIDERS: Family Provider Family Medicine; PCP Family Medicine; Referring Provider Family Medicine; Visit Provider Family Medicine
DX: I48.91 Unspecified atrial fibrillation (principal)
CPT/HCPCS: 36415; 85610

== ENCOUNTER → 2022-09-12 11:08 | Outpatient (CLI) | payer MEDICARE, SELFPAY | PROVIDERS: Family Provider Family Medicine; PCP Family Medicine; Referring Provider Family Medicine; Visit Provider Surgery | DX: I87.2 Venous insufficiency (chronic) (peripheral) (principal); L97.312 Non-pressure chronic ulcer of right ankle with fat layer exposed; R60.0 Localized edema; M86.171 Other acute osteomyelitis, right ankle and foot; Z79.01 Long term (current) use of anticoagulants; Z79.2 Long term (current) use of antibiotics | CPT/HCPCS: 15271; Q4101 ==

== ENCOUNTER → 2022-09-18 13:07 | Outpatient (CLI) | payer MEDICARE, SELFPAY | PROVIDERS: Family Provider Family Medicine; PCP Family Medicine; Referring Provider Family Medicine; Visit Provider Surgery | DX: I87.2 Venous insufficiency (chronic) (peripheral) (principal); L97.312 Non-pressure chronic ulcer of right ankle with fat layer exposed; M86.171 Other acute osteomyelitis, right ankle and foot; R60.0 Localized edema; Z79.01 Long term (current) use of anticoagulants | CPT/HCPCS: 11042 ==

== ENCOUNTER → 2022-09-21 11:01 | Outpatient (CLI) | payer MEDICARE, SELFPAY | PROVIDERS: Family Provider Family Medicine; PCP Family Medicine; Referring Provider Family Medicine; Visit Provider Physician Assistant | DX: I87.2 Venous insufficiency (chronic) (peripheral) (principal); L97.312 Non-pressure chronic ulcer of right ankle with fat layer exposed; R60.0 Localized edema; M25.571 Pain in right ankle and joints of right foot | CPT/HCPCS: 29581 ==

== ENCOUNTER → 2022-09-21 11:48 | Outpatient (CLI) | payer MEDICARE, SELFPAY ==
[2022-09-21 12:32] LABS: INR 1.9 (0.9-1.3); Prothrombin Time 21.8 SECONDS (10.1-12.7)
== END ==
PROVIDERS: Family Provider Family Medicine; PCP Family Medicine; Referring Provider Family Medicine; Visit Provider Family Medicine
DX: I48.91 Unspecified atrial fibrillation (principal)
CPT/HCPCS: 36415; 85610

== ENCOUNTER → 2022-09-25 11:04 | Outpatient (CLI) | payer MEDICARE, SELFPAY | PROVIDERS: Family Provider Family Medicine; PCP Family Medicine; Referring Provider Family Medicine; Visit Provider Surgery | DX: I87.2 Venous insufficiency (chronic) (peripheral) (principal); L97.312 Non-pressure chronic ulcer of right ankle with fat layer exposed; R60.0 Localized edema; Z79.01 Long term (current) use of anticoagulants; M25.571 Pain in right ankle and joints of right foot | CPT/HCPCS: 15271; 99213; Q4101 ==

== ENCOUNTER → 2022-10-02 10:24 | Outpatient (CLI) | payer MEDICARE, SELFPAY ==
[2022-10-02 11:42] LABS: INR 1.7 (0.9-1.3); Prothrombin Time 19.1 SECONDS (10.1-12.7)
== END ==
PROVIDERS: Family Provider Family Medicine; PCP Family Medicine; Referring Provider Family Medicine; Visit Provider Family Medicine
DX: I48.91 Unspecified atrial fibrillation (principal)
CPT/HCPCS: 36415; 85610

== ENCOUNTER → 2022-10-02 10:50 | Outpatient (CLI) | payer MEDICARE, SELFPAY | PROVIDERS: Family Provider Family Medicine; PCP Family Medicine; Referring Provider Family Medicine; Visit Provider Surgery | DX: I48.91 Unspecified atrial fibrillation (principal); I87.2 Venous insufficiency (chronic) (peripheral); L97.312 Non-pressure chronic ulcer of right ankle with fat layer exposed; R60.0 Localized edema | CPT/HCPCS: 29581; 36415; 85610 ==

== ENCOUNTER → 2022-10-09 11:13 | Outpatient (CLI) | payer MEDICARE, SELFPAY | PROVIDERS: Family Provider Family Medicine; PCP Family Medicine; Referring Provider Family Medicine; Visit Provider Surgery | DX: I87.2 Venous insufficiency (chronic) (peripheral) (principal); L97.312 Non-pressure chronic ulcer of right ankle with fat layer exposed; Z79.01 Long term (current) use of anticoagulants; M86.171 Other acute osteomyelitis, right ankle and foot | CPT/HCPCS: 15271; Q4101 ==

== ENCOUNTER → 2022-10-16 11:12 | Outpatient (CLI) | payer MEDICARE, SELFPAY | PROVIDERS: Family Provider Family Medicine; PCP Family Medicine; Referring Provider Family Medicine; Visit Provider Surgery | DX: M86.9 Osteomyelitis, unspecified (principal); I48.91 Unspecified atrial fibrillation; I87.2 Venous insufficiency (chronic) (peripheral); L97.312 Non-pressure chronic ulcer of right ankle with fat layer exposed; I73.9 Peripheral vascular disease, unspecified; R60.0 Localized edema; M79.604 Pain in right leg | CPT/HCPCS: 11042; 36415; 80053; 85025; 85610; 86140 ==

== ENCOUNTER → 2022-10-16 12:04 | Outpatient (CLI) | payer MEDICARE, SELFPAY ==
[2022-10-16 12:58] LABS: Add Manual Diff / Slide Review NO; Basophils Absolute Auto 100 /uL (0-100); Basophils Percent Auto 1.3 % (0-2); Eosinophils Absolute Auto 100 /uL (0-450); Eosinophils Percent Auto 1.5 % (2-4); Hematocrit 39.6 % (41-53); Hemoglobin 13.4 g/dL (13.5-17.5); Lymphocytes Absolute Auto 1300 /uL (1100-4500); Lymphocytes Percent Auto 19.7 % (25-40); Mean Corpuscular HGB Conc 33.7 % (30-36); Mean Corpuscular Hemoglobin 32.1 PG (26-34); Mean Corpuscular Volume 95.2 fL (80-100); Monocytes Absolute Auto 800 /uL (0-900); Monocytes Percent Auto 12.1 % (3-14); Neutrophils Absolute Auto 4400 /uL (1500-7000); Neutrophils Percent Auto 65.4 % (50-75); Platelet Count 187 X10^3/uL (150-400); Red Blood Cell Count 4.16 X10^6/uL (4.5-5.9); Red Cell Distribution Width 13.6 % (11.6-14.8); White Blood Cell Count 6.7 X10^3/uL (4.5-11.0)
[2022-10-16 13:34] LABS: Alanine Aminotransferase 31 IU/L (<50); Albumin 3.9 g/dL (3.5-5.0); Albumin Globulin Ratio 1.2 (1.0-2.8); Alkaline Phosphatase 85 U/L (38-126); Aspartate Aminotransferase 36 IU/L (17-59); BUN Creatinine Ratio 29.7 (6-22); Bilirubin Total 1.7 mg/dL (0.2-1.3); Blood Urea Nitrogen 19 mg/dL (9-20); C-Reactive Protein Quant < 0.5 mg/dL (<1.0); Calcium 8.7 mg/dL (8.4-10.2); Carbon Dioxide 30 mmol/L (22-32); Chloride 102 mmol/L (98-107); Estimated Glomerular Filt Rate > 60 mL/min (>60); Globulin 3.2 g/dL (1.7-4.1); Glucose 88 mg/dL (80-110); HEMOLYSIS < 15 (0-50); Potassium 4.3 mmol/L (3.4-5.1); Sodium 138 mmol/L (137-145); Total Protein 7.1 g/dL (6.3-8.2)
[2022-10-16 15:56] LABS: Prothrombin Time 23.3 SECONDS (10.1-12.7)
== END ==
PROVIDERS: Internal Medicine Infectious Disease; Family Provider Family Medicine; PCP Family Medicine; Referring Provider Family Medicine; Visit Provider Family Medicine
DX: M86.9 Osteomyelitis, unspecified (principal); I48.91 Unspecified atrial fibrillation
CPT/HCPCS: 36415; 80053; 85025; 85610; 86140

== ENCOUNTER 2022-10-21 14:48 | Emergency (ER) | payer MEDICARE, SELFPAY ==
[2022-10-21] VITALS (13 sets, daily range): BP systolic 155–186; BP diastolic 74–92; PULSE 60–80; RESP 16–18; TEMP 36.5; O2SAT 93–99; BMI 20.8
[2022-10-21 16:16] LABS: Add Manual Diff / Slide Review NO; Basophils Absolute Auto 100 /uL (0-100); Basophils Percent Auto 1.3 % (0-2); Eosinophils Absolute Auto 200 /uL (0-450); Eosinophils Percent Auto 2.4 % (2-4); Hematocrit 39.7 % (41-53); Hemoglobin 13.3 g/dL (13.5-17.5); Lymphocytes Absolute Auto 1800 /uL (1100-4500); Lymphocytes Percent Auto 23.5 % (25-40); Mean Corpuscular HGB Conc 33.5 % (30-36); Mean Corpuscular Hemoglobin 31.9 PG (26-34); Mean Corpuscular Volume 95.2 fL (80-100); Monocytes Absolute Auto 900 /uL (0-900); Monocytes Percent Auto 11.4 % (3-14); Neutrophils Absolute Auto 4800 /uL (1500-7000); Neutrophils Percent Auto 61.4 % (50-75); Platelet Count 189 X10^3/uL (150-400); Red Blood Cell Count 4.17 X10^6/uL (4.5-5.9); Red Cell Distribution Width 13.8 % (11.6-14.8); White Blood Cell Count 7.8 X10^3/uL (4.5-11.0)
[2022-10-21 16:24] LABS: INR 2.4 (0.9-1.3); Prothrombin Time 27.7 SECONDS (10.1-12.7)
[2022-10-21 16:30] LABS: Alanine Aminotransferase 28 IU/L (<50); Albumin 3.9 g/dL (3.5-5.0); Albumin Globulin Ratio 1.1 (1.0-2.8); Alkaline Phosphatase 78 U/L (38-126); Aspartate Aminotransferase 35 IU/L (17-59); BUN Creatinine Ratio 26.3 (6-22); Bilirubin Total 1.6 mg/dL (0.2-1.3); Blood Urea Nitrogen 15 mg/dL (9-20); Calcium 8.8 mg/dL (8.4-10.2); Carbon Dioxide 27 mmol/L (22-32); Chloride 103 mmol/L (98-107); Estimated Glomerular Filt Rate > 60 mL/min (>60); Globulin 3.5 g/dL (1.7-4.1); Glucose 84 mg/dL (80-110); HEMOLYSIS 36 (0-50); Potassium 4.2 mmol/L (3.4-5.1); Sodium 136 mmol/L (137-145); Total Protein 7.4 g/dL (6.3-8.2)
[2022-10-21 17:09] LABS: Troponin I < 0.012 ng/mL (0.01-0.034)
--- NOTE | 2022-10-21 18:09 | ED_ITS ---
HPI - Neck Pain/Injury General Chief Complaint: Neck Pain/Injury Stated Complaint: says circulation issues in head Time Seen by Provider: 10/21/22 18:05 History of Present Illness HPI Narrative: 87-year-old male former smoker presents with his in the walk-in clinic for evaluation of a few days of pain in the left side of his jaw. On occasion it is made worse by opening and closing his mouth, he states it is sharp and stabbing and he is had some recurrence of it to present in his left neck as well. He denies trauma or injury. He denies dizziness, weakness or lightheadedness. He has no neurologic symptoms such as blurred vision, trouble speech or balance, no extremity numbness, tingling or weakness. No trouble with facial numbness or weakness. He denies chest pain or shortness of breath. He denies exertional symptoms or exercise intolerance. He presented to the walk-in clinic and was sent here for cardiac evaluation. Furthermore he states that he is done some re search and is concerned that he may have a problem with his carotid arteries. Related Data Home Medications Medication Instructions Recorded Confirmed finasteride 5 mg tablet 5 mg PO QDAY ##0 05/08/11 atenolol 25 mg tablet 75 mg PO DAILY 01/21/18 01/21/18 warfarin 6 mg tablet 6 mg PO DAILY 01/21/18 01/21/18 ascorbic acid (vitamin C) 1,000 mg 1 04/30/22 tablet calcium carbonate 500 mg capsule 1 mg PO 04/30/22 cholecalciferol (vitamin D3) 10 10 mcg PO DAILY 04/30/22 04/30/22 mcg (400 unit) chewable tablet glucosamine sulf dipot 1 cap PO 04/30/22 chlr,msm,chond 550 mg-C 30 mg-aamir 1 mg capsule (Glucosamine Chondroitin) lecithin 1,200 mg capsule 1,200 mg 04/30/22 lutein 6 mg tablet 6 mg 04/30/22 saw palmetto 450 mg capsule 450 mg 04/30/22 Previous Rx's Medication Instructions Recorded meclizine 25 mg tablet 25 mg PO BID-TID PRN motion 11/09/18 sickness #14 tabs Allergies Allergy/AdvReac Type Severity Reaction Status Date / Time No Known Drug Allergies Allergy Verified 10/21/22 14:18 Review of Systems Review of Systems Narrative: GENERAL: Denies chills, fatigue, malaise, fever, sweats. HEENT: See HPI RESPIRATORY: Denies dyspnea, cough, wheezing, hemoptysis, sputum. CARDIOVASCULAR: Denies chest pain, palpitations, orthopnea, edema, GASTROINTESTINAL: Denies nausea, vomiting, abdominal pain, diarrhea, constipation, melena. : Denies dysuria, frequency, incontinence, hematuria, urinary retention. MUSCULOSKELETAL: denies weakness, joint pain, or bony pain SKIN: Denies rash, skin lesions, or other NEUROLOGIC: See HPI PSYCHIATRIC: No concerning psychosocial issues. 12 point review of systems is negative except for those stated above Patient History Medical History Atrial fibrillation Surgical History 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 Social History household members: spouse Smoking Status: Former smoker Smoking Status: Former smoker alcohol intake frequency: 0-2 drinks per day Alcohol type: hard liquor Substance Use Type: does not use Exam Narrative Exam Narrative: GENERAL: [87] year old patient appears stated age. Well-developed patient, in mild distress. HEAD: Atraumatic. Normocephalic. EYES: Pupils equal round and reactive. Extraocular motions intact. No scleral icterus. No injection or drainage. ENT: Nose without bleeding, purulent drainage. Throat without erythema, tonsillar hypertrophy or exudate. Airway patent. No facial swelling, no intraoral abnormality NECK: Trachea midline. Non tender CARDIOVASCULAR: Regular rate and rhythm without murmurs, gallops, or rubs. RESPIRATORY: Clear to auscultation. Breath sounds equal bilaterally. No wheezes, rales, or rhonchi. GASTROINTESTINAL: Abdomen soft, non-tender, nondistended. EXTREMITIES: No edema or joint tenderness. BACK: Nontender without deformity or crepitance. No flank tenderness. NEURO: AOx3. SKIN: No rash or erythema of visible areas NIH Stroke Scale 1a. LOC: Patient is alert and keenly responsive (0) 1b. LOC Questions: Patient answers both LOC questions accurately (0) 1c. LOC Commands: Patient performs both tasks correctly (0) 2. Best Gaze: Normal (0) 3. Visual: No visual loss (0) 4. Facial palsy: Normal symmetrical movements (0) 5. Motor arm: No drift (0) 6. Motor leg: No drift (0) 7. Limb ataxia: Absent (0) 8. Sensory: Normal (0) 9. Best language: No aphasia; normal (0) 10. Dysarthria: Normal (0) 11. Extinction and inattention: No abnormality (0) NIHSS: 0 Initial Vital Signs Initial Vital Signs: Vital Signs Temperature 97.7 F 10/21/22 14:54 Pulse Rate 80 10/21/22 14:54 Respiratory Rate 16 10/21/22 14:54 Blood Pressure 171/92 H 10/21/22 14:54 Pulse Oximetry 97 10/21/22 14:54 Oxygen Delivery Method Room Air 10/21/22 14:54 Course Orders Ordered: ED Orders 10/21/22 16:00 Complete Blood Count AUTO DIFF Stat Comprehensive Metabolic Panel Stat Prothrombin Time INR Stat Troponin I Stat 10/21/22 16:02 EKG-12 Lead Stat 10/21/22 19:00 Troponin & CK Cardiac Panel Stat Vital Signs Vital signs: Vital Signs - 8 hr 10/21/22 21:13 10/21/22 21:15 10/21/22 21:16 Pulse Rate 65 Blood Pressure 158/77 H Pulse Oximetry 93 99 MDM - Neck Pain/Injury Lab Data 10/21/22 16:00 10/21/22 16:00 Labs: Lab Results 10/21/22 10/21/22 10/21/22 Range/Units 16:00 16:00 16:00 WBC 7.8 (4.5-11.0) X10^3/uL RBC 4.17 L (4.5-5.9) X10^6/uL Hgb 13.3 L (13.5-17.5) g/dL Hct 39.7 L (41-53) % MCV 95.2 (80-100) fL MCH 31.9 (26-34) PG MCHC 33.5 (30-36) % RDW 13.8 (11.6-14.8) % Plt Count 189 (150-400) X10^3/uL Neut % (Auto) 61.4 (50-75) % Lymph % (Auto) 23.5 L (25-40) % [place] % (Auto) 11.4 (3-14) % Eos % (Auto) 2.4 (2-4) % Baso % (Auto) 1.3 (0-2) % Neut # (Auto) 4800 (5241-9247) /uL Lymph # (Auto) 1800 (2840-6819) /uL [place] # (Auto) 900 (0-900) /uL Eos # (Auto) 200 (0-450) /uL Baso # (Auto) 100 (0-100) /uL PT 27.7 H (10.1-12.7) SECONDS INR 2.4 H (0.9-1.3) Sodium 136 L (137-145) mmol/L Potassium 4.2 (3.4-5.1) mmol/L Chloride 103 (98-107) mmol/L Carbon Dioxide 27 (22-32) mmol/L BUN 15 (9-20) mg/dL Creatinine 0.57 L (0.66-1.25) mg/dL Estimated GFR > 60 (>60) mL/min BUN/Creatinine Ratio 26.3 H (6-22) Glucose 84 (80-110) mg/dL Calcium 8.8 (8.4-10.2) mg/dL Total Bilirubin 1.6 H (0.2-1.3) mg/dL AST 35 (17-59) IU/L ALT 28 (<50) IU/L Alkaline Phosphatase 78 (38-126) U/L Total Creatine Kinase (55-170) U/L Troponin I (0.01-0.034) ng/mL Total Protein 7.4 (6.3-8.2) g/dL Albumin 3.9 (3.5-5.0) g/dL Globulin 3.5 (1.7-4.1) g/dL Albumin/Globulin Ratio 1.1 (1.0-2.8) 10/21/22 10/21/22 Range/Units 16:00 19:10 WBC (4.5-11.0) X10^3/uL RBC (4.5-5.9) X10^6/uL Hgb (13.5-17.5) g/dL Hct (41-53) % MCV (80-100) fL MCH (26-34) PG MCHC (30-36) % RDW (11.6-14.8) % Plt Count (150-400) X10^3/uL Neut % (Auto) (50-75) % Lymph % (Auto) (25-40) % [place] % (Auto) (3-14) % Eos % (Auto) (2-4) % Baso % (Auto) (0-2) % Neut # (Auto) (3100-5417) /uL Lymph # (Auto) (9317-9351) /uL [place] # (Auto) (0-900) /uL Eos # (Auto) (0-450) /uL Baso # (Auto) (0-100) /uL PT (10.1-12.7) SECONDS INR (0.9-1.3) Sodium (137-145) mmol/L Potassium (3.4-5.1) mmol/L Chloride (98-107) mmol/L Carbon Dioxide (22-32) mmol/L BUN (9-20) mg/dL Creatinine (0.66-1.25) mg/dL Estimated GFR (>60) mL/min BUN/Creatinine Ratio (6-22) Glucose (80-110) mg/dL Calcium (8.4-10.2) mg/dL Total Bilirubin (0.2-1.3) mg/dL AST (17-59) IU/L ALT (<50) IU/L Alkaline Phosphatase (38-126) U/L Total Creatine Kinase 46 L (55-170) U/L Troponin I < 0.012 < 0.012 (0.01-0.034) ng/mL Total Protein (6.3-8.2) g/dL Albumin (3.5-5.0) g/dL Globulin (1.7-4.1) g/dL Albumin/Globulin Ratio (1.0-2.8) MDM Narrative Medical decision making narrative: CC: 87-year-old male with a few days of episodic left-sided jaw pain Complicating co-morbidities: Age, hypertension, hyperlipidemia Data collected from: Patient Medical records reviewed: Prior notes reviewed in our EMR Differential considered, but not limited to: Temporomandibular joint dysfunctio n versus dental versus cardiac ischemia versus carotid abnormality versus other Exam documented above, pertinent findings include: No facial swelling or intraoral abnormality, heart rate regular, lungs clear Lab Test results independently reviewed as above. Pertinent findings: No leukocytosis or left shift. No signs of anemia. Electrolytes and renal function within normal, troponin x2 negative Independently reviewed EKG as above Imaging studies independently reviewed: CT angiogram of head and neck without significant abnormalities Scores Used: NIHSS Discussion: Patient with episodic left side jaw pain in the absence of trauma or injury. No obvious facial swelling or dental involvement. Cardiac ischemia considered but thought unlikely given lack of associated symptoms, EKG changes, troponin x2 negative, no exertional symptoms and no exercise intolerance. Carotid dissection or other vascular abnormality considered but thought unlikely given lack of findings on imaging. Disposition: see below, along with detailed discharge instructions that have been reviewed with patient as well as indications for ED re-evaluation and additional outpatient follow up Discharge Plan Departure Patient Disposition: Home Clinical Impression: Jaw pain, non-TMJ Instructions: Jaw Pain: It's Not Just Stress Activity Restrictions/Additional Instructions: *You have been diagnosed with [left-sided jaw pain. As we discussed your history and physical exam are very reassuring and though we considered both problems with your carotid and cardiac causes there is no evidence of either. Your EKGs, lab work as well as CT scans are reassuring.] *What to do: *Please continue to take your regular medications as directed. [ ] New medication prescriptions sent to your pharmacy: [ ] [ ] New medication written as a paper prescription [ ] No new medications given *Please follow up with your primary care provider in 2-3 days, call for an appointment. Let them know you were seen in the Emergency Department and that we ask that you be seen in follow up. We will electronically transmit a record of today's note if your PCP is in our system *If you do not have a primary care provider please contact the [facility] Resource line at [phone]. They will ask some questions about your medical history and help get you set up with a doctor in the community. *Return to Emergency Department if you should have any new, worsening or concerning symptoms, such as [fever greater than 101 F, shaking chills, worsening pain, persistent vomiting or other bothersome symptoms] Prescriptions: No Action finasteride 5 MG tablet 5 mg PO QDAY Qty: 0 meclizine 25 mg tablet 25 mg PO BID-TID PRN (Reason: motion sickness) Qty: 14 0RF ascorbic acid (vitamin C) 1,000 mg Tablet 1 calcium carbonate 500 mg Capsule 1 mg PO cholecalciferol (vitamin D3) 10 mcg (400 unit) Tablet,Chewable 10 mcg PO DAILY Glucosamine Chondroitin 550-30-1 mg Capsule 1 cap PO lecithin 1,200 mg Capsule 1,200 mg lutein 6 mg Tablet 6 mg saw palmetto 450 mg Capsule 450 mg warfarin 6 mg Tablet 6 mg PO DAILY atenolol 25 mg Tablet 75 mg PO DAILY Patient Comments: he takes 37.5 mg in the am and 37.5 mg in the pm Referrals: Jayden Barahona MD [Primary Care Provider] - Stand Alone Forms: Patient Portal/API
--- NOTE | 2022-10-21 18:55 | DI.CT.S_ITS ---
PROCEDURE: CT ANGIO HEAD AND NECK INDICATIONS: left side jaw/neck pain, sent for eval of carotids TECHNIQUE: After the administration of intravenous contrast, 1 mm thick sections acquired from the aortic arch through the [place]. 3-dimensional [id number] (MIP) and/or volume rendering reformats were acquired of the central intracranial vasculature and neck separately. For radiation dose reduction, the following was used: automated exposure control, adjustment of mA and/or kV according to patient size. COMPARISON: None. FINDINGS: Image quality: Diagnostic. BRAIN: CSF spaces: Ventricles are normal in size and shape. Basal cisterns are patent. No extra-axial fluid collections. Brain: No midline shift. No intracranial bleeds or masses. There is chronic appearing cortical volume loss in the right posterior parietal cortex. Skull and face: Calvarium and facial bones appear intact, without suspicious lesions. Orbits appear normal. Sinuses: Sinuses and mastoids are clear. HEAD CT ANGIOGRAPHY: Anterior circulation: Intracranial internal carotid arteries are normal in size and flow. The flow within the paired anterior cerebral arteries is normal and symmetric. The flow within the middle cerebral arteries is normal and symmetric. The anterior communicating artery is seen. No aneurysms are seen. Posterior circulation: Visualized portions of the vertebral arteries demonstrate normal caliber, and join to form a normal appearing basilar artery. Flow within the posterior cerebral arteries is normal and symmetric. No aneurysms are seen. NECK CT ANGIOGRAPHY: Carotid system: The great vessels demonstrate a conventional anatomy as they arise from the aortic arch. The origins of the common carotid arteries appear patent. The common carotid arteries demonstrate normal caliber and courses. There is heavy near circumferential calcification at the left internal carotid artery origin causing a long segment of diffuse luminal narrowing from the proximal to midportion. This is estimated at about 70-75%. Internal carotid artery maintains a normal caliber to the intracranial portion. Moderate scattered right proximal ICA calcification causes luminal stenosis estimated to be 50%. Distal right ICA maintains normal caliber. Posterior circulation: The left vertebral artery has an origin off the aortic arch, normal variant, and is considerably larger than the right. There is no evidence of dissection or significant calcifications. The calibers are stable to the foramen magnum or the joint deforming normal basilar artery. Soft tissues: Visualized neck soft tissues demonstrate no suspicious abnormalities. Bones: No suspicious bony lesions. Visualized cervical spine appears normally aligned. IMPRESSION: 1. No CT evidence of acute intracranial process. 2. 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 3. No evidence of acute intracranial arterial occlusion or visible aneurysm. 4. Heavy atherosclerotic calcification at the proximal left internal carotid artery causing estimated 70-75% stenosis. This may be hemodynamically significant. 5. Moderate right proximal ICA calcification causing a mild to moderate luminal stenosis. 6. Patent vertebral system with the left vertebral arterial dominance. Any quantitative measurements of stenosis were performed using NASCET criteria. Dictated by: Brinda Cline M.D. on 10/21/2022 at 20:24 Approved by: Brinda Cline M.D. on 10/21/2022 at 20:37
[2022-10-21 19:27] LABS: Creatine Kinase 46 U/L (55-170)
[2022-10-21 19:40] LABS: Troponin I < 0.012 ng/mL (0.01-0.034)
== END 2022-10-21 21:22 | disposition home or self-care (01) ==
PROVIDERS: Emergency Medicine; Emergency Provider Emergency Medicine; Family Provider Family Medicine; PCP Family Medicine
DX: R68.84 Jaw pain (principal); M54.2 Cervicalgia; R07.9 Chest pain, unspecified
CPT/HCPCS: 70496; 70498; 80053; 82550; 84484; 85025; 85610; 93005; 99283; 99284; Q9967

== ENCOUNTER → 2022-10-23 13:56 | Outpatient (CLI) | payer MEDICARE, SELFPAY | PROVIDERS: Family Provider Family Medicine; PCP Family Medicine; Referring Provider Family Medicine; Visit Provider Surgery | DX: I87.2 Venous insufficiency (chronic) (peripheral) (principal); L97.312 Non-pressure chronic ulcer of right ankle with fat layer exposed; Z79.01 Long term (current) use of anticoagulants; R60.0 Localized edema | CPT/HCPCS: 11042 ==

== ENCOUNTER → 2022-10-30 15:33 | Outpatient (CLI) | payer MEDICARE, SELFPAY | PROVIDERS: Family Provider Family Medicine; PCP Family Medicine; Referring Provider Family Medicine; Visit Provider Surgery | DX: I87.2 Venous insufficiency (chronic) (peripheral) (principal); L97.312 Non-pressure chronic ulcer of right ankle with fat layer exposed; Z79.01 Long term (current) use of anticoagulants | CPT/HCPCS: 15271; 29581; 99213; Q4159 ==

== ENCOUNTER → 2022-11-06 14:51 | Outpatient (CLI) | payer MEDICARE, SELFPAY | PROVIDERS: Family Provider Family Medicine; PCP Family Medicine; Referring Provider Family Medicine; Visit Provider Surgery | DX: I87.2 Venous insufficiency (chronic) (peripheral) (principal); L97.312 Non-pressure chronic ulcer of right ankle with fat layer exposed; Z79.01 Long term (current) use of anticoagulants; M86.171 Other acute osteomyelitis, right ankle and foot | CPT/HCPCS: 15271; Q4159 ==

== ENCOUNTER → 2022-11-13 14:49 | Outpatient (CLI) | payer MEDICARE, SELFPAY | PROVIDERS: Family Provider Family Medicine; PCP Family Medicine; Referring Provider Family Medicine; Visit Provider Surgery | DX: I87.2 Venous insufficiency (chronic) (peripheral) (principal); L97.312 Non-pressure chronic ulcer of right ankle with fat layer exposed; M86.171 Other acute osteomyelitis, right ankle and foot; Z79.01 Long term (current) use of anticoagulants | CPT/HCPCS: 15271; Q4159 ==

== ENCOUNTER → 2022-11-15 13:26 | Outpatient (CLI) | payer MEDICARE, SELFPAY ==
[2022-11-15 15:51] LABS: Prothrombin Time 35.4 SECONDS (10.1-12.7)
== END ==
PROVIDERS: Family Provider Family Medicine; PCP Family Medicine; Referring Provider Family Medicine; Visit Provider Family Medicine
DX: I48.91 Unspecified atrial fibrillation (principal)
CPT/HCPCS: 36415; 85610

== ENCOUNTER → 2022-11-20 13:25 | Outpatient (CLI) | payer MEDICARE, SELFPAY | PROVIDERS: Family Provider Family Medicine; PCP Family Medicine; Referring Provider Family Medicine; Visit Provider Surgery | DX: I87.2 Venous insufficiency (chronic) (peripheral) (principal); L97.312 Non-pressure chronic ulcer of right ankle with fat layer exposed; M86.171 Other acute osteomyelitis, right ankle and foot | CPT/HCPCS: 15271; Q4159 ==

== ENCOUNTER → 2022-11-27 14:16 | Outpatient (CLI) | payer MEDICARE, SELFPAY | PROVIDERS: Family Provider Family Medicine; PCP Family Medicine; Referring Provider Family Medicine; Visit Provider Surgery | DX: I87.2 Venous insufficiency (chronic) (peripheral) (principal); L97.312 Non-pressure chronic ulcer of right ankle with fat layer exposed; Z79.01 Long term (current) use of anticoagulants; M86.171 Other acute osteomyelitis, right ankle and foot | CPT/HCPCS: 15271; 99213; Q4159 ==

== ENCOUNTER → 2022-11-29 12:18 | Outpatient (CLI) | payer MEDICARE, SELFPAY ==
[2022-11-29 13:06] LABS: INR 3.7 (0.9-1.3); Prothrombin Time 43.1 SECONDS (10.1-12.7)
== END ==
PROVIDERS: Family Provider Family Medicine; PCP Family Medicine; Referring Provider Family Medicine; Visit Provider Family Medicine
DX: I48.91 Unspecified atrial fibrillation (principal)
CPT/HCPCS: 36415; 85610

== ENCOUNTER → 2022-12-04 14:37 | Outpatient (CLI) | payer MEDICARE, SELFPAY | PROVIDERS: Family Provider Family Medicine; PCP Family Medicine; Referring Provider Family Medicine; Visit Provider Surgery | DX: I87.2 Venous insufficiency (chronic) (peripheral) (principal); L97.312 Non-pressure chronic ulcer of right ankle with fat layer exposed; R60.0 Localized edema; M86.171 Other acute osteomyelitis, right ankle and foot; Z79.01 Long term (current) use of anticoagulants | CPT/HCPCS: 15271; Q4159 ==

== ENCOUNTER → 2022-12-11 13:14 | Outpatient (CLI) | payer MEDICARE, SELFPAY ==
[2022-12-11 14:32] LABS: Add Manual Diff / Slide Review NO; Basophils Absolute Auto 100 /uL (0-100); Basophils Percent Auto 1.2 % (0-2); Eosinophils Absolute Auto 0 /uL (0-450); Eosinophils Percent Auto 0.3 % (2-4); Hematocrit 39.1 % (41-53); Hemoglobin 13.3 g/dL (13.5-17.5); Lymphocytes Absolute Auto 1600 /uL (1100-4500); Lymphocytes Percent Auto 22.4 % (25-40); Mean Corpuscular HGB Conc 34.1 % (30-36); Mean Corpuscular Hemoglobin 32.6 PG (26-34); Mean Corpuscular Volume 95.7 fL (80-100); Monocytes Absolute Auto 800 /uL (0-900); Monocytes Percent Auto 11.2 % (3-14); Neutrophils Absolute Auto 4500 /uL (1500-7000); Neutrophils Percent Auto 64.9 % (50-75); Platelet Count 217 X10^3/uL (150-400); Red Blood Cell Count 4.08 X10^6/uL (4.5-5.9); Red Cell Distribution Width 13.9 % (11.6-14.8)
[2022-12-11 14:55] LABS: Alanine Aminotransferase 30 IU/L (<50); Albumin 4.2 g/dL (3.5-5.0); Albumin Globulin Ratio 1.2 (1.0-2.8); Alkaline Phosphatase 101 U/L (38-126); Aspartate Aminotransferase 35 IU/L (17-59); BUN Creatinine Ratio 23.5 (6-22); Bilirubin Total 1.6 mg/dL (0.2-1.3); Blood Urea Nitrogen 16 mg/dL (9-20); Calcium 9.5 mg/dL (8.4-10.2); Carbon Dioxide 30 mmol/L (22-32); Chloride 101 mmol/L (98-107); Estimated Glomerular Filt Rate > 60 mL/min (>60); Globulin 3.6 g/dL (1.7-4.1); Glucose 89 mg/dL (80-110); HEMOLYSIS < 15 (0-50); Potassium 4.5 mmol/L (3.4-5.1); Sodium 138 mmol/L (137-145); Total Protein 7.8 g/dL (6.3-8.2)
== END ==
PROVIDERS: Family Provider Family Medicine; PCP Family Medicine; Referring Provider Internal Medicine Infectious Disease; Visit Provider Internal Medicine Infectious Disease
DX: M86.9 Osteomyelitis, unspecified (principal)
CPT/HCPCS: 36415; 80053; 85025; 86140

== ENCOUNTER → 2022-12-11 14:25 | Outpatient (CLI) | payer MEDICARE, SELFPAY | PROVIDERS: Family Provider Family Medicine; PCP Family Medicine; Referring Provider Family Medicine; Visit Provider Surgery | DX: M86.9 Osteomyelitis, unspecified (principal); I87.2 Venous insufficiency (chronic) (peripheral); L97.312 Non-pressure chronic ulcer of right ankle with fat layer exposed; Z79.01 Long term (current) use of anticoagulants; M86.171 Other acute osteomyelitis, right ankle and foot | CPT/HCPCS: 15271; 36415; 80053; 85025; 86140; Q4159 ==

== ENCOUNTER → 2022-12-18 14:11 | Outpatient (CLI) | payer MEDICARE, SELFPAY | PROVIDERS: Family Provider Family Medicine; PCP Family Medicine; Referring Provider Family Medicine; Visit Provider Surgery | DX: I87.2 Venous insufficiency (chronic) (peripheral) (principal); L97.312 Non-pressure chronic ulcer of right ankle with fat layer exposed; M86.171 Other acute osteomyelitis, right ankle and foot; Z79.01 Long term (current) use of anticoagulants; I73.9 Peripheral vascular disease, unspecified; R60.0 Localized edema | CPT/HCPCS: 15271; Q4159 ==

== ENCOUNTER → 2022-12-19 10:21 | Outpatient (CLI) | payer MEDICARE, SELFPAY ==
[2022-12-19 11:17] LABS: INR 1.7 (0.9-1.3); Prothrombin Time 20.1 SECONDS (10.1-12.7)
== END ==
PROVIDERS: Family Provider Family Medicine; PCP Family Medicine; Referring Provider Family Medicine; Visit Provider Family Medicine
DX: I48.91 Unspecified atrial fibrillation (principal)
CPT/HCPCS: 36415; 85610

== ENCOUNTER → 2022-12-25 15:08 | Outpatient (CLI) | payer MEDICARE, SELFPAY | PROVIDERS: Family Provider Family Medicine; PCP Family Medicine; Referring Provider Family Medicine; Visit Provider Surgery | DX: I87.2 Venous insufficiency (chronic) (peripheral) (principal); L97.312 Non-pressure chronic ulcer of right ankle with fat layer exposed; M86.171 Other acute osteomyelitis, right ankle and foot; R60.0 Localized edema; Z79.01 Long term (current) use of anticoagulants | CPT/HCPCS: 15271; 99213; Q4159 ==

== ENCOUNTER → 2022-12-26 12:24 | Outpatient (CLI) | payer MEDICARE, SELFPAY ==
[2022-12-26 13:26] LABS: Prothrombin Time 22.9 SECONDS (10.1-12.7)
== END ==
PROVIDERS: Family Provider Family Medicine; PCP Family Medicine; Referring Provider Family Medicine; Visit Provider Family Medicine
DX: I48.91 Unspecified atrial fibrillation (principal)
CPT/HCPCS: 36415; 85610

== ENCOUNTER → 2022-12-26 14:56 | Outpatient (CLI) | payer MEDICARE, SELFPAY | PROVIDERS: Family Provider Family Medicine; PCP Family Medicine; Referring Provider Family Medicine; Visit Provider Surgery | DX: I87.2 Venous insufficiency (chronic) (peripheral) (principal); L97.312 Non-pressure chronic ulcer of right ankle with fat layer exposed; R60.0 Localized edema; L98.8 Other specified disorders of the skin and subcutaneous tissue | CPT/HCPCS: 29581 ==

== ENCOUNTER → 2023-01-01 14:51 | Outpatient (CLI) | payer MEDICARE, SELFPAY | PROVIDERS: Family Provider Family Medicine; PCP Family Medicine; Referring Provider Family Medicine; Visit Provider Surgery | DX: I87.2 Venous insufficiency (chronic) (peripheral) (principal); L97.312 Non-pressure chronic ulcer of right ankle with fat layer exposed; M86.171 Other acute osteomyelitis, right ankle and foot; L98.8 Other specified disorders of the skin and subcutaneous tissue; R60.0 Localized edema; Z79.01 Long term (current) use of anticoagulants | CPT/HCPCS: 15271; Q4159 ==

== ENCOUNTER → 2023-01-08 14:50 | Outpatient (CLI) | payer MEDICARE, SELFPAY | PROVIDERS: Family Provider Family Medicine; PCP Family Medicine; Referring Provider Family Medicine; Visit Provider Surgery | DX: I87.2 Venous insufficiency (chronic) (peripheral) (principal); L97.312 Non-pressure chronic ulcer of right ankle with fat layer exposed; M86.171 Other acute osteomyelitis, right ankle and foot; L53.9 Erythematous condition, unspecified; Z79.01 Long term (current) use of anticoagulants | CPT/HCPCS: 15271; Q4160 ==

== ENCOUNTER → 2023-01-15 15:11 | Outpatient (CLI) | payer MEDICARE, SELFPAY | PROVIDERS: Family Provider Family Medicine; PCP Family Medicine; Referring Provider Family Medicine; Visit Provider Surgery | DX: I87.2 Venous insufficiency (chronic) (peripheral) (principal); L97.312 Non-pressure chronic ulcer of right ankle with fat layer exposed; Z79.01 Long term (current) use of anticoagulants; M86.171 Other acute osteomyelitis, right ankle and foot | CPT/HCPCS: 15271; 29581; 99212; Q4160 ==

== ENCOUNTER → 2023-01-16 11:05 | Outpatient (CLI) | payer MEDICARE, SELFPAY | PROVIDERS: Family Provider Family Medicine; PCP Family Medicine; Referring Provider Family Medicine; Visit Provider Surgery | DX: I87.2 Venous insufficiency (chronic) (peripheral) (principal); L97.312 Non-pressure chronic ulcer of right ankle with fat layer exposed; R60.0 Localized edema | CPT/HCPCS: 29581 ==

== ENCOUNTER → 2023-01-17 12:00 | Outpatient (CLI) | payer MEDICARE, SELFPAY ==
[2023-01-17 13:11] LABS: INR 2.1 (0.9-1.3); Prothrombin Time 24.6 SECONDS (10.1-12.7)
== END ==
PROVIDERS: Family Provider Family Medicine; PCP Family Medicine; Referring Provider Family Medicine; Visit Provider Family Medicine
DX: I48.91 Unspecified atrial fibrillation (principal)
CPT/HCPCS: 36415; 85610

== ENCOUNTER → 2023-01-22 15:52 | Outpatient (CLI) | payer MEDICARE, SELFPAY | PROVIDERS: Family Provider Family Medicine; PCP Family Medicine; Referring Provider Family Medicine; Visit Provider Surgery | DX: I87.2 Venous insufficiency (chronic) (peripheral) (principal); L97.312 Non-pressure chronic ulcer of right ankle with fat layer exposed; R60.0 Localized edema | CPT/HCPCS: 15271; 99212; 99213; Q4196 ==

== ENCOUNTER → 2023-01-29 14:07 | Outpatient (CLI) | payer MEDICARE, SELFPAY | PROVIDERS: Family Provider Family Medicine; PCP Family Medicine; Referring Provider Family Medicine; Visit Provider Surgery | DX: I87.2 Venous insufficiency (chronic) (peripheral) (principal); L97.312 Non-pressure chronic ulcer of right ankle with fat layer exposed; R60.0 Localized edema | CPT/HCPCS: 15271; Q4160 ==

== ENCOUNTER → 2023-02-05 14:35 | Outpatient (CLI) | payer MEDICARE, SELFPAY | PROVIDERS: Family Provider Family Medicine; PCP Family Medicine; Referring Provider Family Medicine; Visit Provider Surgery | DX: I48.91 Unspecified atrial fibrillation (principal); I87.2 Venous insufficiency (chronic) (peripheral); L97.312 Non-pressure chronic ulcer of right ankle with fat layer exposed; I10 Essential (primary) hypertension | CPT/HCPCS: 15271; 36415; 85610; 99212; Q4160 ==

== ENCOUNTER → 2023-02-05 15:33 | Outpatient (CLI) | payer MEDICARE, SELFPAY ==
[2023-02-05 16:46] LABS: INR 3.6 (0.9-1.3); Prothrombin Time 41.7 SECONDS (9.4-12.5)
== END ==
PROVIDERS: Family Provider Family Medicine; PCP Family Medicine; Referring Provider Family Medicine; Visit Provider Family Medicine
DX: I48.91 Unspecified atrial fibrillation (principal)
CPT/HCPCS: 36415; 85610

== ENCOUNTER → 2023-02-12 14:13 | Outpatient (CLI) | payer MEDICARE, SELFPAY | PROVIDERS: Family Provider Family Medicine; PCP Family Medicine; Referring Provider Family Medicine; Visit Provider Surgery | DX: I87.2 Venous insufficiency (chronic) (peripheral) (principal); L97.312 Non-pressure chronic ulcer of right ankle with fat layer exposed; R60.0 Localized edema | CPT/HCPCS: 15271; Q4160 ==

== ENCOUNTER 2023-02-17 12:43 | Emergency (ER) | payer MEDICARE, SELFPAY ==
[2023-02-17] VITALS (13 sets, daily range): BP systolic 122–169; BP diastolic 60–89; PULSE 68–97; RESP 14–25; TEMP 37.1; O2SAT 97–100; BMI 20.4
--- NOTE | 2023-02-17 13:02 | DI.CT.S_ITS ---
PROCEDURE: CT CERVICAL SPINE WO CON INDICATIONS: fall on thinners TECHNIQUE: Noncontrast 3 mm thick sections acquired from the skull base to the T4 level. Sagittal and coronal reformats were then constructed. For radiation dose reduction, the following was used: automated exposure control, adjustment of mA and/or kV according to patient size. COMPARISON: None. FINDINGS: Image quality: Excellent. Bones: No fractures or dislocations. Visualized superior ribs are intact. Soft tissues: Prevertebral soft tissues are normal in thickness. No paravertebral hematomas. No apical pneumothoraces. IMPRESSION: No acute fracture or subluxation. Dictated by: Tre Minor M.D. on 02/17/2023 at 12:53 Approved by: Tre Minor M.D. on 02/17/2023 at 12:54
--- NOTE | 2023-02-17 13:02 | DI.CT.S_ITS ---
PROCEDURE: CT HEAD/BRAIN WO CON INDICATIONS: fall on thinners TECHNIQUE: Noncontrast 4.5 mm thick angled axial sections acquired from the foramen magnum to the vertex, with coronal and sagittal reformats. For radiation dose reduction, the following was used: automated exposure control, adjustment of mA and/or kV according to patient size. COMPARISON: [facility], CT, CT HEAD/BRAIN WO CON, 11/09/2018, 11:38. FINDINGS: Image quality: Excellent. CSF spaces: Basal cisterns are patent. No extra-axial fluid collections. Ventricles are normal in size and shape. Brain: Area of encephalomalacia within the right parietal lobe. Diffuse parenchymal volume loss with symmetric expansion of the CSF containing spaces. Scattered periventricular white matter hypodensities consistent chronic microvascular ischemic disease. No midline shift. No intracranial masses or hemorrhage. Escobedo-white matter interface is normal. Skull and face: Calvarium and visualized facial bones are intact, without suspicious lesions. Sinuses: Visualized sinuses and mastoids are clear. IMPRESSION: No acute intracranial pathology. 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 Dictated by: Tre Minor M.D. on 02/17/2023 at 12:48 Approved by: Tre Minor M.D. on 02/17/2023 at 12:53
--- NOTE | 2023-02-17 13:34 | PC.NURSE ---
states pt has frequent falls. Pt states he has a walker and a cane but when he goes to the gym he leaves them in his car as instead relies on all the equipment to hold onto for balance.
--- NOTE | 2023-02-17 13:59 | ED_ITS ---
HPI - Neck Pain/Injury General Chief Complaint: Neck Pain/Injury Stated Complaint: post fall/neck pain Time Seen by Provider: 02/17/23 13:25 Source: patient, family, RN notes reviewed and old records reviewed Mode of arrival: Wheelchair Limitations: no limitations History of Present Illness HPI Narrative: 87-year-old male former smoker with history of atrial fibrillation on warfarin, hypertension, history of stem cell transplant. Patient had a fall yesterday at [employer]. Patient states he had returned the cleaning materials to certain spot went to turn lost his balance and was not using his cane and fell to the left striking the back of his head neck and landing on his buttocks. Patient states he is had persistent neck pain since then. He had a lift assist from EMS after this occurred at the gym. He states he took Tylenol last night x2 which was helpful but has persisted into today. Denies any active headache. He does have a bandage across his head he states this is from a dermatologic procedure. Has pain in the neck bilaterally under the occiput. Patient states rotation is not very painful, flexion-extension is somewhat uncomfortable. Denies any chest pain or shortness of breath. No other midline back pain. Has some discomfort on his buttocks but no hip or pelvic pain. States he has been ambulating at home with a walker. States he does have some chronic dizziness and instability which is not new. Denies any nausea or vomiting. No diarrhea or constipation, no bowel or bladder incontinence. Patient denies any new numbness, tingling or weakness. He states his last INR was approximately week ago was elevated in the 3 range. He is follow-up this coming for recheck of his INR. No tobacco, occasional alcohol, no recreational drugs. He is accompanied by his family. Related Data Home Medications Medication Instructions Recorded Confirmed finasteride 5 mg tablet 5 mg PO QDAY ##0 05/08/11 atenolol 25 mg tablet 75 mg PO DAILY 01/21/18 01/21/18 warfarin 6 mg tablet 6 mg PO DAILY 01/21/18 01/21/18 ascorbic acid (vitamin C) 1,000 mg 1 04/30/22 tablet calcium carbonate 500 mg capsule 1 mg PO 04/30/22 cholecalciferol (vitamin D3) 10 10 mcg PO DAILY 04/30/22 04/30/22 mcg (400 unit) chewable tablet glucosamine sulf dipot 1 cap PO 04/30/22 chlr,msm,chond 550 mg-C 30 mg-aamir 1 mg capsule (Glucosamine Chondroitin) lecithin 1,200 mg capsule 1,200 mg 04/30/22 lutein 6 mg tablet 6 mg 04/30/22 saw palmetto 450 mg capsule 450 mg 04/30/22 Previous Rx's Medication Instructions Recorded meclizine 25 mg tablet 25 mg PO BID-TID PRN motion 11/09/18 sickness #14 tabs Allergies Allergy/AdvReac Type Severity Reaction Status Date / Time No Known Drug Allergies Allergy Verified 10/21/22 14:18 Review of Systems Review of Systems ROS Unobtainable: All systems reviewed & are unremarkable except as noted in HPI and below Patient History Medical History Atrial fibrillation Surgical History 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 Social History household members: spouse Smoking Status: Never smoker Smoking Status: Never smoker alcohol intake frequency: a few times a week Alcohol type: hard liquor Substance Use Type: does not use Exam Narrative Exam Narrative: GEN: Patient appears in mild distress. HEAD: No evidence of trauma, patient does have a large Band-Aid across his when she states is from a recent dermatology procedure. No raccoon/Lugo sign. NECK: Nontender, painless range of motion, trachea midline, normal rotation and side bending as well as flexion-extension. Positive Nexus criteria, no midline but bilateral discomfort below the occiput laterally, no distracting injury, altered mental status, neuro deficit, recent EtOH. EYES: PERRLA, EOMI ENT: External inspection normal, trachea is midline, Nares are clear, no septal hematoma, no dental or oral injury, airway is normal and with normal occlusion, No bony tenderness RESP: Chest is nontender and has symmetric movement, no ecchymosis, breath sounds are normal no crackles, wheezes or rales CVS: Heart sounds are normal, no murmur noted, No JVD. ABG/GI: Nontender, soft, normal bowel sounds, no distention, no organomegaly, pelvic rock is negative NEURO: Oriented AOx3, neuro is grossly intact, sensation and motor is normal all 4 extremities moving, cranial nerves II through XII are intact, GCS is 15 PSYCH: Normal mood and affect SKIN: Intact, warm and dry, no crepitus and without decubitus BACK: No CVA tenderness, no vertebral tenderness, no step-off's, no crepitus EXT: Atraumatic, hips are nontender, no pedal edema, normal color and temperature, normal range of motion of extremities with normal tendon exam, 2+ pulses in all four extremities Initial Vital Signs Initial Vital Signs: Vital Signs Temperature 98.8 F 02/17/23 12:49 Pulse Rate 88 02/17/23 12:49 Respiratory Rate 20 02/17/23 12:49 Blood Pressure 122/60 02/17/23 12:49 Pulse Oximetry 99 02/17/23 12:49 Oxygen Delivery Method Room Air 02/17/23 12:49 Course Orders Ordered: Discontinued Medications Acetaminophen (Acetaminophen 325 Mg Tablet) 975 mg PO NOW ONE Stop: 02/17/23 14:26 Last Admin: 02/17/23 14:39 Dose: 975 mg Documented By: KILLIAN Vital Signs Vital signs: Vital Signs - 8 hr 02/17/23 12:49 02/17/23 13:05 02/17/23 13:06 Temperature 98.8 F Pulse Rate 88 78 86 Respiratory Rate 20 17 Blood Pressure 122/60 Pulse Oximetry 99 99 100 Oxygen Delivery Method Room Air 02/17/23 13:06 02/17/23 13:30 02/17/23 13:40 Temperature Pulse Rate 83 Respiratory Rate 16 Blood Pressure 139/64 138/76 Pulse Oximetry 100 Oxygen Delivery Method 02/17/23 13:40 02/17/23 13:45 02/17/23 13:45 Temperature Pulse Rate 78 68 Respiratory Rate 20 20 Blood Pressure 122/60 Pulse Oximetry 100 99 Oxygen Delivery Method 02/17/23 14:00 02/17/23 14:15 02/17/23 14:15 Temperature Pulse Rate 79 74 Respiratory Rate 18 14 Blood Pressure 140/67 Pulse Oximetry 100 100 Oxygen Delivery Method 02/17/23 14:30 02/17/23 14:30 02/17/23 14:45 Temperature Pulse Rate 73 74 Respiratory Rate 18 14 Blood Pressure 143/69 H Pulse Oximetry 100 100 Oxygen Delivery Method 02/17/23 14:45 02/17/23 15:00 02/17/23 15:00 Temperature Pulse Rate 97 H Respiratory Rate 25 H Blood Pressure 148/68 H 169/89 H Pulse Oximetry 98 Oxygen Delivery Method 02/17/23 15:15 02/17/23 15:15 Temperature Pulse Rate 88 Respiratory Rate 20 Blood Pressure 124/60 Pulse Oximetry 99 Oxygen Delivery Method MDM - Neck Pain/Injury Lab Data 02/17/23 14:35 02/17/23 14:35 Labs: Lab Results 02/17/23 Range/Units 14:35 WBC 8.3 (4.5-11.0) X10^3/uL RBC 4.03 L (4.5-5.9) X10^6/uL Hgb 13.1 L (13.5-17.5) g/dL Hct 38.5 L (41-53) % MCV 95.6 (80-100) fL MCH 32.6 (26-34) PG MCHC 34.1 (30-36) % RDW 13.7 (11.6-14.8) % Plt Count 177 (150-400) X10^3/uL Neut % (Auto) 71.7 (50-75) % Lymph % (Auto) 16.7 L (25-40) % Sauk % (Auto) 9.6 (3-14) % Eos % (Auto) 0.9 L (2-4) % Baso % (Auto) 1.1 (0-2) % Neut # (Auto) 5900 (7026-9654) /uL Lymph # (Auto) 1400 (6687-4903) /uL Sauk # (Auto) 800 (0-900) /uL Eos # (Auto) 100 (0-450) /uL Baso # (Auto) 100 (0-100) /uL PT 31.2 H (9.4-12.5) SECONDS INR 2.7 H (0.9-1.3) Sodium 137 (137-145) mmol/L Potassium 4.1 (3.4-5.1) mmol/L Chloride 103 (98-107) mmol/L Carbon Dioxide 29 (22-32) mmol/L BUN 16 (9-20) mg/dL Creatinine 0.62 L (0.66-1.25) mg/dL Estimated GFR > 60 (>60) mL/min BUN/Creatinine Ratio 25.8 H (6-22) Glucose 90 (80-110) mg/dL Calcium 9.3 (8.4-10.2) mg/dL Total Bilirubin 1.3 (0.2-1.3) mg/dL AST 47 (17-59) IU/L ALT 43 (<50) IU/L Alkaline Phosphatase 108 (38-126) U/L Total Protein 7.2 (6.3-8.2) g/dL Albumin 3.9 (3.5-5.0) g/dL Globulin 3.3 (1.7-4.1) g/dL Albumin/Globulin Ratio 1.2 (1.0-2.8) Imaging Data CT scan - head: Radiologist's Impression: [address] [address] [address] Scan Report Signed Patient: Eric Salgado MR#: [id number] : 1935 Acct:[id number] Age/Sex: 87 / M Date of Service: 02/17/23 Loc: ED Accession Number: [id number] Procedure: CT head/brain wo con Ordering Provider: Arlene Escalante D.O. PROCEDURE: CT HEAD/BRAIN WO CON INDICATIONS: fall on thinners TECHNIQUE: Noncontrast 4.5 mm thick angled axial sections acquired from the foramen magnum to the vertex, with coronal and sagittal reformats. For radiation dose reduction, the following was used: automated exposure control, adjustment of mA and/or kV according to patient size. COMPARISON: [facility], CT, CT HEAD/BRAIN WO CON, 11/09/2018, 11:38. FINDINGS: Image quality: Excellent. CSF spaces: Basal cisterns are patent. No extra-axial fluid collections. Ventricles are normal in size and shape. Brain: Area of encephalomalacia within the right parietal lobe. Diffuse parenchymal volume loss with symmetric expansion of the CSF containing spaces. Scattered periventricular white matter hypodensities consistent chronic microvascular ischemic disease. No midline shift. No intracranial masses or hemorrhage. Escobedo-white matter interface is normal. Skull and face: Calvarium and visualized facial bones are intact, without suspicious lesions. Sinuses: Visualized sinuses and mastoids are clear. IMPRESSION: No acute intracranial pathology. 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 Dictated by: Tre Minor M.D. on 02/17/2023 at 12:48 Approved by: Tre Minor M.D. on 02/17/[address] - cervical spine: Radiologist's Impression: [address] [address] [address] Scan Report Signed Patient: Eric Salgado MR#: [id number] : 1935 Acct:[id number] Age/Sex: 87 / M Date of Service: 02/17/23 Loc: ED Accession Number: [id number] Procedure: CT cervical spine wo con Ordering Provider: Arlene Escalante D.O. PROCEDURE: CT CERVICAL SPINE WO CON INDICATIONS: fall on thinners TECHNIQUE: Noncontrast 3 mm thick sections acquired from the skull base to the T4 level. Sagittal and coronal reformats were then constructed. For radiation dose reduction, the following was used: automated exposure control, adjustment of mA and/or kV according to patient size. COMPARISON: None. FINDINGS: Image quality: Excellent. Bones: No fractures or dislocations. Visualized superior ribs are intact. Soft tissues: Prevertebral soft tissues are normal in thickness. No paravertebral hematomas. No apical pneumothoraces. IMPRESSION: No acute fracture or subluxation. Dictated by: Tre Minor M.D. on 02/17/2023 at 12:53 Approved by: Tre Minor M.D. on [facility] Narrative Medical decision making narrative: 87-year-old male with mechanical ground level fall yesterday has a negative head CT no acute changes on C-spine. No acute neurologic changes necessitating MR of the neck. Patient does note he is on warfarin his INR was in the 3 range last week so CBC CMP and INR was ordered. Patient's labs show INR 2.7 patient's INR has been trending downward on his current medication regimen so recommended continue he has follow-up this Saturday for repeat. CMP shows no acute abnormality. CBC shows a hemoglobin of 13.1 consistent with priors no white count normal platelets. Rechecked patient has normal range of motion, no acute neurologic changes and felt appropriate for discharge home with return precautions. Discharge Plan Departure Patient Disposition: Home Clinical Impression: Fall, Neck pain Instructions: How to Prevent Falls Activity Restrictions/Additional Instructions: Follow-up with your physician for recheck if your symptoms are persistent but controlled. Your INR today is 2.7 May take Tylenol up to a 1000 mg every 6 hours. Please return for new or worsening symptoms, severe headaches, new or worsening neck pain, numbness, tingling or weakness, nausea vomiting, loss of bowel or bladder control, difficulty with ambulating or movement, new chest pain or shortness of breath or other new or concerning changes. Prescriptions: No Action finasteride 5 MG tablet 5 mg PO QDAY Qty: 0 meclizine 25 mg tablet 25 mg PO BID-TID PRN (Reason: motion sickness) Qty: 14 0RF ascorbic acid (vitamin C) 1,000 mg Tablet 1 calcium carbonate 500 mg Capsule 1 mg PO cholecalciferol (vitamin D3) 10 mcg (400 unit) Tablet,Chewable 10 mcg PO DAILY Glucosamine Chondroitin 550-30-1 mg Capsule 1 cap PO lecithin 1,200 mg Capsule 1,200 mg lutein 6 mg Tablet 6 mg saw palmetto 450 mg Capsule 450 mg warfarin 6 mg Tablet 6 mg PO DAILY atenolol 25 mg Tablet 75 mg PO DAILY Patient Comments: he takes 37.5 mg in the am and 37.5 mg in the pm Referrals: Jayden Barahona MD [Primary Care Provider] - Stand Alone Forms: Patient Portal/API
[2023-02-17] MEDS: ACETAMINOPHEN 325 MG TABLET 975 MG PO (14:39)
[2023-02-17 15:12] LABS: Add Manual Diff / Slide Review NO; Basophils Absolute Auto 100 /uL (0-100); Basophils Percent Auto 1.1 % (0-2); Eosinophils Absolute Auto 100 /uL (0-450); Eosinophils Percent Auto 0.9 % (2-4); Hematocrit 38.5 % (41-53); Hemoglobin 13.1 g/dL (13.5-17.5); Lymphocytes Absolute Auto 1400 /uL (1100-4500); Lymphocytes Percent Auto 16.7 % (25-40); Mean Corpuscular HGB Conc 34.1 % (30-36); Mean Corpuscular Hemoglobin 32.6 PG (26-34); Mean Corpuscular Volume 95.6 fL (80-100); Monocytes Absolute Auto 800 /uL (0-900); Monocytes Percent Auto 9.6 % (3-14); Neutrophils Absolute Auto 5900 /uL (1500-7000); Neutrophils Percent Auto 71.7 % (50-75); Platelet Count 177 X10^3/uL (150-400); Red Blood Cell Count 4.03 X10^6/uL (4.5-5.9); Red Cell Distribution Width 13.7 % (11.6-14.8); White Blood Cell Count 8.3 X10^3/uL (4.5-11.0)
[2023-02-17 15:17] LABS: INR 2.7 (0.9-1.3)
[2023-02-17 15:20] LABS: Prothrombin Time 31.2 SECONDS (9.4-12.5)
[2023-02-17 15:26] LABS: Alanine Aminotransferase 43 IU/L (<50); Albumin 3.9 g/dL (3.5-5.0); Albumin Globulin Ratio 1.2 (1.0-2.8); Alkaline Phosphatase 108 U/L (38-126); Aspartate Aminotransferase 47 IU/L (17-59); BUN Creatinine Ratio 25.8 (6-22); Bilirubin Total 1.3 mg/dL (0.2-1.3); Blood Urea Nitrogen 16 mg/dL (9-20); Calcium 9.3 mg/dL (8.4-10.2); Carbon Dioxide 29 mmol/L (22-32); Chloride 103 mmol/L (98-107); Estimated Glomerular Filt Rate > 60 mL/min (>60); Globulin 3.3 g/dL (1.7-4.1); Glucose 90 mg/dL (80-110); HEMOLYSIS < 15 (0-50); Potassium 4.1 mmol/L (3.4-5.1); Sodium 137 mmol/L (137-145); Total Protein 7.2 g/dL (6.3-8.2)
== END 2023-02-17 15:51 | disposition home or self-care (01) ==
PROVIDERS: Emergency Provider Emergency Medicine; Family Provider Family Medicine; PCP Family Medicine
DX: M54.2 Cervicalgia (principal); W01.10XA Fall on same level from slipping, tripping and stumbling with subsequent striking against unspecified object, initial encounter; Z79.01 Long term (current) use of anticoagulants
CPT/HCPCS: 36415; 70450; 72125; 80053; 85025; 85610; 99283; 99284

== ENCOUNTER → 2023-02-19 13:35 | Outpatient (CLI) | payer MEDICARE, SELFPAY | PROVIDERS: Family Provider Family Medicine; PCP Family Medicine; Referring Provider Family Medicine; Visit Provider Surgery | DX: I87.2 Venous insufficiency (chronic) (peripheral) (principal); L97.312 Non-pressure chronic ulcer of right ankle with fat layer exposed; I10 Essential (primary) hypertension; R60.0 Localized edema | CPT/HCPCS: 11042; 97605; 99213 ==

== ENCOUNTER → 2023-02-20 15:35 | Outpatient (CLI) | payer MEDICARE, SELFPAY ==
--- NOTE | 2023-02-20 | DI.RAD.S_ITS ---
PROCEDURE: XR LUMBAR SPINE MIN 4V INDICATIONS: sacral back pain TECHNIQUE: 4 views of the lumbar spine were acquired, including bilateral oblique views. COMPARISON: None. FINDINGS: Bones: 5 nonrib-bearing vertebrae are present. There is normal bony alignment. No vertebral body compression fractures. No suspicious bony lesions. Multilevel disc height loss. Lower lumbar facet arthropathy. Soft tissues: Overlying bowel gas pattern is normal. No suspicious soft tissue calcifications. Oblique images: No pars defects. IMPRESSION: Degenerative change. No acute bony abnormality. Dictated by: Ralph Byrd M.D. on 02/20/2023 at 19:19 Approved by: Ralph Byrd M.D. on 02/20/2023 at 19:19
== END ==
PROVIDERS: Family Provider Family Medicine; PCP Family Medicine; Referring Provider Family Medicine; Visit Provider Family Medicine
DX: M53.3 Sacrococcygeal disorders, not elsewhere classified (principal); M47.816 Spondylosis without myelopathy or radiculopathy, lumbar region
CPT/HCPCS: 72110

== ENCOUNTER → 2023-02-26 13:25 | Outpatient (CLI) | payer MEDICARE, SELFPAY | PROVIDERS: Family Provider Family Medicine; PCP Family Medicine; Referring Provider Family Medicine; Visit Provider Surgery | DX: I87.2 Venous insufficiency (chronic) (peripheral) (principal); L97.312 Non-pressure chronic ulcer of right ankle with fat layer exposed; Z79.01 Long term (current) use of anticoagulants; M86.171 Other acute osteomyelitis, right ankle and foot | CPT/HCPCS: 11042; 36415; 85651; 86140; 87070; 87075; 87077; 87205; 97607; 99213 ==

== ENCOUNTER → 2023-02-26 14:04 | Outpatient (CLI) | payer MEDICARE, SELFPAY ==
[2023-02-26 15:30] LABS: Erythrocyte Sedimentation Rate 20 MM/HR (0-15)
[2023-02-26 15:37] LABS: C-Reactive Protein Quant 2.3 mg/dL (<1.0)
== END ==
PROVIDERS: Family Provider Family Medicine; PCP Family Medicine; Referring Provider Surgery; Visit Provider Surgery
DX: L08.9 Local infection of the skin and subcutaneous tissue, unspecified (principal)
CPT/HCPCS: 36415; 85651; 86140; 87070; 87075; 87077; 87205

== ENCOUNTER → 2023-03-06 13:20 | Outpatient (CLI) | payer MEDICARE, SELFPAY | LOC: WC 13:21 | PROVIDERS: Family Provider Family Medicine; PCP Family Medicine; Referring Provider Family Medicine; Visit Provider Surgery | DX: L97.312 Non-pressure chronic ulcer of right ankle with fat layer exposed (principal); I87.2 Venous insufficiency (chronic) (peripheral); R60.0 Localized edema | CPT/HCPCS: 29581; 97607 ==

== ENCOUNTER → 2023-03-12 13:29 | Outpatient (CLI) | payer MEDICARE, SELFPAY | LOC: WC 13:29 | PROVIDERS: Family Provider Family Medicine; PCP Family Medicine; Referring Provider Family Medicine; Visit Provider Surgery | DX: Z01.810 Encounter for preprocedural cardiovascular examination (principal); L97.312 Non-pressure chronic ulcer of right ankle with fat layer exposed; I87.2 Venous insufficiency (chronic) (peripheral); R60.0 Localized edema; M86.671 Other chronic osteomyelitis, right ankle and foot; M86.171 Other acute osteomyelitis, right ankle and foot; Z79.01 Long term (current) use of anticoagulants; Z79.2 Long term (current) use of antibiotics | CPT/HCPCS: 11042; 71046; 99214 ==

== ENCOUNTER → 2023-03-12 15:22 | Outpatient (CLI) | payer MEDICARE, SELFPAY ==
--- NOTE | 2023-03-12 15:24 | DI.RAD.S_ITS ---
PROCEDURE: XR CHEST 2V INDICATIONS: evaluate for safety of HBOT TECHNIQUE: 2 views of the chest were acquired. COMPARISON: [facility], , XR CHEST 1V, 01/28/2022, 18:07. FINDINGS: Surgical changes and devices: None. Lungs and pleura: Lungs are clear. No pleural effusions or pneumothorax. Mediastinum: Mediastinal contours are normal. Heart size is normal. Bones and chest wall: No suspicious bony abnormalities. Soft tissues appear unremarkable. IMPRESSION: No acute cardiopulmonary abnormality is seen. Dictated by: Clare Peacock M.D. on 03/12/2023 at 18:06 Approved by: Clare Peacock M.D. on 03/12/2023 at 18:07
== END ==
PROVIDERS: Family Provider Family Medicine; PCP Family Medicine; Referring Provider Surgery; Visit Provider Surgery
DX: Z01.810 Encounter for preprocedural cardiovascular examination (principal); M86.171 Other acute osteomyelitis, right ankle and foot
CPT/HCPCS: 71046

== ENCOUNTER → 2023-03-13 15:11 | Outpatient (CLI) | payer MEDICARE, SELFPAY | LOC: WC 15:11 | PROVIDERS: Family Provider Family Medicine; PCP Family Medicine; Referring Provider Family Medicine; Visit Provider Surgery | DX: L97.312 Non-pressure chronic ulcer of right ankle with fat layer exposed (principal); I87.2 Venous insufficiency (chronic) (peripheral); R60.0 Localized edema | CPT/HCPCS: 29581 ==

== ENCOUNTER → 2023-03-19 13:18 | Outpatient (CLI) | payer MEDICARE, SELFPAY | LOC: WC 13:19 | PROVIDERS: Family Provider Family Medicine; PCP Family Medicine; Referring Provider Family Medicine; Visit Provider Surgery | DX: I87.2 Venous insufficiency (chronic) (peripheral) (principal); L97.312 Non-pressure chronic ulcer of right ankle with fat layer exposed; L97.812 Non-pressure chronic ulcer of other part of right lower leg with fat layer exposed; R60.0 Localized edema; M86.671 Other chronic osteomyelitis, right ankle and foot; I73.9 Peripheral vascular disease, unspecified; I10 Essential (primary) hypertension; Z79.2 Long term (current) use of antibiotics; Z79.01 Long term (current) use of anticoagulants | CPT/HCPCS: 11042; 99213 ==

== ENCOUNTER → 2023-03-21 11:26 | Outpatient (CLI) | payer MEDICARE, SELFPAY | LOC: WC 11:27 | PROVIDERS: Family Provider Family Medicine; PCP Family Medicine; Referring Provider Family Medicine; Visit Provider Surgery | DX: I87.2 Venous insufficiency (chronic) (peripheral) (principal); L97.312 Non-pressure chronic ulcer of right ankle with fat layer exposed; Z79.01 Long term (current) use of anticoagulants; M86.671 Other chronic osteomyelitis, right ankle and foot | CPT/HCPCS: 99183; G0277 ==

== ENCOUNTER → 2023-03-22 11:45 | Outpatient (CLI) | payer MEDICARE, SELFPAY | LOC: WC 11:46 | PROVIDERS: Family Provider Family Medicine; PCP Family Medicine; Referring Provider Family Medicine; Visit Provider Physician Assistant | DX: L97.312 Non-pressure chronic ulcer of right ankle with fat layer exposed (principal); L97.812 Non-pressure chronic ulcer of other part of right lower leg with fat layer exposed; I87.2 Venous insufficiency (chronic) (peripheral); R60.0 Localized edema; Z79.01 Long term (current) use of anticoagulants; M86.671 Other chronic osteomyelitis, right ankle and foot | CPT/HCPCS: 29581; 99183; G0277 ==

== ENCOUNTER → 2023-03-25 09:03 | Outpatient (CLI) | payer MEDICARE, SELFPAY ==
[2023-03-25 10:41] LABS: Add Manual Diff / Slide Review NO; Basophils Absolute Auto 100 /uL (0-100); Basophils Percent Auto 1.1 % (0-2); Eosinophils Absolute Auto 100 /uL (0-450); Hematocrit 39.7 % (41-53); Hemoglobin 13.3 g/dL (13.5-17.5); Lymphocytes Absolute Auto 1700 /uL (1100-4500); Lymphocytes Percent Auto 25.4 % (25-40); Mean Corpuscular HGB Conc 33.4 % (30-36); Mean Corpuscular Hemoglobin 32.6 PG (26-34); Mean Corpuscular Volume 97.4 fL (80-100); Monocytes Absolute Auto 700 /uL (0-900); Monocytes Percent Auto 10.5 % (3-14); Neutrophils Absolute Auto 4100 /uL (1500-7000); Platelet Count 193 X10^3/uL (150-400); Red Blood Cell Count 4.08 X10^6/uL (4.5-5.9); Red Cell Distribution Width 14.3 % (11.6-14.8); White Blood Cell Count 6.7 X10^3/uL (4.5-11.0)
[2023-03-25 10:55] LABS: Erythrocyte Sedimentation Rate 15 MM/HR (0-15)
[2023-03-25 11:06] LABS: Alanine Aminotransferase 45 IU/L (<50); Albumin 4.2 g/dL (3.5-5.0); Albumin Globulin Ratio 1.3 (1.0-2.8); Alkaline Phosphatase 101 U/L (38-126); Aspartate Aminotransferase 53 IU/L (17-59); BUN Creatinine Ratio 37.9 (6-22); Bilirubin Total 1.5 mg/dL (0.2-1.3); Blood Urea Nitrogen 22 mg/dL (9-20); Calcium 9.4 mg/dL (8.4-10.2); Carbon Dioxide 28 mmol/L (22-32); Chloride 104 mmol/L (98-107); Cholesterol 132 mg/dL (140-199); Estimated Glomerular Filt Rate > 60 mL/min (>60); Globulin 3.3 g/dL (1.7-4.1); Glucose 98 mg/dL (80-110); HDL Cholesterol 65 mg/dL (40-60); LDL Cholesterol Calculated 58 mg/dL (<100); Sodium 139 mmol/L (137-145); Total Protein 7.5 g/dL (6.3-8.2); Triglycerides 47 mg/dL (35-150)
[2023-03-25 11:07] LABS: HEMOLYSIS 87 (0-50)
[2023-03-25 11:08] LABS: Potassium 4.6 mmol/L (3.4-5.1)
[2023-03-25 11:33] LABS: TSH w/ Reflex to FT4 1.48 uIU/mL (0.47-4.68)
== END ==
PROVIDERS: Family Provider Family Medicine; PCP Family Medicine; Referring Provider Family Medicine; Visit Provider Family Medicine
DX: I48.91 Unspecified atrial fibrillation (principal); R63.4 Abnormal weight loss; Z79.01 Long term (current) use of anticoagulants
CPT/HCPCS: 80053; 80061; 84443; 85025; 85651

== ENCOUNTER → 2023-03-25 11:38 | Outpatient (CLI) | payer MEDICARE, SELFPAY | PROVIDERS: Family Provider Family Medicine; PCP Family Medicine; Referring Provider Family Medicine; Visit Provider Surgery | DX: I87.2 Venous insufficiency (chronic) (peripheral) (principal); L97.312 Non-pressure chronic ulcer of right ankle with fat layer exposed; M86.671 Other chronic osteomyelitis, right ankle and foot; I48.91 Unspecified atrial fibrillation; R63.4 Abnormal weight loss; Z79.01 Long term (current) use of anticoagulants | CPT/HCPCS: 80053; 80061; 84443; 85025; 85651; 99183; G0277 ==

== ENCOUNTER → 2023-03-26 09:36 | Outpatient (CLI) | payer MEDICARE, SELFPAY | PROVIDERS: Family Provider Family Medicine; PCP Family Medicine; Referring Provider Family Medicine; Visit Provider Physician Assistant | DX: I87.2 Venous insufficiency (chronic) (peripheral) (principal); L97.312 Non-pressure chronic ulcer of right ankle with fat layer exposed; Z79.01 Long term (current) use of anticoagulants; M86.671 Other chronic osteomyelitis, right ankle and foot; L97.812 Non-pressure chronic ulcer of other part of right lower leg with fat layer exposed; R60.0 Localized edema; L53.9 Erythematous condition, unspecified | CPT/HCPCS: 29581; 99183; G0277 ==

== ENCOUNTER → 2023-03-27 11:17 | Outpatient (CLI) | payer MEDICARE, SELFPAY | LOC: WC 11:17 | PROVIDERS: Family Provider Family Medicine; PCP Family Medicine; Referring Provider Specialist; Visit Provider Physician Assistant | DX: I87.2 Venous insufficiency (chronic) (peripheral) (principal); L97.312 Non-pressure chronic ulcer of right ankle with fat layer exposed; Z79.01 Long term (current) use of anticoagulants; M86.671 Other chronic osteomyelitis, right ankle and foot | CPT/HCPCS: 99183; G0277 ==

== ENCOUNTER → 2023-03-28 09:10 | Outpatient (CLI) | payer MEDICARE, SELFPAY | LOC: WC 04-01 09:11 | PROVIDERS: Family Provider Family Medicine; PCP Family Medicine; Referring Provider Family Medicine; Visit Provider Physician Assistant | DX: I87.2 Venous insufficiency (chronic) (peripheral) (principal); L97.312 Non-pressure chronic ulcer of right ankle with fat layer exposed; Z79.01 Long term (current) use of anticoagulants; M86.671 Other chronic osteomyelitis, right ankle and foot | CPT/HCPCS: 29581; 99183; G0277 ==

== ENCOUNTER → 2023-04-01 09:09 | Outpatient (CLI) | payer MEDICARE, SELFPAY | PROVIDERS: Family Provider Family Medicine; PCP Family Medicine; Referring Provider Family Medicine; Visit Provider Surgery | DX: I87.2 Venous insufficiency (chronic) (peripheral) (principal); L97.312 Non-pressure chronic ulcer of right ankle with fat layer exposed; Z79.01 Long term (current) use of anticoagulants; M86.671 Other chronic osteomyelitis, right ankle and foot | CPT/HCPCS: 99183; G0277 ==

== ENCOUNTER 2023-04-02 00:46 | Emergency (ER) | payer MEDICARE, SELFPAY ==
[2023-04-02 00:55] VITALS: BP 152/70; PULSE 93; RESP 20; TEMP 36.8; O2SAT 98; BMI 20.8
[2023-04-02 01:22] VITALS: PULSE 81; O2SAT 97
[2023-04-02 01:30] VITALS: BP 123/59; PULSE 73; O2SAT 96
--- NOTE | 2023-04-02 01:40 | PC.NURSE ---
L. lower leg draining moderate amount clear, thin liquid from burst blister site. Area dressed with xeroform gauze, gauze 4x4s X 10, ABD pads X 2, kerlex gauze & Coban 4 in. Disposable chux loosely taped around L. lower leg.
[2023-04-02 02:00] VITALS: BP 137/62; PULSE 83; O2SAT 98
--- NOTE | 2023-04-02 04:55 | ED.WOUNDLAC ---
HPI - Wound/Laceration General Chief Complaint: Wound/Laceration Stated Complaint: Blister/wound on left leg that busted open Time Seen by Provider: 04/02/23 01:15 Source: patient Mode of arrival: Wheelchair History of Present Illness HPI narrative: 87-year-old male with a history of venous stasis and chronic lower extremity wounds on the right side with osteomyelitis in the past and chronic nonhealing wound requiring hyperbaric oxygen. Today he has a superficial wound on his left lower extremity. It was not traumatic, he had a blister that then burst and is now weeping. This appears to be related to his lymphedema. There are no fevers and is not painful. He has an appointment at Wound Care tomorrow. Related Data Home Medications Medication Instructions Recorded Confirmed finasteride 5 mg tablet 5 mg PO QDAY ##0 05/08/11 03/20/23 atenolol 25 mg tablet 75 mg PO DAILY 01/21/18 03/20/23 warfarin 6 mg tablet 6 mg PO DAILY 01/21/18 03/20/23 ascorbic acid (vitamin C) 1,000 mg 1 04/30/22 03/20/23 tablet calcium carbonate 500 mg capsule 1 mg PO 04/30/22 03/20/23 cholecalciferol (vitamin D3) 10 10 mcg PO DAILY 04/30/22 03/20/23 mcg (400 unit) chewable tablet glucosamine sulf dipot 1 cap PO 04/30/22 03/20/23 chlr,msm,chond 550 mg-C 30 mg-aamir 1 mg capsule (Glucosamine Chondroitin) lecithin 1,200 mg capsule 1,200 mg 04/30/22 03/20/23 lutein 6 mg tablet 6 mg 04/30/22 03/20/23 saw palmetto 450 mg capsule 450 mg 04/30/22 03/20/23 atorvastatin 10 mg tablet 10 mg PO DAILY 03/20/23 03/20/23 cefadroxil 500 mg capsule 500 mg PO TID 03/20/23 03/20/23 donepezil 10 mg tablet 10 mg PO BEDTIME 03/20/23 03/20/23 Allergies Allergy/AdvReac Type Severity Reaction Status Date / Time No Known Drug Allergies Allergy Verified 03/20/23 13:57 Patient History Medical History (Updated 04/02/23 @ 01:33 by Romero Falk MD) Hearing loss Fracture (~1974) Ankle pain (~2017) Skin cancer Unintentional weight loss 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 Anticoagulated on warfarin Memory changes Vertigo (~2019) Dizziness Atrial fibrillation Surgical History (Updated 03/31/23 @ 19:27 by Adriana Swartz) Anesthesia History of ankle surgery (~1976) History of cataract removal with insertion of prosthetic lens (~2017) 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 Family History (Updated 03/31/23 @ 19:29 by Adriana Swartz) Father Stroke Mother Diabetes mellitus Brother History of heart disease Stroke Social History household members: spouse Smoking Status: Never smoker Smoking Status: Never smoker alcohol intake frequency: a few times a week Alcohol type: hard liquor Substance Use Type: does not use Exam Initial Vital Signs Initial Vital Signs: Vital Signs Temperature 98.2 F 04/02/23 00:55 Pulse Rate 93 H 04/02/23 00:55 Respiratory Rate 20 04/02/23 00:55 Blood Pressure 152/70 H 04/02/23 00:55 Pulse Oximetry 98 04/02/23 00:55 Oxygen Delivery Method Room Air 04/02/23 00:55 Const General: No acute distress HENTN Head: normocephalic and atraumatic Neck Carotids: normal carotid upstroke Resp Effort & Inspection: normal respiratory effort Skin General: dry skin and warm Other: Bilateral venous stasis changes and pitting edema. Foot is warm on the left side with brisk capillary refill and palpable pulses. Foot is not warm to suggest cellulitis, there is a superficial wound proximally 4 by 3 cm where a blister has other wrist. It is weeping clear fluid. This area is not tender. Neuro General: patient alert, patient oriented x3 and moves all extremities Course Vital Signs Vital signs: Vital Signs - 8 hr 04/02/23 00:55 04/02/23 01:22 04/02/23 01:30 Temperature 98.2 F Pulse Rate 93 H 81 Respiratory Rate 20 Blood Pressure 152/70 H 123/59 L Pulse Oximetry 98 97 Oxygen Delivery Method Room Air Room Air 04/02/23 01:30 04/02/23 02:00 04/02/23 02:00 Temperature Pulse Rate 73 83 Respiratory Rate Blood Pressure 137/62 Pulse Oximetry 96 98 Oxygen Delivery Method Room Air MDM - Wound/Laceration MDM Narrative Medical decision making narrative: 87-year-old male with lymphedema and an area of superficial blistering that has now on wrist. The area does not appear to be cellulitic. I considered deep vein thrombosis, he is chronic venous stasis changes and chronic edema is also anticoagulated I think DVT is quite unlikely. He is to be seen tomorrow wound care, have already has an appointment. We placed a nonadherent compressive dressing. Discharge Plan Departure Patient Disposition: Home Clinical Impression: Lymphedema Activity Restrictions/Additional Instructions: You have increased swelling in your legs secondary to poor venous and lymphatic return. That has resulted in a blister which has now opened. We applied a dressing today. We are compression hose or the provided compression dressing, follow up with wound care tomorrow as scheduled. I also recommend that you make an appointment to follow up soon with your primary care provider. Elevate your legs above the level of the heart when able, when doing this always have your legs slightly bent. Return to the emergency department for fevers, warmth or redness in the lower extremities or increasing lower extremity pain. Follow up soon with your primary care provider. Prescriptions: No Action atorvastatin 10 mg tablet 10 mg PO DAILY donepezil 10 mg tablet 10 mg PO BEDTIME cefadroxil 500 mg capsule 500 mg PO TID finasteride 5 MG tablet 5 mg PO QDAY Qty: 0 ascorbic acid (vitamin C) 1,000 mg Tablet 1 calcium carbonate 500 mg Capsule 1 mg PO cholecalciferol (vitamin D3) 10 mcg (400 unit) Tablet,Chewable 10 mcg PO DAILY Glucosamine Chondroitin 550-30-1 mg Capsule 1 cap PO lecithin 1,200 mg Capsule 1,200 mg lutein 6 mg Tablet 6 mg saw palmetto 450 mg Capsule 450 mg warfarin 6 mg Tablet 6 mg PO DAILY atenolol 25 mg Tablet 75 mg PO DAILY Patient Comments: he takes 37.5 mg in the am and 37.5 mg in the pm Referrals: Robles Sims MD [Primary Care Provider] - Stand Alone Forms: Patient Portal/API
== END 2023-04-02 02:00 | disposition home or self-care (01) ==
PROVIDERS: Emergency Provider Emergency Medicine; Family Provider Family Medicine; PCP Family Medicine
DX: I89.0 Lymphedema, not elsewhere classified (principal); Z79.01 Long term (current) use of anticoagulants; Z79.899 Other long term (current) drug therapy
CPT/HCPCS: 99281

== ENCOUNTER → 2023-04-02 14:04 | Outpatient (CLI) | payer MEDICARE, SELFPAY | LOC: WC 14:05 | PROVIDERS: Family Provider Family Medicine; PCP Family Medicine; Referring Provider Family Medicine; Visit Provider Surgery | DX: I87.2 Venous insufficiency (chronic) (peripheral) (principal); L97.312 Non-pressure chronic ulcer of right ankle with fat layer exposed; M86.671 Other chronic osteomyelitis, right ankle and foot; L97.321 Non-pressure chronic ulcer of left ankle limited to breakdown of skin; I89.0 Lymphedema, not elsewhere classified; Z79.01 Long term (current) use of anticoagulants; Z79.899 Other long term (current) drug therapy; L97.812 Non-pressure chronic ulcer of other part of right lower leg with fat layer exposed; R60.0 Localized edema | CPT/HCPCS: 11042; 97597; 97598; 99183; 99213; 99281; G0277 ==

== ENCOUNTER → 2023-04-03 13:11 | Outpatient (CLI) | payer MEDICARE, SELFPAY | LOC: WC 13:11 | PROVIDERS: Family Provider Family Medicine; PCP Family Medicine; Referring Provider Family Medicine; Visit Provider Surgery | DX: I87.2 Venous insufficiency (chronic) (peripheral) (principal); L97.312 Non-pressure chronic ulcer of right ankle with fat layer exposed; Z79.01 Long term (current) use of anticoagulants; M86.671 Other chronic osteomyelitis, right ankle and foot; L97.321 Non-pressure chronic ulcer of left ankle limited to breakdown of skin | CPT/HCPCS: 99183; G0277 ==

== ENCOUNTER → 2023-04-04 11:24 | Outpatient (CLI) | payer MEDICARE, SELFPAY | LOC: WC 11:24 | PROVIDERS: Family Provider Family Medicine; PCP Family Medicine; Referring Provider Family Medicine; Visit Provider Surgery | DX: I87.2 Venous insufficiency (chronic) (peripheral) (principal); L97.312 Non-pressure chronic ulcer of right ankle with fat layer exposed; Z79.01 Long term (current) use of anticoagulants; M86.671 Other chronic osteomyelitis, right ankle and foot; L97.321 Non-pressure chronic ulcer of left ankle limited to breakdown of skin | CPT/HCPCS: 29581; 99183; G0277 ==

== ENCOUNTER → 2023-04-05 11:17 | Outpatient (CLI) | payer MEDICARE, SELFPAY | LOC: WC 11:17 | PROVIDERS: Family Provider Family Medicine; PCP Family Medicine; Referring Provider Family Medicine; Visit Provider Physician Assistant | DX: L97.312 Non-pressure chronic ulcer of right ankle with fat layer exposed (principal); L97.812 Non-pressure chronic ulcer of other part of right lower leg with fat layer exposed; I87.2 Venous insufficiency (chronic) (peripheral); R60.0 Localized edema; Z79.01 Long term (current) use of anticoagulants; M86.671 Other chronic osteomyelitis, right ankle and foot | CPT/HCPCS: 29581; 99183; G0277 ==

== ENCOUNTER → 2023-04-08 10:43 | Outpatient (CLI) | payer MEDICARE, SELFPAY | LOC: WC 10:44 | PROVIDERS: Family Provider Family Medicine; PCP Family Medicine; Referring Provider Family Medicine; Visit Provider Surgery | DX: I87.2 Venous insufficiency (chronic) (peripheral) (principal); L97.312 Non-pressure chronic ulcer of right ankle with fat layer exposed; Z79.01 Long term (current) use of anticoagulants; M86.671 Other chronic osteomyelitis, right ankle and foot; L97.321 Non-pressure chronic ulcer of left ankle limited to breakdown of skin; L97.812 Non-pressure chronic ulcer of other part of right lower leg with fat layer exposed; L97.322 Non-pressure chronic ulcer of left ankle with fat layer exposed; R60.0 Localized edema | CPT/HCPCS: 11042; 87070; 87075; 87077; 87147; 87205; 97597; 97598; 99183; 99213; G0277 ==

== ENCOUNTER → 2023-04-09 13:43 | Outpatient (CLI) | payer MEDICARE, SELFPAY | LOC: WC 13:43 | PROVIDERS: Family Provider Family Medicine; PCP Family Medicine; Referring Provider Family Medicine; Visit Provider Surgery | DX: I87.2 Venous insufficiency (chronic) (peripheral) (principal); L97.312 Non-pressure chronic ulcer of right ankle with fat layer exposed; Z79.01 Long term (current) use of anticoagulants; M86.671 Other chronic osteomyelitis, right ankle and foot; L97.321 Non-pressure chronic ulcer of left ankle limited to breakdown of skin | CPT/HCPCS: 99183; G0277 ==

== ENCOUNTER → 2023-04-10 11:09 | Outpatient (CLI) | payer MEDICARE, SELFPAY | LOC: WC 11:10 | PROVIDERS: Family Provider Family Medicine; PCP Family Medicine; Referring Provider Family Medicine; Visit Provider Surgery | DX: I87.2 Venous insufficiency (chronic) (peripheral) (principal); L97.312 Non-pressure chronic ulcer of right ankle with fat layer exposed; Z79.01 Long term (current) use of anticoagulants; M86.671 Other chronic osteomyelitis, right ankle and foot; L97.321 Non-pressure chronic ulcer of left ankle limited to breakdown of skin; L97.322 Non-pressure chronic ulcer of left ankle with fat layer exposed; L97.812 Non-pressure chronic ulcer of other part of right lower leg with fat layer exposed; R60.0 Localized edema | CPT/HCPCS: 29581; 99183; G0277 ==

== ENCOUNTER → 2023-04-11 11:17 | Outpatient (CLI) | payer MEDICARE, SELFPAY | LOC: WC 11:17 | PROVIDERS: Family Provider Family Medicine; PCP Family Medicine; Referring Provider Family Medicine; Visit Provider Surgery | DX: I87.2 Venous insufficiency (chronic) (peripheral) (principal); L97.312 Non-pressure chronic ulcer of right ankle with fat layer exposed; M86.671 Other chronic osteomyelitis, right ankle and foot; L97.321 Non-pressure chronic ulcer of left ankle limited to breakdown of skin | CPT/HCPCS: 99183; G0277 ==

== ENCOUNTER → 2023-04-12 12:06 | Outpatient (CLI) | payer MEDICARE, SELFPAY | LOC: WC 12:07 | PROVIDERS: Family Provider Family Medicine; PCP Family Medicine; Referring Provider Family Medicine; Visit Provider Physician Assistant | DX: L97.312 Non-pressure chronic ulcer of right ankle with fat layer exposed (principal); L97.812 Non-pressure chronic ulcer of other part of right lower leg with fat layer exposed; L97.322 Non-pressure chronic ulcer of left ankle with fat layer exposed; I87.2 Venous insufficiency (chronic) (peripheral); R60.0 Localized edema | CPT/HCPCS: 29581 ==

== ENCOUNTER → 2023-04-15 09:49 | Outpatient (CLI) | payer MEDICARE, SELFPAY | LOC: WC 09:50 | PROVIDERS: Family Provider Family Medicine; PCP Family Medicine; Referring Provider Family Medicine; Visit Provider Surgery | DX: I87.2 Venous insufficiency (chronic) (peripheral) (principal); L97.312 Non-pressure chronic ulcer of right ankle with fat layer exposed; Z79.01 Long term (current) use of anticoagulants; M86.671 Other chronic osteomyelitis, right ankle and foot; L97.321 Non-pressure chronic ulcer of left ankle limited to breakdown of skin; L97.322 Non-pressure chronic ulcer of left ankle with fat layer exposed; L97.812 Non-pressure chronic ulcer of other part of right lower leg with fat layer exposed | CPT/HCPCS: 11042; 11045; 99183; G0277 ==

== ENCOUNTER → 2023-04-16 13:05 | Outpatient (CLI) | payer MEDICARE, SELFPAY | LOC: WC 13:05 | PROVIDERS: Family Provider Family Medicine; PCP Family Medicine; Referring Provider Family Medicine; Visit Provider Surgery | DX: I87.2 Venous insufficiency (chronic) (peripheral) (principal); L97.312 Non-pressure chronic ulcer of right ankle with fat layer exposed; Z79.01 Long term (current) use of anticoagulants; M86.671 Other chronic osteomyelitis, right ankle and foot; L97.321 Non-pressure chronic ulcer of left ankle limited to breakdown of skin | CPT/HCPCS: 99183; G0277 ==

== ENCOUNTER → 2023-04-17 11:13 | Outpatient (CLI) | payer MEDICARE, SELFPAY ==
--- NOTE | 2023-04-17 | OV.WND_ITS ---
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 Pre-Treatment Vital Signs were: Time Vitals Taken: 11:20, Blood Pressure: 134/76 mmHg, Pulse: 75 bpm, Respiratory Rate: 16 breaths/min, Temperature: 97.8 ?F, Pulse Oximetry: 100 %. The treatment protocol provided was 2.5 BRANDON x 90 minutes w/ 100% oxygen and 2-10 minute air breaks. The dive rate down was 1.5 psi / minute. The dive rate up was 1.5 psi / minute. The total treatment length was 140 minutes. Post- Treatment Vital Signs were: Time Vitals Taken: 14:00, Blood Pressure: 144/84 mmHg, Pulse: 57 bpm, Respiratory Rate: 16 breaths/min, Temperature: 97.5 ?F, Pulse Oximetry: 100 %. No adverse events were encountered. Physician/Fine Arts Instructor Notes: The patient tolerated treatment without difficulty. I was present and immediately available throughout the treatment. Plan to continue hyperbaric oxygen therapy. General Notes PT arrived in stable condition, pre-treatment checklist completed without issue. Pt completed treatment without issue, pt left in stable condition. Additional Information Physician was readily available during the entire treatment.: Yes Eric Salgado [id number] 1935 Electronic Signature(s) Signed By: Date: Luc Bailey MD 04/18/2023 08:34:58 (PT) Entered By: Luc Bailey MD on 04/18/2023 08:32:14 (PT) Eric Salgado [id number] 1935
== END ==
LOC: WC 11:14
PROVIDERS: Family Provider Family Medicine; PCP Family Medicine; Referring Provider Family Medicine; Visit Provider Surgery
DX: L97.312 Non-pressure chronic ulcer of right ankle with fat layer exposed (principal); L97.812 Non-pressure chronic ulcer of other part of right lower leg with fat layer exposed; L97.322 Non-pressure chronic ulcer of left ankle with fat layer exposed; I87.2 Venous insufficiency (chronic) (peripheral); R60.0 Localized edema; Z79.01 Long term (current) use of anticoagulants; M86.671 Other chronic osteomyelitis, right ankle and foot; L97.321 Non-pressure chronic ulcer of left ankle limited to breakdown of skin
CPT/HCPCS: 29581; 99183; G0277

== ENCOUNTER → 2023-04-18 13:16 | Outpatient (CLI) | payer MEDICARE, SELFPAY ==
--- NOTE | 2023-04-18 | OV.WND_ITS ---
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 Pre-Treatment Vital Signs were: Time Vitals Taken: 11:20, Blood Pressure: 131/80 mmHg, Pulse: 81 bpm, Respiratory Rate: 14 breaths/min, Temperature: 98.4 ?F, Pulse Oximetry: 100 %. The treatment protocol provided was 2.5 BRANDON x 90 minutes w/ 100% oxygen and 2-10 minute air breaks. The dive rate down was 1.5 psi / minute. The dive rate up was 1.5 psi / minute. The total treatment length was 140 minutes. Post- Treatment Vital Signs were: Time Vitals Taken: 13:50, Blood Pressure: 133/82 mmHg, Pulse: 65 bpm, Respiratory Rate: 14 breaths/min, Temperature: 97.6 ?F, Pulse Oximetry: 100 %. No adverse events were encountered. Physician/Security Messenger Notes: The patient tolerated treatment without difficulty. I was present and immediately available throughout the treatment. Plan to continue hyperbaric oxygen therapy. General Notes PT arrived in stable condition, pre-treatment checklist completed without issue. Pt completed treatment without issue, pt left in stable condition. Additional Information Physician was readily available during the entire treatment.: Yes Eric Salgado [id number] 1935 Electronic Signature(s) Signed By: Date: Luc Bailey MD 04/18/2023 15:40:26 (PT) Entered By: Luc Bailey MD on 04/18/2023 15:34:49 (PT) Eric Salgado [id number] 1935
== END ==
PROVIDERS: Family Provider Family Medicine; PCP Family Medicine; Referring Provider Family Medicine; Visit Provider Surgery
DX: I87.2 Venous insufficiency (chronic) (peripheral) (principal); L97.312 Non-pressure chronic ulcer of right ankle with fat layer exposed; Z79.01 Long term (current) use of anticoagulants; M86.671 Other chronic osteomyelitis, right ankle and foot; L97.321 Non-pressure chronic ulcer of left ankle limited to breakdown of skin
CPT/HCPCS: 99183; G0277

== ENCOUNTER → 2023-04-19 09:41 | Outpatient (CLI) | payer MEDICARE, SELFPAY | PROVIDERS: Family Provider Family Medicine; PCP Family Medicine; Referring Provider Family Medicine; Visit Provider Physician Assistant | DX: I87.2 Venous insufficiency (chronic) (peripheral) (principal); L97.312 Non-pressure chronic ulcer of right ankle with fat layer exposed; Z79.01 Long term (current) use of anticoagulants; M86.671 Other chronic osteomyelitis, right ankle and foot; L97.321 Non-pressure chronic ulcer of left ankle limited to breakdown of skin; L97.812 Non-pressure chronic ulcer of other part of right lower leg with fat layer exposed; L97.322 Non-pressure chronic ulcer of left ankle with fat layer exposed; R60.0 Localized edema; R23.4 Changes in skin texture | CPT/HCPCS: 29581; 99183; G0277 ==

== ENCOUNTER → 2023-04-22 14:46 | Outpatient (CLI) | payer MEDICARE, SELFPAY | PROVIDERS: Family Provider Family Medicine; PCP Family Medicine; Referring Provider Family Medicine; Visit Provider Surgery | DX: I87.2 Venous insufficiency (chronic) (peripheral) (principal); L97.312 Non-pressure chronic ulcer of right ankle with fat layer exposed; Z79.01 Long term (current) use of anticoagulants; M86.671 Other chronic osteomyelitis, right ankle and foot; L97.321 Non-pressure chronic ulcer of left ankle limited to breakdown of skin; L97.812 Non-pressure chronic ulcer of other part of right lower leg with fat layer exposed; L97.322 Non-pressure chronic ulcer of left ankle with fat layer exposed; R60.0 Localized edema; Z79.2 Long term (current) use of antibiotics | CPT/HCPCS: 11042; 11045; 99183; 99213; G0277 ==

== ENCOUNTER → 2023-04-23 14:20 | Outpatient (CLI) | payer MEDICARE, SELFPAY | PROVIDERS: Family Provider Family Medicine; PCP Family Medicine; Referring Provider Family Medicine; Visit Provider Surgery | DX: I87.2 Venous insufficiency (chronic) (peripheral) (principal); L97.312 Non-pressure chronic ulcer of right ankle with fat layer exposed; Z79.01 Long term (current) use of anticoagulants; M86.671 Other chronic osteomyelitis, right ankle and foot; L97.321 Non-pressure chronic ulcer of left ankle limited to breakdown of skin | CPT/HCPCS: 99183; G0277 ==

== ENCOUNTER → 2023-04-25 13:00 | Outpatient (CLI) | payer MEDICARE, SELFPAY | LOC: WC 13:00 | PROVIDERS: Family Provider Family Medicine; PCP Family Medicine; Referring Provider Family Medicine; Visit Provider Surgery | DX: I87.2 Venous insufficiency (chronic) (peripheral) (principal); L97.312 Non-pressure chronic ulcer of right ankle with fat layer exposed; Z79.01 Long term (current) use of anticoagulants; M86.671 Other chronic osteomyelitis, right ankle and foot; L97.321 Non-pressure chronic ulcer of left ankle limited to breakdown of skin; L97.812 Non-pressure chronic ulcer of other part of right lower leg with fat layer exposed; L97.322 Non-pressure chronic ulcer of left ankle with fat layer exposed; R60.0 Localized edema; R23.4 Changes in skin texture | CPT/HCPCS: 29581; 99183; G0277 ==

== ENCOUNTER → 2023-04-26 11:43 | Outpatient (CLI) | payer MEDICARE, SELFPAY | LOC: WC 11:44 | PROVIDERS: Family Provider Family Medicine; PCP Family Medicine; Referring Provider Family Medicine; Visit Provider Physician Assistant | DX: I87.2 Venous insufficiency (chronic) (peripheral) (principal); L97.312 Non-pressure chronic ulcer of right ankle with fat layer exposed; Z79.01 Long term (current) use of anticoagulants; M86.671 Other chronic osteomyelitis, right ankle and foot; L97.321 Non-pressure chronic ulcer of left ankle limited to breakdown of skin | CPT/HCPCS: 99183; G0277 ==

== ENCOUNTER → 2023-04-29 09:21 | Outpatient (CLI) | payer MEDICARE, SELFPAY | LOC: WC 09:21 | PROVIDERS: Family Provider Family Medicine; PCP Family Medicine; Referring Provider Family Medicine; Visit Provider Surgery | DX: I87.2 Venous insufficiency (chronic) (peripheral) (principal); L97.312 Non-pressure chronic ulcer of right ankle with fat layer exposed; Z79.01 Long term (current) use of anticoagulants; M86.671 Other chronic osteomyelitis, right ankle and foot; L97.321 Non-pressure chronic ulcer of left ankle limited to breakdown of skin; L97.812 Non-pressure chronic ulcer of other part of right lower leg with fat layer exposed; L97.322 Non-pressure chronic ulcer of left ankle with fat layer exposed; R60.0 Localized edema | CPT/HCPCS: 11042; 97597; 97598; 99183; 99213; G0277 ==

== ENCOUNTER → 2023-04-30 13:25 | Outpatient (CLI) | payer MEDICARE, SELFPAY | LOC: WC 13:26 | PROVIDERS: Family Provider Family Medicine; PCP Family Medicine; Referring Provider Family Medicine; Visit Provider Surgery | DX: I87.2 Venous insufficiency (chronic) (peripheral) (principal); L97.312 Non-pressure chronic ulcer of right ankle with fat layer exposed; Z79.01 Long term (current) use of anticoagulants; M86.671 Other chronic osteomyelitis, right ankle and foot; L97.321 Non-pressure chronic ulcer of left ankle limited to breakdown of skin | CPT/HCPCS: 99183; G0277 ==

== ENCOUNTER → 2023-05-01 13:04 | Outpatient (CLI) | payer MEDICARE, SELFPAY | LOC: WC 13:05 | PROVIDERS: Family Provider Family Medicine; PCP Family Medicine; Referring Provider Family Medicine; Visit Provider Surgery | DX: I87.2 Venous insufficiency (chronic) (peripheral) (principal); L97.312 Non-pressure chronic ulcer of right ankle with fat layer exposed; Z79.01 Long term (current) use of anticoagulants; M86.671 Other chronic osteomyelitis, right ankle and foot; L97.321 Non-pressure chronic ulcer of left ankle limited to breakdown of skin | CPT/HCPCS: 99183; G0277 ==

== ENCOUNTER → 2023-05-02 14:51 | Outpatient (CLI) | payer MEDICARE, SELFPAY | LOC: WC 14:52 | PROVIDERS: Family Provider Family Medicine; PCP Family Medicine; Referring Provider Family Medicine; Visit Provider Surgery | DX: I87.2 Venous insufficiency (chronic) (peripheral) (principal); L97.312 Non-pressure chronic ulcer of right ankle with fat layer exposed; Z79.01 Long term (current) use of anticoagulants; M86.671 Other chronic osteomyelitis, right ankle and foot; L97.321 Non-pressure chronic ulcer of left ankle limited to breakdown of skin | CPT/HCPCS: 29581; 99183; G0277 ==

== ENCOUNTER → 2023-05-03 12:59 | Outpatient (CLI) | payer MEDICARE, SELFPAY | LOC: WC 12:59 | PROVIDERS: Family Provider Family Medicine; PCP Family Medicine; Referring Provider Family Medicine; Visit Provider Physician Assistant | DX: I87.2 Venous insufficiency (chronic) (peripheral) (principal); L97.312 Non-pressure chronic ulcer of right ankle with fat layer exposed; Z79.01 Long term (current) use of anticoagulants; M86.671 Other chronic osteomyelitis, right ankle and foot; L97.321 Non-pressure chronic ulcer of left ankle limited to breakdown of skin | CPT/HCPCS: 99183; G0277 ==

== ENCOUNTER → 2023-05-06 14:44 | Outpatient (CLI) | payer MEDICARE, SELFPAY ==
[2023-05-06 15:15] LABS: Add Manual Diff / Slide Review NO; Basophils Absolute Auto 100 /uL (0-100); Eosinophils Absolute Auto 0 /uL (0-450); Eosinophils Percent Auto 0.2 % (2-4); Hematocrit 37.9 % (41-53); Hemoglobin 12.5 g/dL (13.5-17.5); Lymphocytes Absolute Auto 1300 /uL (1100-4500); Mean Corpuscular HGB Conc 32.9 % (30-36); Mean Corpuscular Hemoglobin 31.5 PG (26-34); Mean Corpuscular Volume 95.5 fL (80-100); Monocytes Absolute Auto 900 /uL (0-900); Monocytes Percent Auto 10.6 % (3-14); Neutrophils Absolute Auto 5900 /uL (1500-7000); Neutrophils Percent Auto 72.2 % (50-75); Platelet Count 159 X10^3/uL (150-400); Red Blood Cell Count 3.97 X10^6/uL (4.5-5.9); Red Cell Distribution Width 13.7 % (11.6-14.8); White Blood Cell Count 8.2 X10^3/uL (4.5-11.0)
[2023-05-06 15:39] LABS: C-Reactive Protein Quant 0.7 mg/dL (<1.0)
[2023-05-06 16:26] LABS: Erythrocyte Sedimentation Rate 13 MM/HR (0-15)
== END ==
PROVIDERS: Family Provider Family Medicine; PCP Family Medicine; Referring Provider Surgery; Visit Provider Surgery
DX: R41.3 Other amnesia (principal)
CPT/HCPCS: 36415; 85025; 85651; 86140

== ENCOUNTER → 2023-05-06 14:57 | Outpatient (CLI) | payer MEDICARE, SELFPAY | PROVIDERS: Family Provider Family Medicine; PCP Family Medicine; Referring Provider Family Medicine; Visit Provider Surgery | DX: L97.312 Non-pressure chronic ulcer of right ankle with fat layer exposed (principal); L97.322 Non-pressure chronic ulcer of left ankle with fat layer exposed; L97.812 Non-pressure chronic ulcer of other part of right lower leg with fat layer exposed; I87.2 Venous insufficiency (chronic) (peripheral); Z79.01 Long term (current) use of anticoagulants; M86.671 Other chronic osteomyelitis, right ankle and foot; R60.0 Localized edema; R41.3 Other amnesia | CPT/HCPCS: 11042; 11045; 36415; 85025; 85651; 86140; 99213; 99214 ==

== ENCOUNTER → 2023-05-09 14:15 | Outpatient (CLI) | payer MEDICARE, SELFPAY | LOC: WC 14:15 | PROVIDERS: Family Provider Family Medicine; PCP Family Medicine; Referring Provider Family Medicine; Visit Provider Surgery | DX: L97.312 Non-pressure chronic ulcer of right ankle with fat layer exposed (principal); L97.812 Non-pressure chronic ulcer of other part of right lower leg with fat layer exposed; L97.322 Non-pressure chronic ulcer of left ankle with fat layer exposed; I87.2 Venous insufficiency (chronic) (peripheral); R60.0 Localized edema | CPT/HCPCS: 29581 ==

== ENCOUNTER → 2023-05-13 11:44 | Outpatient (CLI) | payer MEDICARE, SELFPAY | LOC: WC 11:47 | PROVIDERS: Family Provider Family Medicine; PCP Family Medicine; Referring Provider Family Medicine; Visit Provider Surgery | DX: L97.312 Non-pressure chronic ulcer of right ankle with fat layer exposed (principal); L97.812 Non-pressure chronic ulcer of other part of right lower leg with fat layer exposed; L97.322 Non-pressure chronic ulcer of left ankle with fat layer exposed; I87.2 Venous insufficiency (chronic) (peripheral); R60.0 Localized edema | CPT/HCPCS: 29581 ==

== ENCOUNTER → 2023-05-16 12:04 | Outpatient (CLI) | payer MEDICARE, SELFPAY | LOC: WC 12:04 | PROVIDERS: Family Provider Family Medicine; PCP Family Medicine; Referring Provider Family Medicine; Visit Provider Nurse Practitioner Family | DX: L97.312 Non-pressure chronic ulcer of right ankle with fat layer exposed (principal); L97.322 Non-pressure chronic ulcer of left ankle with fat layer exposed; L97.812 Non-pressure chronic ulcer of other part of right lower leg with fat layer exposed; I87.2 Venous insufficiency (chronic) (peripheral); Z79.01 Long term (current) use of anticoagulants; M86.671 Other chronic osteomyelitis, right ankle and foot; R60.0 Localized edema | CPT/HCPCS: 11042; 11045; 99214 ==

== ENCOUNTER → 2023-05-20 10:49 | Outpatient (CLI) | payer MEDICARE, SELFPAY | LOC: WC 10:50 | PROVIDERS: Family Provider Family Medicine; PCP Family Medicine; Referring Provider Family Medicine; Visit Provider Surgery | DX: L97.312 Non-pressure chronic ulcer of right ankle with fat layer exposed (principal); L97.812 Non-pressure chronic ulcer of other part of right lower leg with fat layer exposed; L97.322 Non-pressure chronic ulcer of left ankle with fat layer exposed; I87.2 Venous insufficiency (chronic) (peripheral); R60.0 Localized edema | CPT/HCPCS: 29581 ==

== ENCOUNTER → 2023-05-23 11:46 | Outpatient (CLI) | payer MEDICARE, SELFPAY | LOC: WC 11:47 | PROVIDERS: Family Provider Family Medicine; PCP Family Medicine; Referring Provider Family Medicine; Visit Provider Surgery | DX: L97.322 Non-pressure chronic ulcer of left ankle with fat layer exposed (principal); L97.312 Non-pressure chronic ulcer of right ankle with fat layer exposed; I87.2 Venous insufficiency (chronic) (peripheral); Z79.01 Long term (current) use of anticoagulants; M86.671 Other chronic osteomyelitis, right ankle and foot; R60.0 Localized edema; R23.4 Changes in skin texture | CPT/HCPCS: 11042; 11045 ==

== ENCOUNTER → 2023-05-27 13:13 | Outpatient (CLI) | payer MEDICARE, SELFPAY | PROVIDERS: Family Provider Family Medicine; PCP Family Medicine; Referring Provider Family Medicine; Visit Provider Surgery | DX: L97.322 Non-pressure chronic ulcer of left ankle with fat layer exposed (principal); L97.822 Non-pressure chronic ulcer of other part of left lower leg with fat layer exposed; L97.312 Non-pressure chronic ulcer of right ankle with fat layer exposed; I87.2 Venous insufficiency (chronic) (peripheral); Z79.01 Long term (current) use of anticoagulants; M86.671 Other chronic osteomyelitis, right ankle and foot; R60.0 Localized edema | CPT/HCPCS: 11042; 11045; 99212; 99213 ==

== ENCOUNTER → 2023-05-30 12:11 | Outpatient (CLI) | payer MEDICARE, SELFPAY | PROVIDERS: Family Provider Family Medicine; PCP Family Medicine; Referring Provider Family Medicine; Visit Provider Surgery | DX: L97.312 Non-pressure chronic ulcer of right ankle with fat layer exposed (principal); L97.822 Non-pressure chronic ulcer of other part of left lower leg with fat layer exposed; L97.322 Non-pressure chronic ulcer of left ankle with fat layer exposed; I87.2 Venous insufficiency (chronic) (peripheral); R60.0 Localized edema | CPT/HCPCS: 29581 ==

== ENCOUNTER → 2023-06-03 14:33 | Outpatient (CLI) | payer MEDICARE, SELFPAY | LOC: WC 14:33 | PROVIDERS: Family Provider Family Medicine; PCP Family Medicine; Referring Provider Family Medicine; Visit Provider Surgery | DX: L97.312 Non-pressure chronic ulcer of right ankle with fat layer exposed (principal); L97.322 Non-pressure chronic ulcer of left ankle with fat layer exposed; L97.812 Non-pressure chronic ulcer of other part of right lower leg with fat layer exposed; I87.2 Venous insufficiency (chronic) (peripheral); R60.0 Localized edema; M79.661 Pain in right lower leg; M86.671 Other chronic osteomyelitis, right ankle and foot; Z79.01 Long term (current) use of anticoagulants | CPT/HCPCS: 11042; 11045; 99213 ==

== ENCOUNTER → 2023-06-06 08:53 | Outpatient (CLI) | payer MEDICARE, SELFPAY | LOC: WC 06-12 08:53 | PROVIDERS: Family Provider Family Medicine; PCP Family Medicine; Referring Provider Family Medicine; Visit Provider Surgery | DX: L97.312 Non-pressure chronic ulcer of right ankle with fat layer exposed (principal); L97.812 Non-pressure chronic ulcer of other part of right lower leg with fat layer exposed; L97.322 Non-pressure chronic ulcer of left ankle with fat layer exposed; I87.2 Venous insufficiency (chronic) (peripheral); R60.0 Localized edema | CPT/HCPCS: 29581 ==

== ENCOUNTER → 2023-06-10 14:32 | Outpatient (CLI) | payer MEDICARE, SELFPAY | LOC: WC 14:33 | PROVIDERS: Family Provider Family Medicine; PCP Family Medicine; Referring Provider Family Medicine; Visit Provider Surgery | DX: L97.312 Non-pressure chronic ulcer of right ankle with fat layer exposed (principal); L97.322 Non-pressure chronic ulcer of left ankle with fat layer exposed; L97.812 Non-pressure chronic ulcer of other part of right lower leg with fat layer exposed; I87.2 Venous insufficiency (chronic) (peripheral); R60.0 Localized edema; M86.671 Other chronic osteomyelitis, right ankle and foot; R59.0 Localized enlarged lymph nodes; Z79.01 Long term (current) use of anticoagulants | CPT/HCPCS: 11042; 11045 ==

== ENCOUNTER 2023-06-12 16:00 | Emergency (ER) | payer MEDICARE, SELFPAY ==
[2023-06-12] VITALS (8 sets, daily range): BP systolic 147–177; BP diastolic 77–84; PULSE 71–113; RESP 18; TEMP 36.8–37.2; O2SAT 92–100; BMI 20.9
--- NOTE | 2023-06-12 19:58 | ED_ITS ---
HPI - Headache General Chief Complaint: Headache Stated Complaint: stabbing pains in back of head Time Seen by Provider: 06/12/23 19:36 Mode of arrival: Ambulatory History of Present Illness HPI Narrative: 87-year-old male presents for evaluation of a sharp stabbing pain in the back of his head. Pain is intermittent, does not radiate. Began suddenly while running errands yesterday. Currently pain-free. Patient is currently being treated by Dermatology for cellulitis on his scalp, he has an appointment tomorrow with his administrative aide to check healing. Related Data Home Medications Medication Instructions Recorded Confirmed finasteride 5 mg tablet 5 mg PO QDAY ##0 05/08/11 05/22/23 atenolol 25 mg tablet 75 mg PO DAILY 01/21/18 05/22/23 warfarin 6 mg tablet 6 mg PO DAILY 01/21/18 05/22/23 ascorbic acid (vitamin C) 1,000 mg 1 04/30/22 05/22/23 tablet calcium carbonate 500 mg capsule 1 mg PO 04/30/22 05/22/23 cholecalciferol (vitamin D3) 10 10 mcg PO DAILY 04/30/22 05/22/23 mcg (400 unit) chewable tablet glucosamine sulf dipot 1 cap PO 04/30/22 05/22/23 chlr,msm,chond 550 mg-C 30 mg-aamir 1 mg capsule (Glucosamine Chondroitin) lecithin 1,200 mg capsule 1,200 mg 04/30/22 05/22/23 lutein 6 mg tablet 6 mg 04/30/22 05/22/23 saw palmetto 450 mg capsule 450 mg 04/30/22 05/22/23 atorvastatin 10 mg tablet 10 mg PO DAILY 03/20/23 05/22/23 cefadroxil 500 mg capsule 500 mg PO TID 03/20/23 05/22/23 donepezil 10 mg tablet 10 mg PO BEDTIME 03/20/23 05/22/23 Allergies Allergy/AdvReac Type Severity Reaction Status Date / Time No Known Drug Allergies Allergy Verified 06/12/23 16:09 Review of Systems Review of Systems Narrative: Negative except as noted above Patient History Medical History Hearing loss Fracture (~1974) Ankle pain (~2017) Skin cancer Unintentional weight loss 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 Anticoagulated on warfarin Memory changes Vertigo (~2019) Dizziness Atrial fibrillation Surgical History Anesthesia History of ankle surgery (~1976) History of cataract removal with insertion of prosthetic lens (~2017) 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 Family History Father Stroke Mother Diabetes mellitus Brother History of heart disease Stroke Social History household members: spouse Smoking Status: Never smoker Smoking Status: Never smoker alcohol intake frequency: a few times a week Alcohol type: hard liquor Substance Use Type: does not use Exam Initial Vital Signs Initial Vital Signs: Vital Signs Temperature 98.2 F 06/12/23 16:10 Pulse Rate 87 06/12/23 16:10 Respiratory Rate 18 06/12/23 16:10 Blood Pressure 147/81 H 06/12/23 16:10 Pulse Oximetry 100 06/12/23 16:10 Oxygen Delivery Method Room Air 06/12/23 16:10 Const: Awake, alert, no acute distress, nontoxic appearing Head: Normocephalic, atraumatic Cardiac: regular rate, regular rhythm RESP: unlabored, clear bilaterally, no wheezing Skin: Warm, Dry, scalp wound in good stages of healing, no cellulitis Neuro: AO x3, CN II-XII grossly intact, moves all extremities Course Orders Ordered: ED Orders 06/12/23 19:58 CT head/brain wo con Stat Discontinued Medications Acetaminophen (Acetaminophen 325 Mg Tablet) 650 mg PO NOW ONE Stop: 06/12/23 21:11 Last Admin: 06/12/23 21:15 Dose: 650 mg Documented By: MLM Vital Signs Vital signs: Vital Signs - 8 hr 06/12/23 20:30 06/12/23 20:46 06/12/23 21:10 Pulse Rate 113 H 71 Respiratory Rate 18 Blood Pressure 157/77 H Pulse Oximetry 98 92 06/12/23 21:11 Pulse Rate 90 Respiratory Rate 18 Blood Pressure Pulse Oximetry 94 MDM - Headache Differential Diagnosis Differential diagnosis: Likely migraine, tension headache and subarachnoid hemorrhage Imaging Data CT scan - head: Radiologist's Impression: PROCEDURE: CT HEAD/BRAIN WO CON INDICATIONS: STABBING POSTERIOR HEADACHE TECHNIQUE: Noncontrast 4.5 mm thick angled axial sections acquired from the foramen magnum to the vertex, with coronal and sagittal reformats. For radiation dose reduction, the following was used: automated exposure control, adjustment of mA and/or kV according to patient size. COMPARISON: Located Within [facility], CT, CT HEAD/BRAIN WO CON, 02/17/2023, 13:15. FINDINGS: Image quality: Diagnostic. CSF spaces: Basal cisterns are patent. No extra-axial fluid collections. The ventricles are symmetric in size and shape. 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 No intracranial bleeds or masses. There is cerebral volume loss for age, with resultant ventricular and sulcal prominence. There are periventricular and deep white matter chronic small vessel ischemic changes. There is intracranial internal carotid artery atherosclerosis. Skull and face: Calvarium and visualized facial bones appear intact, without suspicious lesions. Sinuses: Visualized sinuses and mastoids are clear. IMPRESSION: No acute intracranial pathology. No significant changes from previous study. Dictated by: Fabrice Gregory M.D. on 06/12/2023 at 20:45 Approved by: Fabrice Gregory M.D. on 06/12/2023 at 20:46 MDM Narrative Medical decision making narrative: Well-appearing patient with intermittent sharp stabbing pains in the back of his head. Currently pain-free. Physical exam does not reveal any obvious cause for patient's reported symptoms. He has wounds on his scalp that are being treated by Dermatology that appear to be clean, dry, in stages of healing without any obvious superimposed infection. CT brain negative for acute findings. Patient counseled on results of CT scan, recommended close follow up with primary care physician. Encouraged patient to keep his Dermatology appointment tomorrow as scheduled. Discharge Plan Departure Patient Disposition: Home Clinical Impression: Head pain Instructions: DI for Headache Activity Restrictions/Additional Instructions: Your CT scan today was normal. I do not know the cause of your head pain. Please follow up with your primary care physician. Return to the emergency department if your symptoms do not improve or worsen. Prescriptions: No Action atorvastatin 10 mg tablet 10 mg PO DAILY donepezil 10 mg tablet 10 mg PO BEDTIME cefadroxil 500 mg capsule 500 mg PO TID finasteride 5 MG tablet 5 mg PO QDAY Qty: 0 ascorbic acid (vitamin C) 1,000 mg Tablet 1 calcium carbonate 500 mg Capsule 1 mg PO cholecalciferol (vitamin D3) 10 mcg (400 unit) Tablet,Chewable 10 mcg PO DAILY Glucosamine Chondroitin 550-30-1 mg Capsule 1 cap PO lecithin 1,200 mg Capsule 1,200 mg lutein 6 mg Tablet 6 mg saw palmetto 450 mg Capsule 450 mg warfarin 6 mg Tablet 6 mg PO DAILY atenolol 25 mg Tablet 75 mg PO DAILY Patient Comments: he takes 37.5 mg in the am and 37.5 mg in the pm Referrals: Robles Sims MD [Primary Care Provider] - Stand Alone Forms: Patient Portal/API
[2023-06-12] MEDS: ACETAMINOPHEN 325 MG TABLET 650 MG PO (21:15)
== END 2023-06-12 21:20 | disposition home or self-care (01) ==
PROVIDERS: Emergency Provider Emergency Medicine; Family Provider Family Medicine; PCP Family Medicine
DX: R51.9 Headache, unspecified (principal)
CPT/HCPCS: 70450; 99283; 99284

== ENCOUNTER → 2023-06-13 13:11 | Outpatient (CLI) | payer MEDICARE, SELFPAY | LOC: WC 13:12 | PROVIDERS: Family Provider Family Medicine; PCP Family Medicine; Referring Provider Family Medicine; Visit Provider Surgery | DX: L97.312 Non-pressure chronic ulcer of right ankle with fat layer exposed (principal); L97.812 Non-pressure chronic ulcer of other part of right lower leg with fat layer exposed; L97.322 Non-pressure chronic ulcer of left ankle with fat layer exposed; I87.2 Venous insufficiency (chronic) (peripheral); R60.0 Localized edema | CPT/HCPCS: 29581 ==

== ENCOUNTER → 2023-06-17 08:57 | Outpatient (CLI) | payer MEDICARE, SELFPAY | LOC: WC 06-19 11:16 | PROVIDERS: Family Provider Family Medicine; PCP Family Medicine; Referring Provider Family Medicine; Visit Provider Surgery | DX: L97.322 Non-pressure chronic ulcer of left ankle with fat layer exposed (principal); L97.312 Non-pressure chronic ulcer of right ankle with fat layer exposed; I87.2 Venous insufficiency (chronic) (peripheral); Z79.01 Long term (current) use of anticoagulants; M86.671 Other chronic osteomyelitis, right ankle and foot; R59.0 Localized enlarged lymph nodes; R60.0 Localized edema; L53.9 Erythematous condition, unspecified | CPT/HCPCS: 11042; 11045; 99213 ==

== ENCOUNTER → 2023-06-17 14:02 | Outpatient (CLI) | payer MEDICARE, SELFPAY ==
--- NOTE | 2023-06-17 14:03 | DI.US.S_ITS ---
PROCEDURE: US PERIPH VENOUS LOW EXTREM RT INDICATIONS: RULE OUT DVT TECHNIQUE: Real-time imaging, as well as color and pulse Doppler interrogation, were performed of the lower extremity deep veins from the inguinal ligament to the popliteal fossa, with documentation of the visualized calf veins. COMPARISON: None. FINDINGS: The common femoral, femoral, popliteal, and the visualized calf veins are normally compressible, and free of intraluminal thrombus. Color and pulse Doppler demonstrate normal phasic intraluminal flow. There is normal augmentation response to distal compression maneuver. IMPRESSION: No findings of lower extremity deep venous thrombosis. Dictated by: Sal Kauffman M.D. on 06/17/2023 at 14:05 Approved by: Sal Kauffman M.D. on 06/17/2023 at 14:05
== END ==
PROVIDERS: Family Provider Family Medicine; PCP Family Medicine; Referring Provider Surgery; Visit Provider Surgery
DX: M79.89 Other specified soft tissue disorders (principal); L97.322 Non-pressure chronic ulcer of left ankle with fat layer exposed; L97.312 Non-pressure chronic ulcer of right ankle with fat layer exposed; I87.2 Venous insufficiency (chronic) (peripheral); M86.671 Other chronic osteomyelitis, right ankle and foot; L53.9 Erythematous condition, unspecified; R59.0 Localized enlarged lymph nodes; R60.0 Localized edema; Z79.01 Long term (current) use of anticoagulants
CPT/HCPCS: 11042; 11045; 93971

== ENCOUNTER → 2023-06-18 13:37 | Outpatient (CLI) | payer MEDICARE, SELFPAY | LOC: WC 13:38 | PROVIDERS: Family Provider Family Medicine; PCP Family Medicine; Referring Provider Family Medicine; Visit Provider Surgery | DX: L97.312 Non-pressure chronic ulcer of right ankle with fat layer exposed (principal); L97.812 Non-pressure chronic ulcer of other part of right lower leg with fat layer exposed; L97.322 Non-pressure chronic ulcer of left ankle with fat layer exposed; I87.2 Venous insufficiency (chronic) (peripheral); R60.0 Localized edema; L53.9 Erythematous condition, unspecified | CPT/HCPCS: 29581 ==

== ENCOUNTER → 2023-06-19 12:48 | Outpatient (CLI) | payer MEDICARE, SELFPAY | LOC: WC 12:48 | PROVIDERS: Family Provider Family Medicine; PCP Family Medicine; Referring Provider Family Medicine; Visit Provider Surgery | DX: L97.312 Non-pressure chronic ulcer of right ankle with fat layer exposed (principal); L97.812 Non-pressure chronic ulcer of other part of right lower leg with fat layer exposed; L97.322 Non-pressure chronic ulcer of left ankle with fat layer exposed; I87.2 Venous insufficiency (chronic) (peripheral); R60.0 Localized edema; L53.9 Erythematous condition, unspecified | CPT/HCPCS: 29581 ==

== ENCOUNTER → 2023-06-20 10:32 | Outpatient (CLI) | payer MEDICARE, SELFPAY | LOC: WC 10:33 | PROVIDERS: Family Provider Family Medicine; PCP Family Medicine; Referring Provider Family Medicine; Visit Provider Surgery | DX: L97.312 Non-pressure chronic ulcer of right ankle with fat layer exposed (principal); L97.812 Non-pressure chronic ulcer of other part of right lower leg with fat layer exposed; L97.322 Non-pressure chronic ulcer of left ankle with fat layer exposed; I87.2 Venous insufficiency (chronic) (peripheral); R60.0 Localized edema; L53.9 Erythematous condition, unspecified | CPT/HCPCS: 29581 ==

== ENCOUNTER → 2023-06-21 14:21 | Outpatient (CLI) | payer MEDICARE, SELFPAY | LOC: WC 14:22 | PROVIDERS: Family Provider Family Medicine; PCP Family Medicine; Referring Provider Family Medicine; Visit Provider Physician Assistant | DX: L97.312 Non-pressure chronic ulcer of right ankle with fat layer exposed (principal); L97.812 Non-pressure chronic ulcer of other part of right lower leg with fat layer exposed; L97.322 Non-pressure chronic ulcer of left ankle with fat layer exposed; I87.2 Venous insufficiency (chronic) (peripheral); R60.0 Localized edema; L53.9 Erythematous condition, unspecified | CPT/HCPCS: 29581 ==

== ENCOUNTER → 2023-06-24 13:33 | Outpatient (CLI) | payer MEDICARE, SELFPAY | LOC: WC 13:43 | PROVIDERS: Family Provider Family Medicine; PCP Family Medicine; Referring Provider Family Medicine; Visit Provider Surgery | DX: L97.312 Non-pressure chronic ulcer of right ankle with fat layer exposed (principal); L97.812 Non-pressure chronic ulcer of other part of right lower leg with fat layer exposed; L97.322 Non-pressure chronic ulcer of left ankle with fat layer exposed; I87.2 Venous insufficiency (chronic) (peripheral); R60.0 Localized edema | CPT/HCPCS: 29581 ==

== ENCOUNTER → 2023-06-25 10:55 | Outpatient (CLI) | payer MEDICARE, SELFPAY | LOC: WC 10:55 | PROVIDERS: Family Provider Family Medicine; PCP Family Medicine; Referring Provider Family Medicine; Visit Provider Surgery | DX: L97.312 Non-pressure chronic ulcer of right ankle with fat layer exposed (principal); L97.322 Non-pressure chronic ulcer of left ankle with fat layer exposed; L97.812 Non-pressure chronic ulcer of other part of right lower leg with fat layer exposed; I87.2 Venous insufficiency (chronic) (peripheral); Z79.01 Long term (current) use of anticoagulants; M86.671 Other chronic osteomyelitis, right ankle and foot; R60.0 Localized edema | CPT/HCPCS: 11042; 11045; 99213 ==

== ENCOUNTER → 2023-06-26 14:05 | Outpatient (CLI) | payer MEDICARE, SELFPAY | LOC: WC 14:09 | PROVIDERS: Family Provider Family Medicine; PCP Family Medicine; Referring Provider Family Medicine; Visit Provider Surgery | DX: L97.312 Non-pressure chronic ulcer of right ankle with fat layer exposed (principal); L97.812 Non-pressure chronic ulcer of other part of right lower leg with fat layer exposed; L97.322 Non-pressure chronic ulcer of left ankle with fat layer exposed; I87.2 Venous insufficiency (chronic) (peripheral); R60.0 Localized edema | CPT/HCPCS: 29581 ==

== ENCOUNTER → 2023-06-27 13:45 | Outpatient (CLI) | payer MEDICARE, SELFPAY | LOC: WC 14:03 | PROVIDERS: Family Provider Family Medicine; PCP Family Medicine; Referring Provider Family Medicine; Visit Provider Surgery | DX: L97.312 Non-pressure chronic ulcer of right ankle with fat layer exposed (principal); L97.812 Non-pressure chronic ulcer of other part of right lower leg with fat layer exposed; L97.322 Non-pressure chronic ulcer of left ankle with fat layer exposed; I87.2 Venous insufficiency (chronic) (peripheral); R60.0 Localized edema | CPT/HCPCS: 29581 ==

== ENCOUNTER → 2023-07-01 13:15 | Outpatient (CLI) | payer MEDICARE, SELFPAY | LOC: WC 13:16 | PROVIDERS: Family Provider Family Medicine; PCP Family Medicine; Referring Provider Family Medicine; Visit Provider Surgery | DX: L97.812 Non-pressure chronic ulcer of other part of right lower leg with fat layer exposed (principal); L97.322 Non-pressure chronic ulcer of left ankle with fat layer exposed; I87.2 Venous insufficiency (chronic) (peripheral); R60.0 Localized edema | CPT/HCPCS: 29581; 87070; 87205 ==

== ENCOUNTER → 2023-07-04 12:59 | Outpatient (CLI) | payer MEDICARE, SELFPAY | PROVIDERS: Family Provider Family Medicine; PCP Family Medicine; Referring Provider Family Medicine; Visit Provider Surgery | DX: L97.312 Non-pressure chronic ulcer of right ankle with fat layer exposed (principal); L97.322 Non-pressure chronic ulcer of left ankle with fat layer exposed; L97.812 Non-pressure chronic ulcer of other part of right lower leg with fat layer exposed; I87.2 Venous insufficiency (chronic) (peripheral); Z79.01 Long term (current) use of anticoagulants; M86.671 Other chronic osteomyelitis, right ankle and foot; R60.0 Localized edema; R59.0 Localized enlarged lymph nodes | CPT/HCPCS: 11042; 11045 ==

== ENCOUNTER → 2023-07-09 13:04 | Outpatient (CLI) | payer MEDICARE, SELFPAY | PROVIDERS: Family Provider Family Medicine; PCP Family Medicine; Referring Provider Family Medicine; Visit Provider Surgery | DX: L97.312 Non-pressure chronic ulcer of right ankle with fat layer exposed (principal); L97.322 Non-pressure chronic ulcer of left ankle with fat layer exposed; L97.812 Non-pressure chronic ulcer of other part of right lower leg with fat layer exposed; I87.2 Venous insufficiency (chronic) (peripheral); Z79.01 Long term (current) use of anticoagulants; M86.671 Other chronic osteomyelitis, right ankle and foot; R60.0 Localized edema; Z79.2 Long term (current) use of antibiotics | CPT/HCPCS: 11042; 11045; 99213 ==

== ENCOUNTER → 2023-07-11 15:21 | Outpatient (CLI) | payer MEDICARE, SELFPAY | LOC: WC 15:21 | PROVIDERS: Family Provider Family Medicine; PCP Family Medicine; Referring Provider Family Medicine; Visit Provider Surgery | DX: L97.312 Non-pressure chronic ulcer of right ankle with fat layer exposed (principal); L97.812 Non-pressure chronic ulcer of other part of right lower leg with fat layer exposed; L97.322 Non-pressure chronic ulcer of left ankle with fat layer exposed; I87.2 Venous insufficiency (chronic) (peripheral); R60.0 Localized edema | CPT/HCPCS: 29581 ==

== ENCOUNTER → 2023-07-15 15:23 | Outpatient (CLI) | payer MEDICARE, SELFPAY | LOC: WC 15:23 | PROVIDERS: Family Provider Family Medicine; PCP Family Medicine; Referring Provider Family Medicine; Visit Provider Surgery | DX: L97.312 Non-pressure chronic ulcer of right ankle with fat layer exposed (principal); L97.322 Non-pressure chronic ulcer of left ankle with fat layer exposed; L97.812 Non-pressure chronic ulcer of other part of right lower leg with fat layer exposed; I87.2 Venous insufficiency (chronic) (peripheral); R60.0 Localized edema; M86.671 Other chronic osteomyelitis, right ankle and foot; Z79.01 Long term (current) use of anticoagulants; R59.0 Localized enlarged lymph nodes; M25.571 Pain in right ankle and joints of right foot; M25.572 Pain in left ankle and joints of left foot | CPT/HCPCS: 11042; 11045 ==

== ENCOUNTER → 2023-07-18 14:24 | Outpatient (CLI) | payer MEDICARE, SELFPAY | LOC: WC 14:24 | PROVIDERS: Family Provider Family Medicine; PCP Family Medicine; Referring Provider Physician Assistant; Visit Provider Surgery | DX: L97.312 Non-pressure chronic ulcer of right ankle with fat layer exposed (principal); L97.812 Non-pressure chronic ulcer of other part of right lower leg with fat layer exposed; L97.322 Non-pressure chronic ulcer of left ankle with fat layer exposed; I87.2 Venous insufficiency (chronic) (peripheral); R60.0 Localized edema | CPT/HCPCS: 29581 ==

== ENCOUNTER → 2023-07-22 14:33 | Outpatient (CLI) | payer MEDICARE, SELFPAY | LOC: WC 14:33 | PROVIDERS: Family Provider Family Medicine; PCP Family Medicine; Referring Provider Family Medicine; Visit Provider Surgery | DX: L97.312 Non-pressure chronic ulcer of right ankle with fat layer exposed (principal); L97.322 Non-pressure chronic ulcer of left ankle with fat layer exposed; L97.812 Non-pressure chronic ulcer of other part of right lower leg with fat layer exposed; I87.2 Venous insufficiency (chronic) (peripheral); Z79.01 Long term (current) use of anticoagulants; M86.671 Other chronic osteomyelitis, right ankle and foot; M25.571 Pain in right ankle and joints of right foot; M25.572 Pain in left ankle and joints of left foot | CPT/HCPCS: 11042; 11045; 99213 ==

== ENCOUNTER → 2023-07-25 14:31 | Outpatient (CLI) | payer MEDICARE, SELFPAY | PROVIDERS: Family Provider Family Medicine; PCP Family Medicine; Referring Provider Family Medicine; Visit Provider Surgery | DX: L97.312 Non-pressure chronic ulcer of right ankle with fat layer exposed (principal); L97.812 Non-pressure chronic ulcer of other part of right lower leg with fat layer exposed; L97.322 Non-pressure chronic ulcer of left ankle with fat layer exposed; I87.2 Venous insufficiency (chronic) (peripheral); R60.0 Localized edema | CPT/HCPCS: 29581 ==

== ENCOUNTER 2023-07-26 07:27 | Inpatient (IN) | payer MEDICARE, SELFPAY ==
[2023-07-26] VITALS (30 sets, daily range): BP systolic 100–166; BP diastolic 54–78; PULSE 58–98; RESP 14–23; TEMP 36.2–36.7; O2SAT 95–100; BMI 20.3; BMI 19.9
--- NOTE | 2023-07-26 07:35 | DI.CT.S_ITS ---
PROCEDURE: CT HEAD/BRAIN WO CON INDICATIONS: fall confusion on coumadin TECHNIQUE: Noncontrast 4.5 mm thick angled axial sections acquired from the foramen magnum to the vertex, with coronal and sagittal reformats. For radiation dose reduction, the following was used: automated exposure control, adjustment of mA and/or kV according to patient size. COMPARISON: [facility], CT, CT HEAD/BRAIN WO CON, 06/12/2023, 20:07. FINDINGS: Image quality: Diagnostic. CSF spaces: Basal cisterns are patent. No extra-axial fluid collections. The ventricles are symmetric in size and shape. Brain: No intracranial bleeds or masses. There is cerebral volume loss for age, with resultant ventricular and sulcal prominence. There are moderate periventricular and deep white matter chronic small vessel ischemic changes. 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 There is intracranial internal carotid artery atherosclerosis. Skull and face: Calvarium and visualized facial bones appear intact, without suspicious lesions. Sinuses: Visualized sinuses and mastoids are clear. IMPRESSION: No acute intracranial pathology. Old infarct. Small vessel ischemic change. Stable findings. Dictated by: Ralph Byrd M.D. on 07/26/2023 at 8:33 Approved by: Ralph Byrd M.D. on 07/26/2023 at 8:36
--- NOTE | 2023-07-26 07:35 | DI.RAD.S_ITS ---
PROCEDURE: XR CHEST 1V INDICATIONS: confusion TECHNIQUE: One view of the chest was acquired. COMPARISON: [facility], CR, XR CHEST 2V, 03/12/2023, 15:30. FINDINGS: Surgical changes and devices: None. Lungs and pleura: Lungs are clear. No pleural effusions or pneumothorax. Mediastinum: Mediastinal contours appear normal. Severe cardiomegaly. Bones and chest wall: No suspicious bony lesions. Overlying soft tissues appear unremarkable. IMPRESSION: Severe cardiomegaly. No acute pulmonary infiltrates. Dictated by: Ralph Byrd M.D. on 07/26/2023 at 8:31 Approved by: Ralph Byrd M.D. on 07/26/2023 at 8:32
--- NOTE | 2023-07-26 07:44 | ED_ITS ---
HPI - Weakness General Chief complaint: Fall Stated complaint: Fall Time Seen by Provider: 07/26/23 07:35 History of Present Illness HPI Narrative: 87-year-old male history of atrial fibrillation warfarin presenting today with weakness and shaking. He tried to get up this morning and get to the restroom when he tripped and fell. He has a skin tear on his right elbow. He reports that he has had some all over body aches for couple of days. EMS who knows him well reports that he has had some increased confusion. He is chronic wounds on his legs he goes wound care. He reports ear pain but denies any sore throat or cough. No abdominal pain nausea or vomiting. Just generally feeling weak and not well. And fell this morning. He does have a bandage over the top of his head where he had a dermatologic procedure done. Related Data Home Medications Medication Instructions Recorded Confirmed finasteride 5 mg tablet 5 mg PO QDAY ##0 05/08/11 05/22/23 atenolol 25 mg tablet 75 mg PO DAILY 01/21/18 05/22/23 ascorbic acid (vitamin C) 1,000 mg 1 04/30/22 05/22/23 tablet calcium carbonate 500 mg capsule 1 mg PO 04/30/22 05/22/23 cholecalciferol (vitamin D3) 10 10 mcg PO DAILY 04/30/22 05/22/23 mcg (400 unit) chewable tablet glucosamine sulf dipot 1 cap PO 04/30/22 05/22/23 chlr,msm,chond 550 mg-C 30 mg-aamir 1 mg capsule (Glucosamine Chondroitin) lecithin 1,200 mg capsule 1,200 mg 04/30/22 05/22/23 lutein 6 mg tablet 6 mg 04/30/22 05/22/23 saw palmetto 450 mg capsule 450 mg 04/30/22 05/22/23 atorvastatin 10 mg tablet 10 mg PO DAILY 03/20/23 05/22/23 cefadroxil 500 mg capsule 500 mg PO TID 03/20/23 05/22/23 donepezil 10 mg tablet 10 mg PO BEDTIME 03/20/23 05/22/23 Previous Rx's Medication Instructions Recorded warfarin 6 mg tablet See Rx Instructions PO DAILY #90 07/19/23 tabs Allergies Allergy/AdvReac Type Severity Reaction Status Date / Time No Known Drug Allergies Allergy Verified 06/12/23 16:09 Patient History Medical History Hearing loss Fracture (~1974) Ankle pain (~2017) Skin cancer Unintentional weight loss 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 Anticoagulated on warfarin Memory changes Vertigo (~2019) Dizziness Atrial fibrillation Surgical History Anesthesia History of ankle surgery (~1976) History of cataract removal with insertion of prosthetic lens (~2017) 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 Family History Father Stroke Mother Diabetes mellitus Brother History of heart disease Stroke Social History household members: spouse Smoking Status: Never smoker Smoking Status: Never smoker alcohol intake frequency: a few times a week Alcohol type: hard liquor Substance Use Type: does not use Exam Initial Vital Signs Initial Vital Signs: Vital Signs Pulse Rate 98 H 07/26/23 07:30 Pulse Oximetry 99 07/26/23 07:30 GENERAL: Weak very thin alert 87-year-old male HEENT: Head bandage over superior part of head secondary to dermatologic procedure active bleeding EOMI, pupils reactive, face symmetric, moist mucous membranes CARDIOVASCULAR: Regular rate and rhythm without murmurs, rubs or gallops. RESPIRATORY: Breath sounds equal bilaterally, no wheezes rales or rhonchi. ABDOMEN: Soft, very minimally tender no significant epigastric pain no distention, no real right upper quadrant pain. Normoactive bowel sounds all 4 quadrants. No guarding or rebound. EXTREMITIES: Normal range of motion, no clubbing or edema. Neurovascularly intact NEUROLOGICAL: Alert and oriented x4. SKIN: Bilateral lower extremities chronic wounds near the ankles no surrounding erythema or drainage. Skin tear noted along right posterior ribs no laceration bandage Course Orders Ordered: ED Orders 07/26/23 07:35 CT head/brain wo con Stat XR chest 1V Stat Respiratory Panel (Film Array) Stat EKG-12 Lead Stat 07/26/23 07:38 Complete Blood Count AUTO DIFF Stat Comprehensive Metabolic Panel Stat Lactate (Lactic Acid) Stat PTT Partial Thromboplastin Christian Stat Procalcitonin Stat Prothrombin Time INR Stat Troponin & CK Cardiac Panel Stat 07/26/23 08:00 Blood Culture Stat 07/26/23 09:45 Urinalysis and Microscopic Stat 07/26/23 11:58 US abdomen limited Stat Discontinued Medications Acetaminophen (Acetaminophen 325 Mg Tablet) 975 mg PO NOW ONE Stop: 07/26/23 10:22 Last Admin: 07/26/23 10:29 Dose: 975 mg Documented By: AVNI Piperacillin Sod/Tazobactam (Sod 4.5 gm/ Sodium Chloride) 100 mls @ 200 mls/hr IV NOW ONE Stop: 07/26/23 12:27 Last Infusion: 07/26/23 13:20 Dose: Infused Documented By: Admin: 07/26/23 12:39 Dose: 200 mls/hr Documented By: AVNI Vital Signs Vital signs: Vital Signs - 8 hr 07/26/23 07:57 07/26/23 08:00 07/26/23 08:00 Temperature 98.1 F Pulse Rate 71 83 Respiratory Rate 19 19 Blood Pressure 151/71 H 138/65 Pulse Oximetry 99 100 Oxygen Delivery Method Room Air 07/26/23 08:28 07/26/23 08:28 07/26/23 08:30 Temperature Pulse Rate 83 79 Respiratory Rate 20 17 Blood Pressure 134/72 Pulse Oximetry 100 100 Oxygen Delivery Method 07/26/23 08:31 07/26/23 08:31 07/26/23 09:00 Temperature Pulse Rate 73 Respiratory Rate 17 Blood Pressure 144/67 H 151/67 H Pulse Oximetry 99 Oxygen Delivery Method 07/26/23 09:00 07/26/23 09:30 07/26/23 09:30 Temperature Pulse Rate 81 78 Respiratory Rate 16 14 Blood Pressure 131/62 Pulse Oximetry 99 99 Oxygen Delivery Method 07/26/23 10:00 07/26/23 10:00 07/26/23 10:30 Temperature Pulse Rate 93 H Respiratory Rate 22 Blood Pressure 149/74 H 166/78 H Pulse Oximetry 100 Oxygen Delivery Method 07/26/23 10:30 07/26/23 11:00 07/26/23 11:01 Temperature Pulse Rate 98 H 77 Respiratory Rate 15 15 Blood Pressure 129/60 Pulse Oximetry 100 99 Oxygen Delivery Method 07/26/23 11:01 07/26/23 12:07 07/26/23 12:30 Temperature Pulse Rate 75 80 83 Respiratory Rate 23 Blood Pressure Pulse Oximetry 99 98 98 Oxygen Delivery Method 07/26/23 12:43 07/26/23 12:43 07/26/23 13:00 Temperature Pulse Rate 72 Respiratory Rate Blood Pressure 103/57 L 116/54 L Pulse Oximetry 98 Oxygen Delivery Method 07/26/23 13:00 07/26/23 13:30 07/26/23 13:30 Temperature Pulse Rate 69 58 L Respiratory Rate Blood Pressure 117/57 L Pulse Oximetry 98 97 Oxygen Delivery Method 07/26/23 14:16 07/26/23 14:17 07/26/23 14:17 Temperature Pulse Rate 78 Respiratory Rate Blood Pressure 136/65 Pulse Oximetry 97 97 Oxygen Delivery Method 07/26/23 14:30 07/26/23 14:30 Temperature Pulse Rate 64 Respiratory Rate Blood Pressure 109/59 L Pulse Oximetry 99 Oxygen Delivery Method MDM - Weakness Lab Data 07/26/23 07:38 07/26/23 07:38 Labs: Lab Results 07/26/23 07/26/23 07/26/23 Range/Units 07:35 07:38 09:45 WBC 15.5 H (4.5-11.0) X10^3/uL RBC 4.33 L (4.5-5.9) X10^6/uL Hgb 13.3 L (13.5-17.5) g/dL Hct 40.3 L (41-53) % MCV 93.3 (80-100) fL MCH 30.7 (26-34) PG MCHC 32.9 (30-36) % RDW 15.6 H (11.6-14.8) % Plt Count 183 (150-400) X10^3/uL Neut % (Auto) Not Reportable Lymph % (Auto) Not Reportable [place] % (Auto) Not Reportable Eos % (Auto) Not Reportable Baso % (Auto) Not Reportable Lymph # (Auto) Not Reportable [place] # (Auto) Not Reportable Baso # (Auto) Not Reportable Total Counted 100 Seg Neutrophils % 86.0 H (38-70) % Lymphocytes % (Manual) 11.0 L (25-45) % Monocytes % (Manual) 2.0 (2-11) % Basophils % (Manual) 1.0 (0-1) % Neutrophils # (Manual) 21390 H (9464-3859) /uL RBC Morphology Normal morphology PT 23.3 H (9.4-12.5) SECONDS INR 2.0 H (0.9-1.3) APTT 39 H (25.1-36.5) SECONDS Sodium 136 L (137-145) mmol/L Potassium 4.1 (3.4-5.1) mmol/L Chloride 104 (98-107) mmol/L Carbon Dioxide 23 (22-32) mmol/L BUN 20 (9-20) mg/dL Creatinine 0.62 L (0.66-1.25) mg/dL Estimated GFR > 60 (>60) mL/min BUN/Creatinine Ratio 32.3 H (6-22) Glucose 89 (80-110) mg/dL Lactate 1.6 (0.7-2.1) mmol/L Calcium 8.8 (8.4-10.2) mg/dL Total Bilirubin 2.7 H (0.2-1.3) mg/dL AST 65 H (17-59) IU/L ALT 31 (<50) IU/L Alkaline Phosphatase 118 (38-126) U/L Total Creatine Kinase 102 (55-170) U/L Troponin I < 0.012 (0.01-0.034) ng/mL Total Protein 7.6 (6.3-8.2) g/dL Albumin 4.3 (3.5-5.0) g/dL Globulin 3.3 (1.7-4.1) g/dL Albumin/Globulin Ratio 1.3 (1.0-2.8) Procalcitonin 0.141 (<0.5) ng/mL Urine Color Yellow Urine Appearance Clear Urine pH 6.0 (4.5-8.0) Ur Specific [place] 1.025 (1.000-1.035) Urine Protein Trace H (Negative) Urine Glucose (UA) Negative (Negative) g/dL Urine Ketones 1+ H (NEGATIVE) Urine Occult Blood Trace-intact (Negative) Urine Nitrate Negative (Negative) Urine Bilirubin Negative (NEGATIVE) Urine Urobilinogen 1.0 (0.2) E.U./dL Ur Leukocyte Esterase Negative (NEGATIVE) Urine RBC None seen (0-5/HPF) Urine WBC None seen (0-5/HPF) Ur Squamous Epith Cells None seen (0-5/HPF) Urine Bacteria None seen (None) Ur Culture Indicated? Cult not indicated Vol Urine Centrifuged 10ml (spun) Chlamy pneumoniae PCR Not detected (Not Detect) Adenovirus (PCR) Not detected (Not Detect) B.parapertussis DNA PCR Not detected (Not Detecte) Coronavirus OC43 (PCR) Not detected (Not Detect) Coronavirus HKU1 (PCR) Not detected (Not Detect) Coronavirus 229E (PCR) Not detected (Not Detect) SARS-CoV-2 (PCR) Not detected (Not Detecte) Coronavirus NL63 (PCR) Not detected (Not Detect) Human Metapneumovir PCR Not detected (Not Detect) Influenza Type A (PCR) Not detected (Not Detect) Influenza Type B (PCR) Not detected (Not Detect) M. pneumoniae (PCR) Not detected (Not Detect) Parainfluenza 1 (PCR) Not detected (Not Detect) Parainfluenza 2 (PCR) Not detected (Not Detect) Parainfluenza 3 (PCR) Not detected (Not Detect) Parainfluenza 4 (PCR) Not detected (Not Detect) RSV (PCR) Not detected (Not Detect) Entero/Rhino (PCR) Not detected (Not Detect) Imaging Data Chest x-ray: Radiologist Impression: PROCEDURE: XR CHEST 1V INDICATIONS: confusion TECHNIQUE: One view of the chest was acquired. COMPARISON: [facility], , XR CHEST 2V, 03/12/2023, 15:30. FINDINGS: Surgical changes and devices: None. Lungs and pleura: Lungs are clear. No pleural effusions or pneumothorax. Mediastinum: Mediastinal contours appear normal. Severe cardiomegaly. Bones and chest wall: No suspicious bony lesions. Overlying soft tissues appear unremarkable. IMPRESSION: Severe cardiomegaly. No acute pulmonary infiltrates. Dictated by: Ralph Byrd M.D. on 07/26/2023 at 8:31 CT scan - head: Radiologist Impression: PROCEDURE: CT HEAD/BRAIN WO CON INDICATIONS: fall confusion on coumadin TECHNIQUE: Noncontrast 4.5 mm thick angled axial sections acquired from the foramen magnum to the vertex, with coronal and sagittal reformats. For radiation dose reduction, the following was used: automated exposure control, adjustment of mA and/or kV according to patient size. COMPARISON: [facility], CT, CT HEAD/BRAIN WO CON, 06/12/2023, 20:07. FINDINGS: Image quality: Diagnostic. CSF spaces: Basal cisterns are patent. No extra-axial fluid collections. The ventricles are symmetric in size and shape. Brain: No intracranial bleeds or masses. There is cerebral volume loss for age, with resultant ventricular and sulcal prominence. There are moderate periventricular and deep white matter chronic small vessel ischemic changes. 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 There is intracranial internal carotid artery atherosclerosis. Skull and face: Calvarium and visualized facial bones appear intact, without suspicious lesions. Sinuses: Visualized sinuses and mastoids are clear. IMPRESSION: No acute intracranial pathology. Old infarct. Small vessel ischemic change. Stable findings. Dictated by: Ralph Byrd M.D. on 07/26/2023 at 8:33 ECG Data Attestation: I personally reviewed and interpreted this ECG as follows: Prior ECG tracings: available for review Interpretation: Atrial fibrillation rate [address] changes MDM Narrative Medical decision making narrative: MDM CC: Weakness fall Complicating co-morbidities: Atrial fibrillation on warfarin Corroborating data: [ ] Data collected from: EMS Medical records reviewed: Yes Differential considered: Infection sepsis intracranial hemorrhage Exam documented above, pertinent findings include: Weak frail chronic lower extremity wounds appear to be healing no significant erythema or drainage, small skin tears 1 noted on the right ribs 1 on right elbow no significant laceration Lab Test results independently reviewed as above. Pertinent findings: WBC 15.5, hemoglobin 13.3 hematocrit 40.3, platelets 183, INR 2.0, sodium 136, potassium 4.1, chloride 104, carbon dioxide 23, BUN 20, creatinine 0.62, lactate 1.6, bilirubin 2.7 previously 1.5, AST 65, ALT 31, alk-phos 118, troponin negative Urinalysis negative Respiratory panel negative Independently reviewed EKG as above atrial fibrillation without ischemic changes Imaging studies independently reviewed: Chest x-ray no acute cardiopulmonary process Shows acute cholecystitis Consultations: Dr. Lora surgery has been updated patient's symptoms test results he just ate some sort of bar will likely do surgery tomorrow Dr. Sims updated patient's symptoms test results happy to accept Treatments: Zosyn Re-evaluations: Patient ambulated without significant difficulty Discussion: Patient has mild leukocytosis of 15 vague symptoms generally feeling weak no real complaints no significant abdominal pain. Bilirubin noted to be elevated at 2.7 previously 1.5 AST slightly elevated as well. Ultrasound is concerning for acute cholecystitis which correlates with abnormal laboratory values. Normal lactate afebrile no evidence of sepsis. All other infectious workup negative blood cultures pending. His legs were and I wrapped but had nice dressings from wound care legs overall appear chronic and not acute. Patient really has not required anything for pain he got a dose of Zosyn. Discharge Plan Departure Patient Disposition: Admitted As Inpatient Clinical Impression: Acute cholecystitis Admit Date/Time: 07/26/23 14:52 Admit Provider: Robles Sims
[2023-07-26 07:48] LABS: Hematocrit 40.3 % (41-53); Hemoglobin 13.3 g/dL (13.5-17.5); Mean Corpuscular HGB Conc 32.9 % (30-36); Mean Corpuscular Hemoglobin 30.7 PG (26-34); Mean Corpuscular Volume 93.3 fL (80-100); Platelet Count 183 X10^3/uL (150-400); Red Blood Cell Count 4.33 X10^6/uL (4.5-5.9); Red Cell Distribution Width 15.6 % (11.6-14.8); White Blood Cell Count 15.5 X10^3/uL (4.5-11.0)
[2023-07-26 07:50] LABS: Add Manual Diff / Slide Review YES
[2023-07-26 08:05] LABS: Prothrombin Time 23.3 SECONDS (9.4-12.5)
[2023-07-26 08:13] LABS: Lactate (Lactic Acid) 1.6 mmol/L (0.7-2.1)
[2023-07-26 08:17] LABS: PTT Partial Thromboplastin Tim 39 SECONDS (25.1-36.5)
[2023-07-26 08:18] LABS: Creatine Kinase 102 U/L (55-170); HEMOLYSIS < 15 (0-50)
[2023-07-26 08:25] LABS: Troponin I < 0.012 ng/mL (0.01-0.034)
[2023-07-26 08:38] LABS: Procalcitonin 0.141 ng/mL (<0.5)
[2023-07-26 08:40] LABS: Neutrophils Absolute Manual 13330 /uL (3000-5900); Total Cells Counted 100
[2023-07-26 08:41] LABS: RBC Morphology Normal Morphology
[2023-07-26 08:51] LABS: Adenovirus Not Detected (Not Detect); B. parapertussis Not Detected (Not Detecte); Bordetella pertussis Not Detected (Not Detect); Chlamydophila pneumoniae Not Detected (Not Detect); Coronavirus 229E Not Detected (Not Detect); Coronavirus HKU1 Not Detected (Not Detect); Coronavirus NL 63 Not Detected (Not Detect); Coronavirus OC43 Not Detected (Not Detect); Human Metapneumovirus Not Detected (Not Detect); Human Rhinovirus/Enterovirus Not Detected (Not Detect); Influenza A Not Detected (Not Detect); Influenza B Not Detected (Not Detect); Mycoplasma pneumoniae Not Detected (Not Detect); Parainfluenza Virus 1 Not Detected (Not Detect); Parainfluenza Virus 2 Not Detected (Not Detect); Parainfluenza Virus 3 Not Detected (Not Detect); Parainfluenza Virus 4 Not Detected (Not Detect); Respiratory Syncytial Virus Not Detected (Not Detect); SARS- CoV-2 Not Detected (Not Detecte)
[2023-07-26 10:00] LABS: Appearance Urine UA CLEAR; Bilirubin Urine UA NEGATIVE (NEGATIVE); Color Urine UA YELLOW; Glucose Urine UA NEGATIVE (Negative); Ketones Urine UA 1+ (NEGATIVE); Leukocyte Esterase Urine UA NEGATIVE (NEGATIVE); Nitrite Urine UA NEGATIVE (Negative); Occult Blood Urine UA TRACE-INTACT (Negative); Protein Urine UA TRACE (Negative); Specific Gravity Urine UA 1.025 (1.000-1.035)
[2023-07-26 10:04] LABS: Urine Volume 10mL (spun)
[2023-07-26 10:06] LABS: Bacteria Urine None Seen; Culture Indicated Urine Cult Not Indicated; RBC Urine None Seen (0-5/HPF); Squamous Epithelial Cell Urine None Seen (0-5/HPF); WBC Urine None Seen (0-5/HPF)
[2023-07-26 10:25] LABS: Alanine Aminotransferase 31 IU/L (<50); Alkaline Phosphatase 118 U/L (38-126); Aspartate Aminotransferase 65 IU/L (17-59); BUN Creatinine Ratio 32.3 (6-22); Bilirubin Total 2.7 mg/dL (0.2-1.3); Blood Urea Nitrogen 20 mg/dL (9-20); Calcium 8.8 mg/dL (8.4-10.2); Carbon Dioxide 23 mmol/L (22-32); Chloride 104 mmol/L (98-107); Estimated Glomerular Filt Rate > 60 mL/min (>60); Glucose 89 mg/dL (80-110); Potassium 4.1 mmol/L (3.4-5.1); Sodium 136 mmol/L (137-145); Total Protein 7.6 g/dL (6.3-8.2)
[2023-07-26 10:26] LABS: Albumin 4.3 g/dL (3.5-5.0); Albumin Globulin Ratio 1.3 (1.0-2.8); Globulin 3.3 g/dL (1.7-4.1)
[2023-07-26] MEDS: ACETAMINOPHEN 325 MG TABLET 975 MG PO (10:29)
--- NOTE | 2023-07-26 11:58 | DI.US.S_ITS ---
PROCEDURE: US ABDOMEN LIMITED INDICATIONS: ELEVATED LIVER ENZYMES, BILIRUBIN TECHNIQUE: Real-time focused scanning was performed of the abdomen, with image documentation. COMPARISON: [facility], , US ABDOMEN LIMITED, 06/08/2022, 12:45. FINDINGS: The liver is normal in size and echotexture. The gallbladder appears free of stone but the wall thickness is abnormal at 4.7 mm and there is a slight amount of adjacent free fluid at the gallbladder fossa and also tenderness during focal sonographic palpation of the gallbladder. Bile ducts are normal in caliber, the pancreas visualized appears normal. IMPRESSION: Acalculous cholecystitis should be considered given the abnormal gallbladder wall thickness without internal gallstones or biliary distension. Additionally, adjacent hepatitis can produce such an appearance. Slight free fluid adjacent to the gallbladder. Dictated by: Donald Jiang M.D. on 07/26/2023 at 13:10 Approved by: Donald Jiang M.D. on 07/26/2023 at 13:11
[2023-07-26] MEDS: PIPERACILLIN/TAZO 4.5 GM in SODIUM CHLORIDE 0.9% 100 ML IV (12:39)
--- NOTE | 2023-07-26 13:29 | PC.NURSE ---
Pt able to ambulate w/ walker. additional skin tear noted to right posterior ribcage; md aware.
--- NOTE | 2023-07-26 16:44 | PC.NURSE ---
Arrived from ED. Alert/slightly confused at times, reorients quickly Presents w/ bilateral dsg on lower legs, for which he sees the wound clinic for. Right elbow area w/ dsg from skin tear from fall at home. Dsg on top of head CDI, states it from a infection unrelated to this fall. Pt had CT done ans was found to have michelle issues. Surgery scheduled for [address] Lora Pt & oriented to room & call system. Bed alarm on for pt safety. COntinue w/ plan of care.
--- NOTE | 2023-07-26 17:39 | PM.CN ---
History of Present Illness Consult details Date Patient Seen: 07/26/23 Time Patient Seen: 17:39 Chief complaint: Fall Narrative: Eric is an 87-year-old man PMH atrial fibrillation on warfarin, hypertension, admitted to the hospital with acute acalculous cholecystitis. He is slightly confused today unclear what his baseline is however his reports that he has been unwell for at least 1-2 weeks. He had a ground level fall today striking his head did not lose consciousness and CT head negative for acute intracranial injury. He has abdominal pain in the right upper and right lower quadrant with generalized malaise and anorexia. At admission afebrile hemodynamically normal, WBC 16, hematocrit 40, INR 2.0, creatinine 0.6, total bilirubin 2.7. Abdominal ultrasound demonstrates a thickened gallbladder wall without stones and pericholecystic fluids consistent with a acalculous cholecystitis. He received Zosyn in the emergency department. Atrial fibrillation on warfarin followed by [facility] cardiology Performs aerobic exercise several times per week at gym Tolerated anesthesia previously without issue Prior abdominal surgery open appendectomy Meds Home Medications and Allergies Home Medications Medication Instructions Recorded Confirmed Type finasteride 5 mg tablet 5 mg PO QDAY ##0 05/08/11 07/26/23 History atenolol 25 mg tablet 75 mg PO DAILY 01/21/18 07/26/23 History ascorbic acid (vitamin C) 1,000 mg 500 mg PO DAILY 04/30/22 07/26/23 History tablet calcium carbonate 500 mg capsule 500 mg PO DAILY 04/30/22 07/26/23 History cholecalciferol (vitamin D3) 10 10 mcg PO DAILY 04/30/22 07/26/23 History mcg (400 unit) chewable tablet glucosamine sulf dipot 1 cap PO DAILY 04/30/22 07/26/23 History chlr,msm,chond 550 mg-C 30 mg-aamir 1 mg capsule (Glucosamine Chondroitin) lutein 6 mg tablet 6 mg PO DAILY 04/30/22 07/26/23 History saw palmetto 450 mg capsule 450 mg PO DAILY 04/30/22 07/26/23 History atorvastatin 10 mg tablet 10 mg PO DAILY 03/20/23 07/26/23 History donepezil 10 mg tablet 10 mg PO BEDTIME 03/20/23 07/26/23 History warfarin 6 mg tablet See Rx Instructions PO DAILY #90 07/19/23 07/26/23 Rx tabs Allergies Allergy/AdvReac Type Severity Reaction Status Date / Time No Known Drug Allergies Allergy Verified 06/12/23 16:09 Exam Vital Signs (past 8 hours): - 07/26/23 10:00 07/26/23 10:00 07/26/23 10:30 Temperature Pulse Rate 93 H Respiratory Rate 22 Blood Pressure 149/74 H 166/78 H Pulse Oximetry 100 Oxygen Delivery Method 07/26/23 10:30 07/26/23 11:00 07/26/23 11:01 Temperature Pulse Rate 98 H 77 Respiratory Rate 15 15 Blood Pressure 129/60 Pulse Oximetry 100 99 Oxygen Delivery Method 07/26/23 11:01 07/26/23 12:07 07/26/23 12:30 Temperature Pulse Rate 75 80 83 Respiratory Rate 23 Blood Pressure Pulse Oximetry 99 98 98 Oxygen Delivery Method 07/26/23 12:43 07/26/23 12:43 07/26/23 13:00 Temperature Pulse Rate 72 Respiratory Rate Blood Pressure 103/57 L 116/54 L Pulse Oximetry 98 Oxygen Delivery Method 07/26/23 13:00 07/26/23 13:30 07/26/23 13:30 Temperature Pulse Rate 69 58 L Respiratory Rate Blood Pressure 117/57 L Pulse Oximetry 98 97 Oxygen Delivery Method 07/26/23 14:16 07/26/23 14:17 07/26/23 14:17 Temperature Pulse Rate 78 Respiratory Rate Blood Pressure 136/65 Pulse Oximetry 97 97 Oxygen Delivery Method 07/26/23 14:30 07/26/23 14:30 07/26/23 15:00 Temperature Pulse Rate 64 Respiratory Rate Blood Pressure 109/59 L 128/58 L Pulse Oximetry 99 Oxygen Delivery Method 07/26/23 15:00 07/26/23 15:26 07/26/23 15:30 Temperature 97.8 F Pulse Rate 73 76 Respiratory Rate Blood Pressure Pulse Oximetry 99 100 Oxygen Delivery Method 07/26/23 15:31 07/26/23 15:31 07/26/23 15:37 Temperature 97.8 F Pulse Rate 67 Respiratory Rate Blood Pressure 100/61 Pulse Oximetry 99 99 Oxygen Delivery Method Room Air 07/26/23 16:00 Temperature 97.1 F L Pulse Rate 63 Respiratory Rate 16 Blood Pressure 143/73 H Pulse Oximetry 100 Oxygen Delivery Method Oxygen Delivery Method Room Air Narrative Exam Narrative: GENERAL: Thin elderly man resting comfortably, in no acute distress. HEENT: Normocephalic, scalp dressing clean dry intact. No scleral icterus CHEST: Rising symmetrically. No audible wheezes CARDIOVASCULAR: Warm and well perfused. Regular rate ABDOMEN: Right-sided tenderness no peritonitis EXTREMITIES: Normal tone and without edema. NEUROLOGIC: Moving all extremities spontaneously. No gross motor deficits. Objective Labs 07/26/23 07:38 07/26/23 07:38 Labs: Laboratory Results - last 24 hr 07/26/23 07/26/23 07/26/23 07:35 07:38 09:45 WBC 15.5 H RBC 4.33 L Hgb 13.3 L Hct 40.3 L MCV 93.3 MCH 30.7 MCHC 32.9 RDW 15.6 H Plt Count 183 Neut % (Auto) Not Reportable Lymph % (Auto) Not Reportable [place] % (Auto) Not Reportable Eos % (Auto) Not Reportable Baso % (Auto) Not Reportable Lymph # (Auto) Not Reportable [place] # (Auto) Not Reportable Baso # (Auto) Not Reportable Total Counted 100 Seg Neutrophils % 86.0 H Lymphocytes % (Manual) 11.0 L Monocytes % (Manual) 2.0 Basophils % (Manual) 1.0 Neutrophils # (Manual) 84289 H RBC Morphology Normal morphology PT 23.3 H INR 2.0 H APTT 39 H Sodium 136 L Potassium 4.1 Chloride 104 Carbon Dioxide 23 BUN 20 Creatinine 0.62 L Estimated GFR > 60 BUN/Creatinine Ratio 32.3 H Glucose 89 Lactate 1.6 Calcium 8.8 Total Bilirubin 2.7 H AST 65 H ALT 31 Alkaline Phosphatase 118 Total Creatine Kinase 102 Troponin I < 0.012 Total Protein 7.6 Albumin 4.3 Globulin 3.3 Albumin/Globulin Ratio 1.3 Procalcitonin 0.141 Urine Color Yellow Urine Appearance Clear Urine pH 6.0 Ur Specific [place] 1.025 Urine Protein Trace H Urine Glucose (UA) Negative Urine Ketones 1+ H Urine Occult Blood Trace-intact Urine Nitrate Negative Urine Bilirubin Negative Urine Urobilinogen 1.0 Ur Leukocyte Esterase Negative Urine RBC None seen Urine WBC None seen Ur Squamous Epith Cells None seen Urine Bacteria None seen Ur Culture Indicated? Cult not indicated Vol Urine Centrifuged 10ml (spun) Chlamy pneumoniae PCR Not detected Adenovirus (PCR) Not detected B.parapertussis DNA PCR Not detected Coronavirus OC43 (PCR) Not detected Coronavirus HKU1 (PCR) Not detected Coronavirus 229E (PCR) Not detected SARS-CoV-2 (PCR) Not detected Coronavirus NL63 (PCR) Not detected Human Metapneumovir PCR Not detected Influenza Type A (PCR) Not detected Influenza Type B (PCR) Not detected M. pneumoniae (PCR) Not detected Parainfluenza 1 (PCR) Not detected Parainfluenza 2 (PCR) Not detected Parainfluenza 3 (PCR) Not detected Parainfluenza 4 (PCR) Not detected RSV (PCR) Not detected Entero/Rhino (PCR) Not detected [facility] Medical History Hearing loss Fracture (~1974) Ankle pain (~2017) Skin cancer Unintentional weight loss 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 Anticoagulated on warfarin Memory changes Vertigo (~2019) Dizziness Atrial fibrillation Surgical History Anesthesia History of ankle surgery (~1976) History of cataract removal with insertion of prosthetic lens (~2017) 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 Family History Father Stroke Mother Diabetes mellitus Brother History of heart disease Stroke Social History household members: spouse Tobacco & Substance Use Smoking Status: Never smoker alcohol intake: current Assessment & Plan Assessment and plan (1) Acalculous cholecystitis: Status: Acute Assessment & Plan narrative: 87-year-old man PMH hypertension, atrial fibrillation on warfarin admitted with laboratory studies and imaging consistent with acalculous cholecystitis. Overall his functional status is fairly good, slightly limited by chronic lower extremity wound and mild cognitive dysfunction. Treatment options are either percutaneous cholecystostomy tube or cholecystectomy and I think he would tolerate surgery reasonably well. Overview of the operation was discussed with the patient and his . We discussed operative risks such as hemorrhage, infection, biliary injury and in particular that they are elevated in the setting of chronic cholecystitis which may necessitate conversion to open or subtotal cholecystectomy. Following discussion he elects to proceed with cholecystectomy. -okay for diet -NPO after midnight -oral vitamin K now INR check tomorrow morning goal is less than 1.6 -Zosyn -laparoscopic cholecystectomy 07/26 9:00 a.m.
--- NOTE | 2023-07-26 17:47 | P.HP_ITS ---
History of Present Illness History of Present Illness Date Patient Seen: 07/26/23 Time Patient Seen: 17:27 Chief complaint: Fall Narrative: Mr. Salgado is an 87-year-old male with AFib on warfarin, memory changes, chronic right lower extremity wound who presented to the ER today with weakness and shaking. He reports trip/fall due to feeling weak as he tried to get up and go to the restroom this morning. Has also been experiencing sharp aches/pain all over his body for the past few days. Per ER physician note, EMS who knows him well reported that he seems more confused than usual. Denies any recent fever, chills, nausea, vomiting, abdominal pain, change in urinary or bowel habits. Additional labs notable for WBC 15.5 with neutrophilic predominance, HGB 13.3, Na 136, AST 65, T bili 2.7, INR 2.0, troponin negative, procalcitonin < 0.5, UA negative for e/o infection with trace protein and 1+ ketones, respiratory viral panel negative. CXR demonstrates severe cardiomegaly with no acute pulmonary infiltrates. CT head with e/o old infarct and small-vessel ischemic change, no acute intracranial pathology. Abdominal ultrasound revealed gallbladder with increased wall thickness without internal gallstones or biliary distention, small about of adjacent free fluid, and positive sonographic Isidro's sign consistent with acalculous cholecystitis. He did receive a dose of Zosyn in the emergency department. [facility] Medical History Hearing loss Fracture (~1974) Ankle pain (~2017) Skin cancer Unintentional weight loss 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 Anticoagulated on warfarin Memory changes Vertigo (~2019) Dizziness Atrial fibrillation Surgical History Anesthesia History of ankle surgery (~1976) History of cataract removal with insertion of prosthetic lens (~2017) 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 Family History Father Stroke Mother Diabetes mellitus Brother History of heart disease Stroke Social History household members: spouse Smoking Status: Never smoker alcohol intake: current Meds Home Medications and Allergies Home Medications Medication Instructions Recorded Confirmed Type finasteride 5 mg tablet 5 mg PO QDAY ##0 05/08/11 07/26/23 History atenolol 25 mg tablet 75 mg PO DAILY 01/21/18 07/26/23 History ascorbic acid (vitamin C) 1,000 mg 500 mg PO DAILY 04/30/22 07/26/23 History tablet calcium carbonate 500 mg capsule 500 mg PO DAILY 04/30/22 07/26/23 History cholecalciferol (vitamin D3) 10 10 mcg PO DAILY 04/30/22 07/26/23 History mcg (400 unit) chewable tablet glucosamine sulf dipot 1 cap PO DAILY 04/30/22 07/26/23 History chlr,msm,chond 550 mg-C 30 mg-aamir 1 mg capsule (Glucosamine Chondroitin) lutein 6 mg tablet 6 mg PO DAILY 04/30/22 07/26/23 History saw palmetto 450 mg capsule 450 mg PO DAILY 04/30/22 07/26/23 History atorvastatin 10 mg tablet 10 mg PO DAILY 03/20/23 07/26/23 History donepezil 10 mg tablet 10 mg PO BEDTIME 03/20/23 07/26/23 History warfarin 6 mg tablet See Rx Instructions PO DAILY #90 07/19/23 07/26/23 Rx tabs Allergies Allergy/AdvReac Type Severity Reaction Status Date / Time No Known Drug Allergies Allergy Verified 06/12/23 16:09 Review of Systems Review of Systems ROS: Yes All systems reviewed with the patient and are negative except as otherwise documented Exam Vital Signs (past 8 hours): - 07/26/23 10:00 07/26/23 10:00 07/26/23 10:30 Temperature Pulse Rate 93 H Respiratory Rate 22 Blood Pressure 149/74 H 166/78 H Pulse Oximetry 100 Oxygen Delivery Method 07/26/23 10:30 07/26/23 11:00 07/26/23 11:01 Temperature Pulse Rate 98 H 77 Respiratory Rate 15 15 Blood Pressure 129/60 Pulse Oximetry 100 99 Oxygen Delivery Method 07/26/23 11:01 07/26/23 12:07 07/26/23 12:30 Temperature Pulse Rate 75 80 83 Respiratory Rate 23 Blood Pressure Pulse Oximetry 99 98 98 Oxygen Delivery Method 07/26/23 12:43 07/26/23 12:43 07/26/23 13:00 Temperature Pulse Rate 72 Respiratory Rate Blood Pressure 103/57 L 116/54 L Pulse Oximetry 98 Oxygen Delivery Method 07/26/23 13:00 07/26/23 13:30 07/26/23 13:30 Temperature Pulse Rate 69 58 L Respiratory Rate Blood Pressure 117/57 L Pulse Oximetry 98 97 Oxygen Delivery Method 07/26/23 14:16 07/26/23 14:17 07/26/23 14:17 Temperature Pulse Rate 78 Respiratory Rate Blood Pressure 136/65 Pulse Oximetry 97 97 Oxygen Delivery Method 07/26/23 14:30 07/26/23 14:30 07/26/23 15:00 Temperature Pulse Rate 64 Respiratory Rate Blood Pressure 109/59 L 128/58 L Pulse Oximetry 99 Oxygen Delivery Method 07/26/23 15:00 07/26/23 15:26 07/26/23 15:30 Temperature 97.8 F Pulse Rate 73 76 Respiratory Rate Blood Pressure Pulse Oximetry 99 100 Oxygen Delivery Method 07/26/23 15:31 07/26/23 15:31 07/26/23 15:37 Temperature 97.8 F Pulse Rate 67 Respiratory Rate Blood Pressure 100/61 Pulse Oximetry 99 99 Oxygen Delivery Method Room Air 07/26/23 16:00 Temperature 97.1 F L Pulse Rate 63 Respiratory Rate 16 Blood Pressure 143/73 H Pulse Oximetry 100 Oxygen Delivery Method Oxygen Delivery Method Room Air Narrative Exam Narrative: General: Pleasant, frail, chronically ill-appearing HEENT: Normocephalic, bandage on forehead/scalp from recent dermatologic procedure, EOMI, moist membranes CV: Regular rate, irregularly irregular rhythm, normal S1-S2, no m/g/r Resp: CTAB, comfortable WOB Abd: Soft, NTND, +BS, no RUQ tenderness, no guarding or rebound tenderness Ext: No edema Skin: Bilateral lower extremities with chronic wounds near ankles without surrounding erythema or drainage, skin tear along right posterior ribs Neuro: A&O x3, moves all extremities, no focal deficits Objective Imaging US - abdomen: Radiologist's impression: FINDINGS: The liver is normal in size and echotexture. The gallbladder appears free of stone but the wall thickness is abnormal at 4.7 mm and there is a slight amount of adjacent free fluid at the gallbladder fossa and also tenderness during focal sonographic palpation of the gallbladder. Bile ducts are normal in caliber, the pancreas visualized appears normal. IMPRESSION: Acalculous cholecystitis should be considered given the abnormal gallbladder wall thickness without internal gallstones or biliary distension. Additionally, adjacent hepatitis can produce such an appearance. Slight free fluid adjacent to the gallbladder. CT scan - head: Radiologist's impression: No acute intracranial pathology. Old infarct. Small vessel ischemic change. Stable findings. Chest x-ray: Radiologist's impression: Severe cardiomegaly. No acute pulmonary infiltrates. Labs 07/26/23 07:38 07/26/23 07:38 Labs: Laboratory Results - last 24 hr 07/26/23 07/26/23 07/26/23 07:35 07:38 09:45 WBC 15.5 H RBC 4.33 L Hgb 13.3 L Hct 40.3 L MCV 93.3 MCH 30.7 MCHC 32.9 RDW 15.6 H Plt Count 183 Neut % (Auto) Not Reportable Lymph % (Auto) Not Reportable [place] % (Auto) Not Reportable Eos % (Auto) Not Reportable Baso % (Auto) Not Reportable Lymph # (Auto) Not Reportable [place] # (Auto) Not Reportable Baso # (Auto) Not Reportable Total Counted 100 Seg Neutrophils % 86.0 H Lymphocytes % (Manual) 11.0 L Monocytes % (Manual) 2.0 Basophils % (Manual) 1.0 Neutrophils # (Manual) 24977 H RBC Morphology Normal morphology PT 23.3 H INR 2.0 H APTT 39 H Sodium 136 L Potassium 4.1 Chloride 104 Carbon Dioxide 23 BUN 20 Creatinine 0.62 L Estimated GFR > 60 BUN/Creatinine Ratio 32.3 H Glucose 89 Lactate 1.6 Calcium 8.8 Total Bilirubin 2.7 H AST 65 H ALT 31 Alkaline Phosphatase 118 Total Creatine Kinase 102 Troponin I < 0.012 Total Protein 7.6 Albumin 4.3 Globulin 3.3 Albumin/Globulin Ratio 1.3 Procalcitonin 0.141 Urine Color Yellow Urine Appearance Clear Urine pH 6.0 Ur Specific [place] 1.025 Urine Protein Trace H Urine Glucose (UA) Negative Urine Ketones 1+ H Urine Occult Blood Trace-intact Urine Nitrate Negative Urine Bilirubin Negative Urine Urobilinogen 1.0 Ur Leukocyte Esterase Negative Urine RBC None seen Urine WBC None seen Ur Squamous Epith Cells None seen Urine Bacteria None seen Ur Culture Indicated? Cult not indicated Vol Urine Centrifuged 10ml (spun) Chlamy pneumoniae PCR Not detected Adenovirus (PCR) Not detected B.parapertussis DNA PCR Not detected Coronavirus OC43 (PCR) Not detected Coronavirus HKU1 (PCR) Not detected Coronavirus 229E (PCR) Not detected SARS-CoV-2 (PCR) Not detected Coronavirus NL63 (PCR) Not detected Human Metapneumovir PCR Not detected Influenza Type A (PCR) Not detected Influenza Type B (PCR) Not detected M. pneumoniae (PCR) Not detected Parainfluenza 1 (PCR) Not detected Parainfluenza 2 (PCR) Not detected Parainfluenza 3 (PCR) Not detected Parainfluenza 4 (PCR) Not detected RSV (PCR) Not detected Entero/Rhino (PCR) Not detected Assessment & Plan Assessment and plan (1) Acalculous cholecystitis: Status: Acute (2) Weakness: Status: Acute (3) Atrial fibrillation: Qualifiers: Atrial fibrillation type: unspecified Qualified Code(s): I48.91 - Unspecified atrial fibrillation Status: Acute (4) Anticoagulated on warfarin: Status: Acute (5) Memory changes: Status: Acute Assessment & Plan narrative: #Acalculous cholecystitis #Weakness No e/o sepsis given normal lactate, afebrile, VSS wnl. Dr. Lora consulted from ED, plan for lap michelle tomorrow due to patient having recently eaten. -Zosyn 4.5 mg q.6 hr -f/u Bcx -NPO after midnight for surgery tomorrow morning #AFib #Warfarin anticoagulation -vitamin K to reverse INR -telemetry #Dementia -home donepezil Dispo: Acute care Diet: Heart healthy DVT ppx: SCDs Code: Full PCP: Levi MDM: Time Spent With Patient Time with patient: less than 30 minutes Quality VTE Deep Vein Thrombosis/Pulmonary Embolism Present on Admission: No IH PROFEE Charge Codes Initial inpatient/observation care: 48874
[2023-07-26] MEDS: PIPERACILLIN/TAZO 3.375 GM in SODIUM CHLORIDE 0.9% 100 ML IV (18:00)
[2023-07-26] MEDS: PHYTONADIONE (VIT K1) 5 MG TABLET PO (19:43)
[2023-07-26] MEDS: SODIUM CHLORIDE 0.45% 1,000 ML 75 ML IV (20:03)
[2023-07-26] MEDS: FINASTERIDE 5 MG TABLET PO (20:12)
[2023-07-26] MEDS: DOCUSATE 100 MG CAPSULE PO (20:20)
[2023-07-26] MEDS: DONEPEZIL 5 MG TABLET 10 MG PO (20:20)
[2023-07-27] VITALS (26 sets, daily range): BP systolic 110–161; BP diastolic 56–97; PULSE 69–97; RESP 10–18; TEMP 35.9–37; O2SAT 93–100; BMI 19.9
--- NOTE | 2023-07-27 | PATH_ITS ---
[facility] Accession Number: [id number] No. of containers..01 Tissue . 01 Material submitted: . gallbladder - GALLBLADDER . 01 Diagnosis: GALLBLADER, CHOLECYSTECTOMY: Chronic cholecystitis. [facility] 08/02/2023 1121 Local . 01 Electronically signed: . Tess Inman MD, Pathologist NPI- [id number] . 01 Gross description: . Received in formalin with two identifiers and gallbladder, is an intact gallbladder, 6.4 x 3.7 x 2.9 cm, with a wrinkled, unremarkable external surface and no pericystic lymph node identified. The cystic duct margin is inked blue. The lumen contains dark green viscous bile with no calculi identified in the lumen or the container. The mucosa is green and velvety with no discoloration, polyps, or lesions identified. The sommer average 0.3 cm thick. Lead Radiologic Technologist sections to include the cystic duct margin and full thickness sections are submitted in A1. ([id number]) /MRV 07/30/2023 1306 Local . 01 Pathologist provided ICD-10: K81.1 . 01 CPT . 101126 Specimen Comment: A courtesy copy of this report has been sent to [phone] Performed at: [address] [facility] [address], [place], [place] [id number] MD Tomas Fischer MD Phone: [phone]
[2023-07-27] MEDS: PIPERACILLIN/TAZO 3.375 GM in SODIUM CHLORIDE 0.9% 100 ML IV ×3 (01:35→18:29)
[2023-07-27] MEDS: OXYCODONE IR 5 MG TABLET PO ×2 (02:17→13:39)
[2023-07-27 06:07] LABS: Add Manual Diff / Slide Review NO; Basophils Absolute Auto 100 /uL (0-100); Basophils Percent Auto 0.5 % (0-2); Eosinophils Absolute Auto 0 /uL (0-450); Eosinophils Percent Auto 0.3 % (2-4); Hemoglobin 12.2 g/dL (13.5-17.5); Lymphocytes Absolute Auto 1400 /uL (1100-4500); Lymphocytes Percent Auto 14.8 % (25-40); Mean Corpuscular HGB Conc 33.9 % (30-36); Mean Corpuscular Hemoglobin 31.3 PG (26-34); Mean Corpuscular Volume 92.4 fL (80-100); Monocytes Absolute Auto 1000 /uL (0-900); Monocytes Percent Auto 10.5 % (3-14); Neutrophils Absolute Auto 6800 /uL (1500-7000); Neutrophils Percent Auto 73.9 % (50-75); Platelet Count 176 X10^3/uL (150-400); Red Blood Cell Count 3.89 X10^6/uL (4.5-5.9); Red Cell Distribution Width 15.2 % (11.6-14.8); White Blood Cell Count 9.2 X10^3/uL (4.5-11.0)
[2023-07-27 06:23] LABS: INR 1.9 (0.9-1.3); Prothrombin Time 21.8 SECONDS (9.4-12.5)
[2023-07-27 06:28] LABS: BUN Creatinine Ratio 25.8 (6-22); Blood Urea Nitrogen 16 mg/dL (9-20); Carbon Dioxide 27 mmol/L (22-32); Chloride 106 mmol/L (98-107); Estimated Glomerular Filt Rate > 60 mL/min (>60); Glucose 81 mg/dL (80-110); HEMOLYSIS < 15 (0-50); Potassium 3.6 mmol/L (3.4-5.1); Sodium 136 mmol/L (137-145)
--- NOTE | 2023-07-27 06:53 | PC.NURSE ---
Dr. Lora notified with PT 21.8 & INR 1.9, he stated I'll put an order for T&C & FFP transfusion. Drea coordinator made aware & lab. notified. Will report to day RN.
[2023-07-27 07:24] LABS: INR 1.9 (0.9-1.3); Prothrombin Time 21.4 SECONDS (9.4-12.5)
--- NOTE | 2023-07-27 08:17 | P.PN_ITS ---
Subjective Subjective Date Patient Seen: 07/27/23 Time Patient Seen: 08:17 Interval history: Patient seen and evaluated this morning. Discussed care with nurse. Patient has dementia. He has not sure where he is. He does know he has having an operation. He is complaining about lower extremity pain because of his chronic wounds. Blood pressures are little bit low which appears to be his normal. Patient is NPO. No difficulty with urination. Laboratory tests CT scan and ultrasounds were reviewed. Of note patient has an elevated PT and INR patient is on warfarin. Exam Vital Signs (past 8 hours): - 07/27/23 03:00 07/27/23 04:00 Temperature 97.5 F L Pulse Rate 70 Respiratory Rate 16 Blood Pressure 110/56 L Pulse Oximetry 97 97 Oxygen Delivery Method Room Air Oxygen Flow Rate 0 Oxygen Delivery Method Room Air Oxygen Flow Rate 0 Narrative Exam Narrative: Gen.: Confused at baseline. Patient has a BMI of 19. HEENT: Pupils equal round and reactive or mucosa is moist neck is supple. Cardio: S1-S2 irregular rate and rhythm Respiratory: Lungs show no wheezes or crackles Abdomen: Do not appreciate any significant abdominal tenderness Extremities: Patient has some lower extremity wounds Objective Labs 07/27/23 05:41 07/27/23 05:41 Labs: Laboratory Results - last 24 hr 07/26/23 07/26/23 07/26/23 07:35 07:38 09:45 WBC RBC Hgb Hct MCV MCH MCHC RDW Plt Count Neut % (Auto) Lymph % (Auto) [place] % (Auto) Eos % (Auto) Baso % (Auto) Neut # (Auto) Lymph # (Auto) [place] # (Auto) Eos # (Auto) Baso # (Auto) Total Counted 100 Seg Neutrophils % 86.0 H Lymphocytes % (Manual) 11.0 L Monocytes % (Manual) 2.0 Basophils % (Manual) 1.0 Neutrophils # (Manual) 56868 H RBC Morphology Normal morphology PT INR APTT 39 H Sodium 136 L Potassium 4.1 Chloride 104 Carbon Dioxide 23 BUN 20 Creatinine 0.62 L Estimated GFR > 60 BUN/Creatinine Ratio 32.3 H Glucose 89 Calcium 8.8 Total Bilirubin 2.7 H AST 65 H ALT 31 Alkaline Phosphatase 118 Total Creatine Kinase 102 Troponin I < 0.012 Total Protein 7.6 Albumin 4.3 Globulin 3.3 Albumin/Globulin Ratio 1.3 Procalcitonin 0.141 Urine Color Yellow Urine Appearance Clear Urine pH 6.0 Ur Specific [place] 1.025 Urine Protein Trace H Urine Glucose (UA) Negative Urine Ketones 1+ H Urine Occult Blood Trace-intact Urine Nitrate Negative Urine Bilirubin Negative Urine Urobilinogen 1.0 Ur Leukocyte Esterase Negative Urine RBC None seen Urine WBC None seen Ur Squamous Epith Cells None seen Urine Bacteria None seen Ur Culture Indicated? Cult not indicated Vol Urine Centrifuged 10ml (spun) Chlamy pneumoniae PCR Not detected Adenovirus (PCR) Not detected B.parapertussis DNA PCR Not detected Coronavirus OC43 (PCR) Not detected Coronavirus HKU1 (PCR) Not detected Coronavirus 229E (PCR) Not detected SARS-CoV-2 (PCR) Not detected Coronavirus NL63 (PCR) Not detected Human Metapneumovir PCR Not detected Influenza Type A (PCR) Not detected Influenza Type B (PCR) Not detected M. pneumoniae (PCR) Not detected Parainfluenza 1 (PCR) Not detected Parainfluenza 2 (PCR) Not detected Parainfluenza 3 (PCR) Not detected Parainfluenza 4 (PCR) Not detected RSV (PCR) Not detected Entero/Rhino (PCR) Not detected Blood Type 07/27/23 07/27/23 05:41 07:08 WBC 9.2 RBC 3.89 L Hgb 12.2 L Hct 36.0 L MCV 92.4 MCH 31.3 MCHC 33.9 RDW 15.2 H Plt Count 176 Neut % (Auto) 73.9 Lymph % (Auto) 14.8 L [place] % (Auto) 10.5 Eos % (Auto) 0.3 L Baso % (Auto) 0.5 Neut # (Auto) 6800 Lymph # (Auto) 1400 [place] # (Auto) 1000 H Eos # (Auto) 0 Baso # (Auto) 100 Total Counted Seg Neutrophils % Lymphocytes % (Manual) Monocytes % (Manual) Basophils % (Manual) Neutrophils # (Manual) RBC Morphology PT 21.8 H 21.4 H INR 1.9 H 1.9 H APTT Sodium 136 L Potassium 3.6 Chloride 106 Carbon Dioxide 27 BUN 16 Creatinine 0.62 L Estimated GFR > 60 BUN/Creatinine Ratio 25.8 H Glucose 81 Calcium 8.0 L Total Bilirubin AST ALT Alkaline Phosphatase Total Creatine Kinase Troponin I Total Protein Albumin Globulin Albumin/Globulin Ratio Procalcitonin Urine Color Urine Appearance Urine pH Ur Specific [place] Urine Protein Urine Glucose (UA) Urine Ketones Urine Occult Blood Urine Nitrate Urine Bilirubin Urine Urobilinogen Ur Leukocyte Esterase Urine RBC Urine WBC Ur Squamous Epith Cells Urine Bacteria Ur Culture Indicated? Vol Urine Centrifuged Chlamy pneumoniae PCR Adenovirus (PCR) B.parapertussis DNA PCR Coronavirus OC43 (PCR) Coronavirus HKU1 (PCR) Coronavirus 229E (PCR) SARS-CoV-2 (PCR) Coronavirus NL63 (PCR) Human Metapneumovir PCR Influenza Type A (PCR) Influenza Type B (PCR) M. pneumoniae (PCR) Parainfluenza 1 (PCR) Parainfluenza 2 (PCR) Parainfluenza 3 (PCR) Parainfluenza 4 (PCR) RSV (PCR) Entero/Rhino (PCR) Blood Type Cancelled [facility] Medical History Hearing loss Fracture (~1974) Ankle pain (~2017) Skin cancer Unintentional weight loss 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 Anticoagulated on warfarin Memory changes Vertigo (~2019) Dizziness Atrial fibrillation Surgical History Anesthesia History of ankle surgery (~1976) History of cataract removal with insertion of prosthetic lens (~2017) 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 Family History Father Stroke Mother Diabetes mellitus Brother History of heart disease Stroke Social History household members: spouse Smoking Status: Never smoker alcohol intake: current Assessment & Plan Assessment and plan (1) Weakness: Status: Acute (2) Chronic atrial fibrillation: Status: Acute (3) Cerebrovascular accident (CVA) after heart procedure: Status: Acute Plan 87-year-old male with atrial fibrillation on chronic anticoagulation history of cerebrovascular accident dementia and chronic lower extremity wounds with a BMI of 19 with signs of mild malnutrition. Acalculous cholecystitis patient with elevated white blood cell count ultrasound shows thickened gallbladder without stones pericholecystic fluid consistent with acalculous cholecystitis. Patient received Zosyn in the emergency department. Surgical consultation was obtained anticipated surgery. Persistent atrial fibrillation with chronic anticoagulation. His warfarin has been held INR is still elevated. FFP has been ordered per General surgery. Heart rate is well controlled. Patient at home on atenolol for rate control. Will need close monitoring of rate control after surgical process. And re- initiation of anticoagulation once stable after surgery. Cerebrovascular accident. Patient with a history of CVA. Patient is on atorvastatin and anticoagulation. His blood pressure is a little bit soft. Dementia. Patient with [id number] dementia certainly worse with acute hospitalization and illness. Patient on donepezil at home and this will be continued. Patient does see Neurology. BPH. Patient on finasteride. Will continue his finasteride during his hospital stay. Protein calorie malnutrition. Patient has a BMI. He has low muscle mass and chronic lower extremity wounds will have a nutritional consult while here in the hospital. Disposition and plan. Surgery today or tomorrow once INR is been reversed. Monitor closely for postoperative hypotension tachycardia due to patient's atrial fibrillation. Condition is guarded. Due to patient's age chronic medical condition and malnutrition. Quality VTE Deep Vein Thrombosis/Pulmonary Embolism Present on Admission: No
[2023-07-27] MEDS: SODIUM CHLORIDE 0.9% FLUSH 10 ML IV ×2 (09:09→21:16)
--- NOTE | 2023-07-27 09:35 | SUR.OPER ---
Supine on padded OR bed, head on pillow, safety belt at thigh, left arm padded and tucked at side. Right arm secured on padded arm board <90 degrees abduction. Legs uncrossed. Padded footboard in place. Tape over blanket to secure lower legs.
--- NOTE | 2023-07-27 10:00 | PM.PREOP ---
Pre-operative Note Interval Note History & Physical reviewed/Exam performed by Physician: Yes Changes to H&P: No
--- NOTE | 2023-07-27 11:06 | SUR.PREOP ---
INR 10:30: 1 unit FFP given in acute care. 1 more unit to infuse. Instructed by Dr. Lora to check Istat. INR 1.6.
[2023-07-27] MEDS: CEFAZOLIN 2 GM/100 ML PREMIX 100 ML IV (11:17)
[2023-07-27] MEDS: BUPIVACAINE 0.25% (PF) VIAL 30 ML INJ (11:21)
--- NOTE | 2023-07-27 12:09 | PM.OP.1 ---
Operative Date/Time/Diagnoses Date of procedure: 07/27/23 Time of procedure: 12:50 Pre-op diagnosis: Acalculous cholecystitis Post-op diagnosis: same Procedure & Clinicians Procedure: Laparoscopic cholecystectomy Same procedure as scheduled: Yes Indications: 87-year-old man with 2 weeks of general malaise found to have acalculous cholecystitis. Following discussion he elects to proceed with cholecystectomy Surgeon: Pedro Lora Click Yes if Unassisted: Yes Anesthesia Type: General Operative Notes Findings: Chronic cholecystitis. Small amount of bile and pus within the right upper quadrant Specimen(s): other (Gallbladder) Estimated Blood Loss (mL): 100 Procedure in detail: The patient was placed supine on the table and bilateral lower extremity compression devices were applied. Anesthesia was induced they were intubated with an endotracheal tube and received 2g of Ancef. A time-out was performed. They were prepped and draped in sterile fashion. An infraumbilical incision was made. The fascia was elevated incised and the abdomen was entered atraumatically. A blunt tip 12mm balloon trocar was then inserted, pneumoperitoneum was established and inspection of the abdomen demonstrated no evidence of injury. They were placed head up and right side up and then a 11 mm port was placed high in the epigastrium and two 5mm in the right upper quadrant. The gallbladder was chronically inflamed. There was some pus and bile in the right upper quadrant. Omentum and adhesions were released from the gallbladder. The gallbladder was percutaneously drained to facilitate its manipulation. The gallbladder was grasped by the fundus and retracted over the liver and retracted laterally by the infundibulum. Using electrocautery the lateral plane between the gallbladder and the liver was opened towards the fundus. The gallbladder was then retracted laterally and the medial plane was developed in the same manner. With the gallbladder mobilized the bottom of the cystic plate was visualized. The hepatocystic triangle was meticulosly skeletonized with blunt dissection of fat and fibrous tissue from both the front and the back. Only two structures were then clearly seen entering the gallbladder the cystic duct and the cystic artery. With the critical view of safety fully established the cystic duct was clipped twice proximally and once distally using the 10 mm Weck hemoclip applied under direct visualization and then sharply divided. The cystic artery was divided in the same fashion. The gallbladder was removed from the liver bed using electro cautery. The liver bed was then inspected for hemostasis and this was achieved. The abdomen was irrigated with sterile saline and inspection was made that showed the clips in good position. The specimen was removed using Endo-Catch. The abdomen was desufflated. The umbilical fascia was closed with 0 Vicryl in a [id number] fashion under direct visualization. Skin incisions were irrigated and closed with 4-0 Monocryl. 30 ml of 0.25% bupivacaine was infiltrated into the subcutaneous tissue of the incisions. The wounds were sealed with Dermabond. Patient emerged from anesthesia was extubated and transferred to recovery in stable condition. The sponge and instrument count at the end of the operation was correct. Complications: none Post-operative Condition: stable Disposition: Acute Care
--- NOTE | 2023-07-27 13:16 | CM.DANOTE ---
Initial DCP Assessment Visit Note Reviewed EMR and team rounds for pt's medical status. CELLAR SUPERVISOR went to pt's room to assess his level of functioning and level of awareness to person/place/time, pt is very confused and needs assistance with all ADL's, does not know where he is at or that he had surgery. Pt lives with his here in [place]. No anticipated home d/c needs are identified at this time. Payor: [facility] PCP: Dr. Sims Pt is a 87 year-old M with a hx of advanced dementia, Afib on Warfarin, and chronic leg wounds. He presented to the ED via EMS with c/o increased weakness, confusion, shakiness after experiencing a GLF at home. Labs and Abd. ultrasound were positive for cholecystitis, he was started on IV fluids and IV ABO's, made NPO and admitted to the floor with the plan of completing a cholecystectomy with Dr. Lora, which was completed earlier today. He will likely either d/c later this evening or tomorrow, his will transport. DCP will continue to monitor and assist with any further evolving d/c needs/assistance. Discharge Planning/Care Management CM Discharge Assessment Start: 07/27/23 13:13 Freq: Status: Active Protocol: Document 07/27/23 13:13 DPL (Rec: 07/27/23 13:16 DPL [id number]) Discharge Planning Assessment Assigned Hand Stapler EZIO Cosme Advance Directives? No Advance Directives on File No History Provided By Patient,Medical Record Expected Length of Stay 3 Has Patient been admitted in last 30 No days? Prior Living Arrangements House Household Members spouse Type of transporation used prior to Relies on Others admit Independent with ADL's No: Pt has advanced dementia. Is patient alert and oriented? No Needs Assistance With Bathing,Eating,Grooming,Meal Prep,Toileting,Managing Medications,Home Chores / Shopping Caregiver for Another No DME Already Rented / Owned Bath Bench,Hospital Bed, Elevated Toilet Seat,FWW / Walker Comment No anticipated home d/c needs are identified at this time. Barriers to Discharge No Discharge Plan Home Whiteboard Updated in Patient Room with Yes name and ext. # of Hand Stapler Review Status In Process Please Provide Date Initial DC 07/27/23 Assessment Was Performed
[2023-07-27] MEDS: ACETAMINOPHEN 325 MG TABLET 650 MG PO ×2 (15:32→21:14)
[2023-07-27] MEDS: atenoloL 25 MG TABLET 75 MG PO (18:16)
[2023-07-27] MEDS: SODIUM CHLORIDE 0.45% 1,000 ML 75 ML IV (18:40)
[2023-07-27] MEDS: DOCUSATE 100 MG CAPSULE PO (21:14)
[2023-07-27] MEDS: DONEPEZIL 5 MG TABLET 10 MG PO (21:15)
[2023-07-28] VITALS (7 sets, daily range): BP systolic 125–149; BP diastolic 64–99; PULSE 90–104; RESP 16–17; TEMP 35.9–36.9; O2SAT 96–100
[2023-07-28] MEDS: OXYCODONE IR 5 MG TABLET PO ×3 (05:41→22:03)
[2023-07-28] MEDS: PIPERACILLIN/TAZO 3.375 GM in SODIUM CHLORIDE 0.9% 100 ML IV (05:43)
[2023-07-28] MEDS: SODIUM CHLORIDE 0.45% 1,000 ML 75 ML IV (06:06)
[2023-07-28] MEDS: SODIUM CHLORIDE 0.9% FLUSH 10 ML IV ×2 (08:13→22:04)
[2023-07-28] MEDS: atenoloL 25 MG TABLET 75 MG PO (08:13)
[2023-07-28] MEDS: FINASTERIDE 5 MG TABLET PO (08:13)
[2023-07-28] MEDS: DOCUSATE 100 MG CAPSULE PO ×2 (08:13→22:03)
--- NOTE | 2023-07-28 10:32 | P.PN_ITS ---
Subjective Subjective Date Patient Seen: 07/28/23 Time Patient Seen: 10:32 Interval history: Patient seen and evaluated this afternoon discussed care with nursing. Patient has done well post surgery tolerated breakfast this morning. No fevers. Had an episode of ventricular tachycardia. Patient's metoprolol was not given this was given yesterday. No further occurrences patient was completely asymptomatic. Patient is confused. Which is normal for his baseline exacerbated due to recent surgery some agitation last evening. Exam Vital Signs (past 8 hours): - 07/28/23 03:00 07/28/23 04:35 07/28/23 08:00 Temperature 96.8 F L 98.4 F Pulse Rate 104 H 90 Respiratory Rate 17 16 Blood Pressure 145/99 H 149/80 H Pulse Oximetry 96 97 100 Oxygen Delivery Method Room Air Oxygen Flow Rate 0 Oxygen Delivery Method Room Air Oxygen Flow Rate 0 Narrative Exam Narrative: Gen.: Alert confused HEENT: Pupils equal round and reactive or mucosa is moist neck is supple Cardio: S1-S2 irregular rate and rhythm Respiratory: Lungs are clear to auscultation normal respiratory effort Abdomen: Soft incisions dry and intact Extremities: Some lower extremity wounds no edema Neurologic: No focal deficits Objective Labs 07/27/23 05:41 07/27/23 05:41 Labs: Laboratory Results - last 24 hr 07/27/23 07:08 Blood Type B Positive Antibody Screen Negative [facility] Medical History Hearing loss Fracture (~1974) Ankle pain (~2017) Skin cancer Unintentional weight loss 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 Anticoagulated on warfarin Memory changes Vertigo (~2019) Dizziness Atrial fibrillation Surgical History Anesthesia History of ankle surgery (~1976) History of cataract removal with insertion of prosthetic lens (~2017) 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 Patient doing well confused. Liver enzyme and lab testing pending at this point. Tolerating diet this morning and not complaining of any pain. Will go ahead and stop his antibiotics that he was given before surgery. Atrial fibrillation who patient's atenolol was restarted. His anticoagulation has been held with warfarin. Will go ahead and start that when appropriate as per General surgery. Blood pressure looks good. Heart rate is well controlled. Had an episode of ventricular tachycardia yesterday asymptomatic. Patient restarted atenolol and will continue to monitor. Chronic dementia with acute Encephalopathy metabolic Due to underlying medical condition and health concerns. Patient is more confused at night. Continue to reorient patient. Avoid medication that can cause increasing confusion including pain medication and benzodiazepines. Cerebrovascular disease with history of cerebrovascular accident patient on statin off anticoagulation at this point due to recent surgery. BPH continue with finasteride Moderate protein calorie malnutrition. Patient has a low BMI has signs of muscle wasting. Encourage increase dietary resource drinks and nutritional consultation. Disposition and plan. Out of bed today. Stop IV fluids IV antibiotics. Safe medically for discharge tomorrow. Discharge planning questionable home versus long term facility. Quality VTE Deep Vein Thrombosis/Pulmonary Embolism Present on Admission: No
[2023-07-28 10:43] LABS: Alanine Aminotransferase 34 IU/L (<50); Albumin 3.7 g/dL (3.5-5.0); Albumin Globulin Ratio 1.2 (1.0-2.8); Alkaline Phosphatase 90 U/L (38-126); BUN Creatinine Ratio 22.2 (6-22); Bilirubin Total 1.3 mg/dL (0.2-1.3); Blood Urea Nitrogen 14 mg/dL (9-20); Carbon Dioxide 24 mmol/L (22-32); Chloride 106 mmol/L (98-107); Estimated Glomerular Filt Rate > 60 mL/min (>60); Globulin 3.2 g/dL (1.7-4.1); Glucose 135 mg/dL (80-110); Sodium 136 mmol/L (137-145); Total Protein 6.9 g/dL (6.3-8.2)
[2023-07-28 10:45] LABS: Aspartate Aminotransferase 61 IU/L (17-59); HEMOLYSIS 51 (0-50)
[2023-07-28 10:46] LABS: Potassium 4.1 mmol/L (3.4-5.1)
--- NOTE | 2023-07-28 11:22 | PM.PNPO.1 ---
Subjective Subjective Date Patient Seen: 07/28/23 Time Patient Seen: 11:22 Interval history: Postoperative day 1 status post laparoscopic cholecystectomy for acalculous cholecystitis. No acute overnight events. Minimal pain tolerating a diet. Exam Vital Signs (past 8 hours): - 07/28/23 04:35 07/28/23 08:00 Temperature 96.8 F L 98.4 F Pulse Rate 104 H 90 Respiratory Rate 17 16 Blood Pressure 145/99 H 149/80 H Pulse Oximetry 97 100 Oxygen Flow Rate 0 Oxygen Delivery Method Room Air Oxygen Flow Rate 0 Narrative Exam Narrative: General elderly man alert and oriented but has some degree of dementia Chest nonlabored respiration Abdomen soft appropriately tender to palpation. Laparoscopic port incisions clean dry intact. 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 Anticoagulated on warfarin Memory changes Vertigo (~2019) Dizziness Atrial fibrillation Surgical History Anesthesia History of ankle surgery (~1976) History of cataract removal with insertion of prosthetic lens (~2017) 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 Family History Father Stroke Mother Diabetes mellitus Brother History of heart disease Stroke Social History household members: spouse Smoking Status: Never smoker alcohol intake: current Assessment & Plan Post-op Postoperative Procedures: Procedures Operation Date: 07/27/23 09:00 Actual Procedure Side Surgeon p Laparoscopic Cholecystectomy Pedro Lora MD Postoperative status narrative: 87-year-old man postoperative day 1 status post laparoscopic cholecystectomy for acalculous cholecystitis. Recovering appropriately. Hyperbilirubinemia and leukocytosis resolved. -Resume warfarin, ordered -Physical therapy consult -Clear to discharge from surgical standpoint home vs snf Quality VTE Deep Vein Thrombosis/Pulmonary Embolism Present on Admission: No
--- NOTE | 2023-07-28 13:45 | PT.IIE ---
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 History of ankle surgery (~1976) History of cataract removal with insertion of prosthetic lens (~2017) Medical History (Last Reviewed 07/26/23 @ 17:51 by Pedro Lora MD) Ankle pain (~2017) Anticoagulated on warfarin Atrial fibrillation Chronic wound of extremity Dizziness Fracture (~1974) Hearing loss Memory changes Skin cancer Tinnitus of both ears Unintentional weight loss Vertigo (~2019) Physical Therapy Inpatient Evaluation/Re-Eval M1 PT/OT-IP Prior Functional Status Start: 07/28/23 12:18 Freq: NEEDED Status: Active Protocol: Document 07/28/23 13:45 DLM (Rec: 07/28/23 14:59 DLM [id number]) Medical Review Prior Functional Status Medical History Reviewed Yes Diet/Fluid Consistency Regular Communication WFL, hx of dementia Mobility and Gait ambulating with 4WW, hx of falls Activities of Daily Living and IADL's pt could not give me this information, chart notes suggest he got assistance Prior Functional Level (Other details) he reports he goes to [employer] to exercise regularly- rides stationary bike and light weights Social History Household Members spouse Living Arrangements House Home Environment Standard Height Toilet Home Equipment Front Wheel Walker,Four Wheel Walker,Raised Toilet Seat w/ Armrests,Tub Transfer Bench, Hospital Bed Employment Status Retired Additional Social History Comment home information taken from his chart since pt could not give me this information M2 PT-IP Current Condition Start: 07/28/23 12:18 Freq: NEEDED Status: Active Protocol: Document 07/28/23 13:45 DLM (Rec: 07/28/23 14:59 DLM [id number]) Physical Therapy Current Condition Current Condition Evaluation Date 07/28/23 Treatment Diagnosis lap michelle 07/27, impaired gait/ mobility Onset Date 07/26/23 M3 PT-IP Subjective Start: 07/28/23 12:18 Freq: NEEDED Status: Active Protocol: Document 07/28/23 13:45 DLM (Rec: 07/28/23 14:59 DLM [id number]) Subjective Physical Therapy Visit Type Type Initial Evaluation Visit Start Time 13:00 Visit Stop Time 13:45 Notes 45 min Number of HEALTH AND SAFETY DIRECTOR Visits 0 Physical Therapy Visit Comments Patient Comments He reports his will be coming in soon. He is aware he had surgery for his gallbladder. He did not complain of any pain during this visit. Patient Goals he could not state a goal M4 PT-IP Mobility and Gait Start: 07/28/23 12:18 Freq: NEEDED Status: Active Protocol: Document 07/28/23 13:45 DLM (Rec: 07/28/23 14:59 DLM [id number]) PT-Bed Mobility Assessment Supine to Sit Supine to Sit Standby Assistance Scooting Scooting to Edge of Bed Independent PT-Transfer Assessment Sit to and From Stand Sit to and from Stand Contact Guard Assistance,Use of Upper Extremities Equipment Transfer Assistive Device Gait Belt,Front Wheeled Walker Transfers Transfer Destination Chair Transfer Technique Stand Step Pivot Transfer Ability Level of Assist Contact Guard Assistance,Use of Upper Extremities Comments Mobility Comments Pt stated he would not get up but then proceeded to get out of bed on right side. He fidgits with lines and blankets often and can perseverate on them. Pt stood with FWW at one time fidgiting with blankets on the bedside commode for an extended time period before he could be redirected to go to the recliner. Once up in the recliner he declined to go back to bed. Discussed with nursing and pt was left up in recliner with chair alarm on and his needs close. Gait Assessment Gait Gait Assistance Required: Standby Assistance,Contact Guard Assist Distance (Feet) 20 Assistive Devices Assistive Device Gait Belt,Front Wheeled Walker Gait Deviations General Gait Pattern Flexed Trunk Factors Limiting Gait Function Factors Limiting Gait Function Decreased Activity Tolerance, Poor Balance Comments Gait Comments Pt reports a hx of flexed posture. His posture is flexed in standing and during gait with little improvement with or without UE support on FWW. [place] catheter on FWW during gait this visit Stair Climbing Assessment Comments Stair Climbing Comments unclear if pt has stairs at home, Will have to clarify with his PT-Balance Assessment Sitting Balance and Reactions Static Sitting Balance Ability Good Dynamic Sitting Balance Ability Good Standing Balance and Reactions Static Standing Balance Ability Good Dynamic Standing Balance Ability Fair Device Used FWW M5 PT-IP Objective Assessments Start: 07/28/23 12:18 Freq: NEEDED Status: Active Protocol: Document 07/28/23 13:45 DLM (Rec: 07/28/23 14:59 DLM [id number]) Orientation Orientation/Cognition Level of Alertness Alert Orientation Name,Month,Situation Language Function Ability Hard of Hearing Safety Awareness Decreased Safety Awareness Comments Pt can give some information accurately and other times he can not answer questions. He intermittent has tangential conversations that do not make sense or are out of context. He is pleasant. He can be difficult to redirect. Gross Range of Motion Upper Extremity ROM Assessment Within Functional Limits Lower Extremity ROM Assessment Within Functional Limits Strength Comments Strength Comments he could not participate in manual muscle testing, appears to have mild generalized weakness in LE's Coordination Assessment Gross Coordination Gross Coordination Impaired Assessment Finger to Nose Test Moderate Impairment Foot Tapping Test Moderate Impairment Coordination Comments tremors noted Sensation Assessment Comments Sensation Comments pt can not answer these questions Muscle Tone Muscle Tone WNL Yes M6 PT-IP Treatment Start: 07/28/23 12:18 Freq: NEEDED Status: Active Protocol: Document 07/28/23 13:45 DLM (Rec: 07/28/23 14:59 DLM [id number]) Physical Therapy Treatment Education Education Provided Safety Other Treatments Other Treatment Performed No family present this visit M7 PT-IP Assessment and Plan Start: 07/28/23 12:18 Freq: NEEDED Status: Active Protocol: Document 07/28/23 13:45 DLM (Rec: 07/28/23 14:59 DLM [id number]) PT Summary Assessment and Plan Potential Rehabilitation Potential Good Status of Condition at Evaluation Evolving Summary Impairments Strength,Balance,Coordination, Cognition,Bed Mobility, Transfers,Gait,Activity Tolerance Assessment Summary Eric is alert and able to participate in Physical Therapy after his lap michelle earlier today. He has wounds with dressings on the top of his head. He was able to ambulale in his room with the FWW and one person assist. Pt up to recliner. His is not present today so will need to clarify his baseline function and how much assist she can provide at home. I anticipate he will do better at home in a familiar environment but concerned he is too much care at this time and will need SNF. Discussed with egg caser and will continue to follow for discharge planning. 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
--- NOTE | 2023-07-28 15:20 | CM.DPC ---
DCP Cont: Per Surgeon, pt tolerating advancing diet and ordered PT to confirm stable for discharge likely tomorrow Saturday. Per PT, pt able to ambulate but very distractable with his dementia but tolerated ambulating with a FWW and preference is to have something in his hands that he can fidget with. Recommending SNF vs Home pending CG training with spouse to see if she can manage him at home safely. JAMES met bedside with pt and spouse and explained role and pt able to answer most questions appropriately and they confirm they are living on a one level with no steps and spouse has her own physical limitations and walks with a 4 point cane and used a w/c for longer distances due to her back and prior hip surgeries. They deny any recent HH/SNF/ or Caregivers in place. SW discussed possible HH and/or Private Pay CG. SW was able to encourage spouse to be present bedside tomorrow Sat around 1100 to participate in CG training with PT. Pt and spouse also state that pt's Dtr Salas had plans to fly up from [place] in one week to assist them with better organizing their house, moving out items no longer needed as they state the house has become cluttered. Dtr has been agreeable to fly up sooner to assist. JAMES received a call from [employer] [phone] and she confirms she is able to fly up now on 07/29 in two days to stay with pt and her step mom to assist and aware of the need for more direct discussion with them regarding LTC planning. Dtr hopeful pt can remain in the hospital until Saturday this week to reduce pt's fall risk and readmit. JAMES discussed need to medically justify staying in the hospital and she acknowledged understanding. JAMES explained the Senior Resource Guidebook that can be provided as they will need additional resources in place to remain in their home after discharge. Plan: SW to follow for plan of hopeful patient discharge if medically appropriate so that Dtr Salas can be present and staying in the home for additional assist and to follow for PT CG training tomorrow Sat with pt and spouse bedside around 1100. EZIO Keane
[2023-07-28] MEDS: ACETAMINOPHEN 325 MG TABLET 650 MG PO (16:06)
[2023-07-28] MEDS: WARFARIN 1 MG TABLET 3 MG PO (17:35)
[2023-07-28] MEDS: DONEPEZIL 5 MG TABLET 10 MG PO (22:03)
[2023-07-29] VITALS (7 sets, daily range): BP systolic 112–157; BP diastolic 60–86; PULSE 66–93; RESP 16–18; TEMP 36–37.1; O2SAT 95–100
[2023-07-29] MEDS: OXYCODONE IR 5 MG TABLET PO ×2 (06:12→12:53)
--- NOTE | 2023-07-29 10:10 | PM.PN.1 ---
Subjective Subjective Date Patient Seen: 07/29/23 Time Patient Seen: 10:10 Interval history: Patient seen and evaluated. Patient has had some confusion. Baseline dementia. Discussed discharge plan with general surgeon and manager intensive care unit. Plan will be home with his and daughter who is flying in tomorrow. Exam Vital Signs (past 8 hours): - 07/29/23 04:30 07/29/23 05:00 Temperature 96.8 F L Pulse Rate 93 H Respiratory Rate 17 Blood Pressure 157/86 H Pulse Oximetry 96 96 Oxygen Delivery Method Room Air Oxygen Flow Rate 0 0 Oxygen Delivery Method Room Air Oxygen Flow Rate 0 Narrative Exam Narrative: Gen.: Alert responsive no complaints of pain HEENT: Pupils equal round and reactive or mucosa is moist neck is supple Cardio: S1-S2 irregular rate and rhythm Respiratory: Normal respiratory effort lungs are clear Abdomen: Soft normal bowel sounds Extremities: Lower extremities bilateral wounds without significant edema Objective Labs 07/27/23 05:41 07/28/23 10:08 Labs: Laboratory Results - last 24 hr 07/28/23 10:08 Sodium 136 L Potassium 4.1 Chloride 106 Carbon Dioxide 24 BUN 14 Creatinine 0.63 L Estimated GFR > 60 BUN/Creatinine Ratio 22.2 H Glucose 135 H Calcium 8.0 L Total Bilirubin 1.3 AST 61 H ALT 34 Alkaline Phosphatase 90 Total Protein 6.9 Albumin 3.7 Globulin 3.2 Albumin/Globulin Ratio 1.2 PFSH Medical History Hearing loss Fracture (~1974) Ankle pain (~2017) Skin cancer Unintentional weight loss 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 Anticoagulated on warfarin Memory changes Vertigo (~2019) Dizziness Atrial fibrillation Surgical History Anesthesia History of ankle surgery (~1976) History of cataract removal with insertion of prosthetic lens (~2017) 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 Doing well on general diet tolerating pain with Tylenol. Atrial fibrillation who patient's atenolol was restarted. Warfarin was started yesterday after discussion with General surgery. Recheck PT and INR tomorrow heart rates well controlled. Stop telemetry monitoring Chronic dementia with acute Encephalopathy metabolic trending to baseline. Still confused which is complicating discharge discharge plan to go home with and daughter who is flying in Cerebrovascular disease with history of cerebrovascular accident patient on statin continue with anticoagulation BPH continue with finasteride Moderate protein calorie malnutrition. Patient has a low BMI has signs of muscle wasting. Encourage increase dietary resource drinks and nutritional consultation. Disposition and plan. Home tomorrow with spouse and daughter Quality VTE Deep Vein Thrombosis/Pulmonary Embolism Present on Admission: No IH PROFEE Charge codes Subsequent inpatient/observation care: [id number]
--- NOTE | 2023-07-29 11:00 | CM.DPC ---
Addendum entered by EZIO Keane 07/29/23 12:34: ADD: Confirmation from Meredith at [facility] that they can accept this referral and they will coordinate with Dtr for services in the home. BF Original Note: DCP Cont: Per MD, pt has risky discharge plan for today and could benefit from further PT and CG training with spouse today and plan is discharge tomorrow Tues to reduce risk of readmission. SW updated PT about spouse to be bedside around 1100 today for CG training and updated RN. JAMES called Dtr Sara [phone] and updated on plan of discharge tomorrow and she confirms she will arrive around 1300 and is agreeable to HH referral and she will help with coordinating with them in the home and preference [facility]. Made initial [facility] referral and updated on Dtr contact information for coordination of HH services and F2F and HH orders completed but not yet sent to [facility]. Plan: SW to follow for plan of pt discharge home tomorrow Tues once Dtr arrives in town around 1300 with new [facility] referral made. Dtr would benefit from Senior Resource Guidebook at d/c as she plans to begin working on better LTC plan for patient and spouse. EZIO Keane
[2023-07-29] MEDS: atenoloL 25 MG TABLET 75 MG PO (11:04)
[2023-07-29] MEDS: ACETAMINOPHEN 325 MG TABLET 650 MG PO ×2 (11:04→20:06)
[2023-07-29] MEDS: FINASTERIDE 5 MG TABLET PO (11:05)
[2023-07-29] MEDS: SODIUM CHLORIDE 0.9% FLUSH 10 ML IV ×2 (11:05→21:00)
--- NOTE | 2023-07-29 11:59 | PT.IPTN ---
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 (07/26/23) Surgery Performed Operation Date: 07/27/23 09:00 Actual Procedures p Laparoscopic Cholecystectomy - Pedro Lora MD Physical Therapy Treatment Note M2 PT-IP Current Condition Start: 07/28/23 12:18 Freq: NEEDED Status: Active Protocol: Document 07/28/23 13:45 DLM (Rec: 07/28/23 14:59 DLM [id number]) Physical Therapy Current Condition Current Condition Evaluation Date 07/28/23 Treatment Diagnosis lap michelle 07/27, impaired gait/ mobility Onset Date 07/26/23 M3 PT-IP Subjective Start: 07/28/23 12:18 Freq: NEEDED Status: Active Protocol: Document 07/29/23 12:45 ZF (Rec: 07/29/23 12:58 ZF [id number]) Subjective Physical Therapy Visit Type Type Treatment Note Visit Start Time 11:59 Visit Stop Time 12:32 Number of DOOR TO DOOR SELLING DISTRIBUTOR Visits 1 Physical Therapy Visit Comments Patient Comments Pt agreeable to therapy. M4 PT-IP Mobility and Gait Start: 07/28/23 12:18 Freq: NEEDED Status: Active Protocol: Document 07/29/23 12:45 ZF (Rec: 07/29/23 12:58 ZF [id number]) PT-Bed Mobility Assessment Supine to Sit Supine to Sit Standby Assistance,Moderate Assistance,1 Person Assistance ,Head of Bed Elevated,Bedrails Scooting Scooting to Edge of Bed Independent,Minimal Assistance PT-Transfer Assessment Sit to and From Stand Sit to and from Stand Contact Guard Assistance,Use of Upper Extremities Equipment Transfer Assistive Device Gait Belt,Front Wheeled Walker Transfers Transfer Destination Chair Transfer Technique Stand Step Pivot Transfer Ability Level of Assist Contact Guard Assistance,Use of Upper Extremities Comments Mobility Comments Bed Mobility: Supine>Sitting EOB requires extended time, Max Cueing and ModA for getting LE off bed and feet to floor. Vitals monitored in sittin/77mmHg, 97%O2sat, 89BPM. STS from EOB, recliner , w/2ww, CGA/Eve. Patient amb in room 2x30' w/2ww, CGA. VC for increased step length. Pt agreeable to remaining up in recliner after treatment, chair alarm on, call light within reach. in room. Gait Assessment Gait Gait Assistance Required: Contact Guard Assist Distance (Feet) 60 Assistive Devices Assistive Device Gait Belt,Front Wheeled Walker Gait Deviations General Gait Pattern Flexed Trunk Factors Limiting Gait Function Factors Limiting Gait Function Decreased Activity Tolerance, Poor Balance Comments Gait Comments See mobility comments. Stair Climbing Assessment Comments Stair Climbing Comments No Stairs M5 PT-IP Objective Assessments Start: 07/28/23 12:18 Freq: NEEDED Status: Active Protocol: Document 07/28/23 13:45 DLM (Rec: 07/28/23 14:59 DLM [id number]) Orientation Orientation/Cognition Level of Alertness Alert Orientation Name,Month,Situation Language Function Ability Hard of Hearing Safety Awareness Decreased Safety Awareness Comments Pt can give some information accurately and other times he can not answer questions. He intermittent has tangential conversations that do not make sense or are out of context. He is pleasant. He can be difficult to redirect. Gross Range of Motion Upper Extremity ROM Assessment Within Functional Limits Lower Extremity ROM Assessment Within Functional Limits Strength Comments Strength Comments he could not participate in manual muscle testing, appears to have mild generalized weakness in LE's Coordination Assessment Gross Coordination Gross Coordination Impaired Assessment Finger to Nose Test Moderate Impairment Foot Tapping Test Moderate Impairment Coordination Comments tremors noted Sensation Assessment Comments Sensation Comments pt can not answer these questions Muscle Tone Muscle Tone WNL Yes M6 PT-IP Treatment Start: 07/28/23 12:18 Freq: NEEDED Status: Active Protocol: Document 07/29/23 12:45 ZF (Rec: 07/29/23 12:58 ZF [id number]) Physical Therapy Treatment Education Education Provided Safety Other Treatments Other Treatment Performed present for session. M7 PT-IP Assessment and Plan Start: 07/28/23 12:18 Freq: NEEDED Status: Active Protocol: Document 07/29/23 12:45 ZF (Rec: 07/29/23 12:58 ZF [id number]) PT Summary Assessment and Plan Potential Rehabilitation Potential Good Summary Impairments Strength,Balance,Coordination, Cognition,Bed Mobility, Transfers,Gait,Activity Tolerance Assessment Summary Pt requires ModA for supine> Sitting EOB. He is CGA/Eve for STS and gait. present for scheduled caregiver training, but she is unable to provide assistance to Eric w/ functional mobility as she enters the room using a hospital WC as a walker, she also has a quad cane that she uses in the room. Discussed with the the safety concerns about using WC as an assistive device for amb. She understood and is looking into getting a 4ww for herself. She reports that she is picking up their daughter tomorrow at 1. The daughter will be staying with them and is the one that will be able to assist her dad. 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 Their daughter arrives tomorrow and will be able to assist him with his functional mobility. Recommending Caregiver training with daughter, possibly tomorrow afternoon. Transportation Needs at Discharge Private Vehicle
--- NOTE | 2023-07-29 14:29 | DIET.CONS ---
Dietary Consultation Note Admission Date: 07/26/2023 14:52 Assessment: 87 y M admitted after GLF, michelle performed. PMH of advanced dementia, moderate protein calorie malnutrition, and bilateral wounds on lower extremities. Nutrition screened for low BMI for age. Chart reviewed. Pt drinks ONS at home and has been struggling with unintended weight loss, was up 10 lb in May, but has since lost that weight. Coordinated with unit host/kitchen for protein supplementation at meals. Plan to f/u with family before d/c tomorrow for nutrition educ on increasing energy and protein to support adequate intake. Ht: 185.42 cm Wt: 68.5 kg BMI: 19.9 UBW: 76.317 kg (-10% loss within 2 months, severe) Last BM: 07/26/23 (07/27/23 10:35) MNA: 11 Niraj Score: 20 Diet: 07/27/23 Lunch General (Regular) Diet Diet Modifications: Food Texture: Level 7 - Regular Liquid Consistency: Level 0 - Thin Nutrition Percent Meal Consumed 50% 07/29/23 13:29 Percent Meal Consumed 50% 07/28/23 12:00 Percent Meal Consumed 50% 07/27/23 18:00 Percent Meal Consumed 75% 07/27/23 15:00 Labs: RBC 3.89 X10^6/uL (4.5-5.9) L 07/27/23 05:41 Hgb 12.2 g/dL (13.5-17.5) L 07/27/23 05:41 Hct 36.0 % (41-53) L 07/27/23 05:41 Creatinine 0.63 mg/dL (0.66-1.25) L 07/28/23 10:08 Lactate 1.6 mmol/L (0.7-2.1) 07/26/23 07:38 Nutrition Diagnosis: Unintended weight loss r/t decreased ability to consume adequate intake aeb 10% weight loss in 2 months, severe Interventions: 1. ONS bid 2. f/u when family is present EER: [id number] (30 kcals/kg per BMI) 80-90 (1.25 g/kg per weight loss, wounds) Monitoring/Evaluations: f/u 1 day, ons tolerance Electronically Signed by: Kary Stewart 07/29/23 14:29 Clinical Dietitian [address] [address]
[2023-07-29] MEDS: WARFARIN 1 MG TABLET 3 MG PO (18:06)
[2023-07-29] MEDS: DONEPEZIL 5 MG TABLET 10 MG PO (20:06)
[2023-07-30] VITALS (8 sets, daily range): BP systolic 124–152; BP diastolic 65–92; PULSE 63–87; RESP 14–18; TEMP 36.1–36.8; O2SAT 98–100
[2023-07-30] MEDS: OXYCODONE IR 5 MG TABLET PO (05:03)
[2023-07-30 06:04] LABS: INR 1.3 (0.9-1.3); Prothrombin Time 15.2 SECONDS (9.4-12.5)
[2023-07-30] MEDS: FINASTERIDE 5 MG TABLET PO (08:33)
[2023-07-30] MEDS: atenoloL 25 MG TABLET 75 MG PO (08:33)
[2023-07-30] MEDS: SODIUM CHLORIDE 0.9% FLUSH 10 ML IV (08:34)
[2023-07-30 09:25] LABS: BUN Creatinine Ratio 29.8 (6-22); Blood Urea Nitrogen 14 mg/dL (9-20); Calcium 8.1 mg/dL (8.4-10.2); Carbon Dioxide 31 mmol/L (22-32); Chloride 106 mmol/L (98-107); Estimated Glomerular Filt Rate > 60 mL/min (>60); Glucose 86 mg/dL (80-110); HEMOLYSIS < 15 (0-50); Magnesium 2.1 mg/dL (1.6-2.3); Potassium 3.6 mmol/L (3.4-5.1); Sodium 139 mmol/L (137-145)
--- NOTE | 2023-07-30 10:12 | PT.IPTN ---
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 (07/26/23) Surgery Performed Operation Date: 07/27/23 09:00 Actual Procedures p Laparoscopic Cholecystectomy - Pedro Lora MD Physical Therapy Treatment Note M2 PT-IP Current Condition Start: 07/28/23 12:18 Freq: NEEDED Status: Active Protocol: Document 07/28/23 13:45 DLM (Rec: 07/28/23 14:59 DLM [id number]) Physical Therapy Current Condition Current Condition Evaluation Date 07/28/23 Treatment Diagnosis lap michelle 07/27, impaired gait/ mobility Onset Date 07/26/23 M3 PT-IP Subjective Start: 07/28/23 12:18 Freq: NEEDED Status: Active Protocol: Document 07/30/23 11:00 TS (Rec: 07/30/23 11:10 TS [id number]) Subjective Physical Therapy Visit Type Type Treatment Note Visit Start Time 10:12 Visit Stop Time 10:38 Number of LEAD TINNER Visits 1 Physical Therapy Visit Comments Patient Comments Pt found resting in bed, bandages on head and legs. pt is confused but can asnwer some questions. He reports pain in his legs and states he can't move, pt evetually agreeable to PT. Therapy Pain Assessment Pain When Pain Assessed During Mobility Pain Present Pain Present Pain Reported M4 PT-IP Mobility and Gait Start: 07/28/23 12:18 Freq: NEEDED Status: Active Protocol: Document 07/30/23 11:00 TS (Rec: 07/30/23 11:10 TS [id number]) PT-Bed Mobility Assessment Supine to Sit Supine to Sit Standby Assistance,Contact Guard Assistance,1 Person Assistance,Head of Bed Elevated,Bedrails Scooting Scooting to Edge of Bed Standby Assistance,Contact Guard Assistance PT-Transfer Assessment Sit to and From Stand Sit to and from Stand Contact Guard Assistance,Use of Upper Extremities Equipment Transfer Assistive Device Gait Belt,Front Wheeled Walker Comments Mobility Comments Supine to sit SBA/CGA with HOB elevated, pt is slow with movement and requires some cues for sequencing. He performed STS from elevated bed CGA with use of FWW, pt is unsteady. He ambulated in room ~80'CGA/SBA with FWW and a slow stepr to gait. Pt cued for larger steps, he tends to shuffle feet. Pt sat in chair, all needs met, chair alarm on , nursing notified. Gait Assessment Gait Gait Assistance Required: Standby Assistance,Contact Guard Assist Distance (Feet) 80 Assistive Devices Assistive Device Gait Belt,Front Wheeled Walker Gait Deviations General Gait Pattern Decreased Stride Length, Decreased Feet Clearance, Flexed Trunk Factors Limiting Gait Function Factors Limiting Gait Function Decreased Activity Tolerance, Decreased Strength,Difficulty Following Directions,Pain,Poor Balance,Poor Safety Awareness Comments Gait Comments See mobility comments. PT-Balance Assessment Sitting Balance and Reactions Static Sitting Balance Ability Good Dynamic Sitting Balance Ability Good Standing Balance and Reactions Static Standing Balance Ability Fair Dynamic Standing Balance Ability Fair Device Used FWW M5 PT-IP Objective Assessments Start: 07/28/23 12:18 Freq: NEEDED Status: Active Protocol: Document 07/28/23 13:45 DLM (Rec: 07/28/23 14:59 DLM [id number]) Orientation Orientation/Cognition Level of Alertness Alert Orientation Name,Month,Situation Language Function Ability Hard of Hearing Safety Awareness Decreased Safety Awareness Comments Pt can give some information accurately and other times he can not answer questions. He intermittent has tangential conversations that do not make sense or are out of context. He is pleasant. He can be difficult to redirect. Gross Range of Motion Upper Extremity ROM Assessment Within Functional Limits Lower Extremity ROM Assessment Within Functional Limits Strength Comments Strength Comments he could not participate in manual muscle testing, appears to have mild generalized weakness in LE's Coordination Assessment Gross Coordination Gross Coordination Impaired Assessment Finger to Nose Test Moderate Impairment Foot Tapping Test Moderate Impairment Coordination Comments tremors noted Sensation Assessment Comments Sensation Comments pt can not answer these questions Muscle Tone Muscle Tone WNL Yes M6 PT-IP Treatment Start: 07/28/23 12:18 Freq: NEEDED Status: Active Protocol: Document 07/30/23 11:00 TS (Rec: 07/30/23 11:10 TS [id number]) Physical Therapy Treatment Education Education Provided Safety M7 PT-IP Assessment and Plan Start: 07/28/23 12:18 Freq: NEEDED Status: Active Protocol: Document 07/30/23 11:00 TS (Rec: 07/30/23 11:10 TS [id number]) PT Summary Assessment and Plan Potential Rehabilitation Potential Good Summary Impairments Strength,Balance,Coordination, Cognition,Bed Mobility, Transfers,Gait,Activity Tolerance Progress Towards Goals Progressing Toward Goals Assessment Summary Eric is making some progress with his mobility. He is SBA/ CGA for bed mobility with HOB elevated. He continues to ambulate in room with FWW SBA/ CGA. He is unsteady with gait. PT is recommending home with 24/ assist and HHPT. 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
--- NOTE | 2023-07-30 10:38 | PM.DS.1 ---
History of Present Illness History of Present Illness Date Patient Seen: 07/30/23 Time Patient Seen: 07:50 Chief complaint: Cholecystitis Narrative: Mr. Salgado is an 87-year-old male with AFib on warfarin, dementia, chronic lower extremity wounds who presented to the ER 07/26/2023 with weakness and shaking. He reported a trip/fall due to feeling weak as he tried to get up and go to the restroom that morning. Had also been experiencing sharp aches/pain all over his body for the previous few days. Per ER physician note, EMS who knows him well reported that he seemed more confused than usual. Denied any recent fever, chills, nausea, vomiting, abdominal pain, change in urinary or bowel habits. Initiall labs notable for WBC 15.5 with neutrophilic predominance, HGB 13.3, Na 136, AST 65, T bili 2.7, INR 2.0, troponin negative, procalcitonin < 0.5, UA negative for e/o infection with trace protein and 1+ ketones, respiratory viral panel negative. CXR demonstrates severe cardiomegaly with no acute pulmonary infiltrates. CT head with e/o old infarct and small-vessel ischemic change, no acute intracranial pathology. Abdominal ultrasound revealed gallbladder with increased wall thickness without internal gallstones or biliary distention, small about of adjacent free fluid, and positive sonographic Isidro's sign consistent with acalculous cholecystitis. He did receive a dose of Zosyn in the emergency department. Discharge Providers Provider Date of admission: 07/26/23 14:52 Discharge Date: 07/30/23 Primary care physician: Robles Sims MD Consults: 07/28/23 11:28 Consult to Physical Therapy Evaluate & Treat Comment: Physician Instructions: Evaluate and Treat 07/29/23 10:57 Consult to Home Health Routine Comment: Cholecystectomy, weakness, dementia Reason For Exam: Set up RN/PT/OT for discharge to home with [facility] Discharge provider: Robles Sims MD Summary Hospital Course Discharge Diagnosis: #Acalculous cholecystitis #Atrial fibrillation #Chronic dementia #Acute metabolic encephalopathy #H/o CVA #BPH #Protein calorie malnutrition Hospital Course: Admitted for acalculous cholecystitis in the setting of multiple days with general malaise and discomfort. Underwent uncomplicated laparoscopic cholecystectomy and progress to normal diet by POD #2. Discharge delayed due to disposition planning, ultimately discharged home with HH to spouse and daughter. Status at Discharge Cognitive/behavioral status at discharge: at baseline, confused Functional status at discharge: uses cane/walker Overall status at discharge: patient is progressing back to baseline Time Spent with Patient Time spent: Greater than 30 minutes Exam Vital Signs (past 8 hours): - 07/30/23 04:53 07/30/23 05:00 07/30/23 08:00 Temperature 98.3 F 97.5 F L Pulse Rate 87 79 Respiratory Rate 16 14 Blood Pressure 148/87 H 152/92 H Pulse Oximetry 99 99 98 Oxygen Delivery Method Room Air Oxygen Flow Rate 0 0 Oxygen Delivery Method Room Air Oxygen Flow Rate 0 Narrative Exam Narrative: General: Pleasant, frail, thin HEENT: Normocephalic, EOMI, moist membranes CV: Regular rate, irregularly irregular rhythm, normal S1-S2, no m/g/r Resp: CTAB, comfortable WOB Abd: Soft, NTND, +BS, laparoscopic port incisions c/d/i Ext: No edema Skin: Bilateral lower extremities with chronic wounds near ankles without surrounding erythema or drainage Neuro: A&O x3, moves all extremities, no focal deficits Objective Labs 07/27/23 05:41 07/30/23 05:05 Labs: Laboratory Results - last 24 hr 07/30/23 05:05 PT 15.2 H D INR 1.3 Sodium 139 Potassium 3.6 Chloride 106 Carbon Dioxide 31 BUN 14 Creatinine 0.47 L Estimated GFR > 60 BUN/Creatinine Ratio 29.8 H Glucose 86 Calcium 8.1 L Magnesium 2.1 PFSH Medical History Hearing loss Fracture (~1974) Ankle pain (~2017) Skin cancer Unintentional weight loss 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 Anticoagulated on warfarin Memory changes Vertigo (~2019) Dizziness Atrial fibrillation Surgical History Anesthesia History of ankle surgery (~1976) History of cataract removal with insertion of prosthetic lens (~2017) 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 Family History Father Stroke Mother Diabetes mellitus Brother History of heart disease Stroke Social History household members: spouse Smoking Status: Never smoker alcohol intake: current Discharge Assessment & Plan Assessment and Plan Assessment: 87-year-old male with AFib on warfarin, dementia, chronic right lower extremity wounds admitted for acalculous cholecystitis. Plan of Treatment: #Acalculous cholecystitis -POD #3 s/p uncomplicated lap michelle -Tolerating general diet, pain adequately controlled with Tylenol #Atrial fibrillation -Continue home atenolol -Warfarin restarted POD #1, INR 1.3 at time of discharge #Chronic dementia with acute metabolic encephalopathy -Somewhat confused at baseline with brief exacerbation in post-op period, trending to baseline. -Home with HH #Cerebrovascular disease #H/o CVA -Continue home atorvatatin #BPH -Continue home finasteride #Moderate protein calorie malnutrition -Low BMI has signs of muscle wasting -Encourage increase dietary resource drinks, outpatient nutritional consultation Discharge Plan Discharge Plan Patient Disposition: Home Provider Discharge Comment: Please call to schedule hospital follow-up visit in 1 week Discharge orders & Medications Prescriptions: Continued atorvastatin 10 mg tablet 10 mg PO DAILY donepezil 10 mg tablet 10 mg PO BEDTIME warfarin 6 mg tablet See Rx Instructions PO DAILY Qty: 90 0RF Rx Instructions: Take 2 tabs (6mg) on Saturday and Saturday evenings and 3mg (1 tab) all other days or as directed. finasteride 5 MG tablet 5 mg PO QDAY Qty: 0 ascorbic acid (vitamin C) 1,000 mg Tablet 500 mg PO DAILY calcium carbonate 500 mg Capsule 500 mg PO DAILY cholecalciferol (vitamin D3) 10 mcg (400 unit) Tablet,Chewable 10 mcg PO DAILY Glucosamine Chondroitin 550-30-1 mg Capsule 1 cap PO DAILY lutein 6 mg Tablet 6 mg PO DAILY saw palmetto 450 mg Capsule 450 mg PO DAILY atenolol 25 mg Tablet 75 mg PO DAILY Patient Comments: he takes 37.5 mg Follow up/Referrals: Robles Sims MD [Primary Care Provider] - 08/06/23 4:30 pm (Appt:08/05 @ 4:[address] Sims please check in 15 min prior to scheduled appointment time ) Diet/Activity/Treatments Diet: Regular Skin/Wound/Dressing Care Report to your healthcare provider any signs of infection, such as:: chills, fever, night sweats, increased pain, unusual drainage and unusual redness Visit Report/Discharge Packet Instructions: DI for Heart Failure, DI for Open Cholecystectomy, DI for Laparoscopy, DI for Prescription Opioid Use, DI for Laparoscopic Cholecystectomy, [facility]: Wound Care Stand Alone Forms: Congestive Heart Failure, Patient Portal/API, Stroke Signs & Symptoms, Surgery Discharge Discharge Data Primary Care Provider: Robles Sims Discharges patient from system. Discharge Date/Time: 07/30/23 16:38 Quality VTE Deep Vein Thrombosis/Pulmonary Embolism Present on Admission: No IH PROFEE Charge Codes Discharge inpatient/observation: [id number]
--- NOTE | 2023-07-30 12:40 | CM.DPC ---
DCP Cont. Reviewed EMR and team rounds for pt's status updates. Pt has been medically cleared for home d/c, will be transported by family at 1:00pm today back home. Provided the [facility] booklet, per family's request. No further DCP needs indicated at this time.
--- NOTE | 2023-07-30 16:11 | PC.NURSE ---
Pt alert and responsive. Offers no overt c/o pain though neck and back a bit sore from hospital pillows and beds. Wound care in to change dressings on legs and instruct family. Kary from dietary and Delma from CM also in to discuss d/c concerns with family as well. D/c instructions given from Agustin VENTURA. Pt readied for discharge. PCT to remove IV and Tele. and daughter to take him home in private car.
--- NOTE | 2023-07-30 16:20 | DIET.CONS ---
Dietary Consultation Note Admission Date: 07/26/2023 14:52 Assessment: Nutrition f/u Met with pt and family at bedside to provide nutrition related education for unintentional weight loss. Diet recall: B-slice of toast and peanut butter and fruit L-bun and slice of deli meat D-various meal cooks, meat, carb, veg Pt preparing for d/c. NFPE not performed. Visually noted severe muscle wasting in temporalis and clavicle region and severe subcutaneous fat loss in buccal and orbital fat pads Ht: 185.42 cm Wt: 68.5 kg BMI: 19.9 UBW: 76.317 kg (-10% loss within 2 months, severe) Last BM: 07/30/23 (07/30/23 08:30) MNA: 11 Niraj Score: 17 Diet: 07/27/23 Lunch General (Regular) Diet Diet Modifications: Food Texture: Level 7 - Regular Liquid Consistency: Level 0 - Thin Nutrition Percent Meal Consumed 100% 07/29/23 18:46 Percent Meal Consumed 100% 07/29/23 18:00 Percent Meal Consumed 50% 07/29/23 13:29 Labs: RBC 3.89 X10^6/uL (4.5-5.9) L 07/27/23 05:41 Hgb 12.2 g/dL (13.5-17.5) L 07/27/23 05:41 Hct 36.0 % (41-53) L 07/27/23 05:41 Creatinine 0.47 mg/dL (0.66-1.25) L 07/30/23 05:05 Lactate 1.6 mmol/L (0.7-2.1) 07/26/23 07:38 Nutrition Diagnosis: Unintended weight loss r/t decreased ability to consume adequate intake aeb 10% weight loss in 2 months, severe Interventions: 1. Modified energy-protein intake - provided handout and strategies on increasing intake Monitoring/Evaluations: pt discharging Electronically Signed by: Kary Stewart 07/30/23 16:20 Clinical Dietitian [address] [id number]
== END 2023-07-30 16:38 | disposition home or self-care (01) | DRG 417 ==
LOC: ED 14:14 → AC 14:53
PROVIDERS: Family Medicine; Surgery; Admitting Provider Family Medicine; Emergency Provider Emergency Medicine; Family Provider Family Medicine; PCP Family Medicine; Referring Provider Emergency Medicine; Visit Provider Family Medicine
PROC: 0FT44ZZ Resection of Gallbladder, Percutaneous Endoscopic Approach (ICD-10-PCS; CPT 47562; principal; 2023-07-27 09:00)
DX: K81.1 Chronic cholecystitis (principal); G93.41 Metabolic encephalopathy; E44.0 Moderate protein-calorie malnutrition; I47.20 Ventricular tachycardia, unspecified; Z68.1 Body mass index [BMI] 19.9 or less, adult; I48.19 Other persistent atrial fibrillation; L97.312 Non-pressure chronic ulcer of right ankle with fat layer exposed; L97.812 Non-pressure chronic ulcer of other part of right lower leg with fat layer exposed; L97.322 Non-pressure chronic ulcer of left ankle with fat layer exposed; F03.B0 Unspecified dementia, moderate, without behavioral disturbance, psychotic disturbance, mood disturbance, and anxiety; N40.0 Benign prostatic hyperplasia without lower urinary tract symptoms; Z79.01 Long term (current) use of anticoagulants; Z86.73 Personal history of transient ischemic attack (TIA), and cerebral infarction without residual deficits; I87.2 Venous insufficiency (chronic) (peripheral); R60.0 Localized edema
CPT/HCPCS: 29581; 36415; 36430; 70450; 71045; 76705; 80048; 80053; 81001; 82550; 83605; 83735; 84145; 84484; 85007; 85025; 85610; 85730; 86850; 86900; 86901; 86927; 87040; 87633; 93005; 93010; 96365; 97116; 97162; 97530; 99222; 99232; 99238; 99284; 99285; P9016; J0330; J0690; J2405; J2543; J2704; J3010; J3490; J7050

== ENCOUNTER → 2023-08-01 19:00 | Outpatient (CLI) | payer MEDICARE, SELFPAY ==
[2023-07-26 15:46] VITALS: BMI 19.9
== END ==
PROVIDERS: Family Provider Family Medicine; PCP Family Medicine; Referring Provider Family Medicine; Visit Provider Surgery
DX: L97.312 Non-pressure chronic ulcer of right ankle with fat layer exposed (principal); L97.812 Non-pressure chronic ulcer of other part of right lower leg with fat layer exposed; L97.822 Non-pressure chronic ulcer of other part of left lower leg with fat layer exposed; I87.2 Venous insufficiency (chronic) (peripheral); Z79.01 Long term (current) use of anticoagulants; M86.671 Other chronic osteomyelitis, right ankle and foot; R60.0 Localized edema
CPT/HCPCS: 11042; 11045

== ENCOUNTER → 2023-08-07 13:22 | Outpatient (CLI) | payer MEDICARE, SELFPAY ==
[2023-07-26 15:46] VITALS: BMI 19.9
== END ==
PROVIDERS: Family Provider Family Medicine; PCP Family Medicine; Referring Provider Family Medicine; Visit Provider Surgery
DX: L97.312 Non-pressure chronic ulcer of right ankle with fat layer exposed (principal); L97.322 Non-pressure chronic ulcer of left ankle with fat layer exposed; L97.812 Non-pressure chronic ulcer of other part of right lower leg with fat layer exposed; R60.0 Localized edema; I87.2 Venous insufficiency (chronic) (peripheral); M86.671 Other chronic osteomyelitis, right ankle and foot; Z79.01 Long term (current) use of anticoagulants
CPT/HCPCS: 11042; 11045; 87070; 87075; 87077; 87147; 87186; 87205; 99213

== ENCOUNTER → 2023-08-09 10:51 | Outpatient (CLI) | payer MEDICARE, SELFPAY ==
[2023-07-26 15:46] VITALS: BMI 19.9
== END ==
LOC: WC 10:52
PROVIDERS: Family Provider Family Medicine; PCP Family Medicine; Referring Provider Family Medicine; Visit Provider Physician Assistant
DX: L97.312 Non-pressure chronic ulcer of right ankle with fat layer exposed (principal); L97.812 Non-pressure chronic ulcer of other part of right lower leg with fat layer exposed; L97.322 Non-pressure chronic ulcer of left ankle with fat layer exposed; I87.2 Venous insufficiency (chronic) (peripheral); R60.0 Localized edema; M79.661 Pain in right lower leg; M79.662 Pain in left lower leg
CPT/HCPCS: 29581

== ENCOUNTER → 2023-08-12 14:38 | Outpatient (CLI) | payer MEDICARE, SELFPAY ==
[2023-07-26 15:46] VITALS: BMI 19.9
== END ==
LOC: WC 14:38
PROVIDERS: Family Provider Family Medicine; PCP Family Medicine; Referring Provider Family Medicine; Visit Provider Surgery
DX: L97.312 Non-pressure chronic ulcer of right ankle with fat layer exposed (principal); L97.812 Non-pressure chronic ulcer of other part of right lower leg with fat layer exposed; L97.322 Non-pressure chronic ulcer of left ankle with fat layer exposed; I87.2 Venous insufficiency (chronic) (peripheral); R60.0 Localized edema; M79.661 Pain in right lower leg; M79.662 Pain in left lower leg
CPT/HCPCS: 29581

== ENCOUNTER → 2023-08-14 14:02 | Outpatient (CLI) | payer MEDICARE, SELFPAY ==
[2023-07-26 15:46] VITALS: BMI 19.9
== END ==
LOC: WC 14:03
PROVIDERS: Family Provider Family Medicine; PCP Family Medicine; Referring Provider Family Medicine; Visit Provider Surgery
DX: L97.312 Non-pressure chronic ulcer of right ankle with fat layer exposed (principal); L97.322 Non-pressure chronic ulcer of left ankle with fat layer exposed; I87.2 Venous insufficiency (chronic) (peripheral); Z79.01 Long term (current) use of anticoagulants; M86.671 Other chronic osteomyelitis, right ankle and foot; R60.0 Localized edema; I89.0 Lymphedema, not elsewhere classified
CPT/HCPCS: 11042; 11045

== ENCOUNTER → 2023-08-16 12:53 | Outpatient (CLI) | payer MEDICARE, SELFPAY ==
[2023-07-26 15:46] VITALS: BMI 19.9
== END ==
LOC: WC 12:53
PROVIDERS: Family Provider Family Medicine; PCP Family Medicine; Referring Provider Family Medicine; Visit Provider Surgery
DX: L97.312 Non-pressure chronic ulcer of right ankle with fat layer exposed (principal); L97.812 Non-pressure chronic ulcer of other part of right lower leg with fat layer exposed; L97.322 Non-pressure chronic ulcer of left ankle with fat layer exposed; L97.822 Non-pressure chronic ulcer of other part of left lower leg with fat layer exposed; I87.2 Venous insufficiency (chronic) (peripheral); R60.0 Localized edema; M79.661 Pain in right lower leg; M79.662 Pain in left lower leg
CPT/HCPCS: 29581

== ENCOUNTER → 2023-08-19 10:43 | Outpatient (CLI) | payer MEDICARE, SELFPAY ==
[2023-07-26 15:46] VITALS: BMI 19.9
== END ==
LOC: WC 10:44
PROVIDERS: Family Provider Family Medicine; PCP Family Medicine; Referring Provider Family Medicine; Visit Provider Surgery
DX: L97.312 Non-pressure chronic ulcer of right ankle with fat layer exposed (principal); L97.812 Non-pressure chronic ulcer of other part of right lower leg with fat layer exposed; L97.322 Non-pressure chronic ulcer of left ankle with fat layer exposed; L97.822 Non-pressure chronic ulcer of other part of left lower leg with fat layer exposed; I87.2 Venous insufficiency (chronic) (peripheral); R60.0 Localized edema
CPT/HCPCS: 29581

== ENCOUNTER → 2023-08-21 13:39 | Outpatient (CLI) | payer MEDICARE, SELFPAY ==
[2023-07-26 15:46] VITALS: BMI 19.9
== END ==
PROVIDERS: Family Provider Family Medicine; PCP Family Medicine; Referring Provider Family Medicine; Visit Provider Physician Assistant
DX: L97.312 Non-pressure chronic ulcer of right ankle with fat layer exposed (principal); L97.812 Non-pressure chronic ulcer of other part of right lower leg with fat layer exposed; L97.322 Non-pressure chronic ulcer of left ankle with fat layer exposed; L97.822 Non-pressure chronic ulcer of other part of left lower leg with fat layer exposed; I87.2 Venous insufficiency (chronic) (peripheral); R60.0 Localized edema; M86.671 Other chronic osteomyelitis, right ankle and foot
CPT/HCPCS: 11042; 11045; 99213

== ENCOUNTER → 2023-08-23 14:06 | Outpatient (CLI) | payer MEDICARE, SELFPAY ==
[2023-07-26 15:46] VITALS: BMI 19.9
== END ==
PROVIDERS: Family Provider Family Medicine; PCP Family Medicine; Referring Provider Family Medicine; Visit Provider Physician Assistant
DX: L97.312 Non-pressure chronic ulcer of right ankle with fat layer exposed (principal); L97.812 Non-pressure chronic ulcer of other part of right lower leg with fat layer exposed; L97.322 Non-pressure chronic ulcer of left ankle with fat layer exposed; I87.2 Venous insufficiency (chronic) (peripheral); R60.0 Localized edema
CPT/HCPCS: 29581

== ENCOUNTER → 2023-08-26 13:45 | Outpatient (CLI) | payer MEDICARE, SELFPAY ==
[2023-07-26 15:46] VITALS: BMI 19.9
== END ==
LOC: WC 13:46
PROVIDERS: Family Provider Family Medicine; PCP Family Medicine; Referring Provider Family Medicine; Visit Provider Surgery
DX: L97.322 Non-pressure chronic ulcer of left ankle with fat layer exposed (principal); L97.812 Non-pressure chronic ulcer of other part of right lower leg with fat layer exposed; L97.312 Non-pressure chronic ulcer of right ankle with fat layer exposed; I87.2 Venous insufficiency (chronic) (peripheral); R60.0 Localized edema
CPT/HCPCS: 29581

== ENCOUNTER → 2023-08-28 13:16 | Outpatient (CLI) | payer MEDICARE, SELFPAY ==
[2023-07-26 15:46] VITALS: BMI 19.9
== END ==
PROVIDERS: Family Provider Family Medicine; PCP Family Medicine; Referring Provider Family Medicine; Visit Provider Surgery
DX: L97.312 Non-pressure chronic ulcer of right ankle with fat layer exposed (principal); L97.322 Non-pressure chronic ulcer of left ankle with fat layer exposed; L97.812 Non-pressure chronic ulcer of other part of right lower leg with fat layer exposed; L97.512 Non-pressure chronic ulcer of other part of right foot with fat layer exposed; I87.2 Venous insufficiency (chronic) (peripheral); R60.0 Localized edema; M86.671 Other chronic osteomyelitis, right ankle and foot; Z79.01 Long term (current) use of anticoagulants; M79.661 Pain in right lower leg; M79.662 Pain in left lower leg
CPT/HCPCS: 11042; 11045

== ENCOUNTER → 2023-08-30 13:10 | Outpatient (CLI) | payer MEDICARE, SELFPAY ==
[2023-07-26 15:46] VITALS: BMI 19.9
== END ==
PROVIDERS: Family Provider Family Medicine; PCP Family Medicine; Referring Provider Family Medicine; Visit Provider Physician Assistant
DX: L97.312 Non-pressure chronic ulcer of right ankle with fat layer exposed (principal); L97.322 Non-pressure chronic ulcer of left ankle with fat layer exposed; L97.812 Non-pressure chronic ulcer of other part of right lower leg with fat layer exposed; L97.522 Non-pressure chronic ulcer of other part of left foot with fat layer exposed; I87.2 Venous insufficiency (chronic) (peripheral); R60.0 Localized edema; M79.661 Pain in right lower leg; M79.662 Pain in left lower leg
CPT/HCPCS: 29581

== ENCOUNTER → 2023-09-02 13:49 | Outpatient (CLI) | payer MEDICARE, SELFPAY ==
[2023-07-26 15:46] VITALS: BMI 19.9
== END ==
PROVIDERS: Family Provider Family Medicine; PCP Family Medicine; Referring Provider Family Medicine; Visit Provider Surgery
DX: L97.312 Non-pressure chronic ulcer of right ankle with fat layer exposed (principal); L97.812 Non-pressure chronic ulcer of other part of right lower leg with fat layer exposed; L97.512 Non-pressure chronic ulcer of other part of right foot with fat layer exposed; L97.322 Non-pressure chronic ulcer of left ankle with fat layer exposed; I87.2 Venous insufficiency (chronic) (peripheral); R60.0 Localized edema; M79.661 Pain in right lower leg; M79.671 Pain in right foot; M25.572 Pain in left ankle and joints of left foot
CPT/HCPCS: 29581

== ENCOUNTER → 2023-09-04 13:21 | Outpatient (CLI) | payer MEDICARE, SELFPAY ==
[2023-07-26 15:46] VITALS: BMI 19.9
== END ==
LOC: WC 13:23
PROVIDERS: Family Provider Family Medicine; PCP Family Medicine; Referring Provider Family Medicine; Visit Provider Surgery
DX: L97.312 Non-pressure chronic ulcer of right ankle with fat layer exposed (principal); L97.322 Non-pressure chronic ulcer of left ankle with fat layer exposed; I87.2 Venous insufficiency (chronic) (peripheral); R60.0 Localized edema; M86.671 Other chronic osteomyelitis, right ankle and foot; Z79.01 Long term (current) use of anticoagulants; M25.571 Pain in right ankle and joints of right foot
CPT/HCPCS: 11042; 11045

== ENCOUNTER 2023-09-05 20:11 | Emergency (ER) | payer MEDICARE, SELFPAY ==
[2023-07-26 15:46] VITALS: BMI 19.9
[2023-09-05 20:19] VITALS: BP 134/68; PULSE 99; RESP 12; TEMP 36.9; O2SAT 98; BMI 19.8
[2023-09-05 20:42] LABS: Add Manual Diff / Slide Review NO; Basophils Absolute Auto 100 /uL (0-100); Basophils Percent Auto 0.9 % (0-2); Eosinophils Absolute Auto 0 /uL (0-450); Eosinophils Percent Auto 0.5 % (2-4); Hematocrit 34.7 % (41-53); Hemoglobin 11.7 g/dL (13.5-17.5); Lymphocytes Absolute Auto 1800 /uL (1100-4500); Lymphocytes Percent Auto 18.8 % (25-40); Mean Corpuscular HGB Conc 33.7 % (30-36); Mean Corpuscular Hemoglobin 31.1 PG (26-34); Mean Corpuscular Volume 92.4 fL (80-100); Monocytes Absolute Auto 1100 /uL (0-900); Monocytes Percent Auto 11.9 % (3-14); Neutrophils Absolute Auto 6500 /uL (1500-7000); Neutrophils Percent Auto 67.9 % (50-75); Platelet Count 322 X10^3/uL (150-400); Red Blood Cell Count 3.75 X10^6/uL (4.5-5.9); Red Cell Distribution Width 16.4 % (11.6-14.8); White Blood Cell Count 9.6 X10^3/uL (4.5-11.0)
[2023-09-05 20:51] LABS: Alanine Aminotransferase 31 IU/L (<50); Albumin 4.2 g/dL (3.5-5.0); Albumin Globulin Ratio 1.2 (1.0-2.8); Alkaline Phosphatase 163 U/L (38-126); Aspartate Aminotransferase 42 IU/L (17-59); Bilirubin Total 1.3 mg/dL (0.2-1.3); Blood Urea Nitrogen 18 mg/dL (9-20); Calcium 8.9 mg/dL (8.4-10.2); Carbon Dioxide 26 mmol/L (22-32); Chloride 106 mmol/L (98-107); Estimated Glomerular Filt Rate > 60 mL/min (>60); Globulin 3.6 g/dL (1.7-4.1); Glucose 117 mg/dL (80-110); HEMOLYSIS < 15 (0-50); Lipase 116 U/L (23-300); Potassium 4.4 mmol/L (3.4-5.1); Sodium 138 mmol/L (137-145); Total Protein 7.8 g/dL (6.3-8.2)
--- NOTE | 2023-09-05 21:10 | DI.CT.S_ITS ---
PROCEDURE: CT ABDOMEN PELVIS W CON INDICATIONS: abd pain TECHNIQUE: After the administration of intravenous contrast, axial sections acquired from the lung bases to the pubic symphysis. Coronal and sagittal reformats were performed. For radiation dose reduction, the following was used: automated exposure control, adjustment of mA and/or kV according to patient size. COMPARISON: [facility], US ABDOMEN LIMITED, 07/26/2023, 12:15. FINDINGS: Image quality: Diagnostic. Lower Chest: Bilateral lung bases are clear. Heart size is enlarged, no pericardial effusion. ABDOMEN: Liver: No solid mass. Gallbladder: Gallbladder is surgically absent. Biliary ducts: No biliary dilation. Pancreas: No ductal dilation. Spleen: Size is within normal limits. Adrenal Glands: No adrenal nodules. Kidneys and Ureters: No hydronephrosis. No solid mass. Simple appearing left peripelvic and cortical renal cysts are seen . No complex renal cystic lesion which requires follow up. Stomach and Bowel: There is significant fecal stasis throughout the colon. Small hiatal hernia is seen. No evidence of bowel obstruction. No gross abnormal bowel wall thickening or mesenteric fat stranding. No abscess collection. Distal sigmoid colon is collapsed. Peritoneum: No abnormal intraperitoneal fluid. No free air. Ventral Wall: No significant ventral hernia. Abdominal Nodes: No retroperitoneal or mesenteric adenopathy by size criteria. Vessels: Aorta and inferior vena cava are normal in size. PELVIS: Pelvic Organs: Unremarkable. Bladder: No bladder wall thickening, accounting for underdistention. Pelvic Nodes: No enlarged lymph nodes. Miscellaneous: No inguinal hernias are seen. Bones: No aggressive osseous abnormality. 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 IMPRESSION: 1. Significant fecal stasis in ascending colon and transverse colon with air distended descending colon and proximal sigmoid colon and zone of transition seen in lower pelvis involving mid to distal sigmoid colon seen on series 2, image 57. Finding may represent normal peristalsing bowel loops. Circumferential wall thickening and sigmoid colon wall mass cannot be entirely excluded suggest GI correlation and follow-up. 2. No evidence of gastric or small bowel wall thickening. No abscess collection. No free fluid or free air. Small hiatal hernia. 3. No obstructing renal stones or hydronephrosis. Left peripelvic renal cysts. Dictated by: Fabrice Gregory M.D. on 09/05/2023 at 22:09 Approved by: Fabrice Gregory M.D. on 09/05/2023 at 22:14
[2023-09-05 22:10] VITALS: PULSE 90; O2SAT 98
[2023-09-05 22:30] VITALS: BP 148/84; PULSE 93; O2SAT 98
[2023-09-05 23:00] VITALS: BP 142/78; PULSE 70; O2SAT 98
--- NOTE | 2023-09-05 23:23 | ED_ITS ---
HPI - Abdominal Pain General Chief Complaint: Abdominal Pain Stated Complaint: lower abdominal pain Time Seen by Provider: 09/05/23 21:10 Mode of arrival: Wheelchair History of Present Illness HPI narrative: 87-year-old male with lower abdominal pain last couple of days, concerned he might have constipation, trying xoyu-[id number]-[id number] MiraLax, no fleets enemas. No black or red stools. No fevers or chills. No injury trauma. No new medications. He has ongoing treatment with a local set rider for scalp infection, dressing in place, does not recall being prescribed any pain medications after the procedure. Denies chronic opiate use or recent opiate use. Related Data Home Medications Medication Instructions Recorded Confirmed finasteride 5 mg tablet 5 mg PO QDAY ##0 05/08/11 08/30/23 atenolol 25 mg tablet 75 mg PO DAILY 01/21/18 08/30/23 ascorbic acid (vitamin C) 1,000 mg 500 mg PO DAILY 04/30/22 08/30/23 tablet calcium carbonate 500 mg capsule 500 mg PO DAILY 04/30/22 08/30/23 cholecalciferol (vitamin D3) 10 10 mcg PO DAILY 04/30/22 08/30/23 mcg (400 unit) chewable tablet glucosamine sulf dipot 1 cap PO DAILY 04/30/22 08/30/23 chlr,msm,chond 550 mg-C 30 mg-aamir 1 mg capsule (Glucosamine Chondroitin) lutein 6 mg tablet 6 mg PO DAILY 04/30/22 08/30/23 saw palmetto 450 mg capsule 450 mg PO DAILY 04/30/22 08/30/23 atorvastatin 10 mg tablet 10 mg PO DAILY 03/20/23 08/30/23 donepezil 10 mg tablet 10 mg PO BEDTIME 03/20/23 08/30/23 Previous Rx's Medication Instructions Recorded warfarin 6 mg tablet See Rx Instructions PO DAILY #90 09/03/23 tabs lactulose 20 gram/30 mL oral 20 g (30 mL) PO BID PRN laxative 09/06/23 solution effect #1,200 mL Allergies Allergy/AdvReac Type Severity Reaction Status Date / Time No Known Drug Allergies Allergy Verified 09/05/23 20:22 Review of Systems Review of Systems Narrative: As per HPI Patient History Medical History Hearing loss Fracture (~1974) Ankle pain (~2017) Skin cancer Unintentional weight loss 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 Anticoagulated on warfarin Memory changes Vertigo (~2019) Dizziness Atrial fibrillation Surgical History Hx of cholecystectomy Anesthesia History of ankle surgery (~1976) History of cataract removal with insertion of prosthetic lens (~2017) 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 Family History Father Stroke Mother Diabetes mellitus Brother History of heart disease Stroke Social History household members: spouse Smoking Status: Never smoker alcohol intake: current Smoking Status: Never smoker alcohol intake frequency: a few times a week Alcohol type: hard liquor Substance Use Type: does not use Exam Narrative Exam Narrative: GENERAL: Well-developed patient, in mild distress. HEAD: Atraumatic. Normocephalic. EYES: Pupils equal round and reactive. Extraocular motions intact. No scleral icterus. No injection or drainage. ENT: Nose without bleeding, purulent drainage. Throat without erythema, tonsillar hypertrophy or exudate. Airway patent. NECK: Trachea midline. Non tender CARDIOVASCULAR: Regular rate and rhythm without murmurs, gallops, or rubs. RESPIRATORY: Clear to auscultation. Breath sounds equal bilaterally. No wheezes, rales, or rhonchi. GASTROINTESTINAL: Abdomen soft, non-tender, nondistended. EXTREMITIES: No edema or joint tenderness. BACK: Nontender without deformity or crepitance. No flank tenderness. NEURO: AOx3. SKIN: No rash or erythema of visible areas Initial Vital Signs Initial Vital Signs: Vital Signs Temperature 98.4 F 09/05/23 20:19 Pulse Rate 99 H 09/05/23 20:19 Respiratory Rate 12 09/05/23 20:19 Blood Pressure 134/68 09/05/23 20:19 Pulse Oximetry 98 09/05/23 20:19 Oxygen Delivery Method Room Air 09/05/23 20:19 Course Orders Ordered: ED Orders 09/05/23 21:10 CT abdomen pelvis w con Stat Discontinued Medications Glycerin (Glycerin Supp Adult 1 Supp) 1 each IN NOW ONE Stop: 09/06/23 01:51 Last Admin: 09/06/23 02:05 Dose: 1 each Documented By: PANCHITO Lactulose (Lactulose 20 Gm/30 Ml Solution) 20 gm PO NOW ONE Stop: 09/06/23 01:32 Last Admin: 09/06/23 01:52 Dose: 20 gm Documented By: JENNIFER Mineral Oil (Mineral Oil 1 Each Enema) 1 each IN NOW ONE Stop: 09/06/23 01:33 Last Admin: 09/06/23 01:50 Dose: 1 each Documented By: PANCHITO Ondansetron HCl (Ondansetron 4 Mg/2 Ml Inj) 4 mg IV NOW PRN PRN Reason: Nausea And Vomiting Ondansetron HCl (Ondansetron 4 Mg Odt) 4 mg PO NOW PRN PRN Reason: Nausea And Vomiting Vital Signs Vital signs: Vital Signs - 8 hr 09/05/23 22:10 09/05/23 22:30 09/05/23 22:30 Pulse Rate 90 93 H Respiratory Rate Blood Pressure 148/84 H Pulse Oximetry 98 98 09/05/23 23:00 09/05/23 23:00 09/05/23 23:36 Pulse Rate 70 94 H Respiratory Rate Blood Pressure 142/78 H Pulse Oximetry 98 99 09/05/23 23:36 09/06/23 00:00 09/06/23 00:00 Pulse Rate 64 Respiratory Rate Blood Pressure 156/93 H 146/74 H Pulse Oximetry 09/06/23 00:30 09/06/23 00:30 09/06/23 00:39 Pulse Rate 78 Respiratory Rate 16 Blood Pressure 130/68 Pulse Oximetry 100 09/06/23 01:49 09/06/23 01:49 09/06/23 02:00 Pulse Rate 79 88 Respiratory Rate Blood Pressure 171/97 H Pulse Oximetry 99 97 09/06/23 02:00 09/06/23 02:30 09/06/23 02:30 Pulse Rate 66 Respiratory Rate Blood Pressure 146/78 H 124/68 Pulse Oximetry 99 09/06/23 03:00 09/06/23 03:00 09/06/23 03:30 Pulse Rate 71 73 Respiratory Rate Blood Pressure 126/65 Pulse Oximetry 99 99 09/06/23 03:30 09/06/23 04:19 09/06/23 04:19 Pulse Rate 90 Respiratory Rate Blood Pressure 140/73 171/81 H Pulse Oximetry 98 09/06/23 04:30 09/06/23 04:30 Pulse Rate 87 Respiratory Rate Blood Pressure 147/73 H Pulse Oximetry 99 MDM - Abdominal Pain Lab Data Attestation: I reviewed the patient's lab results. 09/05/23 20:25 09/05/23 20:25 Labs: Lab Results 09/05/23 Range/Units 20:25 WBC 9.6 (4.5-11.0) X10^3/uL RBC 3.75 L (4.5-5.9) X10^6/uL Hgb 11.7 L (13.5-17.5) g/dL Hct 34.7 L (41-53) % MCV 92.4 (80-100) fL MCH 31.1 (26-34) PG MCHC 33.7 (30-36) % RDW 16.4 H (11.6-14.8) % Plt Count 322 (150-400) X10^3/uL Neut % (Auto) 67.9 (50-75) % Lymph % (Auto) 18.8 L (25-40) % [place] % (Auto) 11.9 (3-14) % Eos % (Auto) 0.5 L (2-4) % Baso % (Auto) 0.9 (0-2) % Neut # (Auto) 6500 (1480-4250) /uL Lymph # (Auto) 1800 (0179-1908) /uL [place] # (Auto) 1100 H (0-900) /uL Eos # (Auto) 0 (0-450) /uL Baso # (Auto) 100 (0-100) /uL Sodium 138 (137-145) mmol/L Potassium 4.4 (3.4-5.1) mmol/L Chloride 106 (98-107) mmol/L Carbon Dioxide 26 (22-32) mmol/L BUN 18 (9-20) mg/dL Creatinine 0.58 L (0.66-1.25) mg/dL Estimated GFR > 60 (>60) mL/min BUN/Creatinine Ratio 31.0 H (6-22) Glucose 117 H (80-110) mg/dL Calcium 8.9 (8.4-10.2) mg/dL Total Bilirubin 1.3 (0.2-1.3) mg/dL AST 42 (17-59) IU/L ALT 31 (<50) IU/L Alkaline Phosphatase 163 H (38-126) U/L Total Protein 7.8 (6.3-8.2) g/dL Albumin 4.2 (3.5-5.0) g/dL Globulin 3.6 (1.7-4.1) g/dL Albumin/Globulin Ratio 1.2 (1.0-2.8) Lipase 116 (23-300) U/L Imaging Data CT scan - abdomen/pelvis: Radiologist's Impression: [address] [address] [address] Scan Report Signed Patient: Eric Salgado MR#: [id number] : 1935 Acct:[id number] Age/Sex: 87 / M Date of Service: 09/05/23 Loc: ED Accession Number: [id number] Procedure: CT abdomen pelvis w con Ordering Provider: Froylan Knight MD PROCEDURE: CT ABDOMEN PELVIS W CON INDICATIONS: abd pain TECHNIQUE: After the administration of intravenous contrast, axial sections acquired from the lung bases to the pubic symphysis. Coronal and sagittal reformats were performed. For radiation dose reduction, the following was used: automated exposure control, adjustment of mA and/or kV according to patient size. COMPARISON: [facility], , US ABDOMEN LIMITED, 07/26/2023, 12:15. FINDINGS: Image quality: Diagnostic. Lower Chest: Bilateral lung bases are clear. Heart size is enlarged, no pericardial effusion. ABDOMEN: Liver: No solid mass. Gallbladder: Gallbladder is surgically absent. Biliary ducts: No biliary dilation. Pancreas: No ductal dilation. Spleen: Size is within normal limits. Adrenal Glands: No adrenal nodules. Kidneys and Ureters: No hydronephrosis. No solid mass. Simple appearing left peripelvic and cortical renal cysts are seen . No complex renal cystic lesion which requires follow up. Stomach and Bowel: There is significant fecal stasis throughout the colon. Small hiatal hernia is seen. No evidence of bowel obstruction. No gross abnormal bowel wall thickening or mesenteric fat stranding. No abscess collection. Distal sigmoid colon is collapsed. Peritoneum: No abnormal intraperitoneal fluid. No free air. Ventral Wall: No significant ventral hernia. Abdominal Nodes: No retroperitoneal or mesenteric adenopathy by size criteria. Vessels: Aorta and inferior vena cava are normal in size. PELVIS: Pelvic Organs: Unremarkable. Bladder: No bladder wall thickening, accounting for underdistention. Pelvic Nodes: No enlarged lymph nodes. Miscellaneous: No inguinal hernias are seen. Bones: No aggressive osseous abnormality. 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 IMPRESSION: 1. Significant fecal stasis in ascending colon and transverse colon with air distended descending colon and proximal sigmoid colon and zone of transition seen in lower pelvis involving mid to distal sigmoid colon seen on series 2, image 57. Finding may represent normal peristalsing bowel loops. Circumferential wall thickening and sigmoid colon wall mass cannot be entirely excluded suggest GI correlation and follow-up. 2. No evidence of gastric or small bowel wall thickening. No abscess collection. No free fluid or free air. Small hiatal hernia. 3. No obstructing renal stones or hydronephrosis. Left peripelvic renal cysts. Dictated by: Fabrice Gregory M.D. on 09/05/2023 at 22:09 Approved by: Fabrice Gregory M.D. on 09/05/2023 at 22:14 [facility] Narrative Medical decision making narrative: 87-year-old male with lower abdominal pain, last bowel movement 2 or 3 days ago, lower abdominal cramping and discomfort, concern for constipation, refractory to self administered MiraLax so far, no enemas attempted. Labs sent from triage, were unremarkable. CT abdomen and pelvis ordered, shows no acute changes but does show significant colonic stool burden. Trial of fleets enema Little response to Fleet's enema, we will attempt mineral oil enema Still little response after mineral oil enema, trial of p.o. lactulose 0400, large semi-soft brown stool ball passed into commode, symptoms improved, we will discharge patient home, lactulose prescription to use the next couple of days, hold if diarrhea. Improved, home with . Return precautions discussed Discharge Plan Departure Patient Disposition: Home Clinical Impression: Abdominal pain, Constipation Instructions: DI for Abdominal Pain-Adult Activity Restrictions/Additional Instructions: Abdominal pain, no fever, no significant tenderness on exam, last bowel movement days ago, CT abdomen and pelvis showed no acute changes but did show significant colonic stool burden suggestive of constipation, no bowel obstruction changes. Trial of Fleet's enema, then mineral oil enema, then oral lactulose dose, with subsequent response, passage of large stool ball. Consider further doses of lactulose if needed, hold for onset of diarrhea. Recheck symptoms this Saturday with your regular provider. Return to this/nearest emergency department for any change worsening symptoms or any concerns prior Prescriptions: New lactulose 20 gram/30 mL solution 20 g PO BID MDD supply: ten doses, to use prn PRN (Reason: laxative effect) Qty: 1200 0RF No Action atorvastatin 10 mg tablet 10 mg PO DAILY donepezil 10 mg tablet 10 mg PO BEDTIME finasteride 5 MG tablet 5 mg PO QDAY Qty: 0 warfarin 6 mg tablet See Rx Instructions PO DAILY Qty: 90 3RF Rx Instructions: Take 1 tabs (6mg) total on Saturday and Saturday evenings and 1/2 tab (3mg) total all other days; or as directed. ascorbic acid (vitamin C) 1,000 mg Tablet 500 mg PO DAILY calcium carbonate 500 mg Capsule 500 mg PO DAILY cholecalciferol (vitamin D3) 10 mcg (400 unit) Tablet,Chewable 10 mcg PO DAILY Glucosamine Chondroitin 550-30-1 mg Capsule 1 cap PO DAILY lutein 6 mg Tablet 6 mg PO DAILY saw palmetto 450 mg Capsule 450 mg PO DAILY atenolol 25 mg Tablet 75 mg PO DAILY Patient Comments: he takes 37.5 mg Referrals: Robles Sims MD [Primary Care Provider] - Stand Alone Forms: Patient Portal/API
[2023-09-05 23:36] VITALS: BP 156/93; PULSE 94; O2SAT 99
[2023-09-06] VITALS (10 sets, daily range): BP systolic 124–171; BP diastolic 65–97; PULSE 64–90; RESP 16; O2SAT 97–100
[2023-09-06] MEDS: MINERAL OIL 1 EACH ENEMA PR (01:50)
[2023-09-06] MEDS: LACTULOSE 20 GM/30 ML SOLUTION PO (01:52)
[2023-09-06] MEDS: GLYCERIN SUPP ADULT 1 SUPP 1 EACH PR (02:05)
== END 2023-09-06 05:00 | disposition home or self-care (01) ==
PROVIDERS: Emergency Provider Emergency Medicine; Family Provider Family Medicine; PCP Family Medicine
DX: R10.30 Lower abdominal pain, unspecified (principal); K59.00 Constipation, unspecified; Z79.01 Long term (current) use of anticoagulants
CPT/HCPCS: 36415; 74177; 80053; 83690; 85025; 99284; Q9967

== ENCOUNTER → 2023-09-09 14:18 | Outpatient (CLI) | payer MEDICARE, SELFPAY ==
[2023-07-26 15:46] VITALS: BMI 19.9
== END ==
LOC: WC 14:18
PROVIDERS: Family Provider Family Medicine; PCP Family Medicine; Referring Provider Family Medicine; Visit Provider Surgery
DX: L97.312 Non-pressure chronic ulcer of right ankle with fat layer exposed (principal); L97.322 Non-pressure chronic ulcer of left ankle with fat layer exposed; L97.512 Non-pressure chronic ulcer of other part of right foot with fat layer exposed; I87.2 Venous insufficiency (chronic) (peripheral); R60.0 Localized edema; L97.812 Non-pressure chronic ulcer of other part of right lower leg with fat layer exposed
CPT/HCPCS: 29581

== ENCOUNTER → 2023-09-11 14:28 | Outpatient (CLI) | payer MEDICARE, SELFPAY ==
[2023-07-26 15:46] VITALS: BMI 19.9
== END ==
PROVIDERS: Family Provider Family Medicine; PCP Family Medicine; Referring Provider Family Medicine; Visit Provider Surgery
DX: L97.312 Non-pressure chronic ulcer of right ankle with fat layer exposed (principal); L97.322 Non-pressure chronic ulcer of left ankle with fat layer exposed; L97.512 Non-pressure chronic ulcer of other part of right foot with fat layer exposed; L97.812 Non-pressure chronic ulcer of other part of right lower leg with fat layer exposed; I87.2 Venous insufficiency (chronic) (peripheral); R60.0 Localized edema; M86.671 Other chronic osteomyelitis, right ankle and foot; Z79.01 Long term (current) use of anticoagulants; M79.661 Pain in right lower leg; M79.662 Pain in left lower leg; M79.671 Pain in right foot
CPT/HCPCS: 11042; 11045; 99213

== ENCOUNTER → 2023-09-16 13:19 | Outpatient (CLI) | payer MEDICARE, SELFPAY ==
[2023-07-26 15:46] VITALS: BMI 19.9
== END ==
PROVIDERS: Family Provider Family Medicine; PCP Family Medicine; Referring Provider Family Medicine; Visit Provider Surgery
DX: L97.312 Non-pressure chronic ulcer of right ankle with fat layer exposed (principal); L97.812 Non-pressure chronic ulcer of other part of right lower leg with fat layer exposed; L97.512 Non-pressure chronic ulcer of other part of right foot with fat layer exposed; I87.2 Venous insufficiency (chronic) (peripheral); R60.0 Localized edema; M25.571 Pain in right ankle and joints of right foot; M25.572 Pain in left ankle and joints of left foot
CPT/HCPCS: 29581

== ENCOUNTER → 2023-09-18 15:29 | Outpatient (CLI) | payer MEDICARE, SELFPAY ==
[2023-07-26 15:46] VITALS: BMI 19.9
== END ==
PROVIDERS: Family Provider Family Medicine; PCP Family Medicine; Referring Provider Family Medicine; Visit Provider Surgery
DX: L97.312 Non-pressure chronic ulcer of right ankle with fat layer exposed (principal); L97.322 Non-pressure chronic ulcer of left ankle with fat layer exposed; L97.512 Non-pressure chronic ulcer of other part of right foot with fat layer exposed; I87.2 Venous insufficiency (chronic) (peripheral); R60.0 Localized edema; Z79.01 Long term (current) use of anticoagulants; M86.671 Other chronic osteomyelitis, right ankle and foot; M79.661 Pain in right lower leg; M79.662 Pain in left lower leg
CPT/HCPCS: 11042; 11045; 99213

== ENCOUNTER 2023-09-20 08:20 | Emergency (ER) | payer MEDICARE, SELFPAY ==
[2023-07-26 15:46] VITALS: BMI 19.9
[2023-09-20] VITALS (17 sets, daily range): BP systolic 123–174; BP diastolic 59–102; PULSE 60–87; RESP 16; O2SAT 98–100; BMI 19.9
--- NOTE | 2023-09-20 09:20 | ED_ITS ---
HPI - Back Pain/Injury General Chief Complaint: Back Pain/Injury Stated Complaint: Back pain Time Seen by Provider: 09/20/23 09:08 Source: patient and EMS History of Present Illness HPI Narrative: Patient is a 87-year-old male history of memory issues and dementia has ongoing back pain presents today with back pain. According to PCP note on September 17 he has ongoing lumbar pain that is getting worse. He has some disc narrowing at L1-L2 L2-L3 and L5-S1 from an x-ray in 06/13/2022. Patient states that the pain just continues to get worse he took his Tylenol and not helping. He denies any changes in bowel or bladder. No fall or injury. No weakness numbness or tingling Related Data Home Medications Medication Instructions Recorded Confirmed finasteride 5 mg tablet 5 mg PO QDAY ##0 05/08/11 09/18/23 atenolol 25 mg tablet 75 mg PO DAILY 01/21/18 09/18/23 ascorbic acid (vitamin C) 1,000 mg 500 mg PO DAILY 04/30/22 09/18/23 tablet calcium carbonate 500 mg capsule 500 mg PO DAILY 04/30/22 09/18/23 cholecalciferol (vitamin D3) 10 10 mcg PO DAILY 04/30/22 09/18/23 mcg (400 unit) chewable tablet glucosamine sulf dipot 1 cap PO DAILY 04/30/22 09/18/23 chlr,msm,chond 550 mg-C 30 mg-aamir 1 mg capsule (Glucosamine Chondroitin) lutein 6 mg tablet 6 mg PO DAILY 04/30/22 09/18/23 saw palmetto 450 mg capsule 450 mg PO DAILY 04/30/22 09/18/23 atorvastatin 10 mg tablet 10 mg PO DAILY 03/20/23 09/18/23 donepezil 10 mg tablet 10 mg PO BEDTIME 03/20/23 09/18/23 Previous Rx's Medication Instructions Recorded warfarin 6 mg tablet See Rx Instructions PO DAILY #90 09/03/23 tabs lactulose 20 gram/30 mL oral 20 g (30 mL) PO BID PRN laxative 09/06/23 solution effect #1,200 mL cyproheptadine 4 mg tablet 4 mg PO BID-QID PRN appetite #90 09/18/23 tabs hydrocodone 5 mg-acetaminophen 325 1 tab PO Q6H PRN pain #10 tabs 09/20/23 mg tablet Allergies Allergy/AdvReac Type Severity Reaction Status Date / Time No Known Drug Allergies Allergy Verified 09/18/23 12:23 Patient History Medical History (Updated 09/20/23 @ 12:34 by Sofiya Amin DO) Acalculous cholecystitis Hearing loss Fracture (~1974) Ankle pain (~2017) Skin cancer Unintentional weight loss 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 Anticoagulated on warfarin Memory changes Vertigo (~2019) Dizziness Atrial fibrillation Surgical History Hx of cholecystectomy Anesthesia History of ankle surgery (~1976) History of cataract removal with insertion of prosthetic lens (~2017) 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 Family History Father Stroke Mother Diabetes mellitus Brother History of heart disease Stroke Social History household members: spouse Smoking Status: Never smoker alcohol intake: current Smoking Status: Never smoker alcohol intake frequency: a few times a week Alcohol type: hard liquor Substance Use Type: does not use Exam Initial Vital Signs Initial Vital Signs: Vital Signs Pulse Rate 79 09/20/23 08:25 Blood Pressure 161/75 H 09/20/23 08:25 Pulse Oximetry 99 09/20/23 08:25 GENERAL: [Well-appearing, well-nourished] and in [no acute] distress. HEENT: Head atraumatic,EOMI, pupils reactive, face symmetric, [moist] mucous membranes [EARS:] [Tympanic membranes visualized, no erythema or bulging, no hemotympanum] [PHARYNX:] [No erythema, no tonsillar exudate, no cervical lymphadenopathy] CARDIOVASCULAR: Regular rate and rhythm without murmurs, rubs or gallops. RESPIRATORY: Breath sounds equal bilaterally, no wheezes rales or rhonchi. ABDOMEN: Soft, nontender. Normoactive bowel sounds all 4 quadrants. No guarding or rebound. [RECTAL:] [Hemoccult-positive, no hemorrhoids, nontender] : No CVA tenderness EXTREMITIES: Normal range of motion, no clubbing or edema. Neurovascularly intact NEUROLOGICAL: Alert and oriented x4.Normal gait and speech. Cranial nerves II through XII grossly intact. [Good oufyrj-ry-tszp, good sbya-uk-vjqv, strength equal bilaterally, no dysarthria or aphasia, sensation in tact to soft touch bilaterally, no visual changes, no facial droop] SKIN: Warm, dry, no laceration, no petechiae, no rashes or lesions. Course Orders Ordered: Discontinued Medications Hydrocodone Bitart/Acetaminophen (Hydrocodone/Acet 5/325 Tablet) 0.5 tab PO NOW ONE Stop: 09/20/23 12:54 Last Admin: 09/20/23 13:05 Dose: 0.5 tab Documented By: AYDIN Ibuprofen (Ibuprofen 400 Mg Tablet) 400 mg PO NOW ONE Stop: 09/20/23 09:44 Last Admin: 09/20/23 10:52 Dose: 400 mg Documented By: GELY Vital Signs Vital signs: Vital Signs - 8 hr 09/20/23 11:00 09/20/23 11:00 09/20/23 11:30 Pulse Rate 78 Blood Pressure 151/84 H 130/70 Pulse Oximetry 100 Oxygen Delivery Method 09/20/23 11:30 09/20/23 12:00 09/20/23 12:00 Pulse Rate 62 60 Blood Pressure 129/59 L Pulse Oximetry 99 99 Oxygen Delivery Method Room Air 09/20/23 12:30 09/20/23 12:30 09/20/23 12:58 Pulse Rate 63 84 Blood Pressure 123/62 Pulse Oximetry 100 99 Oxygen Delivery Method 09/20/23 12:58 09/20/23 13:00 09/20/23 13:00 Pulse Rate 80 Blood Pressure 174/102 H 169/96 H Pulse Oximetry 98 Oxygen Delivery Method 09/20/23 13:30 09/20/23 13:30 09/20/23 13:41 Pulse Rate 67 Blood Pressure 134/70 126/69 Pulse Oximetry 99 Oxygen Delivery Method 09/20/23 13:41 Pulse Rate 80 Blood Pressure Pulse Oximetry 99 Oxygen Delivery Method MDM - Back Pain/Injury Imaging Data Extremity x-ray #1: Radiologist's Impression: PROCEDURE: XR LUMBAR SPINE 2-3V INDICATIONS: pain TECHNIQUE: 3 views of the lumbar spine were acquired. COMPARISON: Merged With [facility], CT, CT ABDOMEN PELVIS W CON, 09/05/2023, 21:20. Merged With [facility], CR, XR LUMBAR SPINE MIN 4V, 02/20/2023, 16:17. FINDINGS: Bones: 5 [id number] vertebrae are present. There is normal bony alignment. 49% compression deformity at L4, increased from 43% on 09/05/2023. No retropulsion. Severe multilevel degenerative disc and foraminal narrowing are present most prominent L5-S1. Scattered anterior osteophytes are present. No suspicious bony lesions. Soft tissues: Overlying bowel gas pattern is normal. No suspicious soft tissue calcifications. IMPRESSION: Slight progression of L4 compression deformity as above. Dictated by: Stephanie Espinal M.D. on 09/20/2023 at 12:24 MDM Narrative Medical decision making narrative: Patient is a 87-year-old male with multiple issues presenting today with worsening back pain. New x-ray from today does show worsening L4 compression abnormality. At this time he was given some Motrin here in the ED which did help some. We will send him home with some pain medication. May need follow-up with Orthopedics supportive care only at this time bedside he is given stronger pain medication [place] if needed. Discharge Plan Departure Patient Disposition: Home Clinical Impression: Nontraumatic compression fracture of L4 vertebra Instructions: Vertebral Compression Fracture Activity Restrictions/Additional Instructions: *You have been diagnosed with L4 compression *What to do: At this time you do have compression of your spine which is likely cause of your pain. You may require referral to orthopedics or Dr. Kumari for some help *Continue to take medications as directed [place] try half a tablet to 1 tablet every 6 hours only if needed for severe pain Recommend breaking tablet in half 1st and trying a small dose to see how you tolerate is medication. If it is tolerated well you may take a full tablet *Follow up with your primary care provider in 2-3 days or call [phone] *Return to ER if you should have increasing pain, falls or any new, worsening or concerning symptoms Prescriptions: New hydrocodone-acetaminophen 5-325 mg tablet 1 tab PO Q6H PRN (Reason: pain) Qty: 10 0RF No Action atorvastatin 10 mg tablet 10 mg PO DAILY donepezil 10 mg tablet 10 mg PO BEDTIME cyproheptadine 4 mg tablet 4 mg PO BID-QID PRN (Reason: appetite) Qty: 90 2RF finasteride 5 MG tablet 5 mg PO QDAY Qty: 0 warfarin 6 mg tablet See Rx Instructions PO DAILY Qty: 90 3RF Rx Instructions: Take 1 tabs (6mg) total on Saturday and Saturday evenings and 1/2 tab (3mg) total all other days; or as directed. ascorbic acid (vitamin C) 1,000 mg Tablet 500 mg PO DAILY calcium carbonate 500 mg Capsule 500 mg PO DAILY cholecalciferol (vitamin D3) 10 mcg (400 unit) Tablet,Chewable 10 mcg PO DAILY Glucosamine Chondroitin 550-30-1 mg Capsule 1 cap PO DAILY lutein 6 mg Tablet 6 mg PO DAILY saw palmetto 450 mg Capsule 450 mg PO DAILY lactulose 20 gram/30 mL solution 20 g PO BID MDD supply: ten doses, to use prn PRN (Reason: laxative effect) Qty: 1200 0RF atenolol 25 mg Tablet 75 mg PO DAILY Patient Comments: he takes 37.5 mg Referrals: Robles Sims MD [Primary Care Provider] - Stand Alone Forms: Patient Portal/API
--- NOTE | 2023-09-20 09:43 | DI.RAD.S_ITS ---
PROCEDURE: XR LUMBAR SPINE 2-3V INDICATIONS: pain TECHNIQUE: 3 views of the lumbar spine were acquired. COMPARISON: [facility], CT, CT ABDOMEN PELVIS W CON, 09/05/2023, 21:20. [facility], CR, XR LUMBAR SPINE MIN 4V, 02/20/2023, 16:17. FINDINGS: Bones: 5 [id number] vertebrae are present. There is normal bony alignment. 49% compression deformity at L4, increased from 43% on 09/05/2023. No retropulsion. Severe multilevel degenerative disc and foraminal narrowing are present most prominent L5-S1. Scattered anterior osteophytes are present. No suspicious bony lesions. Soft tissues: Overlying bowel gas pattern is normal. No suspicious soft tissue calcifications. IMPRESSION: Slight progression of L4 compression deformity as above. Dictated by: Stephanie Espinal M.D. on 09/20/2023 at 12:24 Approved by: Stephanie Espinal M.D. on 09/20/2023 at 12:25
[2023-09-20] MEDS: IBUPROFEN 400 MG TABLET PO (10:52)
[2023-09-20] MEDS: HYDROCODONE/ACET 5/325 TABLET 0.5 TAB PO (13:05)
== END 2023-09-20 13:56 | disposition home or self-care (01) ==
PROVIDERS: Emergency Provider Emergency Medicine; Family Provider Family Medicine; PCP Family Medicine
DX: M48.56XA Collapsed vertebra, not elsewhere classified, lumbar region, initial encounter for fracture (principal); F03.90 Unspecified dementia, unspecified severity, without behavioral disturbance, psychotic disturbance, mood disturbance, and anxiety; Z79.899 Other long term (current) drug therapy
CPT/HCPCS: 72100; 99283

== ENCOUNTER → 2023-09-23 13:22 | Outpatient (CLI) | payer MEDICARE, SELFPAY ==
[2023-07-26 15:46] VITALS: BMI 19.9
== END ==
PROVIDERS: Family Provider Family Medicine; PCP Family Medicine; Referring Provider Family Medicine; Visit Provider Surgery
DX: L97.312 Non-pressure chronic ulcer of right ankle with fat layer exposed (principal); L97.322 Non-pressure chronic ulcer of left ankle with fat layer exposed; L97.512 Non-pressure chronic ulcer of other part of right foot with fat layer exposed; I87.2 Venous insufficiency (chronic) (peripheral); I89.0 Lymphedema, not elsewhere classified; Z79.01 Long term (current) use of anticoagulants; M86.671 Other chronic osteomyelitis, right ankle and foot; R60.0 Localized edema; M79.661 Pain in right lower leg; M79.662 Pain in left lower leg
CPT/HCPCS: 11042; 11045

== ENCOUNTER → 2023-09-25 13:23 | Outpatient (CLI) | payer MEDICARE, SELFPAY ==
[2023-07-26 15:46] VITALS: BMI 19.9
== END ==
PROVIDERS: Family Provider Family Medicine; PCP Family Medicine; Referring Provider Family Medicine; Visit Provider Surgery
DX: L97.312 Non-pressure chronic ulcer of right ankle with fat layer exposed (principal); L97.322 Non-pressure chronic ulcer of left ankle with fat layer exposed; L97.812 Non-pressure chronic ulcer of other part of right lower leg with fat layer exposed; L97.512 Non-pressure chronic ulcer of other part of right foot with fat layer exposed; I87.2 Venous insufficiency (chronic) (peripheral); R60.0 Localized edema; M25.571 Pain in right ankle and joints of right foot; M25.572 Pain in left ankle and joints of left foot
CPT/HCPCS: 29581

== ENCOUNTER → 2023-09-30 14:40 | Outpatient (CLI) | payer MEDICARE, SELFPAY ==
[2023-07-26 15:46] VITALS: BMI 19.9
== END ==
LOC: WC 14:41
PROVIDERS: Family Provider Family Medicine; PCP Family Medicine; Referring Provider Family Medicine; Visit Provider Surgery
DX: L97.312 Non-pressure chronic ulcer of right ankle with fat layer exposed (principal); L97.512 Non-pressure chronic ulcer of other part of right foot with fat layer exposed; I87.2 Venous insufficiency (chronic) (peripheral); R60.0 Localized edema; M86.671 Other chronic osteomyelitis, right ankle and foot; Z79.01 Long term (current) use of anticoagulants
CPT/HCPCS: 11042; 11045; 87070; 87077; 87147; 87186; 87205; 99213

== ENCOUNTER → 2023-10-01 12:14 | Outpatient (CLI) | payer MEDICARE, SELFPAY ==
[2023-07-26 15:46] VITALS: BMI 19.9
[2023-10-01 14:39] LABS: Prothrombin Time 78.6 SECONDS (9.4-12.5)
[2023-10-01 15:33] LABS: INR 6.7 (0.9-1.3)
== END ==
PROVIDERS: Family Provider Family Medicine; PCP Family Medicine; Referring Provider Family Medicine; Visit Provider Family Medicine
DX: I48.91 Unspecified atrial fibrillation (principal); Z79.01 Long term (current) use of anticoagulants; Z51.81 Encounter for therapeutic drug level monitoring
CPT/HCPCS: 36415; 85610

== ENCOUNTER → 2023-10-10 15:07 | Outpatient (CLI) | payer MEDICARE, SELFPAY ==
[2023-07-26 15:46] VITALS: BMI 19.9
== END ==
LOC: WC 15:08
PROVIDERS: Family Provider Family Medicine; PCP Family Medicine; Referring Provider Family Medicine; Visit Provider Nurse Practitioner Family
DX: L97.312 Non-pressure chronic ulcer of right ankle with fat layer exposed (principal); L97.322 Non-pressure chronic ulcer of left ankle with fat layer exposed; L97.512 Non-pressure chronic ulcer of other part of right foot with fat layer exposed; I87.2 Venous insufficiency (chronic) (peripheral); R60.0 Localized edema; M86.671 Other chronic osteomyelitis, right ankle and foot; Z79.01 Long term (current) use of anticoagulants; Z79.2 Long term (current) use of antibiotics
CPT/HCPCS: 11042; 11045; 99213

== ENCOUNTER → 2023-10-18 14:44 | Outpatient (CLI) | payer MEDICARE, SELFPAY ==
[2023-07-26 15:46] VITALS: BMI 19.9
== END ==
PROVIDERS: Family Provider Family Medicine; PCP Family Medicine; Visit Provider Family Medicine
DX: R62.7 Adult failure to thrive (principal); R32 Unspecified urinary incontinence; R63.4 Abnormal weight loss
CPT/HCPCS: 87086

== ENCOUNTER → 2023-10-18 15:48 | Outpatient (CLI) | payer MEDICARE, SELFPAY ==
[2023-07-26 15:46] VITALS: BMI 19.9
[2023-10-18 16:54] LABS: Add Manual Diff / Slide Review NO; Basophils Absolute Auto 100 /uL (0-100); Basophils Percent Auto 1.1 % (0-2); Eosinophils Absolute Auto 300 /uL (0-450); Eosinophils Percent Auto 2.5 % (2-4); Hematocrit 37.4 % (41-53); Hemoglobin 12.5 g/dL (13.5-17.5); Lymphocytes Absolute Auto 2100 /uL (1100-4500); Lymphocytes Percent Auto 20.5 % (25-40); Mean Corpuscular HGB Conc 33.5 % (30-36); Mean Corpuscular Hemoglobin 31.6 PG (26-34); Mean Corpuscular Volume 94.1 fL (80-100); Monocytes Absolute Auto 1300 /uL (0-900); Monocytes Percent Auto 12.2 % (3-14); Neutrophils Absolute Auto 6600 /uL (1500-7000); Neutrophils Percent Auto 63.7 % (50-75); Platelet Count 322 X10^3/uL (150-400); Red Blood Cell Count 3.98 X10^6/uL (4.5-5.9); Red Cell Distribution Width 15.4 % (11.6-14.8); White Blood Cell Count 10.3 X10^3/uL (4.5-11.0)
[2023-10-18 17:22] LABS: BUN Creatinine Ratio 42.9 (6-22); Blood Urea Nitrogen 24 mg/dL (9-20); Carbon Dioxide 25 mmol/L (22-32); Chloride 104 mmol/L (98-107); Estimated Glomerular Filt Rate > 60 mL/min (>60); Glucose 94 mg/dL (80-110); HEMOLYSIS < 15 (0-50); Potassium 4.8 mmol/L (3.4-5.1); Sodium 136 mmol/L (137-145)
[2023-10-18 17:25] LABS: High Sensitivity CRP - Cardiac 9.5 mg/L (1.0-3.0)
[2023-10-18 17:51] LABS: Erythrocyte Sedimentation Rate 45 MM/HR (0-15)
== END ==
PROVIDERS: Family Provider Family Medicine; PCP Family Medicine; Referring Provider Family Medicine; Visit Provider Family Medicine
DX: R63.4 Abnormal weight loss (principal); R62.7 Adult failure to thrive; R32 Unspecified urinary incontinence
CPT/HCPCS: 36415; 80048; 85025; 85651; 86140; 87086

== ENCOUNTER → 2023-10-21 14:48 | Outpatient (CLI) | payer MEDICARE, SELFPAY ==
[2023-07-26 15:46] VITALS: BMI 19.9
== END ==
LOC: WC 14:49
PROVIDERS: Family Provider Family Medicine; PCP Family Medicine; Referring Provider Family Medicine; Visit Provider Surgery
DX: L97.312 Non-pressure chronic ulcer of right ankle with fat layer exposed (principal); L97.812 Non-pressure chronic ulcer of other part of right lower leg with fat layer exposed; I87.2 Venous insufficiency (chronic) (peripheral); M86.671 Other chronic osteomyelitis, right ankle and foot; Z79.01 Long term (current) use of anticoagulants
CPT/HCPCS: 11042

== ENCOUNTER → 2023-10-22 15:12 | Outpatient (CLI) | payer MEDICARE, SELFPAY ==
[2023-07-26 15:46] VITALS: BMI 19.9
--- NOTE | 2023-10-22 15:13 | DI.US.S_ITS ---
PROCEDURE: US SCROTUM INDICATIONS: right testicular pain TECHNIQUE: Real-time scanning was performed of the scrotum and testicles, with image documentation. Color and pulse Doppler interrogation was performed of both testicles. COMPARISON: None. FINDINGS: Right: Testicle is normal in size at 4.1 x 2.5 x 3.2 cm, and homogenous in echotexture. Epididymis is normal in overall size and morphology. No hydrocele or varicoceles. Overlying scrotal skin is normal in thickness. Left: Testicle is normal in size at 4.4 x 2.2 x 3.5 cm, and homogeneous in echotexture. Epididymis is normal in overall size and morphology. No hydrocele or varicoceles. Overlying scrotal skin is normal in thickness. Doppler: Color and pulse Doppler demonstrate normal and symmetric arterial flow in both testicles. IMPRESSION: The testicles are within normal limits. Dictated by: Mansoor Lee M.D. on 10/23/2023 at 9:25 Approved by: Mansoor Lee M.D. on 10/23/2023 at 9:36
--- NOTE | 2023-10-22 15:13 | DI.RAD.S_ITS ---
PROCEDURE: XR THORACIC SPINE 3V INDICATIONS: evaluate TECHNIQUE: 3 views of the thoracic spine were acquired. COMPARISON: [facility], CR, XR THORACIC SPINE 3V, 12/19/2021, 12:29. FINDINGS: Bones: No fractures or dislocations. There is bone demineralization. No suspicious bony lesions. 12 pairs of ribs are noted, and appear intact where visualized. Moderate degenerative disc disease again demonstrated. Soft tissues: No paravertebral stripe thickening. Compared to prior study of 12/19/2021, no significant change. IMPRESSION: Osteopenia. Degenerative disc disease. Dictated by: Will Osei M.D. on 10/24/2023 at 12:58 Approved by: Will Osei M.D. on 10/24/2023 at 13:02
--- NOTE | 2023-10-22 15:13 | DI.RAD.S_ITS ---
PROCEDURE: XR LUMBAR SPINE 2-3V INDICATIONS: evaluate TECHNIQUE: 3 views of the lumbar spine were acquired. COMPARISON: [facility], CR, XR LUMBAR SPINE 2-3V, 09/20/2023, 10:06. FINDINGS: Bones: 5 [id number] vertebrae are present. Both structures are demineralized. Compared to study of 09/20/2023, further loss of vertebral body height in the L4 vertebral body. There is approximately 85% loss of L4 vertebral body height. Retropulsion seen L3 on L4 of 6-7 mm, which has progressed from the study of 09/20/2023. Remaining findings are unchanged. Soft tissues: Overlying bowel gas pattern is normal. No suspicious soft tissue calcifications. IMPRESSION: Further loss of L4 vertebral body height compared to 09/20/2023. Dictated by: Will Osei M.D. on 10/23/2023 at 14:20 Approved by: Will Osei M.D. on 10/23/2023 at 14:31
== END ==
PROVIDERS: Family Provider Family Medicine; PCP Family Medicine; Referring Provider Family Medicine; Visit Provider Family Medicine
DX: N50.811 Right testicular pain (principal); M51.34 Other intervertebral disc degeneration, thoracic region; M85.88 Other specified disorders of bone density and structure, other site; M54.50 Low back pain, unspecified; G89.29 Other chronic pain
CPT/HCPCS: 72072; 72100; 76870

== ENCOUNTER → 2023-10-30 14:42 | Outpatient (CLI) | payer MEDICARE, SELFPAY ==
[2023-07-26 15:46] VITALS: BMI 19.9
[2023-10-30 16:31] LABS: Add Manual Diff / Slide Review NO; Basophils Absolute Auto 100 /uL (0-100); Eosinophils Absolute Auto 300 /uL (0-450); Eosinophils Percent Auto 3.4 % (2-4); Hematocrit 38.5 % (41-53); Hemoglobin 12.7 g/dL (13.5-17.5); Lymphocytes Absolute Auto 1900 /uL (1100-4500); Lymphocytes Percent Auto 19.9 % (25-40); Mean Corpuscular HGB Conc 32.9 % (30-36); Mean Corpuscular Volume 94.4 fL (80-100); Monocytes Absolute Auto 1200 /uL (0-900); Monocytes Percent Auto 13.2 % (3-14); Neutrophils Absolute Auto 5800 /uL (1500-7000); Neutrophils Percent Auto 62.5 % (50-75); Platelet Count 311 X10^3/uL (150-400); Red Blood Cell Count 4.08 X10^6/uL (4.5-5.9); Red Cell Distribution Width 15.7 % (11.6-14.8); White Blood Cell Count 9.3 X10^3/uL (4.5-11.0)
[2023-10-30 17:03] LABS: Erythrocyte Sedimentation Rate 43 MM/HR (0-15)
[2023-10-30 19:27] LABS: Alanine Aminotransferase 70 IU/L (<50); Albumin 3.6 g/dL (3.5-5.0); Albumin Globulin Ratio 1.1 (1.0-2.8); Alkaline Phosphatase 174 U/L (38-126); Aspartate Aminotransferase 53 IU/L (17-59); Bilirubin Total 0.9 mg/dL (0.2-1.3); Bilirubin Unconjugated 0.5 mg/dL (0.0-1.1); C-Reactive Protein Quant 1.7 mg/dL (<1.0); Globulin 3.4 g/dL (1.7-4.1); HEMOLYSIS < 15 (0-50)
[2023-10-30 20:13] LABS: Vitamin B12 Reflex MMA if <400 352 pg/mL (239-931)
[2023-10-30 21:33] LABS: TSH w/ Reflex to FT4 1.76 uIU/mL (0.47-4.68)
[2023-10-30 22:15] LABS: Folate > 20.0 ng/mL (2.76-20.0)
[2023-11-05 08:10] LABS: Methylmalonic Acid,Serum 369 nmol/L (0-378)
== END ==
PROVIDERS: Family Provider Family Medicine; PCP Family Medicine; Referring Provider Family Medicine; Visit Provider Family Medicine
DX: R62.7 Adult failure to thrive (principal); R63.4 Abnormal weight loss
CPT/HCPCS: 36415; 80076; 82306; 82607; 82746; 83921; 84443; 85025; 85651; 86140; 87040

== ENCOUNTER → 2023-10-31 12:51 | Outpatient (CLI) | payer MEDICARE, SELFPAY ==
[2023-07-26 15:46] VITALS: BMI 19.9
--- NOTE | 2023-10-31 12:52 | DI.CT.S_ITS ---
PROCEDURE: CT CHEST ABD PEL W CON INDICATIONS: failure to thrive, weight loss TECHNIQUE: After the administration of intravenous contrast, 5 mm thick sections acquired from the lung apices to the symphysis. 5 mm coronal and sagittal reformats were performed, with additional 7 mm MIP reformats through the lungs. For radiation dose reduction, the following was used: automated exposure control, adjustment of mA and/or kV according to patient size. COMPARISON: [facility], CR, XR LUMBAR SPINE 2-3V, 10/22/2023, 15:46. [facility], CT, CT ABDOMEN PELVIS W CON, 09/05/2023, 21:20. [facility], CT, CT CHEST ABD PEL W CON, 12/29/2021, 11:32. FINDINGS: Image quality: Excellent. CHEST: Lower Neck: No enlarged lymph nodes. Thyroid: No thyroid nodules which require sonographic follow up, per consensus guidelines. Axillae: No enlarged lymph nodes. Chest Wall: Unremarkable. Lungs and Pleura: No pneumothorax or pleural effusions. No consolidation or suspicious nodules. Right lung base calcified granuloma. Heart: Heart size is enlarged. Moderate coronary artery calcifications. No pericardial effusion. Thoracic Vessels: The aorta and pulmonary arteries demonstrate normal size. Mediastinum and Amanda: No enlarged lymph nodes. Esophagus: No wall thickening. No hiatal hernia. ABDOMEN: Liver: No solid mass. Gallbladder: Absent. Biliary ducts: No biliary dilation. Pancreas: No ductal dilation. Spleen: Size is within normal limits. Adrenal Glands: No adrenal nodules. Kidneys and Ureters: No hydronephrosis. Presumed multiple left peripelvic cysts are similar to 202. No solid mass. No complex renal cystic lesion which requires follow up. Stomach and Bowel: Normal colonic caliber, without significant wall thickening. Peritoneum: No abnormal intraperitoneal fluid. No free air. Ventral Wall: No significant ventral hernia. Abdominal Nodes: No retroperitoneal or mesenteric adenopathy by size criteria. Vessels: Aorta and inferior vena cava are normal in size. Extensive calcified atherosclerotic plaque. PELVIS: Pelvic Organs: Prostatomegaly. Bladder: No stone. Pelvic Nodes: No enlarged lymph nodes. Miscellaneous: No inguinal hernias are seen. Bones: No aggressive osseous abnormality. L4 compression fracture is worsened compared to CT 09/05/2023. Similar to recent x-ray. IMPRESSION: 1. No mass or adenopathy. No free fluid. 2. Lungs are clear. Dictated by: Jose Mojica M.D. on 11/01/2023 at 9:38 Approved by: Jose Mojica M.D. on 11/01/2023 at 9:55
== END ==
LOC: CT 12:51
PROVIDERS: Family Provider Family Medicine; PCP Family Medicine; Referring Provider Family Medicine; Visit Provider Family Medicine
DX: R62.7 Adult failure to thrive (principal); R63.4 Abnormal weight loss; I51.7 Cardiomegaly; I25.10 Atherosclerotic heart disease of native coronary artery without angina pectoris; N40.0 Benign prostatic hyperplasia without lower urinary tract symptoms; M48.56XA Collapsed vertebra, not elsewhere classified, lumbar region, initial encounter for fracture; Z90.49 Acquired absence of other specified parts of digestive tract
CPT/HCPCS: 71260; 74177; Q9967

== ENCOUNTER → 2023-11-02 10:06 | Outpatient (CLI) | payer MEDICARE, SELFPAY ==
[2023-07-26 15:46] VITALS: BMI 19.9
[2023-11-02 10:39] LABS: Appearance Urine UA CLEAR; Bilirubin Urine UA NEGATIVE (NEGATIVE); Color Urine UA YELLOW; Glucose Urine UA NEGATIVE (Negative); Ketones Urine UA NEGATIVE (NEGATIVE); Leukocyte Esterase Urine UA NEGATIVE (NEGATIVE); Nitrite Urine UA NEGATIVE (Negative); Occult Blood Urine UA NEGATIVE (Negative); Protein Urine UA NEGATIVE (Negative); pH Urine UA 7.5 (4.5-8.0)
[2023-11-02 10:54] LABS: Amorphous Sediment Urine 1+; Bacteria Urine None Seen; Culture Indicated Urine Cult Not Indicated; RBC Urine None Seen (0-5/HPF); Squamous Epithelial Cell Urine None Seen (0-5/HPF); Urine Volume 10mL (spun); WBC Urine None Seen (0-5/HPF)
== END ==
PROVIDERS: Family Provider Family Medicine; PCP Family Medicine; Referring Provider Family Medicine; Visit Provider Family Medicine
DX: R62.7 Adult failure to thrive (principal); R63.4 Abnormal weight loss; N50.811 Right testicular pain
CPT/HCPCS: 81001

== ENCOUNTER → 2023-11-04 13:00 | Outpatient (CLI) | payer MEDICARE, SELFPAY ==
[2023-07-26 15:46] VITALS: BMI 19.9
== END ==
PROVIDERS: Family Provider Family Medicine; PCP Family Medicine; Referring Provider Family Medicine; Visit Provider Surgery
DX: L97.312 Non-pressure chronic ulcer of right ankle with fat layer exposed (principal); I87.2 Venous insufficiency (chronic) (peripheral); R60.0 Localized edema; M86.671 Other chronic osteomyelitis, right ankle and foot; Z79.01 Long term (current) use of anticoagulants; Z79.2 Long term (current) use of antibiotics
CPT/HCPCS: 11042; 99212; 99213

== ENCOUNTER → 2023-11-18 13:25 | Outpatient (CLI) | payer MEDICARE, SELFPAY ==
[2023-07-26 15:46] VITALS: BMI 19.9
== END ==
LOC: WC 13:25
PROVIDERS: Family Provider Family Medicine; PCP Family Medicine; Referring Provider Family Medicine; Visit Provider Surgery
DX: L97.312 Non-pressure chronic ulcer of right ankle with fat layer exposed (principal); I87.2 Venous insufficiency (chronic) (peripheral); R60.0 Localized edema; M86.671 Other chronic osteomyelitis, right ankle and foot; Z79.01 Long term (current) use of anticoagulants
CPT/HCPCS: 11042

== ENCOUNTER → 2023-11-29 11:59 | Outpatient (CLI) | payer MEDICARE, SELFPAY ==
[2023-07-26 15:46] VITALS: BMI 19.9
--- NOTE | 2023-11-29 12:01 | DI.CT.S_ITS ---
PROCEDURE: CT HEAD/BRAIN WO CON INDICATIONS: MEMORY LOSS / DEMENTIA TECHNIQUE: Noncontrast 4.5 mm thick angled axial sections acquired from the foramen magnum to the vertex, with coronal and sagittal reformats. For radiation dose reduction, the following was used: automated exposure control, adjustment of mA and/or kV according to patient size. COMPARISON: [facility], CT, CT HEAD/BRAIN WO CON, 07/26/2023, 8:19. FINDINGS: Image quality: Diagnostic. 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 The ventricles and cortical sulci are mildly dilated commonly represents a pattern of atrophy unchanged. Moderate areas of low attenuation in the periventricular deep white matter commonly related to chronic small vessel ischemic changes unchanged. Moderate vascular calcifications bilateral cavernous, supraclinoid carotids unchanged. No CT evidence of intracranial hemorrhage, mass lesion, mass effect, acute or subacute infarct. CSF spaces: Basal cisterns are patent. No extra-axial fluid collections. Skull and face: Calvarium and visualized facial bones appear intact, without suspicious lesions. Sinuses: Visualized sinuses and mastoids are clear. 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 Mild pattern of atrophy unchanged. Moderate chronic small vessel ischemic changes unchanged. Moderate vascular calcifications unchanged. No CT evidence of intracranial hemorrhage. If symptoms persist or worsen, or there is high clinical suspicion of acute abnormality, MR brain could be performed. Dictated by: Tristan Plasencia M.D. on 11/29/2023 at 13:48 Approved by: Tristan Plasencia M.D. on 11/29/2023 at 13:58
== END ==
PROVIDERS: Family Provider Family Medicine; PCP Family Medicine; Referring Provider Psychiatry & Neurology Neurology; Visit Provider Psychiatry & Neurology Neurology
DX: R41.3 Other amnesia (principal); F02.80 Dementia in other diseases classified elsewhere, unspecified severity, without behavioral disturbance, psychotic disturbance, mood disturbance, and anxiety; Z86.73 Personal history of transient ischemic attack (TIA), and cerebral infarction without residual deficits
CPT/HCPCS: 70450

== ENCOUNTER → 2023-12-02 13:15 | Outpatient (CLI) | payer MEDICARE, SELFPAY ==
[2023-07-26 15:46] VITALS: BMI 19.9
== END ==
PROVIDERS: Family Provider Family Medicine; PCP Family Medicine; Referring Provider Family Medicine; Visit Provider Surgery
DX: L97.312 Non-pressure chronic ulcer of right ankle with fat layer exposed (principal); L97.812 Non-pressure chronic ulcer of other part of right lower leg with fat layer exposed; I87.2 Venous insufficiency (chronic) (peripheral); R60.0 Localized edema; M86.671 Other chronic osteomyelitis, right ankle and foot; M62.81 Muscle weakness (generalized); Z79.01 Long term (current) use of anticoagulants; Z79.2 Long term (current) use of antibiotics
CPT/HCPCS: 11042; 87070; 87075; 87077; 87147; 87186; 87205; 99213

== ENCOUNTER → 2023-12-02 14:04 | Outpatient (CLI) | payer MEDICARE, SELFPAY ==
[2023-07-26 15:46] VITALS: BMI 19.9
[2023-12-02 15:08] LABS: Add Manual Diff / Slide Review NO; Basophils Absolute Auto 100 /uL (0-100); Basophils Percent Auto 0.5 % (0-2); Eosinophils Absolute Auto 100 /uL (0-450); Eosinophils Percent Auto 0.9 % (2-4); Hematocrit 37.5 % (41-53); Lymphocytes Absolute Auto 2300 /uL (1100-4500); Lymphocytes Percent Auto 22.2 % (25-40); Mean Corpuscular HGB Conc 34.6 % (30-36); Mean Corpuscular Hemoglobin 32.7 PG (26-34); Mean Corpuscular Volume 94.5 fL (80-100); Monocytes Absolute Auto 1000 /uL (0-900); Monocytes Percent Auto 9.6 % (3-14); Neutrophils Absolute Auto 6900 /uL (1500-7000); Neutrophils Percent Auto 66.8 % (50-75); Platelet Count 250 X10^3/uL (150-400); Red Blood Cell Count 3.97 X10^6/uL (4.5-5.9); Red Cell Distribution Width 14.6 % (11.6-14.8); White Blood Cell Count 10.3 X10^3/uL (4.5-11.0)
[2023-12-02 17:00] LABS: Erythrocyte Sedimentation Rate 44 MM/HR (0-15)
== END ==
PROVIDERS: Family Provider Family Medicine; PCP Family Medicine; Referring Provider Surgery; Visit Provider Surgery
DX: L08.9 Local infection of the skin and subcutaneous tissue, unspecified (principal)
CPT/HCPCS: 36415; 85025; 85651

== ENCOUNTER → 2023-12-16 14:11 | Outpatient (CLI) | payer MEDICARE, SELFPAY ==
[2023-07-26 15:46] VITALS: BMI 19.9
== END ==
LOC: WC 14:13
PROVIDERS: Family Provider Family Medicine; PCP Family Medicine; Referring Provider Family Medicine; Visit Provider Surgery
DX: L97.312 Non-pressure chronic ulcer of right ankle with fat layer exposed (principal); I87.2 Venous insufficiency (chronic) (peripheral); R60.0 Localized edema; M86.671 Other chronic osteomyelitis, right ankle and foot; Z79.01 Long term (current) use of anticoagulants; M62.81 Muscle weakness (generalized)
CPT/HCPCS: 11042; 99213

== ENCOUNTER → 2023-12-30 13:15 | Outpatient (CLI) | payer MEDICARE, SELFPAY ==
[2023-07-26 15:46] VITALS: BMI 19.9
== END ==
LOC: WC 13:15
PROVIDERS: Family Provider Family Medicine; PCP Family Medicine; Referring Provider Family Medicine; Visit Provider Surgery
DX: L97.312 Non-pressure chronic ulcer of right ankle with fat layer exposed (principal); L97.812 Non-pressure chronic ulcer of other part of right lower leg with fat layer exposed; I87.2 Venous insufficiency (chronic) (peripheral); R60.0 Localized edema; M86.671 Other chronic osteomyelitis, right ankle and foot; Z79.01 Long term (current) use of anticoagulants
CPT/HCPCS: 11042

== ENCOUNTER → 2024-01-13 13:45 | Outpatient (CLI) | payer MEDICARE, SELFPAY ==
[2023-07-26 15:46] VITALS: BMI 19.9
== END ==
LOC: WC 13:45
PROVIDERS: Family Provider Family Medicine; PCP Family Medicine; Referring Provider Family Medicine; Visit Provider Surgery
DX: L97.312 Non-pressure chronic ulcer of right ankle with fat layer exposed (principal); L97.812 Non-pressure chronic ulcer of other part of right lower leg with fat layer exposed; I87.2 Venous insufficiency (chronic) (peripheral); R60.0 Localized edema; Z79.01 Long term (current) use of anticoagulants; M86.671 Other chronic osteomyelitis, right ankle and foot
CPT/HCPCS: 11042

== ENCOUNTER → 2024-01-27 14:39 | Outpatient (CLI) | payer MEDICARE, SELFPAY ==
[2023-07-26 15:46] VITALS: BMI 19.9
== END ==
PROVIDERS: Family Provider Family Medicine; PCP Family Medicine; Referring Provider Family Medicine; Visit Provider Surgery
DX: I87.2 Venous insufficiency (chronic) (peripheral) (principal); L97.312 Non-pressure chronic ulcer of right ankle with fat layer exposed; L97.812 Non-pressure chronic ulcer of other part of right lower leg with fat layer exposed; M86.671 Other chronic osteomyelitis, right ankle and foot; I89.0 Lymphedema, not elsewhere classified; L98.8 Other specified disorders of the skin and subcutaneous tissue
CPT/HCPCS: 11042; 99213

== ENCOUNTER → 2024-02-10 15:35 | Outpatient (CLI) | payer MEDICARE, SELFPAY ==
[2023-07-26 15:46] VITALS: BMI 19.9
== END ==
PROVIDERS: Family Provider Family Medicine; PCP Family Medicine; Referring Provider Family Medicine; Visit Provider Surgery
DX: L97.312 Non-pressure chronic ulcer of right ankle with fat layer exposed (principal); L97.812 Non-pressure chronic ulcer of other part of right lower leg with fat layer exposed; I87.2 Venous insufficiency (chronic) (peripheral); R60.0 Localized edema; M86.671 Other chronic osteomyelitis, right ankle and foot; Z79.01 Long term (current) use of anticoagulants; Z74.09 Other reduced mobility
CPT/HCPCS: 11042

== ENCOUNTER → 2024-02-19 14:10 | Outpatient (CLI) | payer MEDICARE, SELFPAY ==
[2023-07-26 15:46] VITALS: BMI 19.9
--- NOTE | 2024-02-19 14:10 | DI.CT.S_ITS ---
PROCEDURE: CT LUMBAR SPINE WO CON INDICATIONS: f/u back pain TECHNIQUE: Noncontrast 3 mm thick sections acquired from the T12 level to the sacrum. Sagittal and coronal reformats were constructed. For radiation dose reduction, the following was used: automated exposure control. COMPARISON: [facility], CT, CT CHEST ABD PEL W CON, 10/31/2023, 13:06. FINDINGS: Straightening of the lumbar spine. Mild retrolisthesis of L2 on L3, L3 on L4. There is mild leftward lateral listhesis of L3 on L4. Severe compression fracture of L4, most pronounced in the left aspect L4 vertebral body, unchanged from prior exam, chronic. Mild patchy sclerosis of right aspect of L3 vertebral body, grossly unchanged from prior exam, nonspecific. No acute vertebral body fracture of the lumbar spine. Multilevel degenerative disease of the lumbar spine, most pronounced and moderate at L2-3 and L3-4. Multilevel disc bulge and disc desiccation. Right neural foraminal stenosis: Mild at L3-4, L4-5, L5-S1. Left neural foraminal stenosis: Mild at L3-4, moderate at L4-5, and mild at L5-S1. Axial images: T12-L1: No central canal stenosis. L1-2: Mild bilateral facet arthropathy. No central canal stenosis. L2-3: Disc bulge. Mild bilateral facet arthropathy. No central canal stenosis. L3-4: Posterior disc osteophyte complex. No central retropulsion of L4 vertebral body. Mild bilateral facet arthropathy. Moderate central canal stenosis. L4-5: Mild retropulsion of posterior inferior aspect of L4 vertebral body. Posterior disc uncovering. Mild bilateral facet arthropathy. No central canal stenosis. L5-S1: Moderate bilateral facet arthropathy. Mild disc bulge. No central canal stenosis. The visualized sacrum is intact. Marked enlargement of bilateral atria, partially visualized. Coronary artery calcification, partially visualized. Patient is likely status post cholecystectomy. Multiple left peripelvic cysts. Severe calcification of the abdominal aorta. No abdominal aortic aneurysm. IMPRESSION: 1. Severe compression fracture of L4, unchanged from prior exam. 2. Multilevel degenerative changes lumbar spine, most pronounced at L3-4, where there is moderate central canal stenosis and mild bilateral neural foraminal stenosis. Dictated by: Marti Busby M.D. on 02/19/2024 at 17:08 Approved by: Marti Busby M.D. on 02/19/2024 at 17:29
== END ==
PROVIDERS: Family Provider Family Medicine; PCP Family Medicine; Referring Provider Family Medicine; Visit Provider Family Medicine
DX: M48.061 Spinal stenosis, lumbar region without neurogenic claudication (principal); M47.816 Spondylosis without myelopathy or radiculopathy, lumbar region; M47.817 Spondylosis without myelopathy or radiculopathy, lumbosacral region; M48.07 Spinal stenosis, lumbosacral region; M48.56XA Collapsed vertebra, not elsewhere classified, lumbar region, initial encounter for fracture; M54.50 Low back pain, unspecified; G89.29 Other chronic pain; I25.10 Atherosclerotic heart disease of native coronary artery without angina pectoris; I70.0 Atherosclerosis of aorta; N28.1 Cyst of kidney, acquired
CPT/HCPCS: 72131

== ENCOUNTER → 2024-02-24 12:59 | Outpatient (CLI) | payer MEDICARE, SELFPAY ==
[2023-07-26 15:46] VITALS: BMI 19.9
== END ==
LOC: WC 13:00
PROVIDERS: Family Provider Family Medicine; PCP Family Medicine; Referring Provider Family Medicine; Visit Provider Surgery
DX: L97.312 Non-pressure chronic ulcer of right ankle with fat layer exposed (principal); L97.812 Non-pressure chronic ulcer of other part of right lower leg with fat layer exposed; I87.2 Venous insufficiency (chronic) (peripheral); R60.0 Localized edema; M86.671 Other chronic osteomyelitis, right ankle and foot; M62.81 Muscle weakness (generalized); Z79.01 Long term (current) use of anticoagulants
CPT/HCPCS: 11042; 99213

== ENCOUNTER → 2024-02-25 14:58 | Outpatient (CLI) | payer MEDICARE, SELFPAY ==
[2023-07-26 15:46] VITALS: BMI 19.9
== END ==
PROVIDERS: Family Provider Family Medicine; PCP Family Medicine; Referring Provider Family Medicine; Visit Provider Surgery
DX: L97.312 Non-pressure chronic ulcer of right ankle with fat layer exposed (principal); I87.2 Venous insufficiency (chronic) (peripheral); L97.812 Non-pressure chronic ulcer of other part of right lower leg with fat layer exposed
CPT/HCPCS: 29581

== ENCOUNTER → 2024-02-25 15:59 | Outpatient (CLI) | payer MEDICARE, SELFPAY ==
[2023-07-26 15:46] VITALS: BMI 19.9
--- NOTE | 2024-02-25 16:01 | DI.RAD.S_ITS ---
PROCEDURE: XR ANKLE RT MIN 3V INDICATIONS: non-healing ulcer right lateral ankle TECHNIQUE: 3 views of the ankle were acquired. COMPARISON: [facility], CR, XR ANKLE RT MIN 3V, 04/10/2022, 15:22. [facility], CR, XR ANKLE RT MIN 3V, 06/22/2021, 12:16. FINDINGS: Bones: No fractures or dislocations. Ankle mortise is normally aligned. No suspicious bony lesions. Soft tissues: No tibiotalar joint effusion. Achilles tendon appears normal. IMPRESSION: No acute osseous abnormalities. No definite osseous erosive changes are seen. If acute osteomyelitis is suspected, consider MRI for further evaluation. Dictated by: Tigre Peter M.D. on 02/26/2024 at 11:12 Approved by: Tigre Peter M.D. on 02/26/2024 at 11:15
== END ==
PROVIDERS: Family Provider Family Medicine; PCP Family Medicine; Referring Provider Surgery; Visit Provider Surgery
DX: L97.319 Non-pressure chronic ulcer of right ankle with unspecified severity (principal)
CPT/HCPCS: 73610

== ENCOUNTER → 2024-03-09 14:12 | Outpatient (CLI) | payer MEDICARE, SELFPAY ==
[2023-07-26 15:46] VITALS: BMI 19.9
== END ==
LOC: WC 14:12
PROVIDERS: Family Provider Family Medicine; PCP Family Medicine; Referring Provider Family Medicine; Visit Provider Surgery
DX: L97.312 Non-pressure chronic ulcer of right ankle with fat layer exposed (principal); R60.0 Localized edema; M86.671 Other chronic osteomyelitis, right ankle and foot; Z79.01 Long term (current) use of anticoagulants; I87.2 Venous insufficiency (chronic) (peripheral)
CPT/HCPCS: 11042

== ENCOUNTER → 2024-03-24 14:11 | Outpatient (CLI) | payer MEDICARE, SELFPAY ==
[2023-07-26 15:46] VITALS: BMI 19.9
== END ==
PROVIDERS: Family Provider Family Medicine; PCP Family Medicine; Referring Provider Family Medicine; Visit Provider Surgery
DX: L97.312 Non-pressure chronic ulcer of right ankle with fat layer exposed (principal); I87.2 Venous insufficiency (chronic) (peripheral); R60.0 Localized edema; M86.671 Other chronic osteomyelitis, right ankle and foot; I50.9 Heart failure, unspecified; M62.81 Muscle weakness (generalized); Z79.01 Long term (current) use of anticoagulants
CPT/HCPCS: 11042; 99213

== ENCOUNTER → 2024-04-07 13:35 | Outpatient (CLI) | payer MEDICARE, SELFPAY ==
[2023-07-26 15:46] VITALS: BMI 19.9
== END ==
LOC: WC 13:36
PROVIDERS: Family Provider Family Medicine; PCP Family Medicine; Referring Provider Family Medicine; Visit Provider Surgery
DX: I87.2 Venous insufficiency (chronic) (peripheral) (principal); L97.312 Non-pressure chronic ulcer of right ankle with fat layer exposed; L97.812 Non-pressure chronic ulcer of other part of right lower leg with fat layer exposed; L97.512 Non-pressure chronic ulcer of other part of right foot with fat layer exposed; M86.671 Other chronic osteomyelitis, right ankle and foot; L08.9 Local infection of the skin and subcutaneous tissue, unspecified; L53.8 Other specified erythematous conditions; M79.604 Pain in right leg; R60.0 Localized edema; Z79.01 Long term (current) use of anticoagulants
CPT/HCPCS: 11042; 87070; 87075; 87077; 87147; 87186; 87205; 99213

== ENCOUNTER → 2024-04-13 15:33 | Outpatient (CLI) | payer MEDICARE, SELFPAY ==
[2023-07-26 15:46] VITALS: BMI 19.9
== END ==
PROVIDERS: Family Provider Family Medicine; PCP Family Medicine; Referring Provider Family Medicine; Visit Provider Surgery
DX: I87.2 Venous insufficiency (chronic) (peripheral) (principal); L97.312 Non-pressure chronic ulcer of right ankle with fat layer exposed; L97.812 Non-pressure chronic ulcer of other part of right lower leg with fat layer exposed; L97.512 Non-pressure chronic ulcer of other part of right foot with fat layer exposed; M86.671 Other chronic osteomyelitis, right ankle and foot; L98.8 Other specified disorders of the skin and subcutaneous tissue; I73.9 Peripheral vascular disease, unspecified; R60.0 Localized edema; L53.8 Other specified erythematous conditions; M79.604 Pain in right leg
CPT/HCPCS: 11042; 97602

== ENCOUNTER → 2024-04-20 10:43 | Outpatient (CLI) | payer MEDICARE, SELFPAY ==
[2023-07-26 15:46] VITALS: BMI 19.9
== END ==
LOC: WC 10:45
PROVIDERS: Family Provider Family Medicine; PCP Family Medicine; Referring Provider Family Medicine; Visit Provider Surgery
DX: I87.2 Venous insufficiency (chronic) (peripheral) (principal); L97.312 Non-pressure chronic ulcer of right ankle with fat layer exposed; L97.812 Non-pressure chronic ulcer of other part of right lower leg with fat layer exposed; L97.512 Non-pressure chronic ulcer of other part of right foot with fat layer exposed; L98.8 Other specified disorders of the skin and subcutaneous tissue; L53.8 Other specified erythematous conditions; R60.0 Localized edema
CPT/HCPCS: 11042; 99213

== ENCOUNTER → 2024-04-24 12:01 | Outpatient (CLI) | payer MEDICARE, SELFPAY ==
[2023-07-26 15:46] VITALS: BMI 19.9
--- NOTE | 2024-04-24 12:03 | DI.ECHO.S_ITS ---
[facility] : : [id number] : : [place] : : [id number] : : Phone: [phone] Echocardiogram Report + + :Name: USMAN PECK Study Date: 04/24/2024 Height: 72 in : :Hospital ReadingLocation: Weight: 151 lb : : Gender: Male BSA: 1.9 m2 : :: 1935 Age: 88 yrs BP: 136/84 mmHg: :Reason For Study: PERMANENT ATRIAL FIBRILLATION : :Ordering Physician: RAMAKRISHNA, : :KAIN Performed By: Robles Potter : :Referring: KAIN MILLER : + + Interpretation Summary The left ventricle is normal in size. Left ventricular systolic function is borderline reduced. The ejection fraction is estimated to be 45-50%. LVEF has slightly decreased. There is mild global hypokinesis of the left ventricle. The right ventricle is moderately dilated. Right ventricular systolic function is mildly reduced. The right ventricular systolic pressure is estimated to be at least 64 mmHg based on an estimated right atrial pressure of 8 mm Hg. Compared to the prior echo exam, there has been an increase in the severity of pulmonary hypertension. There is severe biatrial enlargement. There is mild to moderate mitral regurgitation. There is mild aortic regurgitation. There is severe tricuspid regurgitation. The ascending aorta is mildly enlarged. Procedure: A two-dimensional transthoracic echocardiogram with color flow and Doppler was performed. The study quality was technically good. Comparison is made with the echocardiogram of 01/02/2022. The patient was in atrial fibrillation with heart rates between 58-87 bpm during the exam. Left Ventricle: The left ventricle is normal in size. There is normal left ventricular wall thickness. There is no ventricular septal defect visualized. Left ventricular systolic function is borderline reduced. The ejection fraction is estimated to be 45-50%. There is mild global hypokinesis of the left ventricle. Diastolic function could not be accurately assessed due to atrial fibrillation. Right Ventricle: The right ventricle is moderately dilated. Right ventricular systolic function is mildly reduced. Atria: There is severe biatrial enlargement. There is no Doppler evidence for an interatrial shunt. Mitral Valve: There is mild mitral annular calcification. There is moderate calcification extending into the subvalvular apparatus. There is mild to moderate mitral regurgitation. Aortic Valve: The aortic valve is trileaflet. The aortic valve is mildly calcified. The aortic valve opens well. There is mild aortic regurgitation. Tricuspid Valve: TV appears non-coaptive. There is severe tricuspid regurgitation. The right ventricular systolic pressure is estimated to be at least 64 mmHg based on an estimated right atrial pressure of 8 mm Hg. Compared to the prior echo exam, there has been an increase in the severity of pulmonary hypertension. Pulmonic Valve: The pulmonic valve leaflets are thin and pliable; valve motion is normal. There is no pulmonic valvular regurgitation. Great Vessels: The aortic root is normal size. The ascending aorta is mildly enlarged. The pulmonary artery is normal size. The IVC is dilated (diameter is greater than 2.1 cm) yet it collapses greater than 50% with a sniff. This suggests a right atrial pressure of 8 mm Hg. Pericardium/ Pleura There is no pericardial effusion. There is no pleural effusion. MMode/2D Measurements & Calculations LVIDd: 5.0 cm LVOT diam: 2.2 cm LVIDs: 3.7 cm Ao root diam: 3.4 cm FS: 25.6 % asc Aorta Diam: 3.8 cm EPSS: 0.52 cm Ao Arch Diam (Prox Trans): 1.9 cm IVSd: 0.98 cm LVPWd: 0.84 cm LV anton. diameter/BSA (cm/m^2): 2.7 LV sys. diameter/BSA (cm/m^2): 2.0 LA A2 area: 42.0 cm2 RA long axis: 8.5 cm LA A4 area: 43.8 cm2 RA area: 46.8 cm2 LA length (vol): 8.1 cm RA vol: 218.8 ml LA vol: 193.0 ml RA : 115.8 ml/m2 LA vol index: 102.1 ml/m2 IVC diam: 2.1 cm RVD1 (basal): 4.9 cm RVD2 (mid): 3.9 cm TAPSE: 1.8 cm Doppler Measurements & Calculations Ao V2 max: 134.0 cm/sec LVOT Max Vik: 78.3 cm/sec Ao V2 mean: 102.5 cm/sec LV V1 max P.5 mmHg Ao max P.2 mmHg LV V1 VTI: 16.9 cm Ao mean P.5 mmHg SHANNA(I,D): 2.2 cm2 Ao V2 VTI: 30.4 cm SHANNA(V,D): 2.3 cm2 sev ratio: 0.55 SHANNA indexed to BSA (cm^2/m^2): 1.1 AI P1/2t: 737.6 msec AI dec slope: 165.3 cm/sec2 MV E max vik: 88.7 cm/sec TR max vik: 372.5 cm/sec MV A max vik: 18.8 cm/sec TR max P.5 mmHg MV E/A: 4.7 PA V2 max: 68.3 cm/sec Med Peak E' Vik: 10.9 cm/sec PA V2 mean: 44.1 cm/sec E/E' med: 8.1 PA mean P.91 mmHg Lat Peak E' Vik: 13.3 cm/sec PA pr(Accel): 46.5 mmHg E/E' lat: 6.7 E/e' average: 7.4 MV dec time: 0.14 sec MR ERO: 0.28 cm2 MR PISA: 4.0 cm2 SV(LVOT): 65.5 ml MR flow rate: 140.4 cm3/sec MR PISA radius: 0.80 cm Reading Physician:04:21 PM
== END ==
LOC: ECHO 12:01
PROVIDERS: Family Provider Family Medicine; PCP Family Medicine; Referring Provider Internal Medicine Cardiovascular Disease; Visit Provider Internal Medicine Cardiovascular Disease
DX: I48.21 Permanent atrial fibrillation (principal); I08.3 Combined rheumatic disorders of mitral, aortic and tricuspid valves; I77.89 Other specified disorders of arteries and arterioles
CPT/HCPCS: 93306

== ENCOUNTER → 2024-04-27 10:54 | Outpatient (CLI) | payer MEDICARE, SELFPAY ==
[2023-07-26 15:46] VITALS: BMI 19.9
== END ==
LOC: WC 10:58
PROVIDERS: Family Provider Family Medicine; PCP Family Medicine; Referring Provider Family Medicine; Visit Provider Surgery
DX: L97.312 Non-pressure chronic ulcer of right ankle with fat layer exposed (principal); L97.812 Non-pressure chronic ulcer of other part of right lower leg with fat layer exposed; I87.2 Venous insufficiency (chronic) (peripheral); R60.0 Localized edema; M86.671 Other chronic osteomyelitis, right ankle and foot; Z79.01 Long term (current) use of anticoagulants
CPT/HCPCS: 11042

== ENCOUNTER → 2024-05-04 15:02 | Outpatient (CLI) | payer MEDICARE, SELFPAY ==
[2023-07-26 15:46] VITALS: BMI 19.9
== END ==
PROVIDERS: Family Provider Family Medicine; PCP Family Medicine; Referring Provider Family Medicine; Visit Provider Surgery
DX: I87.2 Venous insufficiency (chronic) (peripheral) (principal); L97.312 Non-pressure chronic ulcer of right ankle with fat layer exposed; L97.812 Non-pressure chronic ulcer of other part of right lower leg with fat layer exposed; M86.671 Other chronic osteomyelitis, right ankle and foot; L98.8 Other specified disorders of the skin and subcutaneous tissue; R60.0 Localized edema; Z79.01 Long term (current) use of anticoagulants
CPT/HCPCS: 11042; 29581

== ENCOUNTER 2024-05-06 14:10 | Emergency (ER) | payer MEDICARE, SELFPAY ==
[2023-07-26 15:46] VITALS: BMI 19.9
[2024-05-06 14:31] VITALS: BP 137/65; PULSE 79; O2SAT 98
[2024-05-06 14:40] VITALS: BP 178/85; PULSE 78; RESP 16; TEMP 36.5; O2SAT 98
--- NOTE | 2024-05-06 14:45 | PC.NURSE ---
ED triage note:
[2024-05-06 15:00] VITALS: BP 143/67; PULSE 71; O2SAT 97
[2024-05-06 15:15] VITALS: BP 114/55; PULSE 76
--- NOTE | 2024-05-06 15:40 | ED_ITS ---
HPI - Back Pain/Injury General Chief Complaint: Back Pain/Injury Stated Complaint: Back Pain Time Seen by Provider: 05/06/24 15:34 Source: patient and EMS History of Present Illness HPI Narrative: Patient 88-year-old male who has chronic back pain presents today with back pain. He was mildly confused currently sleeping but easily awake able not sure why he was here. Currently has a lumbar brace on. Records have been reviewed in February he does have a significant L4 compression fracture. He was able to lift both legs and follow commands. now at bedside reports that he was chronic ongoing back pain he ran out of his hydrocodone couple days ago. PCP will not fill it until next week because the primary care provider is out of town. Triage note reviewed Related Data Home Medications Medication Instructions Recorded Confirmed ascorbic acid (vitamin C) 1,000 mg 500 mg PO DAILY 04/30/22 10/29/23 tablet calcium carbonate 500 mg capsule 500 mg PO DAILY 04/30/22 10/29/23 cholecalciferol (vitamin D3) 10 10 mcg PO DAILY 04/30/22 10/29/23 mcg (400 unit) chewable tablet glucosamine sulf dipot 1 cap PO DAILY 04/30/22 10/29/23 chlr,msm,chond 550 mg-C 30 mg-aamir 1 mg capsule (Glucosamine Chondroitin) lutein 6 mg tablet 6 mg PO DAILY 04/30/22 10/29/23 saw palmetto 450 mg capsule 450 mg PO DAILY 04/30/22 10/29/23 donepezil 10 mg tablet 10 mg PO BEDTIME 03/20/23 10/29/23 memantine 10 mg tablet 10 mg PO BID 03/20/24 03/20/24 doxycycline hyclate 100 mg capsule 100 mg PO BID 04/16/24 Previous Rx's Medication Instructions Recorded acetaminophen 325 mg tablet 650 mg (2 x 325 mg) PO Q6H PRN 10/02/23 pain #360 tabs atorvastatin 10 mg tablet 10 mg PO DAILY #30 tabs 10/21/23 warfarin 6 mg tablet See Rx Instructions PO DAILY #90 01/20/24 tabs atenolol 25 mg tablet 37.5 mg (1.5 x 25 mg) PO BID #270 03/03/24 tabs duloxetine 30 mg capsule,delayed 30 mg PO DAILY #30 caps 03/20/24 release amoxicillin 500 mg capsule 500 mg PO TID #21 caps 04/16/24 finasteride 5 mg tablet 5 mg PO QDAY #90 tabs 04/21/24 gabapentin 300 mg capsule 300 mg PO BID #60 caps 04/21/24 hydrocodone 5 mg-acetaminophen 325 1 tab PO BEDTIME PRN pain #30 tabs 05/06/24 mg tablet hydrocodone 5 mg-acetaminophen 325 1 tab PO Q6H PRN pain #10 tabs 05/06/24 mg tablet Allergies Allergy/AdvReac Type Severity Reaction Status Date / Time No Known Drug Allergies Allergy Verified 10/29/23 14:50 Patient History Medical History (Updated 05/06/24 @ 17:10 by Sofiya Amin DO) Acalculous cholecystitis Hearing loss Fracture (~1974) Ankle pain (~2017) Skin cancer Unintentional weight loss 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 Anticoagulated on warfarin Memory changes Vertigo (~2019) Dizziness Atrial fibrillation Surgical History Hx of cholecystectomy Anesthesia History of ankle surgery (~1976) History of cataract removal with insertion of prosthetic lens (~2017) 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 HEENT: Head atraumatic,EOMI, pupils reactive, face symmetric, moist mucous membranes CARDIOVASCULAR: Regular rate and rhythm without murmurs, rubs or gallops. RESPIRATORY: Breath sounds equal bilaterally, no wheezes rales or rhonchi. ABDOMEN: Soft, nontender. Normoactive bowel sounds all 4 quadrants. No guarding or rebound. EXTREMITIES: Normal range of motion, no clubbing or edema. 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 Course Orders Ordered: ED Orders 05/06/24 15:48 XR lumbar spine 2-3V Stat Discontinued Medications Hydrocodone Bitart/Acetaminophen (Hydrocodone/Acet 5/325 Tablet) 1 tab PO NOW ONE Stop: 05/06/24 17:15 Last Admin: 05/06/24 17:43 Dose: 1 tab Documented By: TOBY Vital Signs Vital signs: Vital Signs - 8 hr 05/06/24 14:31 05/06/24 14:40 05/06/24 15:00 Temperature 97.7 F Pulse Rate 79 78 71 Respiratory Rate 16 Blood Pressure 137/65 178/85 H 143/67 H Pulse Oximetry 98 98 97 Oxygen Delivery Method Room Air 05/06/24 15:15 05/06/24 17:30 Temperature Pulse Rate 76 64 Respiratory Rate Blood Pressure 114/55 L 171/87 H Pulse Oximetry 98 Oxygen Delivery Method MDM - Back Pain/Injury Imaging Data Extremity x-ray #1: Radiologist's Impression: PROCEDURE: XR LUMBAR SPINE 2-3V INDICATIONS: pain with L4 compression fracture TECHNIQUE: 4 views of the lumbar spine were acquired. COMPARISON: [facility], CT, CT LUMBAR SPINE WO CON, 02/19/2024, 14:14. [facility], CR, XR LUMBAR SPINE 2-3V, 10/22/2023, 15:46. FINDINGS: Bones: 5. lep-[id number] vertebrae are present. There is straightening of normal lumbar lordosis. Patient's known moderate to severe compression deformity at L4 level is again seen not significantly changed from prior study. No new vertebral body compression fracture is seen. Degenerative endplate changes, loss of disc height and bilateral facet arthrosis throughout lumbar spine is seen. No suspicious bony lesions. Soft tissues: Overlying bowel gas pattern is normal. No suspicious soft tissue calcifications. IMPRESSION: Stable appearance of moderate to severe compression deformity at L4 level unchanged from previous studies. No new compression fracture or significant spondylolisthesis. Moderate degenerative disc disease throughout lumbar spine. Dictated by: Fabrice Gregory M.D. on 05/06/2024 at 16:56 MDM Narrative Medical decision making narrative: Patient is an 88-year-old male mildly confused who has a chronic back pain. He has a chronic L4 compression fracture. X-ray confirms a stable appearing fracture. He was wearing back brace and belt. Sleeping appears comfortable no need for pain medication. Patient is given a Kaycee here in the ED. he ambulated here with a walker. Sounds like he just needs a refill of his pain medication there is no worsening compression fracture. No concern for cauda equina. Discharge Plan Departure Patient Disposition: Home Clinical Impression: Acute on chronic back pain, Closed compression fracture of L4 vertebra Instructions: Vertebral Compression Fracture Activity Restrictions/Additional Instructions: *You have been diagnosed with acute on chronic back pain *What to do: At this time fracture at L4 is stable no new fractures are found *Continue to take medications as directed Kaycee 1 tablet at night as needed for severe pain-please talk with Dr. Sims about refilling *Follow up with your primary care provider in 2-3 days or call [phone] *Return to ER if you should have increasing leg weakness falls back or any new, worsening or concerning symptoms CONTROLLED SUBSTANCE DISCHARGE (Narcotoic/benzodiazepine/Flexeril/Phenergan) 1. You have been prescribed narcotic medications, it does have acetaminophen/Tylenol/paracetamol in it, DO NOT TAKE MORE THAN 4,00mg in 24 hours of Tylenol. TRAMADOL DOES NOT CONTAIN TYLENOL 2. Please understand that we cannot provide further refills of narcotics, benzodiazepines or controlled substances through the ED and her pain management will need to be through your provider. 3. While on these medications you cannot drive or operate heavy machinery. 4. You cannot sign legal documents or perform any duties such as this. 5. As long as you're taking opiate pain medications he should also be taking a stool softener such as Colace, Dulcolax, MiraLAX or prune juice, to help avoid constipation. Prescriptions: New hydrocodone-acetaminophen 5-325 mg tablet 1 tab PO Q6H PRN (Reason: pain) Qty: 10 0RF No Action donepezil 10 mg tablet 10 mg PO BEDTIME acetaminophen 325 mg tablet 650 mg PO Q6H PRN (Reason: pain) Qty: 360 0RF memantine 10 mg tablet 10 mg PO BID duloxetine 30 mg capsule,delayed release(DR/EC) 30 mg PO DAILY Qty: 30 3RF atorvastatin 10 mg tablet 10 mg PO DAILY Qty: 30 11RF warfarin 6 mg tablet See Rx Instructions PO DAILY Qty: 90 3RF Protocol: Dose Management Condition: Saturday Dose/Route: 3 mg Instruction: 0.5 x 6 mg tablets Condition: Saturday Dose/Route: 6 mg Instruction: 1 x 6 mg tablet Condition: Saturday Dose/Route: 3 mg Instruction: 0.5 x 6 mg tablets Condition: Saturday Dose/Route: 6 mg Instruction: 1 x 6 mg tablet Condition: Dose/Route: 6 mg Instruction: 1 x 6 mg tablet Condition: Saturday Dose/Route: 6 mg Instruction: 1 x 6 mg tablet Condition: Saturday Dose/Route: 3 mg Instruction: 0.5 x 6 mg tablets Protocol Text: Adjustment Start Date: 04/30/24 INR Value: 2.5 INR Date: 04/30/24 Recheck Date: 05/14/24 Rx Instructions: Take 1/2 tab (3mg) Tues, Sat and Sun. Take 1 tabs (6mg) total all other days; or as directed. atenolol 25 mg tablet 37.5 mg PO BID Qty: 270 0RF doxycycline hyclate 100 mg capsule 100 mg PO BID amoxicillin 500 mg capsule 500 mg PO TID Qty: 21 0RF gabapentin 300 mg capsule 300 mg PO BID Qty: 60 3RF finasteride 5 mg tablet 5 mg PO QDAY Qty: 90 1RF hydrocodone-acetaminophen 5-325 mg tablet 1 tab PO BEDTIME PRN (Reason: pain) Qty: 30 0RF ascorbic acid (vitamin C) 1,000 mg Tablet 500 mg PO DAILY calcium carbonate 500 mg Capsule 500 mg PO DAILY cholecalciferol (vitamin D3) 10 mcg (400 unit) Tablet,Chewable 10 mcg PO DAILY Glucosamine Chondroitin 550-30-1 mg Capsule 1 cap PO DAILY lutein 6 mg Tablet 6 mg PO DAILY saw palmetto 450 mg Capsule 450 mg PO DAILY Referrals: Robles Sims MD [Primary Care Provider] - Stand Alone Forms: Patient Portal/API/Survey
--- NOTE | 2024-05-06 15:48 | DI.RAD.S_ITS ---
PROCEDURE: XR LUMBAR SPINE 2-3V INDICATIONS: pain with L4 compression fracture TECHNIQUE: 4 views of the lumbar spine were acquired. COMPARISON: [facility], CT, CT LUMBAR SPINE WO CON, 02/19/2024, 14:14. [facility], CR, XR LUMBAR SPINE 2-3V, 10/22/2023, 15:46. FINDINGS: Bones: 5. [id number] vertebrae are present. There is straightening of normal lumbar lordosis. Patient's known moderate to severe compression deformity at L4 level is again seen not significantly changed from prior study. No new vertebral body compression fracture is seen. Degenerative endplate changes, loss of disc height and bilateral facet arthrosis throughout lumbar spine is seen. No suspicious bony lesions. Soft tissues: Overlying bowel gas pattern is normal. No suspicious soft tissue calcifications. IMPRESSION: Stable appearance of moderate to severe compression deformity at L4 level unchanged from previous studies. No new compression fracture or significant spondylolisthesis. Moderate degenerative disc disease throughout lumbar spine. Dictated by: Fabrice Gregory M.D. on 05/06/2024 at 16:56 Approved by: Fabrice Gregory M.D. on 05/06/2024 at 16:58
[2024-05-06 17:30] VITALS: BP 171/87; PULSE 64; O2SAT 98
[2024-05-06] MEDS: HYDROCODONE/ACET 5/325 TABLET 1 TAB PO (17:43)
== END 2024-05-06 18:15 | disposition home or self-care (01) ==
PROVIDERS: Emergency Provider Emergency Medicine; Family Provider Family Medicine; PCP Family Medicine
DX: R41.0 Disorientation, unspecified (principal); G89.29 Other chronic pain; M54.9 Dorsalgia, unspecified; M48.56XD Collapsed vertebra, not elsewhere classified, lumbar region, subsequent encounter for fracture with routine healing
CPT/HCPCS: 36415; 72100; 99283

== ENCOUNTER → 2024-05-11 15:42 | Outpatient (CLI) | payer MEDICARE, SELFPAY ==
[2023-07-26 15:46] VITALS: BMI 19.9
== END ==
PROVIDERS: Family Provider Family Medicine; PCP Family Medicine; Referring Provider Family Medicine; Visit Provider Surgery
DX: I87.2 Venous insufficiency (chronic) (peripheral) (principal); L97.312 Non-pressure chronic ulcer of right ankle with fat layer exposed; L97.812 Non-pressure chronic ulcer of other part of right lower leg with fat layer exposed; L98.8 Other specified disorders of the skin and subcutaneous tissue; R60.0 Localized edema
CPT/HCPCS: 11042

== ENCOUNTER → 2024-05-18 15:41 | Outpatient (CLI) | payer MEDICARE, SELFPAY ==
[2023-07-26 15:46] VITALS: BMI 19.9
== END ==
PROVIDERS: Family Provider Family Medicine; PCP Family Medicine; Referring Provider Family Medicine; Visit Provider Surgery
DX: I87.2 Venous insufficiency (chronic) (peripheral) (principal); L97.312 Non-pressure chronic ulcer of right ankle with fat layer exposed; L97.812 Non-pressure chronic ulcer of other part of right lower leg with fat layer exposed; M86.671 Other chronic osteomyelitis, right ankle and foot; I89.0 Lymphedema, not elsewhere classified; I70.291 Other atherosclerosis of native arteries of extremities, right leg; L98.8 Other specified disorders of the skin and subcutaneous tissue; R60.0 Localized edema
CPT/HCPCS: 11042; 97597; 99213

== ENCOUNTER → 2024-05-25 13:19 | Outpatient (CLI) | payer MEDICARE, SELFPAY ==
[2023-07-26 15:46] VITALS: BMI 19.9
== END ==
PROVIDERS: Family Provider Family Medicine; PCP Family Medicine; Referring Provider Family Medicine; Visit Provider Surgery
DX: I87.2 Venous insufficiency (chronic) (peripheral) (principal); L97.312 Non-pressure chronic ulcer of right ankle with fat layer exposed; L97.812 Non-pressure chronic ulcer of other part of right lower leg with fat layer exposed; M86.671 Other chronic osteomyelitis, right ankle and foot; I89.0 Lymphedema, not elsewhere classified; I70.291 Other atherosclerosis of native arteries of extremities, right leg; Z79.01 Long term (current) use of anticoagulants; L98.8 Other specified disorders of the skin and subcutaneous tissue; R60.0 Localized edema
CPT/HCPCS: 11042

== ENCOUNTER → 2024-06-01 15:20 | Outpatient (CLI) | payer MEDICARE, SELFPAY ==
[2023-07-26 15:46] VITALS: BMI 19.9
== END ==
PROVIDERS: Family Provider Family Medicine; PCP Family Medicine; Referring Provider Family Medicine; Visit Provider Surgery
DX: I87.2 Venous insufficiency (chronic) (peripheral) (principal); I89.0 Lymphedema, not elsewhere classified; L97.312 Non-pressure chronic ulcer of right ankle with fat layer exposed; L97.812 Non-pressure chronic ulcer of other part of right lower leg with fat layer exposed; M86.671 Other chronic osteomyelitis, right ankle and foot; L08.9 Local infection of the skin and subcutaneous tissue, unspecified; L53.8 Other specified erythematous conditions; L98.8 Other specified disorders of the skin and subcutaneous tissue
CPT/HCPCS: 11042

== ENCOUNTER → 2024-06-08 10:31 | Outpatient (CLI) | payer MEDICARE, SELFPAY ==
[2023-07-26 15:46] VITALS: BMI 19.9
== END ==
PROVIDERS: Family Provider Family Medicine; PCP Family Medicine; Referring Provider Family Medicine; Visit Provider Surgery
DX: I87.2 Venous insufficiency (chronic) (peripheral) (principal); L97.312 Non-pressure chronic ulcer of right ankle with fat layer exposed; L97.812 Non-pressure chronic ulcer of other part of right lower leg with fat layer exposed; I89.0 Lymphedema, not elsewhere classified; M86.671 Other chronic osteomyelitis, right ankle and foot; L53.8 Other specified erythematous conditions; L98.8 Other specified disorders of the skin and subcutaneous tissue; Z79.01 Long term (current) use of anticoagulants
CPT/HCPCS: 11042

== ENCOUNTER → 2024-06-22 14:18 | Outpatient (CLI) | payer MEDICARE, SELFPAY ==
[2023-07-26 15:46] VITALS: BMI 19.9
== END ==
PROVIDERS: Family Provider Family Medicine; PCP Family Medicine; Referring Provider Family Medicine; Visit Provider Surgery
DX: I87.2 Venous insufficiency (chronic) (peripheral) (principal); I89.0 Lymphedema, not elsewhere classified; L97.312 Non-pressure chronic ulcer of right ankle with fat layer exposed; M86.671 Other chronic osteomyelitis, right ankle and foot; L98.8 Other specified disorders of the skin and subcutaneous tissue; I73.9 Peripheral vascular disease, unspecified; Z79.01 Long term (current) use of anticoagulants
CPT/HCPCS: 11042; 99213

== ENCOUNTER → 2024-06-29 13:44 | Outpatient (CLI) | payer MEDICARE, SELFPAY ==
[2023-07-26 15:46] VITALS: BMI 19.9
== END ==
PROVIDERS: Family Provider Family Medicine; PCP Family Medicine; Referring Provider Family Medicine; Visit Provider Surgery
DX: I87.2 Venous insufficiency (chronic) (peripheral) (principal); L97.312 Non-pressure chronic ulcer of right ankle with fat layer exposed; L97.812 Non-pressure chronic ulcer of other part of right lower leg with fat layer exposed; M86.671 Other chronic osteomyelitis, right ankle and foot; I89.0 Lymphedema, not elsewhere classified; I70.291 Other atherosclerosis of native arteries of extremities, right leg; Z79.01 Long term (current) use of anticoagulants; L98.8 Other specified disorders of the skin and subcutaneous tissue
CPT/HCPCS: 11042; 99213

== ENCOUNTER → 2024-07-06 14:19 | Outpatient (CLI) | payer MEDICARE, SELFPAY ==
[2023-07-26 15:46] VITALS: BMI 19.9
== END ==
PROVIDERS: Family Provider Family Medicine; PCP Family Medicine; Referring Provider Family Medicine; Visit Provider Surgery
DX: I87.2 Venous insufficiency (chronic) (peripheral) (principal); L97.312 Non-pressure chronic ulcer of right ankle with fat layer exposed; L97.812 Non-pressure chronic ulcer of other part of right lower leg with fat layer exposed; M86.671 Other chronic osteomyelitis, right ankle and foot; L98.8 Other specified disorders of the skin and subcutaneous tissue; R60.0 Localized edema
CPT/HCPCS: 11042; 87070; 87075; 87077; 87147; 87186; 87205; 99213

== ENCOUNTER 2024-07-08 15:40 | Observation (INO) | payer MEDICARE, SELFPAY ==
[2023-07-26 15:46] VITALS: BMI 19.9
[2024-07-08] VITALS (8 sets, daily range): BP systolic 116–152; BP diastolic 59–76; PULSE 54–69; RESP 16–23; TEMP 35.6–36.7; O2SAT 96–100; BMI 19.2
--- NOTE | 2024-07-08 15:50 | DI.RAD.S_ITS ---
PROCEDURE: XR CHEST 1V INDICATIONS: chest pain TECHNIQUE: One view of the chest was acquired. COMPARISON: [facility], CR, XR CHEST 1V, 07/26/2023, 7:54. [facility], CR, XR CHEST 2V, 03/12/2023, 15:30. FINDINGS: Surgical changes and devices: None. Lungs and pleura: Lungs are clear. No pleural effusions or pneumothorax. Mediastinum: Mediastinal contours appear normal. Heart size is enlarged, stable. Bones and chest wall: No suspicious bony lesions. Overlying soft tissues appear unremarkable. IMPRESSION: No acute cardiopulmonary abnormality is seen. Dictated by: Tigre Peter M.D. on 07/08/2024 at 16:37 Approved by: Tigre Peter M.D. on 07/08/2024 at 16:38
--- NOTE | 2024-07-08 15:52 | EKG_ITS ---
[address] [address] Test Date: 2024-07-08 Pat Name: Eric Salgado Department: Room: Gender: Male Therapeutic Support Staff: QAMAR : 1935 Requested By: Order Number: [id number] Reading MD: Jonathon Velasco Measurements Intervals [place] Rate: 55 P: WA: QRS: -5 QRSD: 96 T: 9 QT: 420 QTc: 401 Interpretive Statements Atrial fibrillation with slow ventricular response Electronically Signed On 07-08-2024 17:41:09 PDT by Jonathon Velasco
[2024-07-08 15:59] LABS: Add Manual Diff / Slide Review NO; Basophils Absolute Auto 100 /uL (0-100); Eosinophils Absolute Auto 100 /uL (0-450); Eosinophils Percent Auto 1.4 % (2-4); Hematocrit 38.1 % (41-53); Lymphocytes Absolute Auto 3000 /uL (1100-4500); Lymphocytes Percent Auto 34.8 % (25-40); Mean Corpuscular Hemoglobin 32.3 PG (26-34); Monocytes Absolute Auto 900 /uL (0-900); Monocytes Percent Auto 10.3 % (3-14); Neutrophils Absolute Auto 4500 /uL (1500-7000); Neutrophils Percent Auto 52.5 % (50-75); Platelet Count 210 X10^3/uL (150-400); Red Blood Cell Count 4.01 X10^6/uL (4.5-5.9); Red Cell Distribution Width 13.7 % (11.6-14.8); White Blood Cell Count 8.6 X10^3/uL (4.5-11.0)
[2024-07-08 16:01] LABS: INR 2.4 (0.9-1.3); Prothrombin Time 26.5 SECONDS (9.4-12.5)
[2024-07-08 16:04] LABS: PTT Partial Thromboplastin Tim 45 SECONDS (25.1-36.5)
[2024-07-08 16:05] LABS: Alanine Aminotransferase 38 IU/L (<50); Albumin 4.2 g/dL (3.5-5.0); Albumin Globulin Ratio 1.2 (1.0-2.8); Alkaline Phosphatase 106 U/L (38-126); Aspartate Aminotransferase 46 IU/L (17-59); BUN Creatinine Ratio 41.5 (6-22); Bilirubin Total 1.1 mg/dL (0.2-1.3); Blood Urea Nitrogen 27 mg/dL (9-20); Carbon Dioxide 33 mmol/L (22-32); Chloride 100 mmol/L (98-107); Creatine Kinase 49 U/L (55-170); Estimated Glomerular Filt Rate > 60 mL/min (>60); Globulin 3.6 g/dL (1.7-4.1); Glucose 98 mg/dL (70-99); HEMOLYSIS < 15 (0-50); Potassium 4.2 mmol/L (3.4-5.1); Sodium 138 mmol/L (137-145); Total Protein 7.8 g/dL (6.3-8.2)
[2024-07-08 16:16] LABS: Troponin I < 0.012 ng/mL (0.01-0.034)
--- NOTE | 2024-07-08 16:16 | DI.NM.S_ITS ---
PROCEDURE: NM SHELBIE PERF SPECT R&S PHARM Rest and pharmacological stress myocardial perfusion SPECT with gated imaging and ejection fraction RADIOPHARMACEUTICAL: 10.8 mCi Tc-99m tetrafosmin IV at rest and 27.5 mCi Tc-99m tetrafosmin IV at peak effect of pharmacological stress. Tkq-glh-nkgrcqum was performed. INDICATIONS: chest pain TECHNIQUE: Radiopharmaceutical was injected at peak stress test, and also at rest. SPECT images were obtained. SPECT myocardial perfusion images were displayed in short axis, horizontal long axis, and vertical long axis views. Gated images were reviewed using Cellu[employer] software. COMPARISON: None. CARDIAC STRESS: A pharmacologic stress test was performed under the supervision of an attending staff, using an infusion of lexiscan 0.4mg IV X1. Hemodynamic data: There is normal blood pressure and heart rate response to pharmacologic stress. Symptoms: The patient denied anginal chest pain. Aminophylline: none EKG: Atrial fibrillation with controlled ventricular rates present at rest. No diagnostic changes of ischemia with lexiscan. FINDINGS: Raw data: There is good myocardial uptake of radiotracer. No significant motion artifacts. Gyys-kj-fjjrx ratio is 0.25 (normal is less than 0.38 for tetrafosmin tracer). Left ventricle function: Gated images demonstrate normal left ventricular wall thickening. No segmental wall motion abnormalities. No transient ischemic dilation; TID is 0.96 (normal less than 1.3). Left ventricle resting end diastolic volume is 121 mL. Left ventricle stress ejection fraction is 66^; normal range is above 45%. Myocardial perfusion: There is normal distribution of activity in the right and left ventricular myocardium. No fixed or reversible perfusion defects. IMPRESSION: Low risk, normal pharm nuclear stress test from inducible ischemia standpoint. Normal left ventricular size, wall motion, and systolic function (LVEF post stress 66%). No angina and no diagnostic ST changes with lexiscan. Dictated by: Jesi Lorenzo MD on 07/09/2024 at 13:48 Approved by: Jesi Lorenzo MD on 07/09/2024 at 13:50
--- NOTE | 2024-07-08 16:21 | DI.ECHO.S_ITS ---
[place] [facility]---------+ [facility] : : [id number] : : [id number] : : Phone: [phone] Echocardiogram Report + + :Name: USMAN PECK Study Date: 07/08/2024 Height: 74 in : :[facility] ReadingLocation: Weight: 148 lb : : Gender: Male BSA: 1.9 m2 : :: 1935 Age: 88 yrs BP: 128/70 mmHg: :Reason For Study: CHEST PAIN : :Ordering Physician: FELIPE, : :KELLIE Performed By: Derek Sullivan : :Referring: KELLIE WANG : + + Interpretation Summary The patient was in atrial fibrillation with heart rates between 50-60 bpm during the exam. The ejection fraction is estimated to be 45-50%. The right ventricle is moderately dilated. Right ventricular systolic function is mild to moderately reduced. There is severe biatrial enlargement. There is moderate mitral regurgitation. There is severe tricuspid regurgitation. The right ventricular systolic pressure is estimated to be at least 46 mmHg based on an estimated right atrial pressure of 15 mm Hg however suspect that this is an underestimation due to the severity of TR. Compared to the prior study 04/24/2024, no significant change.. Procedure: A two-dimensional transthoracic echocardiogram with color flow and Doppler was performed in limited views only to assess left ventricular function. The study quality was technically adequate. A contrast injection of Definity was performed to improve assessment of LV function. Comparison is made with the echocardiogram of 04/24/2024. The patient was in atrial fibrillation with heart rates between 50-60 bpm during the exam. Left Ventricle: The left ventricle is normal in size and wall thickness. The ejection fraction is estimated to be 45-50%. There is mild global hypokinesis of the left ventricle. Right Ventricle: The right ventricle is moderately dilated. Right ventricular systolic function is mild to moderately reduced. Atria: There is severe biatrial enlargement. Mitral Valve: The mitral valve leaflets appear mildly thickened, but open well. There is mild mitral annular calcification. There is moderate mitral regurgitation. Aortic Valve: The aortic valve is trileaflet. The aortic valve opens well. Tricuspid Valve: The tricuspid valve leaflets are thin and pliable. There is severe tricuspid regurgitation. The right ventricular systolic pressure is estimated to be at least 46 mmHg based on an estimated right atrial pressure of 15 mm Hg. Great Vessels: The IVC is dilated (diameter is greater than 2.1 cm) and it collapses less than 50% with a sniff. This suggests a high right atrial pressure of 15 mm Hg. Pericardium/ Pleura There is no pericardial effusion. There is no pleural effusion. MMode/2D Measurements & Calculations LVIDd: 4.9 cm LA A4 area: 38.5 cm2 LVIDs: 3.8 cm LA length (vol): 8.7 cm FS: 23.7 % IVSd: 0.92 cm LVPWd: 0.92 cm LV anton. diameter/BSA (cm/m^2): 2.6 LV sys. diameter/BSA (cm/m^2): 2.0 IVC diam: 2.4 cm RVD1 (basal): 5.3 cm RVD2 (mid): 4.3 cm TAPSE: 1.3 cm Doppler Measurements & Calculations TR max crista: 305.8 cm/sec TR max P.4 mmHg Reading Physician:08:04 PM
[2024-07-08] MEDS: MAG HYDROX/ALUMINUM/SIMETH SUS 20 ML, LIDOCAINE VISCOUS 2% 15 ML PO (16:28)
--- NOTE | 2024-07-08 17:05 | ED.CHESTPAIN ---
HPI - Chest Pain General Chief Complaint: Chest Pain Stated Complaint: chest pain Time Seen by Provider: 07/08/24 15:50 History of Present Illness HPI narrative: Patient had left-sided chest pain prior to arrival. EMS gave aspirin nitroglycerin and morphine. He is chest pain-free now. Patient does have history of atrial fibrillation on warfarin. No nausea or vomiting no sweating. No dyspnea. Patient denies any recent illness cough cold congestion or fever chills. Patient sees primary care Dr. Sims. Patient sees Cardiology Dr. Gregory with [facility]. Related Data Home Medications Medication Instructions Recorded Confirmed ascorbic acid (vitamin C) 1,000 mg 500 mg PO DAILY 04/30/22 07/13/24 tablet calcium carbonate 500 mg capsule 500 mg PO DAILY 04/30/22 07/13/24 cholecalciferol (vitamin D3) 10 10 mcg PO DAILY 04/30/22 07/13/24 mcg (400 unit) chewable tablet lutein 6 mg tablet 6 mg PO QPM 04/30/22 07/13/24 saw palmetto 450 mg capsule 450 mg PO DAILY 04/30/22 07/13/24 donepezil 10 mg tablet 10 mg PO BEDTIME 03/20/23 07/13/24 memantine 10 mg tablet 10 mg PO BID 03/20/24 07/13/24 furosemide 20 mg tablet 20 mg PO DAILY 06/19/24 07/13/24 doxycycline monohydrate 100 mg 100 mg PO BID 07/08/24 07/13/24 tablet Previous Rx's Medication Instructions Recorded acetaminophen 325 mg tablet 650 mg (2 x 325 mg) PO Q6H PRN 10/02/23 pain #360 tabs atorvastatin 10 mg tablet 10 mg PO DAILY #30 tabs 10/21/23 finasteride 5 mg tablet 5 mg PO QDAY #90 tabs 04/21/24 gabapentin 300 mg capsule 300 mg PO BID #60 caps 04/21/24 atenolol 25 mg tablet 37.5 mg (1.5 x 25 mg) PO BID #270 05/25/24 tabs duloxetine 60 mg capsule,delayed 60 mg PO DAILY #90 caps 06/19/24 release hydrocodone 5 mg-acetaminophen 325 1 tab PO BEDTIME PRN pain #30 tabs 06/19/24 mg tablet warfarin 6 mg tablet See Rx Instructions PO DAILY #90 07/06/24 tabs Allergies Allergy/AdvReac Type Severity Reaction Status Date / Time No Known Drug Allergies Allergy Verified 06/19/24 11:15 Review of Systems Review of Systems Narrative: GENERAL: Negative chills, fatigue, malaise, fever, sweats. HEENT: Negative sinus pain, ear pain, sore throat RESPIRATORY: Negative dyspnea, cough CARDIOVASCULAR: Positive chest pain, negative palpitations GASTROINTESTINAL: Negative vomiting, nausea, abdominal pain : Negative dysuria, frequency, hematuria MUSCULOSKELETAL: Negative muscle or bony pain SKIN: Negative rash, skin lesions NEUROLOGIC: Negative weakness, numbness ROS Unobtainable: All systems reviewed & are unremarkable except as noted in HPI and below Patient History Medical History (Updated 07/08/24 @ 17:08 by Tre Villatoro MD) Acalculous cholecystitis Hearing loss Fracture (~1974) Ankle pain (~2017) Skin cancer Unintentional weight loss 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 Anticoagulated on warfarin Memory changes Vertigo (~2019) Dizziness Surgical History (Updated 07/08/24 @ 18:38 by Elisha Rasmussen RN) Hx of cholecystectomy Anesthesia History of ankle surgery (~1976) History of cataract removal with insertion of prosthetic lens (~2017) 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 Family History Father Stroke Mother Diabetes mellitus Brother History of heart disease Stroke Social History household members: spouse alcohol intake: current alcohol intake frequency: a few times a week Alcohol type: hard liquor Exam Narrative Exam Narrative: GENERAL: in no distress, not toxic not dyspneic HEAD: Normocephalic. EYES: Pupils equal round ENT: Mucous membranes moist. NECK: Trachea midline. CARDIOVASCULAR: Irregularly irregular rate and rhythm RESPIRATORY: Clear to auscultation. Breath sounds equal bilaterally. No wheezes, rales, or rhonchi. GASTROINTESTINAL: Abdomen soft, non-tender EXTREMITIES: No gross deformities. BACK: No flank tenderness. NEURO: AOx3. Clear speech SKIN: Warm and dry PSYCH: Not anxious, is cooperative Initial Vital Signs Initial Vital Signs: Vital Signs Pulse Rate 59 L 07/08/24 15:54 Respiratory Rate 18 07/08/24 15:54 Pulse Oximetry 96 07/08/24 15:54 Course Orders Ordered: Discontinued Medications Acetaminophen (Acetaminophen 325 Mg Tablet) 650 mg PO Q6H PRN PRN Reason: Fever/Mild Pain (1-3) Hydrocodone Bitart/Acetaminophen (Hydrocodone/Acet 5/325 Tablet) 1 tab PO BEDTIME PRN PRN Reason: Pain/Sleep Last Admin: 07/09/24 10:35 Dose: 1 tab Documented By: Admin: 07/09/24 01:34 Dose: 1 tab Documented By: Admin: 07/08/24 20:37 Dose: 1 tab Documented By: MS Atenolol (Atenolol 25 Mg Tablet) 37.5 mg PO BID [facility] Last Admin: 07/09/24 08:09 Dose: 37.5 mg Documented By: Admin: 07/08/24 20:36 Dose: 37.5 mg Documented By: MS Atorvastatin Calcium (Atorvastatin 20 Mg Tablet) 10 mg PO BEDTIME [facility] Last Admin: 07/08/24 20:37 Dose: 10 mg Documented By: MS Al Hydrox/Mg Hydrox/Simethicone 20 ml/ Lidocaine HCl 15 ml 0 ml PO NOW ONE Stop: 07/08/24 16:24 Last Admin: 07/08/24 16:28 Dose: 35 ml Documented By: DMH Docusate Sodium (Docusate 100 Mg Capsule) 100 mg PO BID PRN PRN Reason: Constipation Last Admin: 07/09/24 08:11 Dose: 100 mg Documented By: SB Donepezil HCl (Donepezil 5 Mg Tablet) 10 mg PO BEDTIME [facility] Last Admin: 07/08/24 20:38 Dose: 10 mg Documented By: MS Doxycycline Hyclate (Doxycycline Hyclate 100 Mg Tablet) 100 mg PO BID [facility] Last Admin: 07/09/24 08:11 Dose: 100 mg Documented By: Admin: 07/08/24 20:37 Dose: 100 mg Documented By: MS Duloxetine HCl (Duloxetine 30 Mg Capsule) 60 mg PO DAILY [facility] Last Admin: 07/09/24 08:11 Dose: 60 mg Documented By: SB Finasteride (Finasteride 5 Mg Tablet) 5 mg PO DAILY [facility] Last Admin: 07/09/24 08:11 Dose: 5 mg Documented By: SB Furosemide (Furosemide 20 Mg Tablet) 20 mg PO DAILY [facility] Last Admin: 07/09/24 08:11 Dose: 20 mg Documented By: MARY ELLEN Gabapentin (Gabapentin 300 Mg Capsule) 300 mg PO BID [facility] Last Admin: 07/09/24 08:11 Dose: 300 mg Documented By: MARY ELLEN Admin: 07/08/24 20:38 Dose: 300 mg Documented By: Memantine (Memantine Hcl 5 Mg Tablet) 10 mg PO BID [facility] Last Admin: 07/09/24 08:10 Dose: 10 mg Documented By: MARY ELLEN Admin: 07/08/24 20:36 Dose: 10 mg Documented By: Naloxone HCl (Naloxone 0.4 Mg/Ml Vial) 0.2 mg IV Q2MIN PRN PRN Reason: Opiate Reversal Ondansetron HCl (Ondansetron 4 Mg/2 Ml Inj) 4 mg IV Q8HR PRN PRN Reason: Nausea And Vomiting Sodium Chloride (Sodium Chloride 0.9% Flush) 10 ml IV PRN PRN PRN Reason: Flush Sodium Chloride (Sodium Chloride 0.9% Flush) 10 ml IV BID [facility] Last Admin: 07/09/24 08:11 Dose: 10 ml Documented By: MARY ELLEN Warfarin Protocol (Warfarin Per Pharmacy (Inr 2-3)) 1 request MISC NOW PRN PRN Reason: Atrial Fibrillation Warfarin Sodium (Warfarin 1 Mg Tablet) 3 mg PO [id number]@1700 [facility] Warfarin Sodium 5 mg/ Warfarin (Sodium 1 mg) 6 mg PO [id number]@1700 [facility] Vital Signs Vital signs: Vital Signs - 8 hr 07/08/24 15:54 07/08/24 15:55 07/08/24 16:00 Temperature 97.6 F Pulse Rate 59 L 55 L 69 Respiratory Rate 18 16 23 Blood Pressure 139/72 Pulse Oximetry 96 97 97 Oxygen Delivery Method Room Air Room Air 07/08/24 16:00 Temperature Pulse Rate Respiratory Rate Blood Pressure 141/67 H Pulse Oximetry Oxygen Delivery Method MDM - Chest Pain Lab Data 07/09/24 04:10 07/09/24 04:10 Labs: Lab Results 07/08/24 Range/Units 15:25 WBC 8.6 (4.5-11.0) X10^3/uL RBC 4.01 L (4.5-5.9) X10^6/uL Hgb 13.0 L (13.5-17.5) g/dL Hct 38.1 L (41-53) % MCV 95.0 (80-100) fL MCH 32.3 (26-34) PG MCHC 34.0 (30-36) % RDW 13.7 (11.6-14.8) % Plt Count 210 (150-400) X10^3/uL Neut % (Auto) 52.5 (50-75) % Lymph % (Auto) 34.8 (25-40) % [place] % (Auto) 10.3 (3-14) % Eos % (Auto) 1.4 L (2-4) % Baso % (Auto) 1.0 (0-2) % Neut # (Auto) 4500 (9748-1624) /uL Lymph # (Auto) 3000 (7898-8226) /uL [place] # (Auto) 900 (0-900) /uL Eos # (Auto) 100 (0-450) /uL Baso # (Auto) 100 (0-100) /uL PT 26.5 H (9.4-12.5) SECONDS INR 2.4 H (0.9-1.3) APTT 45 H (25.1-36.5) SECONDS Sodium 138 (137-145) mmol/L Potassium 4.2 (3.4-5.1) mmol/L Chloride 100 (98-107) mmol/L Carbon Dioxide 33 H (22-32) mmol/L BUN 27 H (9-20) mg/dL Creatinine 0.65 L (0.66-1.25) mg/dL Estimated GFR > 60 (>60) mL/min BUN/Creatinine Ratio 41.5 H (6-22) Glucose 98 (70-99) mg/dL Calcium 9.0 (8.4-10.2) mg/dL Total Bilirubin 1.1 (0.2-1.3) mg/dL AST 46 (17-59) IU/L ALT 38 (<50) IU/L Alkaline Phosphatase 106 (38-126) U/L Total Creatine Kinase 49 L (55-170) U/L Troponin I < 0.012 (0.01-0.034) ng/mL Total Protein 7.8 (6.3-8.2) g/dL Albumin 4.2 (3.5-5.0) g/dL Globulin 3.6 (1.7-4.1) g/dL Albumin/Globulin Ratio 1.2 (1.0-2.8) Imaging Data Chest x-ray: Radiologist's Impression: [address] [address] XRay Report Signed Patient: Eric Salgado MR#: [id number] : 1935 Acct:[id number] Age/Sex: 88 / M Date of Service: 07/08/24 Loc: ED Accession Number: [id number] Procedure: XR chest 1V Ordering Provider: Tre Villatoro MD PROCEDURE: XR CHEST 1V INDICATIONS: chest pain TECHNIQUE: One view of the chest was acquired. COMPARISON: [facility], CR, XR CHEST 1V, 07/26/2023, 7:54. [facility], CR, XR CHEST 2V, 03/12/2023, 15:30. FINDINGS: Surgical changes and devices: None. Lungs and pleura: Lungs are clear. No pleural effusions or pneumothorax. Mediastinum: Mediastinal contours appear normal. Heart size is enlarged, stable. Bones and chest wall: No suspicious bony lesions. Overlying soft tissues appear unremarkable. IMPRESSION: No acute cardiopulmonary abnormality is seen. Dictated by: Tigre Peter M.D. on 07/08/2024 at 16:37 Approved by: Tigre Peter M.D. on 07/08/2024 at 16:38 [facility] Narrative Medical decision making narrative: Patient had left-sided chest pain prior to arrival. EMS gave aspirin nitroglycerin and morphine. He is chest pain-free now. Patient does have history of atrial fibrillation on warfarin. No nausea or vomiting no sweating. No dyspnea. Patient denies any recent illness cough cold congestion or fever chills. Patient sees primary care Dr. Sims. Patient sees Cardiology Dr. Gregory with [facility]. After history and exam, CBC CMP troponin EKG chest x-ray PT INR [facility] Medical records reviewed: Echocardiogram from last month Differential considered: Includes but not limited to STEMI non-STEMI angina Lab Test results independently reviewed as above. Pertinent findings: WBC 8.6 hemoglobin 13.0 INR 2.4 sodium 138 potassium 4.2 BUN 27 creatinine 0.65 troponin less than 0.012 Independently reviewed EKG atrial fibrillation rate 55 Imaging studies independently reviewed: Chest x-ray no acute finding Consultations: 4:[address] Sims, primary care provider, who will see patient for admission. Agrees for stress test and echocardiogram. Re-evaluations: 5:00 p.m.. and son are at bedside. Reviewed results with them and they do agree for admission for stress test. Being admitted tonight Discussion: Appropriate for admission. Patient chest pain-free at this time. Relieved with nitroglycerin. Exam and laboratory studies are reassuring. No cardiology consult indicated at this time. Diagnosis: Chest pain Discharge Plan Departure Patient Disposition: Admitted as Observation Clinical Impression: History of stem cell transplant Chest pain Qualifiers: Chest pain type: unspecified Qualified Code(s): R07.9 - Chest pain, unspecified Admit Date/Time: 07/08/24 17:02 Admit Provider: Robles Sims
--- NOTE | 2024-07-08 17:52 | PM.HP.IH.1 ---
History of Present Illness History of Present Illness Date Patient Seen: 07/08/24 Chief complaint: chest pain Narrative: 88-year-old male with chronic AFib on warfarin, cor pulmonale, dementia, osteopenia, compression fracture of lumbar spine presenting for chest pain. Reports left-sided chest pain prior to arrival. EMS gave aspirin, nitroglycerin, and morphine. Chest pain-free on arrival to ER. No associated nausea, vomiting, diaphoresis, SOB. No recent illness, cough, congestion, fevers, chills. ER workup notable for Hgb 13.0, INR 2.4; remainder of CBC, CMP without significant derangements. Troponin negative. CXR negative for acute cardiopulmonary process. EKG demonstrates atrial fibrillation rate controlled with no apparent ST or T-wave changes. Admitted for observation and nuclear stress test tomorrow morning. [facility] Medical History (Updated 07/08/24 @ 17:08 by Tre Villatoro MD) Acalculous cholecystitis Hearing loss Fracture (~1974) Ankle pain (~2017) Skin cancer Unintentional weight loss 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 Anticoagulated on warfarin Memory changes Vertigo (~2019) Dizziness Surgical History (Updated 07/08/24 @ 18:38 by Elisha Rasmussen RN) Hx of cholecystectomy Anesthesia History of ankle surgery (~1976) History of cataract removal with insertion of prosthetic lens (~2017) 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 Family History Father Stroke Mother Diabetes mellitus Brother History of heart disease Stroke Social History household members: spouse Smoking Status: Never smoker alcohol intake: current Meds Home Medications and Allergies Home Medications Medication Instructions Recorded Confirmed Type ascorbic acid (vitamin C) 1,000 mg 500 mg PO DAILY 04/30/22 07/08/24 History tablet calcium carbonate 500 mg capsule 500 mg PO DAILY 04/30/22 07/08/24 History cholecalciferol (vitamin D3) 10 10 mcg PO DAILY 04/30/22 07/08/24 History mcg (400 unit) chewable tablet lutein 6 mg tablet 6 mg PO QPM 04/30/22 07/08/24 History saw palmetto 450 mg capsule 450 mg PO DAILY 04/30/22 07/08/24 History donepezil 10 mg tablet 10 mg PO BEDTIME 03/20/23 07/08/24 History acetaminophen 325 mg tablet 650 mg (2 x 325 mg) PO Q6H PRN 10/02/23 07/08/24 Rx pain #360 tabs atorvastatin 10 mg tablet 10 mg PO DAILY #30 tabs 10/21/23 07/08/24 Rx memantine 10 mg tablet 10 mg PO BID 03/20/24 07/08/24 History finasteride 5 mg tablet 5 mg PO QDAY #90 tabs 04/21/24 07/08/24 Rx gabapentin 300 mg capsule 300 mg PO BID #60 caps 04/21/24 07/08/24 Rx atenolol 25 mg tablet 37.5 mg (1.5 x 25 mg) PO BID #270 05/25/24 07/08/24 Rx tabs duloxetine 60 mg capsule,delayed 60 mg PO DAILY #90 caps 06/19/24 07/08/24 Rx release furosemide 20 mg tablet 20 mg PO DAILY 06/19/24 07/08/24 History hydrocodone 5 mg-acetaminophen 325 1 tab PO BEDTIME PRN pain #30 tabs 06/19/24 07/08/24 Rx mg tablet warfarin 6 mg tablet See Rx Instructions PO DAILY #90 07/06/24 07/08/24 Rx tabs doxycycline monohydrate 100 mg 100 mg PO BID 07/08/24 07/08/24 History tablet Allergies Allergy/AdvReac Type Severity Reaction Status Date / Time No Known Drug Allergies Allergy Verified 06/19/24 11:15 Exam Vital Signs (past 8 hours): - 07/08/24 15:54 07/08/24 15:55 07/08/24 16:00 Temperature 97.6 F Pulse Rate 59 L 55 L 69 Respiratory Rate 18 16 23 Blood Pressure 139/72 Pulse Oximetry 96 97 97 Oxygen Delivery Method Room Air Room Air 07/08/24 16:00 07/08/24 16:30 07/08/24 16:30 Temperature Pulse Rate 54 L Respiratory Rate 22 Blood Pressure 141/67 H 128/70 Pulse Oximetry 99 Oxygen Delivery Method 07/08/24 17:00 07/08/24 17:00 07/08/24 17:30 Temperature 98.0 F Pulse Rate 60 60 Respiratory Rate 22 22 Blood Pressure 116/62 Pulse Oximetry 99 99 Oxygen Delivery Method Room Air 07/08/24 17:30 Temperature Pulse Rate Respiratory Rate Blood Pressure 133/63 Pulse Oximetry Oxygen Delivery Method Oxygen Delivery Method Room Air Narrative Exam Narrative: General: Pleasant, NAD HEENT: NC/AT, EOMI, moist membranes CV: Regular rate, irregularly irregular rhythm, normal S1-S2, no m/g/r Resp: CTAB, comfortable WOB Abd: Soft, NTND, +BS Ext: No edema Skin: Multiple chronic wounds on scalp, lower extremity Neuro: A&O x3, moves all extremities, no focal deficits Objective Labs 07/09/24 04:10 07/09/24 04:10 Labs: Laboratory Results - last 24 hr 07/08/24 15:25 WBC 8.6 RBC 4.01 L Hgb 13.0 L Hct 38.1 L MCV 95.0 MCH 32.3 MCHC 34.0 RDW 13.7 Plt Count 210 Neut % (Auto) 52.5 Lymph % (Auto) 34.8 [place] % (Auto) 10.3 Eos % (Auto) 1.4 L Baso % (Auto) 1.0 Neut # (Auto) 4500 Lymph # (Auto) 3000 [place] # (Auto) 900 Eos # (Auto) 100 Baso # (Auto) 100 PT 26.5 H INR 2.4 H APTT 45 H Sodium 138 Potassium 4.2 Chloride 100 Carbon Dioxide 33 H BUN 27 H Creatinine 0.65 L Estimated GFR > 60 BUN/Creatinine Ratio 41.5 H Glucose 98 Calcium 9.0 Total Bilirubin 1.1 AST 46 ALT 38 Alkaline Phosphatase 106 Total Creatine Kinase 49 L Troponin I < 0.012 Total Protein 7.8 Albumin 4.2 Globulin 3.6 Albumin/Globulin Ratio 1.2 Assessment & Plan Assessment and plan (1) Chest pain: Qualifiers: Chest pain type: unspecified Qualified Code(s): R07.9 - Chest pain, unspecified Status: Acute (2) Chronic atrial fibrillation: Status: Acute (3) Anticoagulated on warfarin: Status: Acute (4) Anticoagulation goal of INR 2 to 3: Status: Acute (5) Cor pulmonale: Problem details: Lasix 20mg daily per Cardiology Status: Chronic (6) Dementia: Qualifiers: Dementia behavioral or psychological symptom: without behavioral, psychotic, or mood disturbance or anxiety Dementia severity: unspecified severity Dementia type: unspecified type Qualified Code(s): F03.90 - Unspecified dementia, unspecified severity, without behavioral disturbance, psychotic disturbance, mood disturbance, and anxiety Status: Chronic (7) Chronic low back pain: Qualifiers: Back pain laterality: midline Sciatica presence: without sciatica Qualified Code(s): M54.50 - Low back pain, unspecified; G89.29 - Other chronic pain Status: Acute (8) Compression fracture of lumbar spine, non-traumatic: Qualifiers: Encounter type: subsequent encounter Fracture healing: with delayed healing Lumbar vertebra fracture level: L4 Qualified Code(s): M48.56XG - Collapsed vertebra, not elsewhere classified, lumbar region, subsequent encounter for fracture with delayed healing Status: Acute Plan 88-year-old male with chronic AFib on warfarin, cor pulmonale, dementia, osteopenia, compression fracture of lumbar spine admitted for chest pain. Assessment & Plan narrative: #chest pain Acute onset earlier today, resolved s/p ASA, nitroglycerin, morphine by EMS en route to ER. Asymptomatic, initial ischemic workup unremarkable. -repeat troponin -tele -nuclear stress test tomorrow AM #AFib on warfarin Rate controlled -home atenolol -warfarin per pharmacy #cor pulmonale -continue home lasix #dementia -home donepezil, memantine #chronic back pain #compression fracture of lumbar spine -home duloxetine, gabapentin, hydrocodone Time-Based Coding :: 30 minutes spent with patient and on the chart (including review of chart, obtaining history, exam, reviewing outside data, placing orders, documenting exam and treatment plan, and counseling patient) on 07/08/2024. 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
[2024-07-08 19:27] LABS: Troponin I < 0.012 ng/mL (0.01-0.034)
[2024-07-08] MEDS: MEMANTINE HCL 5 MG TABLET 10 MG PO (20:36)
[2024-07-08] MEDS: atenoloL 25 MG TABLET 37.5 MG PO (20:36)
[2024-07-08] MEDS: DOXYCYCLINE HYCLATE 100 MG TABLET PO (20:37)
[2024-07-08] MEDS: HYDROCODONE/ACET 5/325 TABLET 1 TAB PO (20:37)
[2024-07-08] MEDS: ATORVASTATIN 20 MG TABLET 10 MG PO (20:37)
[2024-07-08] MEDS: DONEPEZIL 5 MG TABLET 10 MG PO (20:38)
[2024-07-08] MEDS: GABAPENTIN 300 MG CAPSULE PO (20:38)
[2024-07-09] VITALS: BP 114/49; PULSE 51; RESP 18; TEMP 36.1; O2SAT 98
[2024-07-09] MEDS: HYDROCODONE/ACET 5/325 TABLET 1 TAB PO ×2 (01:34→10:35)
[2024-07-09 04:00] VITALS: BP 144/87; PULSE 65; RESP 18; TEMP 35.8; O2SAT 98
[2024-07-09 05:01] LABS: Add Manual Diff / Slide Review NO; Basophils Absolute Auto 100 /uL (0-100); Basophils Percent Auto 0.9 % (0-2); Eosinophils Absolute Auto 100 /uL (0-450); Eosinophils Percent Auto 1.6 % (2-4); Hematocrit 35.9 % (41-53); Hemoglobin 12.2 g/dL (13.5-17.5); Lymphocytes Absolute Auto 3200 /uL (1100-4500); Mean Corpuscular HGB Conc 33.9 % (30-36); Mean Corpuscular Hemoglobin 32.1 PG (26-34); Mean Corpuscular Volume 94.7 fL (80-100); Monocytes Absolute Auto 700 /uL (0-900); Monocytes Percent Auto 9.5 % (3-14); Neutrophils Absolute Auto 3400 /uL (1500-7000); Platelet Count 191 X10^3/uL (150-400); Red Blood Cell Count 3.79 X10^6/uL (4.5-5.9); Red Cell Distribution Width 13.7 % (11.6-14.8); White Blood Cell Count 7.5 X10^3/uL (4.5-11.0)
[2024-07-09 05:11] LABS: INR 2.4 (0.9-1.3); Prothrombin Time 26.7 SECONDS (9.4-12.5)
[2024-07-09 05:21] LABS: BUN Creatinine Ratio 38.5 (6-22); Blood Urea Nitrogen 25 mg/dL (9-20); Carbon Dioxide 32 mmol/L (22-32); Chloride 100 mmol/L (98-107); Estimated Glomerular Filt Rate > 60 mL/min (>60); Glucose 80 mg/dL (70-99); HEMOLYSIS < 15 (0-50); Sodium 136 mmol/L (137-145)
[2024-07-09] MEDS: atenoloL 25 MG TABLET 37.5 MG PO (08:09)
[2024-07-09] MEDS: MEMANTINE HCL 5 MG TABLET 10 MG PO (08:10)
[2024-07-09] MEDS: GABAPENTIN 300 MG CAPSULE PO (08:11)
[2024-07-09] MEDS: FINASTERIDE 5 MG TABLET PO (08:11)
[2024-07-09] MEDS: DULOXETINE 30 MG CAPSULE 60 MG PO (08:11)
[2024-07-09] MEDS: FUROSEMIDE 20 MG TABLET PO (08:11)
[2024-07-09] MEDS: DOXYCYCLINE HYCLATE 100 MG TABLET PO (08:11)
[2024-07-09] MEDS: DOCUSATE 100 MG CAPSULE PO (08:11)
[2024-07-09] MEDS: SODIUM CHLORIDE 0.9% FLUSH 10 ML IV (08:11)
--- NOTE | 2024-07-09 11:33 | CM.DANOTE ---
Initial DCP Assessment Note Pt is a 88 yo male, arrives with chest pain, admitted OBS for rule out. Patient has stress test ordered this morning. PCP: Robles Sims Payer: [facility] Reviewed chart, pt discussed in multidisciplinary rounds this morning. Patient is likely to discharge home after stress test if normal. Dr Sims attending. Met w/patient; patient with known dementia, processing rate is slow, as is speech. 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 Patient appreciative for the visit. Placed call to spouse Jud who reports that patient is fairly indp in all ADLs, uses a walker around heir home, self transfers from the couch. Patient is mostly sedentary. Patient has [facility] nursing for wound care once weekly and also goes into wound care clinic once weekly. Spouse denies hx of manager transportation planning, unsure whether she would consider this now. Patient/sp have a daughter and son. Conversation was cut short as spouse received a call from their doctor on the other line. Plan: Discharge home w/sp and resumption of [facility] RN/PT, outpatient wound care, is likely. Will plan to leave a copy of senior resources guidebook at patient's bedside. Emailed Meredith at [facility] a new completed F2F and HH order in case needed for patient's discharge, anticipated today if stress test results are normal. No barriers identified at this time to patient's safe discharge home w/family to assist; [facility], close outpatient f/u recommended. CM team will plan to follow clinical course closely. EZIO Daugherty Discharge Planning/Care Management Discharge Assessment Start: 07/09/24 11:30 Freq: Status: Active Protocol: Document 07/09/24 11:30 ISAIAS (Rec: 07/09/24 11:33 ISAIAS [id number]) Discharge Planning Assessment Assigned Interface Analyst EZIO Noland DPOA/Assigned Designee Name Jud Salgado, spouse Contact Information [phone] Advance Directives? Yes Advance Directives on File No History Provided By Patient,Significant Other, Medical Record Has Patient been admitted in last 30 No days? Prior Living Arrangements House Household Members spouse Type of transporation used prior to Relies on Others admit Independent with ADL's Yes Is patient alert and oriented? Yes: Dementia Needs Assistance With Meal Prep,Managing Medications ,Home Chores / Shopping Patient/Family Preference Home with Home Health Barriers to Discharge No Comment Anticipate home w/sp and resumption of [facility] RN and outpatient wound care Discharge Plan Home with Home Health Community Services Home Health Nurse,Wound Care Transportation Arrangement Family Referrals Initiated Home Health Additional Comment Resumption order for [facility]
[2024-07-09 12:48] VITALS: BP 143/53; PULSE 78; RESP 16; TEMP 35.7; O2SAT 99
--- NOTE | 2024-07-09 14:39 | PM.DS.IH.1 ---
History of Present Illness History of Present Illness Date Patient Seen: 07/09/24 Time Patient Seen: 13:15 Chief complaint: chest pain Narrative: 88-year-old male with chronic AFib on warfarin, cor pulmonale, dementia, osteopenia, compression fracture of lumbar spine presenting for chest pain. Reports left-sided chest pain prior to arrival. EMS gave aspirin, nitroglycerin, and morphine. Chest pain-free on arrival to ER. No associated nausea, vomiting, diaphoresis, SOB. No recent illness, cough, congestion, fevers, chills. ER workup notable for Hgb 13.0, INR 2.4; remainder of CBC, CMP without significant derangements. Troponin negative. CXR negative for acute cardiopulmonary process. EKG demonstrates atrial fibrillation rate controlled with no apparent ST or T-wave changes. Admitted for observation and nuclear stress testing. Discharge Providers Provider Date of admission: 07/08/24 17:02 Discharge Date: 07/09/24 Primary care physician: Robles Sims MD Consults: 07/09/24 11:48 Consult to Home Health Routine Comment: Reason For Exam: Resume home health services at discharge Discharge provider: Robles Sims MD Summary Hospital Course Discharge Diagnosis: #chest pain #chronic AFib # cor pulmonale #dementia #chronic low back pain #compression fracture of lumbar spine Hospital Course: Admitted for observation due to chest pain without evidence of ischemia on initial EKG and lab evaluation. Nuclear stress test normal. AFib remained rate controlled on atenolol throughout hospitalization. Patient is symptom-free since arrival to ER. Stable for discharge home with outpatient follow-up. Status at Discharge Cognitive/behavioral status at discharge: at baseline, confused Functional status at discharge: uses cane/walker Overall status at discharge: patient is back to baseline Time Spent with Patient Time spent: Less than 30 minutes Exam Vital Signs (past 8 hours): - 07/09/24 12:48 Temperature 96.2 F L Pulse Rate 78 Respiratory Rate 16 Blood Pressure 143/53 H Pulse Oximetry 99 Oxygen Flow Rate 0 Oxygen Delivery Method Room Air Oxygen Flow Rate 0 Narrative Exam Narrative: General: Pleasant, NAD HEENT: NC/AT, EOMI, moist membranes CV: Regular rate, irregularly irregular rhythm, normal S1-S2, no m/g/r Resp: CTAB, comfortable WOB Abd: Soft, NTND, +BS Ext: No edema Skin: Multiple chronic wounds on scalp, lower extremity Neuro: A&O x3, moves all extremities, no focal deficits Objective Labs 07/09/24 04:10 07/09/24 04:10 Labs: Laboratory Results - last 24 hr 07/08/24 07/08/24 07/09/24 15:25 18:54 04:10 WBC 8.6 7.5 RBC 4.01 L 3.79 L Hgb 13.0 L 12.2 L Hct 38.1 L 35.9 L MCV 95.0 94.7 MCH 32.3 32.1 MCHC 34.0 33.9 RDW 13.7 13.7 Plt Count 210 191 Neut % (Auto) 52.5 45.0 L Lymph % (Auto) 34.8 43.0 H Jerome % (Auto) 10.3 9.5 Eos % (Auto) 1.4 L 1.6 L Baso % (Auto) 1.0 0.9 Neut # (Auto) 4500 3400 Lymph # (Auto) 3000 3200 Jerome # (Auto) 900 700 Eos # (Auto) 100 100 Baso # (Auto) 100 100 PT 26.5 H 26.7 H INR 2.4 H 2.4 H APTT 45 H Sodium 138 136 L Potassium 4.2 4.0 Chloride 100 100 Carbon Dioxide 33 H 32 BUN 27 H 25 H Creatinine 0.65 L 0.65 L Estimated GFR > 60 > 60 BUN/Creatinine Ratio 41.5 H 38.5 H Glucose 98 80 Calcium 9.0 9.0 Total Bilirubin 1.1 AST 46 ALT 38 Alkaline Phosphatase 106 Total Creatine Kinase 49 L Troponin I < 0.012 < 0.012 Total Protein 7.8 Albumin 4.2 Globulin 3.6 Albumin/Globulin Ratio 1.2 [facility] Medical History (Updated 07/08/24 @ 17:08 by Tre Villatoro MD) Acalculous cholecystitis Hearing loss Fracture (~1974) Ankle pain (~2017) Skin cancer Unintentional weight loss 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 Anticoagulated on warfarin Memory changes Vertigo (~2019) Dizziness Surgical History (Updated 07/08/24 @ 18:38 by Elisha Rasmussen RN) Hx of cholecystectomy Anesthesia History of ankle surgery (~1976) History of cataract removal with insertion of prosthetic lens (~2017) 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 Family History Father Stroke Mother Diabetes mellitus Brother History of heart disease Stroke Social History household members: spouse Smoking Status: Never smoker alcohol intake: current Discharge Assessment & Plan Assessment and Plan Assessment: 88-year-old male with chronic AFib on warfarin, cor pulmonale, dementia, osteopenia, compression fracture of lumbar spine admitted for chest pain. Plan of Treatment: #chest pain Acute onset earlier today, resolved s/p ASA, nitroglycerin, morphine by EMS en route to ER. Asymptomatic, initial ischemic workup unremarkable. Nuclear stress test normal. Stable for discharge home with outpatient follow-up. #AFib on warfarin Rate controlled throughout admission. -continue home atenolol, warfarin #cor pulmonale -continue home lasix #dementia -home donepezil, memantine #chronic back pain #compression fracture of lumbar spine -continue home duloxetine, gabapentin, hydrocodone Discharge Plan Discharge Plan Patient Disposition: Home Discharge orders & Medications Prescriptions: Continued donepezil 10 mg tablet 10 mg PO BEDTIME furosemide 20 mg tablet 20 mg PO DAILY duloxetine 60 mg capsule,delayed release(DR/EC) 60 mg PO DAILY Qty: 90 3RF hydrocodone-acetaminophen 5-325 mg tablet 1 tab PO BEDTIME PRN (Reason: pain) Qty: 30 0RF acetaminophen 325 mg tablet 650 mg PO Q6H PRN (Reason: pain) Qty: 360 0RF memantine 10 mg tablet 10 mg PO BID atorvastatin 10 mg tablet 10 mg PO DAILY Qty: 30 11RF gabapentin 300 mg capsule 300 mg PO BID Qty: 60 3RF finasteride 5 mg tablet 5 mg PO QDAY Qty: 90 1RF atenolol 25 mg tablet 37.5 mg PO BID Qty: 270 3RF warfarin 6 mg tablet See Rx Instructions PO DAILY Qty: 90 3RF Protocol: Dose Management Condition: Saturday Dose/Route: 6 mg Instruction: 1 x 6 mg tablet Condition: Saturday Dose/Route: 6 mg Instruction: 1 x 6 mg tablet Condition: Saturday Dose/Route: 3 mg Instruction: 0.5 x 6 mg tablets Condition: Saturday Dose/Route: 6 mg Instruction: 1 x 6 mg tablet Condition: Dose/Route: 3 mg Instruction: 0.5 x 6 mg tablets Condition: Saturday Dose/Route: 6 mg Instruction: 1 x 6 mg tablet Condition: Saturday Dose/Route: 3 mg Instruction: 0.5 x 6 mg tablets Protocol Text: Adjustment Start Date: 06/11/24 INR Value: 2.2 INR Date: 06/11/24 Recheck Date: 07/06/24 Rx Instructions: Take 1/2 tab (3mg) Tues, Sat and Sun. Take 1 tabs (6mg) total all other days; or as directed. ascorbic acid (vitamin C) 1,000 mg Tablet 500 mg PO DAILY calcium carbonate 500 mg Capsule 500 mg PO DAILY cholecalciferol (vitamin D3) 10 mcg (400 unit) Tablet,Chewable 10 mcg PO DAILY lutein 6 mg Tablet 6 mg PO QPM saw palmetto 450 mg Capsule 450 mg PO DAILY doxycycline monohydrate 100 mg tablet 100 mg PO BID Follow up/Referrals: Robles Sims MD [Primary Care Provider] - Diet/Activity/Treatments Diet: Regular Visit Report/Discharge Packet Instructions: How to Prevent Falls, DI for Chest Pain Stand Alone Forms: Patient Portal/API, Stroke Signs & Symptoms Discharge Data Primary Care Provider: Robles Sims Attending Provider: Robles Sims Admit Date/Time: 07/08/24 17:02 Discharges patient from system. Discharge Date/Time: 07/09/24 16:00 PROFEE Charge Codes Discharge inpatient/observation: [id number]
--- NOTE | 2024-07-09 15:53 | PC.NURSE ---
Day shift: Discharge instructions gone over with patient and patient's . All questions answered, they both stated understanding. PIV + tele removed prior to discharge. All belongings with patient. RICARDO Best escorted patient via wheelchair to exit.
--- NOTE | 2024-07-10 08:25 | CM.DPNOTE ---
Post Discharge Note Emailed the DC Summary to Meredith at [facility] . JW
== END 2024-07-09 16:00 | disposition home or self-care (01) ==
LOC: ED 16:00 → AC 17:03
PROVIDERS: Admitting Provider Family Medicine; Emergency Provider Emergency Medicine; Family Provider Family Medicine; PCP Family Medicine; Referring Provider Emergency Medicine; Visit Provider Family Medicine
DX: R07.9 Chest pain, unspecified (principal); I27.81 Cor pulmonale (chronic); F03.90 Unspecified dementia, unspecified severity, without behavioral disturbance, psychotic disturbance, mood disturbance, and anxiety; I48.20 Chronic atrial fibrillation, unspecified; Z79.01 Long term (current) use of anticoagulants; M48.56XA Collapsed vertebra, not elsewhere classified, lumbar region, initial encounter for fracture; M85.88 Other specified disorders of bone density and structure, other site
CPT/HCPCS: 36415; 71045; 78452; 80048; 80053; 82550; 84484; 85025; 85610; 85730; 93005; 93017; 93307; 99222; 99238; 99284; G0378; A9502; J2785

== ENCOUNTER → 2024-07-13 13:42 | Outpatient (CLI) | payer MEDICARE, SELFPAY ==
[2024-07-08 18:43] VITALS: BMI 19.2
== END ==
LOC: WC 13:43
PROVIDERS: Family Provider Family Medicine; PCP Family Medicine; Referring Provider Family Medicine; Visit Provider Surgery
DX: I87.2 Venous insufficiency (chronic) (peripheral) (principal); L97.312 Non-pressure chronic ulcer of right ankle with fat layer exposed; Z87.2 Personal history of diseases of the skin and subcutaneous tissue; L97.812 Non-pressure chronic ulcer of other part of right lower leg with fat layer exposed; M86.671 Other chronic osteomyelitis, right ankle and foot; Z79.01 Long term (current) use of anticoagulants; I89.0 Lymphedema, not elsewhere classified
CPT/HCPCS: 11042

== ENCOUNTER → 2024-07-20 15:10 | Outpatient (CLI) | payer MEDICARE, SELFPAY ==
[2024-07-08 18:43] VITALS: BMI 19.2
== END ==
LOC: WC 15:19
PROVIDERS: Family Provider Family Medicine; PCP Family Medicine; Referring Provider Family Medicine; Visit Provider Surgery
DX: I87.2 Venous insufficiency (chronic) (peripheral) (principal); L97.312 Non-pressure chronic ulcer of right ankle with fat layer exposed; L97.812 Non-pressure chronic ulcer of other part of right lower leg with fat layer exposed; M86.671 Other chronic osteomyelitis, right ankle and foot; I73.9 Peripheral vascular disease, unspecified; I89.0 Lymphedema, not elsewhere classified; Z79.01 Long term (current) use of anticoagulants
CPT/HCPCS: 11042; 99213

== ENCOUNTER → 2024-07-22 15:30 | Outpatient (CLI) | payer MEDICARE, SELFPAY ==
[2024-07-08 18:43] VITALS: BMI 19.2
== END ==
LOC: WC 15:31
PROVIDERS: Family Provider Family Medicine; PCP Family Medicine; Referring Provider Family Medicine; Visit Provider Surgery
DX: I87.2 Venous insufficiency (chronic) (peripheral) (principal); L97.312 Non-pressure chronic ulcer of right ankle with fat layer exposed; L97.812 Non-pressure chronic ulcer of other part of right lower leg with fat layer exposed; M86.671 Other chronic osteomyelitis, right ankle and foot; Z79.01 Long term (current) use of anticoagulants; I89.0 Lymphedema, not elsewhere classified
CPT/HCPCS: 29581; 99213

== ENCOUNTER → 2024-07-27 15:39 | Outpatient (CLI) | payer MEDICARE, SELFPAY ==
[2024-07-08 18:43] VITALS: BMI 19.2
== END ==
PROVIDERS: Family Provider Family Medicine; PCP Family Medicine; Referring Provider Family Medicine; Visit Provider Surgery
DX: I87.2 Venous insufficiency (chronic) (peripheral) (principal); L97.312 Non-pressure chronic ulcer of right ankle with fat layer exposed; L97.812 Non-pressure chronic ulcer of other part of right lower leg with fat layer exposed; M86.671 Other chronic osteomyelitis, right ankle and foot; I89.0 Lymphedema, not elsewhere classified; Z79.01 Long term (current) use of anticoagulants; I70.291 Other atherosclerosis of native arteries of extremities, right leg
CPT/HCPCS: 11042

== ENCOUNTER → 2024-08-10 13:41 | Outpatient (CLI) | payer MEDICARE, SELFPAY ==
[2024-07-08 18:43] VITALS: BMI 19.2
== END ==
PROVIDERS: Family Provider Family Medicine; PCP Family Medicine; Referring Provider Family Medicine; Visit Provider Surgery
DX: I87.2 Venous insufficiency (chronic) (peripheral) (principal); L97.312 Non-pressure chronic ulcer of right ankle with fat layer exposed; L97.812 Non-pressure chronic ulcer of other part of right lower leg with fat layer exposed; L53.9 Erythematous condition, unspecified; I89.0 Lymphedema, not elsewhere classified; Z79.01 Long term (current) use of anticoagulants; M86.671 Other chronic osteomyelitis, right ankle and foot; I70.291 Other atherosclerosis of native arteries of extremities, right leg; L08.9 Local infection of the skin and subcutaneous tissue, unspecified; I73.9 Peripheral vascular disease, unspecified
CPT/HCPCS: 11042; 87070; 87075; 87077; 87147; 87186; 87205; 99213

== ENCOUNTER → 2024-08-17 15:38 | Outpatient (CLI) | payer MEDICARE, SELFPAY ==
[2024-07-08 18:43] VITALS: BMI 19.2
== END ==
LOC: WC 15:39
PROVIDERS: Family Provider Family Medicine; PCP Family Medicine; Referring Provider Family Medicine; Visit Provider Surgery
DX: I87.2 Venous insufficiency (chronic) (peripheral) (principal); L97.312 Non-pressure chronic ulcer of right ankle with fat layer exposed; L97.812 Non-pressure chronic ulcer of other part of right lower leg with fat layer exposed; M86.671 Other chronic osteomyelitis, right ankle and foot; I89.0 Lymphedema, not elsewhere classified; L53.9 Erythematous condition, unspecified; Z79.01 Long term (current) use of anticoagulants; I73.9 Peripheral vascular disease, unspecified; R60.0 Localized edema; R41.89 Other symptoms and signs involving cognitive functions and awareness
CPT/HCPCS: 11042; 99213

== ENCOUNTER → 2024-08-24 14:24 | Outpatient (CLI) | payer MEDICARE, SELFPAY ==
[2024-07-08 18:43] VITALS: BMI 19.2
== END ==
LOC: WC 14:25
PROVIDERS: Family Provider Family Medicine; PCP Family Medicine; Referring Provider Family Medicine; Visit Provider Surgery
DX: I87.2 Venous insufficiency (chronic) (peripheral) (principal); L97.312 Non-pressure chronic ulcer of right ankle with fat layer exposed; L97.812 Non-pressure chronic ulcer of other part of right lower leg with fat layer exposed; Z79.01 Long term (current) use of anticoagulants; M86.671 Other chronic osteomyelitis, right ankle and foot; I89.0 Lymphedema, not elsewhere classified; I73.9 Peripheral vascular disease, unspecified
CPT/HCPCS: 11042

== ENCOUNTER → 2024-08-31 15:54 | Outpatient (CLI) | payer MEDICARE, SELFPAY ==
[2024-07-08 18:43] VITALS: BMI 19.2
== END ==
LOC: WC 15:55
PROVIDERS: Family Provider Family Medicine; PCP Family Medicine; Referring Provider Family Medicine; Visit Provider Physician Assistant
DX: I87.2 Venous insufficiency (chronic) (peripheral) (principal); L97.812 Non-pressure chronic ulcer of other part of right lower leg with fat layer exposed; L97.312 Non-pressure chronic ulcer of right ankle with fat layer exposed; Z79.01 Long term (current) use of anticoagulants; M86.671 Other chronic osteomyelitis, right ankle and foot; I89.0 Lymphedema, not elsewhere classified
CPT/HCPCS: 11042; 99213

== ENCOUNTER → 2024-09-07 12:44 | Outpatient (CLI) | payer MEDICARE, SELFPAY ==
[2024-07-08 18:43] VITALS: BMI 19.2
[2024-09-01 16:35] VITALS: BMI 19.2
--- NOTE | 2024-09-07 12:45 | DI.RAD.S_ITS ---
PROCEDURE: XR DEXA AXIAL SKELETON INDICATIONS: chronic compression fx L4 COMPARISON: [facility], CR, XR DEXA AXIAL SKELETON, 07/13/2021, 15:12. FINDINGS: Lumbar Spine: Bone mineral density 1.1-0 g/cm2, T score 0.6, compared to -1.4. Left Femoral Neck: Bone mineral density 0.5-6 g/cm2, T score -2.9, compared to -1.3. Left Hip: Bone mineral density 0.716 g/cm2, T score -1.9, compared to -0.8. Fracture Risk Calculation (when applicable): 10-year fracture risk of a major osteoporotic fracture 34 percent and of a hip fracture 28 percent. 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 Follow-up guidelines as follows: Osteoporosis: Consider a repeat DEXA and Vertebral Fracture Assessment (VFA) exam in 2 years or sooner if medically necessary, to reassess this patient's status. Osteopenia: Consider a repeat DEXA in 2-3 years to reassess this patient's status, or if there is a new clinical indication. Normal: Consider a repeat DEXA in 5 years or sooner, or if there is a new clinical indication. All treatment decisions require clinical judgment and consideration of individual patient factors, including patient preferences, comorbidities, previous drug use, risk factors not captured in the FRAX model (e.g., frailty, falls, vitamin D deficiency, increased bone turnover, interval significant decline in bone density ) and possible under- or over-estimation of fracture risk by FRAX. In addition, the NOF Guide recommends that FDA-approved medical therapies be considered in postmenopausal women and men age >= 50 years with a: * Hip or vertebral (clinical or morphometric) fracture * T-score of <=-2.5 at the spine or hip * Ten-year fracture probability by FRAX of >= 3% for hip fracture or >=20% for major osteoporotic fracture. Dictated by: Stephanie Espinal M.D. on 09/07/2024 at 17:37 Approved by: Stephanie Espinal M.D. on 09/07/2024 at 17:38
== END ==
PROVIDERS: Family Provider Family Medicine; PCP Family Medicine; Referring Provider Family Medicine; Visit Provider Family Medicine
DX: M81.0 Age-related osteoporosis without current pathological fracture (principal); M85.89 Other specified disorders of bone density and structure, multiple sites; M48.56XA Collapsed vertebra, not elsewhere classified, lumbar region, initial encounter for fracture; M54.50 Low back pain, unspecified; G89.29 Other chronic pain; I87.2 Venous insufficiency (chronic) (peripheral); L97.312 Non-pressure chronic ulcer of right ankle with fat layer exposed; L97.812 Non-pressure chronic ulcer of other part of right lower leg with fat layer exposed; I89.0 Lymphedema, not elsewhere classified; Z79.01 Long term (current) use of anticoagulants; I73.9 Peripheral vascular disease, unspecified; M86.671 Other chronic osteomyelitis, right ankle and foot
CPT/HCPCS: 11042; 11045; 77080; 87070; 87077; 87147; 87186; 87205

== ENCOUNTER → 2024-09-07 15:08 | Outpatient (CLI) | payer MEDICARE, SELFPAY ==
[2024-09-01 16:35] VITALS: BMI 19.2
== END ==
PROVIDERS: Family Provider Family Medicine; PCP Family Medicine; Referring Provider Family Medicine; Visit Provider Surgery
DX: I87.2 Venous insufficiency (chronic) (peripheral) (principal); L97.312 Non-pressure chronic ulcer of right ankle with fat layer exposed; L97.812 Non-pressure chronic ulcer of other part of right lower leg with fat layer exposed; I89.0 Lymphedema, not elsewhere classified; Z79.01 Long term (current) use of anticoagulants; I73.9 Peripheral vascular disease, unspecified; M86.671 Other chronic osteomyelitis, right ankle and foot
CPT/HCPCS: 11042; 11045; 77080; 87070; 87075; 87077; 87147; 87186; 87205; 99213

== ENCOUNTER → 2024-09-14 16:08 | Outpatient (CLI) | payer MEDICARE, SELFPAY ==
[2024-09-01 16:35] VITALS: BMI 19.2
== END ==
PROVIDERS: Family Provider Family Medicine; PCP Family Medicine; Referring Provider Family Medicine; Visit Provider Surgery
DX: I87.2 Venous insufficiency (chronic) (peripheral) (principal); L97.312 Non-pressure chronic ulcer of right ankle with fat layer exposed; L97.812 Non-pressure chronic ulcer of other part of right lower leg with fat layer exposed; Z79.01 Long term (current) use of anticoagulants; M86.671 Other chronic osteomyelitis, right ankle and foot; I89.0 Lymphedema, not elsewhere classified
CPT/HCPCS: 11042; 11045; 99213

== ENCOUNTER → 2024-09-21 13:38 | Outpatient (CLI) | payer MEDICARE, SELFPAY ==
[2024-09-01 16:35] VITALS: BMI 19.2
== END ==
LOC: WC 13:39
PROVIDERS: Family Provider Family Medicine; PCP Family Medicine; Referring Provider Family Medicine; Visit Provider Surgery
DX: I87.2 Venous insufficiency (chronic) (peripheral) (principal); L97.312 Non-pressure chronic ulcer of right ankle with fat layer exposed; L97.812 Non-pressure chronic ulcer of other part of right lower leg with fat layer exposed; Z79.01 Long term (current) use of anticoagulants; M86.671 Other chronic osteomyelitis, right ankle and foot; I89.0 Lymphedema, not elsewhere classified; I70.291 Other atherosclerosis of native arteries of extremities, right leg; G31.84 Mild cognitive impairment of uncertain or unknown etiology
CPT/HCPCS: 11042; 11045

== ENCOUNTER → 2024-09-24 15:45 | Outpatient (CLI) | payer MEDICARE, SELFPAY ==
[2024-09-01 16:35] VITALS: BMI 19.2
== END ==
LOC: WC 15:46
PROVIDERS: Family Provider Family Medicine; PCP Family Medicine; Referring Provider Family Medicine; Visit Provider Nurse Practitioner Family
DX: I87.2 Venous insufficiency (chronic) (peripheral) (principal); L97.312 Non-pressure chronic ulcer of right ankle with fat layer exposed; L97.812 Non-pressure chronic ulcer of other part of right lower leg with fat layer exposed
CPT/HCPCS: 99213

== ENCOUNTER → 2024-09-29 13:43 | Outpatient (CLI) | payer MEDICARE, SELFPAY ==
[2024-09-01 16:35] VITALS: BMI 19.2
== END ==
LOC: WC 13:44
PROVIDERS: Family Provider Family Medicine; PCP Family Medicine; Referring Provider Family Medicine; Visit Provider Surgery
DX: L97.312 Non-pressure chronic ulcer of right ankle with fat layer exposed (principal); L97.812 Non-pressure chronic ulcer of other part of right lower leg with fat layer exposed; I87.2 Venous insufficiency (chronic) (peripheral); M86.671 Other chronic osteomyelitis, right ankle and foot; R60.0 Localized edema; Z74.09 Other reduced mobility
CPT/HCPCS: 11042

== ENCOUNTER → 2024-10-01 13:07 | Outpatient (CLI) | payer MEDICARE, SELFPAY ==
[2024-09-01 16:35] VITALS: BMI 19.2
== END ==
LOC: WC 13:08
PROVIDERS: Family Provider Family Medicine; PCP Family Medicine; Referring Provider Family Medicine; Visit Provider Surgery
DX: I87.2 Venous insufficiency (chronic) (peripheral) (principal); L97.812 Non-pressure chronic ulcer of other part of right lower leg with fat layer exposed; L97.312 Non-pressure chronic ulcer of right ankle with fat layer exposed; R60.0 Localized edema
CPT/HCPCS: 99213

== ENCOUNTER → 2024-10-06 12:46 | Outpatient (CLI) | payer MEDICARE, SELFPAY ==
[2024-09-01 16:35] VITALS: BMI 19.2
== END ==
LOC: WC 12:50
PROVIDERS: Family Provider Family Medicine; PCP Family Medicine; Referring Provider Family Medicine; Visit Provider Surgery
DX: I87.2 Venous insufficiency (chronic) (peripheral) (principal); L97.312 Non-pressure chronic ulcer of right ankle with fat layer exposed; L97.812 Non-pressure chronic ulcer of other part of right lower leg with fat layer exposed; M86.671 Other chronic osteomyelitis, right ankle and foot; I48.91 Unspecified atrial fibrillation; Z79.01 Long term (current) use of anticoagulants; I10 Essential (primary) hypertension; I73.9 Peripheral vascular disease, unspecified
CPT/HCPCS: 11042

== ENCOUNTER → 2024-11-03 10:44 | Outpatient (CLI) | payer MEDICARE, SELFPAY ==
[2024-09-01 16:35] VITALS: BMI 19.2
== END ==
PROVIDERS: PCP Family Medicine; Referring Provider Family Medicine; Visit Provider Surgery
DX: I87.2 Venous insufficiency (chronic) (peripheral) (principal); L97.312 Non-pressure chronic ulcer of right ankle with fat layer exposed; L97.812 Non-pressure chronic ulcer of other part of right lower leg with fat layer exposed; L81.8 Other specified disorders of pigmentation; L98.8 Other specified disorders of the skin and subcutaneous tissue; R23.4 Changes in skin texture; L90.8 Other atrophic disorders of skin
CPT/HCPCS: 29581

== ENCOUNTER → 2024-11-11 13:25 | Outpatient (CLI) | payer MEDICARE, SELFPAY ==
[2024-09-01 16:35] VITALS: BMI 19.2
== END ==
PROVIDERS: PCP Family Medicine; Referring Provider Family Medicine; Visit Provider Physician Assistant
DX: I87.2 Venous insufficiency (chronic) (peripheral) (principal); L97.312 Non-pressure chronic ulcer of right ankle with fat layer exposed; L97.812 Non-pressure chronic ulcer of other part of right lower leg with fat layer exposed; R23.4 Changes in skin texture; L98.8 Other specified disorders of the skin and subcutaneous tissue; L81.8 Other specified disorders of pigmentation; R60.0 Localized edema; R20.8 Other disturbances of skin sensation; Z99.89 Dependence on other enabling machines and devices; Z74.09 Other reduced mobility
CPT/HCPCS: 11042; 99213

== ENCOUNTER → 2024-11-16 13:16 | Outpatient (CLI) | payer MEDICARE, SELFPAY ==
[2024-09-01 16:35] VITALS: BMI 19.2
== END ==
LOC: WC 13:17
PROVIDERS: PCP Family Medicine; Referring Provider Family Medicine; Visit Provider Surgery
DX: I87.2 Venous insufficiency (chronic) (peripheral) (principal); L97.312 Non-pressure chronic ulcer of right ankle with fat layer exposed; L97.812 Non-pressure chronic ulcer of other part of right lower leg with fat layer exposed; R23.4 Changes in skin texture; L81.8 Other specified disorders of pigmentation; M86.671 Other chronic osteomyelitis, right ankle and foot; Z79.01 Long term (current) use of anticoagulants; Z99.89 Dependence on other enabling machines and devices; R41.9 Unspecified symptoms and signs involving cognitive functions and awareness
CPT/HCPCS: 11042

== ENCOUNTER → 2024-11-17 09:39 | Outpatient (CLI) | payer MEDICARE, SELFPAY ==
[2024-09-01 16:35] VITALS: BMI 19.2
== END ==
LOC: WC 09:40
PROVIDERS: PCP Family Medicine; Referring Provider Family Medicine; Visit Provider Surgery
DX: I87.2 Venous insufficiency (chronic) (peripheral) (principal); L97.812 Non-pressure chronic ulcer of other part of right lower leg with fat layer exposed; L97.312 Non-pressure chronic ulcer of right ankle with fat layer exposed; R23.4 Changes in skin texture; L81.8 Other specified disorders of pigmentation
CPT/HCPCS: 29581

== ENCOUNTER → 2024-11-18 12:36 | Outpatient (CLI) | payer MEDICARE, SELFPAY ==
[2024-09-01 16:35] VITALS: BMI 19.2
--- NOTE | 2024-11-18 12:39 | DI.RAD.S_ITS ---
PROCEDURE: XR SHOULDER RT MIN 2V INDICATIONS: Bilateral Shoulder Pain TECHNIQUE: Three views of the right shoulder were acquired. COMPARISON: None. 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 Superior subluxation the humeral head Soft tissues: No soft tissue swelling, calcification or mass. IMPRESSION: Superior subluxation of the humeral head is compatible chronic rotator cuff tear/impingement. Moderate acromioclavicular and glenohumeral degeneration. 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 on 11/19/2024 at 10:55 Approved by: Lauri Georges M.D. on 11/19/2024 at 10:56
--- NOTE | 2024-11-18 12:39 | DI.RAD.S_ITS ---
PROCEDURE: XR SHOULDER LT MIN 2V INDICATIONS: Bilateral Shoulder Pain TECHNIQUE: Three views of the shoulder were acquired. COMPARISON: None. FINDINGS: Bones: There are no osseous abnormalities. Acromioclavicular and glenohumeral joints: Corococlavicular articulation noted with enlargement of the conoid tubercle of the clavicle and the coracoid process. These form a articulation. Mild acromioclavicular and glenohumeral degeneration noted Soft tissues: No soft tissue swelling, calcification or mass. IMPRESSION: Coracoclavicular joint which shows moderate degeneration. Mild acromioclavicular and glenohumeral degeneration Dictated by: Lauri Georges M.D. on 11/19/2024 at 10:51 Approved by: Lauri Georges M.D. on 11/19/2024 at 10:55
== END ==
PROVIDERS: PCP Family Medicine; Referring Provider Family Medicine; Visit Provider Family Medicine
DX: S43.001A Unspecified subluxation of right shoulder joint, initial encounter (principal); M19.011 Primary osteoarthritis, right shoulder; M19.012 Primary osteoarthritis, left shoulder; M25.511 Pain in right shoulder; M25.512 Pain in left shoulder; S42.031S Displaced fracture of lateral end of right clavicle, sequela
CPT/HCPCS: 73030

== ENCOUNTER → 2024-11-23 13:25 | Outpatient (CLI) | payer MEDICARE, SELFPAY ==
[2024-09-01 16:35] VITALS: BMI 19.2
== END ==
LOC: WC 13:26
PROVIDERS: PCP Family Medicine; Referring Provider Family Medicine; Visit Provider Surgery
DX: I87.2 Venous insufficiency (chronic) (peripheral) (principal); L97.312 Non-pressure chronic ulcer of right ankle with fat layer exposed; L97.812 Non-pressure chronic ulcer of other part of right lower leg with fat layer exposed; M86.671 Other chronic osteomyelitis, right ankle and foot; L98.8 Other specified disorders of the skin and subcutaneous tissue; Z79.01 Long term (current) use of anticoagulants
CPT/HCPCS: 11042; 97597

== ENCOUNTER → 2024-11-30 13:05 | Outpatient (CLI) | payer MEDICARE, SELFPAY ==
[2024-09-01 16:35] VITALS: BMI 19.2
== END ==
LOC: WC 13:06
PROVIDERS: PCP Family Medicine; Referring Provider Family Medicine; Visit Provider Surgery
DX: I87.2 Venous insufficiency (chronic) (peripheral) (principal); L97.312 Non-pressure chronic ulcer of right ankle with fat layer exposed; L97.812 Non-pressure chronic ulcer of other part of right lower leg with fat layer exposed; Z79.01 Long term (current) use of anticoagulants; M86.671 Other chronic osteomyelitis, right ankle and foot; M81.8 Other osteoporosis without current pathological fracture; R23.4 Changes in skin texture; L90.8 Other atrophic disorders of skin; Z99.89 Dependence on other enabling machines and devices; R26.89 Other abnormalities of gait and mobility
CPT/HCPCS: 11042

== ENCOUNTER → 2024-12-07 13:54 | Outpatient (CLI) | payer MEDICARE, SELFPAY ==
[2024-09-01 16:35] VITALS: BMI 19.2
== END ==
LOC: WC 14:16
PROVIDERS: PCP Family Medicine; Referring Provider Family Medicine; Visit Provider Surgery
DX: I87.2 Venous insufficiency (chronic) (peripheral) (principal); M86.671 Other chronic osteomyelitis, right ankle and foot; L97.312 Non-pressure chronic ulcer of right ankle with fat layer exposed; L97.812 Non-pressure chronic ulcer of other part of right lower leg with fat layer exposed; L98.8 Other specified disorders of the skin and subcutaneous tissue; R60.0 Localized edema; Z79.01 Long term (current) use of anticoagulants
CPT/HCPCS: 11042; 99213

== ENCOUNTER → 2024-12-14 12:22 | Outpatient (CLI) | payer MEDICARE, SELFPAY ==
[2024-09-01 16:35] VITALS: BMI 19.2
== END ==
PROVIDERS: PCP Family Medicine; Referring Provider Family Medicine; Visit Provider Surgery
DX: I87.2 Venous insufficiency (chronic) (peripheral) (principal); L97.312 Non-pressure chronic ulcer of right ankle with fat layer exposed; L97.812 Non-pressure chronic ulcer of other part of right lower leg with fat layer exposed; M86.671 Other chronic osteomyelitis, right ankle and foot; L98.8 Other specified disorders of the skin and subcutaneous tissue; R60.0 Localized edema; Z79.01 Long term (current) use of anticoagulants
CPT/HCPCS: 11042

== ENCOUNTER → 2024-12-18 13:28 | Outpatient (CLI) | payer MEDICARE, SELFPAY ==
[2024-09-01 16:35] VITALS: BMI 19.2
--- NOTE | 2024-12-18 13:39 | DI.RAD.S_ITS ---
PROCEDURE: XR LUMBAR SPINE 4V INDICATIONS: BACK PAIN TECHNIQUE: 4 views of the lumbar spine were acquired. COMPARISON: [facility], , XR LUMBAR SPINE 2-3V, 05/06/2024, 16:04. FINDINGS: Compared to the prior exam there has been interval worsening of the decreased height, compression fracture of L4 vertebral body now with near vertebra plana appearance up to approximately 90 percent loss of height. Associated new marked kyphotic angulation at L3-4. Moderate diffuse osteopenia, moderate degenerative changes throughout the lumbar spine with disc space narrowing, osteophytes, facet osseous hypertrophic changes progressed. On the frontal image there is some leftward tilt may be artifact from positioning. Degenerative changes sacroiliac joints and hips partially imaged. IMPRESSION: Progressed compression fracture of L4 as discussed above with new kyphotic angulation L3-4. Degenerative changes. If symptoms persist or worsen, CT or MRI could be performed. Dictated by: Tristan Plasencia M.D. on 12/18/2024 at 14:38 Approved by: Tristan Plasencia M.D. on 12/18/2024 at 14:42
[2024-12-18 15:17] LABS: Hematocrit 39.5 % (41-53); Hemoglobin 13.2 g/dL (13.5-17.5); Mean Corpuscular HGB Conc 33.5 % (30-36); Mean Corpuscular Hemoglobin 31.7 PG (26-34); Mean Corpuscular Volume 94.6 fL (80-100); Platelet Count 219 X10^3/uL (150-400)
[2024-12-18 15:56] LABS: INR 2.3 (0.9-1.3); Prothrombin Time 25.3 SECONDS (9.4-12.5)
== END ==
LOC: LAB 13:35 → RAD 13:39
PROVIDERS: PCP Family Medicine; Referring Provider Family Medicine; Visit Provider Family Medicine
DX: M80.08XG Age-related osteoporosis with current pathological fracture, vertebra(e), subsequent encounter for fracture with delayed healing (principal); M54.50 Low back pain, unspecified; G89.29 Other chronic pain; Z79.01 Long term (current) use of anticoagulants
CPT/HCPCS: 36415; 72100; 85027; 85610

== ENCOUNTER → 2024-12-21 13:32 | Outpatient (CLI) | payer MEDICARE, SELFPAY ==
[2024-09-01 16:35] VITALS: BMI 19.2
== END ==
LOC: WC 14:16
PROVIDERS: PCP Family Medicine; Referring Provider Physician Assistant; Visit Provider Surgery
DX: I87.2 Venous insufficiency (chronic) (peripheral) (principal); L97.312 Non-pressure chronic ulcer of right ankle with fat layer exposed; L97.812 Non-pressure chronic ulcer of other part of right lower leg with fat layer exposed; L98.8 Other specified disorders of the skin and subcutaneous tissue; M86.671 Other chronic osteomyelitis, right ankle and foot; Z79.01 Long term (current) use of anticoagulants
CPT/HCPCS: 11042

== ENCOUNTER → 2024-12-28 14:07 | Outpatient (CLI) | payer MEDICARE, SELFPAY ==
[2024-09-01 16:35] VITALS: BMI 19.2
== END ==
LOC: WC 14:07
PROVIDERS: PCP Family Medicine; Referring Provider Family Medicine; Visit Provider Surgery
DX: I87.2 Venous insufficiency (chronic) (peripheral) (principal); I89.0 Lymphedema, not elsewhere classified; L97.312 Non-pressure chronic ulcer of right ankle with fat layer exposed; L97.812 Non-pressure chronic ulcer of other part of right lower leg with fat layer exposed; M86.671 Other chronic osteomyelitis, right ankle and foot; L98.8 Other specified disorders of the skin and subcutaneous tissue; R60.0 Localized edema
CPT/HCPCS: 11042

== ENCOUNTER → 2025-01-04 14:00 | Outpatient (CLI) | payer MEDICARE, SELFPAY ==
[2024-09-01 16:35] VITALS: BMI 19.2
== END ==
LOC: WC 14:01
PROVIDERS: PCP Family Medicine; Referring Provider Family Medicine; Visit Provider Surgery
DX: L97.312 Non-pressure chronic ulcer of right ankle with fat layer exposed (principal); L97.812 Non-pressure chronic ulcer of other part of right lower leg with fat layer exposed; I87.2 Venous insufficiency (chronic) (peripheral); R60.0 Localized edema
CPT/HCPCS: 29581

== ENCOUNTER → 2025-01-11 13:56 | Outpatient (CLI) | payer MEDICARE, SELFPAY ==
[2024-09-01 16:35] VITALS: BMI 19.2
== END ==
LOC: WC 13:56
PROVIDERS: PCP Family Medicine; Referring Provider Family Medicine; Visit Provider Surgery
DX: I87.2 Venous insufficiency (chronic) (peripheral) (principal); L97.812 Non-pressure chronic ulcer of other part of right lower leg with fat layer exposed; L97.312 Non-pressure chronic ulcer of right ankle with fat layer exposed; M86.671 Other chronic osteomyelitis, right ankle and foot; I89.0 Lymphedema, not elsewhere classified; L98.8 Other specified disorders of the skin and subcutaneous tissue; Z79.01 Long term (current) use of anticoagulants
CPT/HCPCS: 11042; 97597; 99213

== ENCOUNTER → 2025-01-18 14:43 | Outpatient (CLI) | payer MEDICARE, SELFPAY ==
[2024-09-01 16:35] VITALS: BMI 19.2
== END ==
LOC: WC 14:44
PROVIDERS: PCP Family Medicine; Referring Provider Family Medicine; Visit Provider Surgery
DX: I87.2 Venous insufficiency (chronic) (peripheral) (principal); I89.0 Lymphedema, not elsewhere classified; L97.312 Non-pressure chronic ulcer of right ankle with fat layer exposed; L97.812 Non-pressure chronic ulcer of other part of right lower leg with fat layer exposed; I73.9 Peripheral vascular disease, unspecified; L98.8 Other specified disorders of the skin and subcutaneous tissue; R60.0 Localized edema; Z79.01 Long term (current) use of anticoagulants
CPT/HCPCS: 11042

== ENCOUNTER → 2025-01-25 13:14 | Outpatient (CLI) | payer MEDICARE, SELFPAY ==
[2024-09-01 16:35] VITALS: BMI 19.2
== END ==
LOC: WC 13:20
PROVIDERS: PCP Family Medicine; Referring Provider Family Medicine; Visit Provider Surgery
DX: I87.2 Venous insufficiency (chronic) (peripheral) (principal); L97.312 Non-pressure chronic ulcer of right ankle with fat layer exposed; L97.812 Non-pressure chronic ulcer of other part of right lower leg with fat layer exposed; L97.821 Non-pressure chronic ulcer of other part of left lower leg limited to breakdown of skin; M86.671 Other chronic osteomyelitis, right ankle and foot; Z79.01 Long term (current) use of anticoagulants; L98.8 Other specified disorders of the skin and subcutaneous tissue; R60.0 Localized edema
CPT/HCPCS: 11042; 97602; 99213

== ENCOUNTER 2025-01-28 13:57 | Emergency (ER) | payer MEDICARE, SELFPAY ==
[2024-09-01 16:35] VITALS: BMI 19.2
[2025-01-28 14:15] VITALS: BP 122/63; PULSE 65; RESP 16; TEMP 36.6; O2SAT 99; BMI 20.3
--- NOTE | 2025-01-28 16:22 | ED.WOUNDLAC ---
HPI - Wound/Laceration General Chief Complaint: Wound/Laceration Stated Complaint: Lower Left leg pain, 30 days Time Seen by Provider: 01/28/25 16:21 Source: patient Mode of arrival: Ambulatory History of Present Illness HPI narrative: This is a 89-year-old male presents to the emergency department due to left tibia pain. He has a chronic wound that he is followed by with the Wound Care but he states that he noticed some point tenderness earlier this morning and is concerned that a piece of ?metal got into her something?. Denies any fevers, discharge from the area, or any other concerning signs or symptoms. Related Data Home Medications ?Medication ?Instructions ?Recorded ?Confirmed ascorbic acid (vitamin C) 1,000 mg 500 mg PO DAILY 04/30/22 12/29/24 tablet calcium carbonate 500 mg capsule 500 mg PO DAILY 04/30/22 12/29/24 cholecalciferol (vitamin D3) 10 10 mcg PO DAILY 04/30/22 12/29/24 mcg (400 unit) chewable tablet lutein 6 mg tablet 6 mg PO QPM 04/30/22 12/29/24 saw palmetto 450 mg capsule 450 mg PO DAILY 04/30/22 12/29/24 donepezil 10 mg tablet 10 mg PO BEDTIME 03/20/23 12/29/24 memantine 10 mg tablet 10 mg PO BID 03/20/24 12/29/24 furosemide 20 mg tablet 20 mg PO DAILY 06/19/24 12/29/24 doxycycline monohydrate 100 mg 100 mg PO BID 07/08/24 12/29/24 tablet Previous Rx's ?Medication ?Instructions ?Recorded atenolol 25 mg tablet 37.5 mg (1.5 x 25 mg) PO BID #270 05/25/24 tabs duloxetine 60 mg capsule,delayed 60 mg PO DAILY #90 caps 06/19/24 release atorvastatin 10 mg tablet 10 mg PO DAILY #90 tabs 07/17/24 finasteride 5 mg tablet 5 mg PO QDAY #90 tabs 07/21/24 alendronate 10 mg tablet 10 mg PO QAM #30 tabs 10/13/24 warfarin 6 mg tablet See Rx Instructions PO DAILY #90 12/03/24 tabs calcitonin (salmon) 200 1 spray intranasal (ALT) DAILY 12/15/24 unit/actuation nasal spray sacral fx 3 months #3.7 mL Disabled Parking See Rx Instructions .Route 12/29/24 .COMPLEX #365 days acetaminophen 325 mg tablet 650 mg (2 x 325 mg) PO Q6H PRN 12/29/24 pain #360 tabs hydrocodone 5 mg-acetaminophen 325 1 tab PO BEDTIME PRN pain #28 tabs 12/29/24 mg tablet gabapentin 300 mg capsule 300 mg PO BID #60 caps 12/30/24 Allergies Allergy/AdvReac Type Severity Reaction Status Date / Time No Known Drug Allergies Allergy Verified 12/14/24 15:59 Review of Systems Review of Systems Narrative: GENERAL: Denies chills, fatigue, malaise, fever, sweats. HEENT: Denies sinus pain, ear pain, sore throat, difficulty swallowing, dizziness. RESPIRATORY: Denies dyspnea, cough, wheezing, hemoptysis, sputum. CARDIOVASCULAR: Denies chest pain, palpitations, orthopnea, edema, GASTROINTESTINAL: Denies nausea, vomiting, abdominal pain, diarrhea, constipation, melena. : Denies dysuria, frequency, incontinence, hematuria, urinary retention. MUSCULOSKELETAL: Left tibia pain denies weakness, joint pain, or bony pain SKIN: Denies rash, skin lesions, or other NEUROLOGIC: Denies weakness, headache, numbness, change in speech, confusion, seizures, incoordination. PSYCHIATRIC: No concerning psychosocial issues. 12 point review of systems is negative except for those stated above Patient History Medical History Acalculous cholecystitis Ankle pain (~2017) Anticoagulated on warfarin Chronic wound of extremity Closed L4 vertebral fracture Dizziness Fracture (~1974) Hearing loss Memory changes Osteopenia Skin cancer Tinnitus of both ears Unintentional weight loss Vertigo (~2019) Surgical History Anesthesia 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 History of ankle surgery (~1976) History of cataract removal with insertion of prosthetic lens (~2017) Hx of cholecystectomy Family History Father Stroke Mother Diabetes mellitus Brother History of heart disease Stroke Social History household members: spouse alcohol intake: current alcohol intake frequency: a few times a week Alcohol type: hard liquor Exam Narrative Exam Narrative: GENERAL: Well-developed patient, in mild distress. HEAD: Atraumatic. Normocephalic. EYES: Pupils equal round and reactive. Extraocular motions intact. No scleral icterus. No injection or drainage. ENT: Nose without bleeding, purulent drainage. Throat without erythema, tonsillar hypertrophy or exudate. Airway patent. NECK: Trachea midline. Non tender EXTREMITIES: No edema or joint tenderness. NEURO: AOx3. SKIN: 3 mm open wound to the left anterior tibia, remaining covered by bandage, no evidence of foreign bodies Initial Vital Signs Initial Vital Signs: Vital Signs Temperature 97.8 F 01/28/25 14:15 Pulse Rate 65 01/28/25 14:15 Respiratory Rate 16 01/28/25 14:15 Blood Pressure 122/63 01/28/25 14:15 Pulse Oximetry 99 01/28/25 14:15 Oxygen Delivery Method Room Air 01/28/25 14:15 Course Orders Ordered: ED Orders 01/28/25 16:30 XR tibia fibula LT 2V Stat Vital Signs Vital signs: Vital Signs - 8 hr 01/28/25 14:15 Temperature 97.8 F Pulse Rate 65 Respiratory Rate 16 Blood Pressure 122/63 Pulse Oximetry 99 Oxygen Delivery Method Room Air MDM - Wound/Laceration Imaging Data Extremity x-ray #1: Radiologist's Impression: [address] [address] XRay Report Signed Patient: Eric Salgado MR#: [id number] : 1935 Acct:[id number] Age/Sex: 89 / M Date of Service: 01/28/25 Loc: ED Accession Number: [id number] Procedure: XR tibia fibula LT 2V Ordering Provider: Karl Perry PA-C PROCEDURE: XR TIBIA FIBULA LT 2V INDICATIONS: L tibia wound, please evaluate for FB TECHNIQUE: 2 views of the tibia and fibula were acquired. COMPARISON: None. FINDINGS: Bones: No fractures or dislocations. No suspicious bony lesions. Age-appropriate bony degenerative changes are seen. Soft tissues: No suspicious soft tissue calcifications or masses. No radiopaque foreign bodies are seen. Atherosclerotic calcification is noted. IMPRESSION: No radiopaque foreign bodies are seen. Dictated by: Sal Kauffman M.D. on 01/28/2025 at 16:02 Approved by: Sal Kauffman M.D. on 01/28/2025 at 16:03 [facility] Narrative Medical decision making narrative: ED course: This is an 89-year-old male presents to the emergency department due to concerns for slightly worsening left anterior skinner pain. He has a chronic wound to the left skinner which was followed by wound care. He was complaining of some point tenderness and a very superficial abrasion and was concerned that there was a foreign body in there. On exam there was no foreign bodies but patient requested x-ray. X-ray showed no evidence of foreign bodies. Patient patient will follow up with the wound care. Patient states wrap was wrapped somewhat tightly and did report improvement of the pain once it was removed. CC: Left skinner pain Complicating co-morbidities: On warfarin Data collected from: Previous notes Medical records reviewed: Patient is on warfarin for AFib. History of chronic right lower extremity wounds. Followed by wound care.. Differential considered, but not limited to: Fracture, foreign body, osteomyelitis Exam documented above, pertinent findings include: Slight point tenderness to a very superficial abrasion to the left anterior skinner Lab Test results independently reviewed as above. Pertinent findings: None obtained Imaging studies independently reviewed: X-ray showed no foreign bodies or osteomyelitis Scores Used: None MIPS Elements: None Consultations: None Treatments: None Re-evaluations: None Discussion: Discussed plan with the patient was comfortable with the plan Diagnosis: Chronic wound Disposition: see below, along with detailed discharge instructions that have been reviewed with patient as well as indications for ED re-evaluation and additional outpatient follow up Discharge Plan Departure Patient Disposition: Home Clinical Impression: Chronic wound of extremity Activity Restrictions/Additional Instructions: Thank you for coming to the [facility] Emergency Department today. There was no evidence of foreign bodies or other abnormalities on the x-ray we took of your left skinner. Please follow up with your neonatal specialist for long-term management of these wounds. Please return to the emergency department if you develop any spreading redness around your skinner, purulent discharge, or any other concerning signs or symptoms. I hope you feel better soon. Please follow up with your primary care provider within a week if your symptoms continue. If you do not have a primary care provider please contact the [facility] Resource line at [phone]. They will ask some questions about your medical history and help you get set up with a provider in the community. Prescriptions: No Action donepezil 10 mg tablet 10 mg PO BEDTIME furosemide 20 mg tablet 20 mg PO DAILY duloxetine 60 mg capsule,delayed release(DR/EC) 60 mg PO DAILY Qty: 90 3RF atorvastatin 10 mg tablet 10 mg PO DAILY Qty: 90 3RF memantine 10 mg tablet 10 mg PO BID hydrocodone-acetaminophen 5-325 mg tablet 1 tab PO BEDTIME PRN (Reason: pain) Qty: 28 0RF acetaminophen 325 mg tablet 650 mg PO Q6H PRN (Reason: pain) Qty: 360 0RF Disabled Parking See Rx Instructions .ROUTE .COMPLEX Qty: 365 0RF Rx Instructions: I find this patient to be medically disabled and qualified for Disabled Parking as indicated and signed on the accompanying Disabled Parking Application for Individuals atenolol 25 mg tablet 37.5 mg PO BID Qty: 270 3RF finasteride 5 mg tablet 5 mg PO QDAY Qty: 90 1RF alendronate 10 mg tablet 10 mg PO QAM Qty: 30 5RF warfarin 6 mg tablet See Rx Instructions PO DAILY Qty: 90 3RF Protocol: Dose Management Condition: Saturday (Week One) Dose/Route: 3 mg Instruction: 0.5 x 6 mg tablets Condition: Saturday Dose/Route: 6 mg Instruction: 1 x 6 mg tablet Condition: Saturday Dose/Route: 3 mg Instruction: 0.5 x 6 mg tablets Condition: Saturday Dose/Route: 6 mg Instruction: 1 x 6 mg tablet Condition: Dose/Route: 6 mg Instruction: 1 x 6 mg tablet Condition: Saturday Dose/Route: 6 mg Instruction: 1 x 6 mg tablet Condition: Saturday Dose/Route: 3 mg Instruction: 0.5 x 6 mg tablets Condition: Saturday (Week Two) Dose/Route: 3 mg Instruction: 0.5 x 6 mg tablets Condition: Saturday Dose/Route: 6 mg Instruction: 1 x 6 mg tablet Condition: Saturday Dose/Route: 3 mg Instruction: 0.5 x 6 mg tablets Condition: Saturday Dose/Route: 6 mg Instruction: 1 x 6 mg tablet Condition: Dose/Route: 6 mg Instruction: 1 x 6 mg tablet Condition: Saturday Dose/Route: 6 mg Instruction: 1 x 6 mg tablet Condition: Saturday Dose/Route: 3 mg Instruction: 0.5 x 6 mg tablets Protocol Text: Adjustment Start Date: 01/28/25 INR Value: 2.0 INR Date: 01/28/25 Recheck Date: 02/11/25 Rx Instructions: Take 1/2 tab (3mg) Tues, Sat and Sun. Take 1 tabs (6mg) total all other days; or as directed. calcitonin (salmon) 200 unit/actuation spray,non-aerosol 1 spray intranasal (ALT) DAILY 90 Days Qty: 3.7 2RF Rx Instructions: sacral fx gabapentin 300 mg capsule 300 mg PO BID Qty: 60 3RF ascorbic acid (vitamin C) 1,000 mg Tablet 500 mg PO DAILY calcium carbonate 500 mg Capsule 500 mg PO DAILY cholecalciferol (vitamin D3) 10 mcg (400 unit) Tablet,Chewable 10 mcg PO DAILY lutein 6 mg Tablet 6 mg PO QPM saw palmetto 450 mg Capsule 450 mg PO DAILY doxycycline monohydrate 100 mg tablet 100 mg PO BID Referrals: Robles Sims MD [Primary Care Provider, Family Practice] Stand Alone Forms: Patient Portal/API
--- NOTE | 2025-01-28 16:30 | DI.RAD.S_ITS ---
PROCEDURE: XR TIBIA FIBULA LT 2V INDICATIONS: L tibia wound, please evaluate for FB TECHNIQUE: 2 views of the tibia and fibula were acquired. COMPARISON: None. FINDINGS: Bones: No fractures or dislocations. No suspicious bony lesions. Age- appropriate bony degenerative changes are seen. Soft tissues: No suspicious soft tissue calcifications or masses. No radiopaque foreign bodies are seen. Atherosclerotic calcification is noted. IMPRESSION: No radiopaque foreign bodies are seen. Dictated by: Sal Kauffman M.D. on 01/28/2025 at 16:02 Approved by: Sal Kauffman M.D. on 01/28/2025 at 16:03
[2025-01-28 17:41] VITALS: BP 118/58; PULSE 97; RESP 18; O2SAT 97
== END 2025-01-28 17:44 | disposition home or self-care (01) ==
PROVIDERS: Emergency Provider Physician Assistant Medical; PCP Family Medicine
DX: S80.812D Abrasion, left lower leg, subsequent encounter (principal); X58.XXXD Exposure to other specified factors, subsequent encounter
CPT/HCPCS: 73590; 99281; 99283

== ENCOUNTER → 2025-01-29 12:54 | Outpatient (ROUT) | payer MEDICARE, SELFPAY ==
[2024-09-01 16:35] VITALS: BMI 19.2
[2025-01-29 12:58] LABS: Appearance Urine UA CLEAR; Bilirubin Urine UA NEGATIVE (NEGATIVE); Color Urine UA YELLOW; Glucose Urine UA NEGATIVE (Negative); Ketones Urine UA NEGATIVE (NEGATIVE); Leukocyte Esterase Urine UA NEGATIVE (NEGATIVE); Nitrite Urine UA NEGATIVE (Negative); Occult Blood Urine UA NEGATIVE (Negative); Protein Urine UA NEGATIVE (Negative); Specific Gravity Urine UA 1.020 (1.000-1.035); Urobilinogen Urine UA 1.0 E.U./dL (0.2); pH Urine UA 6.0 (4.5-8.0)
[2025-01-29 13:04] LABS: Culture Indicated Urine Cult Not Indicated
== END ==
PROVIDERS: PCP Family Medicine; Visit Provider Family Medicine
DX: R41.0 Disorientation, unspecified (principal); R39.15 Urgency of urination
CPT/HCPCS: 81001

== ENCOUNTER → 2025-02-01 14:57 | Outpatient (CLI) | payer MEDICARE, SELFPAY ==
[2024-09-01 16:35] VITALS: BMI 19.2
== END ==
LOC: WC 14:57
PROVIDERS: PCP Family Medicine; Referring Provider Family Medicine; Visit Provider Surgery
DX: I87.2 Venous insufficiency (chronic) (peripheral) (principal); L97.312 Non-pressure chronic ulcer of right ankle with fat layer exposed; L97.822 Non-pressure chronic ulcer of other part of left lower leg with fat layer exposed; Z79.01 Long term (current) use of anticoagulants; L98.8 Other specified disorders of the skin and subcutaneous tissue
CPT/HCPCS: 11042

== ENCOUNTER → 2025-02-08 14:11 | Outpatient (CLI) | payer MEDICARE, SELFPAY ==
[2024-09-01 16:35] VITALS: BMI 19.2
== END ==
LOC: WC 14:13
PROVIDERS: PCP Family Medicine; Referring Provider Family Medicine; Visit Provider Surgery
DX: I87.2 Venous insufficiency (chronic) (peripheral) (principal); L97.312 Non-pressure chronic ulcer of right ankle with fat layer exposed; L97.812 Non-pressure chronic ulcer of other part of right lower leg with fat layer exposed; L97.822 Non-pressure chronic ulcer of other part of left lower leg with fat layer exposed; M86.671 Other chronic osteomyelitis, right ankle and foot; L98.8 Other specified disorders of the skin and subcutaneous tissue; R60.0 Localized edema; I73.9 Peripheral vascular disease, unspecified
CPT/HCPCS: 11042; 99213

== ENCOUNTER → 2025-02-15 16:21 | Outpatient (CLI) | payer MEDICARE, SELFPAY ==
[2024-09-01 16:35] VITALS: BMI 19.2
== END ==
LOC: WC 16:21
PROVIDERS: PCP Family Medicine; Referring Provider Family Medicine; Visit Provider Surgery
DX: I87.2 Venous insufficiency (chronic) (peripheral) (principal); L97.312 Non-pressure chronic ulcer of right ankle with fat layer exposed; L97.812 Non-pressure chronic ulcer of other part of right lower leg with fat layer exposed; L97.822 Non-pressure chronic ulcer of other part of left lower leg with fat layer exposed; Z79.01 Long term (current) use of anticoagulants; M86.671 Other chronic osteomyelitis, right ankle and foot; R23.4 Changes in skin texture; L81.8 Other specified disorders of pigmentation; L90.8 Other atrophic disorders of skin; R60.0 Localized edema; I10 Essential (primary) hypertension; Z99.89 Dependence on other enabling machines and devices; Z74.09 Other reduced mobility
CPT/HCPCS: 11042; 11045; 99213

== ENCOUNTER → 2025-02-22 13:09 | Outpatient (CLI) | payer MEDICARE, SELFPAY ==
[2024-09-01 16:35] VITALS: BMI 19.2
== END ==
LOC: WC 13:09
PROVIDERS: PCP Family Medicine; Referring Provider Family Medicine; Visit Provider Surgery
DX: I87.2 Venous insufficiency (chronic) (peripheral) (principal); L97.312 Non-pressure chronic ulcer of right ankle with fat layer exposed; L97.812 Non-pressure chronic ulcer of other part of right lower leg with fat layer exposed; L97.822 Non-pressure chronic ulcer of other part of left lower leg with fat layer exposed; Z79.01 Long term (current) use of anticoagulants; L98.8 Other specified disorders of the skin and subcutaneous tissue; R60.0 Localized edema
CPT/HCPCS: 11042; 11045

== ENCOUNTER → 2025-03-01 13:51 | Outpatient (CLI) | payer MEDICARE, SELFPAY ==
[2024-09-01 16:35] VITALS: BMI 19.2
== END ==
LOC: WC 13:51
PROVIDERS: PCP Family Medicine; Referring Provider Family Medicine; Visit Provider Surgery
DX: I87.2 Venous insufficiency (chronic) (peripheral) (principal); L97.312 Non-pressure chronic ulcer of right ankle with fat layer exposed; L97.812 Non-pressure chronic ulcer of other part of right lower leg with fat layer exposed; M86.671 Other chronic osteomyelitis, right ankle and foot; L97.822 Non-pressure chronic ulcer of other part of left lower leg with fat layer exposed; Z79.01 Long term (current) use of anticoagulants; L98.8 Other specified disorders of the skin and subcutaneous tissue
CPT/HCPCS: 11042

== ENCOUNTER → 2025-03-08 16:23 | Outpatient (CLI) | payer MEDICARE, SELFPAY ==
[2024-09-01 16:35] VITALS: BMI 19.2
== END ==
LOC: WC 16:23
PROVIDERS: PCP Family Medicine; Referring Provider Family Medicine; Visit Provider Surgery
DX: I87.2 Venous insufficiency (chronic) (peripheral) (principal); L97.312 Non-pressure chronic ulcer of right ankle with fat layer exposed; L97.812 Non-pressure chronic ulcer of other part of right lower leg with fat layer exposed; L97.822 Non-pressure chronic ulcer of other part of left lower leg with fat layer exposed; M86.671 Other chronic osteomyelitis, right ankle and foot; Z79.01 Long term (current) use of anticoagulants; L98.8 Other specified disorders of the skin and subcutaneous tissue; I73.9 Peripheral vascular disease, unspecified
CPT/HCPCS: 11042; 99213